=== PATIENT | male | born 1945 | race Caucasian/White ===

== ENCOUNTER 2017-06-10 06:20 | Emergency (ER) | payer MEDICARE, OTHER ==
[~2017-06-10] VITALS: Ht 170.2 cm; Wt 102.1 kg
[~2017-06-10 06:20] MED LIST: ACYCLOVIR800 MG PO; ALL DAY ALLERGY10 MG PO; ALLOPURINOL300 MG PO; AMLODIPINE BESYL5 MG PO; ASPIRIN EC81 MG PO; CENTRAVITES TA1 EACH PO; CHLORTHALIDONE25 MG PO; CLOBETASOL EMOL15 GM TOP; DAPSONE25 MG PO; DEXAMETHASONE4 MG PO; DULERA 200 MCG/13 GM INH; DULOXETINE HCL30 MG PO; ELIQUIS5 MG PO; FLOVENT DISKUS50 MCG INH; GAZYVA1000 MG/40 IV; GLUCOSAMINE-CH1 EA16 PO; HALOBETASOL PRO15 G2; KEFLEX500 MG PO; LEVALBUTEROL TA15 GM; LEVAQUIN500 MG PO; LEVAQUIN750 MG PO; LORATADINE10 MG PO; LOSARTAN POTASS50 MG PO; OMEPRAZOLE20 MG PO; ONDANSETRON ODT8 MG PO; PERCOCET 7.5-31 EACH PO; PROCHLORPERAZIN10 MG; RITUXAN100 MG/10 IV; ROZEREM8 MG PO; SYMBICORT 16010.2 GM INH; [UNRECOGNIZED DRUG - OTHER] PO; [UNRECOGNIZED DRUG - OTHER] PO
[2017-06-10] MEDS ORDERED: AUGMENTIN 875-1 EACH PO (08:31)
[2017-06-12] MEDS ORDERED: K-TAB ER20 MEQ PO (14:03)
== END 2017-06-10 08:45 | disposition home or self-care (01) ==
LOC: ED 06:20
PROC: 0W3Q7ZZ Control Bleeding in Respiratory Tract, Via Natural or Artificial Opening (ICD-10-PCS; principal; 2017-06-10)
DX: R04.0 Epistaxis (principal); D69.6 Thrombocytopenia, unspecified; Z85.72 Personal history of non-Hodgkin lymphomas; G62.9 Polyneuropathy, unspecified; Z87.891 Personal history of nicotine dependence; Z98.890 Other specified postprocedural states; Z79.899 Other long term (current) drug therapy; I10 Essential (primary) hypertension; Z79.52 Long term (current) use of systemic steroids
CPT/HCPCS: 30901; 71010; 80048; 80053; 82784; 83615; 85025; 86644; 86850; 86900; 86901; 86945; 99284; P9035

== ENCOUNTER 2017-07-29 11:41 | Emergency (ER) | payer MEDICARE, OTHER ==
[~2017-07-29] VITALS: Ht 170.2 cm; Wt 105.2 kg
--- OUTSIDE RECORDS SUMMARY | ~2017-07-29 | XMS | Encounter Summary ---
Demographics + + + | Address | [address] | | | [place] [address] | + + + | Home Phone | | + + + | Preferred Language | Unknown | + + + | Marital Status | | + + + | Roman Catholic Affiliation | LUT | + + + | Race | White | + + + | Ethnic Group | Not or | + + + Author + + + | Author | [facility] | + + + | Organization | [facility] | + + + | Address | Unknown | + + + | Phone | Unavailable | + + + Support +------+ + + + +-------+ | Name | Relationship | Address | Phone | +------+ + + + +-------+ ECON | [address] | | [place] | [address] | +------+ + + + +-------+ Care Team Providers + +------+-------+ | Care Director Business Development Name | Role | Phone | + +------+-------+ | Jamaal Rivera MD | PCP | tel | + +------+-------+ Reason for Visit +--------+ + | Reason | Comments | +--------+ + | Other | U/S guided biopsy of inguinal node | +--------+ + Encounter Details +--------+ + + + + | Date | Type | Department | Care Team | Description | +--------+ + + + + | 05/17/ | Telephone | Center for | Juana Morgan, | Other (U/S guided | | 2017 | | Hematologic | RN [address] | biopsy of inguinal | | | | Malignancies at | [address] | node) | | | | [facility] | [place], [place] | | | | | [address] | [address] | | | | | [facility] | [phone] | | | | | Mailcode: [id number] | | | | | | [facility] | | | | | | [place], [place] | | | | | | [address] | | | | | | [phone] | | | +--------+ + + + [...]
--- OUTSIDE RECORDS SUMMARY | ~2017-07-29 | XMS | Encounter Summary ---
Demographics + + + | Address | [address] | | | [place] [address] | + + + | Home Phone [...] Author + + + | Author | [facility] | + + + | Organization | [facility] | + + + | Address | Unknown | + + + | Phone | Unavailable | + + + Support +------+ + + + +-------+ | Name | Relationship | Address | Phone | +------+ + + + +-------+ ECON | [address] | | [place] | [address] | +------+ + + + +-------+ Care Team Providers + +------+-------+ | Care Hide Paster Name | Role | Phone | + +------+-------+ | Jamaal Rivera MD | PCP | tel | + +------+-------+ Encounter Details +--------+ + + + + | Date | Type | Department | Care Team | Description | +--------+ + + + + | 05/01/ | Mail Service Coordinator | Center for | Chad Lowe, | 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 | [address] | lymphoma, | | | | Malignancies at | [address] [place], [place] | unspecified body | | | | [place] | [address] | region ([facility]) | | | | [address] | [phone] | (Primary Dx) | | | | Amanda Bourgeois | | | | | | Mailcode: [id number] | | | | | | [address] | | | | | | [place], [place] | | | | | | [address] | | | | | | [phone] | | | +--------+ + + + [...] as of this encounter Plan of Treatment + +--------+ + + | Name | Priori | Associated Diagnoses | Order Schedule | | | ty | | | + +--------+ + + | 12 LEAD ECG | Routin | Diffuse large | Expected: 05/02/2017 | | | e | B-cell lymphoma, | (Approximate) | | | | unspecified body | | | | | region (HCC) | | + +--------+ + + as of this encounter Results JESSIKA RIVERA ONLY (05/02/2017 2:05 PM) + + + + | Component | Value | Ref Range | + + + + | COLOR(UR) | Yellow | | + + + + | APPEARANCE | Clear | | + + + + | GLUCOSE(UR) | Negative | Negative, 50.0 mg/dL | + + + + | PROTEIN(LAB) | Negative | Negative, 30.0 mg/dL | + + + + | BILIRUBIN | Negative | Negative | + + + + | UROBILINOGEN | <2.0 | <2.0 mg/dL | + + + + | PH(UR) | 5.0 | 5.0 - 8.0 | + + + + | BLOOD | Negative | Negative | + + + + | KETONES | Negative | Negative mg/dL | + + + + | NITRITES | Negative | Negative | + + + + | LEUKOCYTE ESTERASE | Trace (A) | Negative | + + + + | SPECIFIC GRAVITY | 1.010Comment: Specific Mercer performed by | 1.005 - 1.030 | | | refractometry | | + + + + + + + | Specimen | Performing Laboratory | + + + | Urine | [facility] [address] | | | [place] [address] | + + + FREE T4 (05/02/2017 8:10 AM) + +-------+ + | Component | Value | Ref Range | + +-------+ + | FREE T4 | 0.9 | 0.6 - 1.2 ng/dL | + +-------+ + + + + | Specimen | Performing Laboratory | + + + | Blood | [facility]ORE [address] [facility] [address] | | | [place] [address] | + + + T3 TOTAL, SERUM (05/02/2017 8:10 AM) + +-------+ + | Component | Value | Ref Range | + +-------+ + | T3, TOTAL | 114 | 87 - 196 ng/dL | + +-------+ + + + + | Specimen | Performing Laboratory | + + + | Blood | [facility] [address] [place], [place] | | | [address] | + + + IGA, SERUM (05/02/2017 8:10 AM) + +-------+ + | Component | Value | Ref Range | + +-------+ + | IGA SERUM | 264 | 70 - 400 mg/dL | + +-------+ + + + + | Specimen | Performing Laboratory | + + + | Blood | [facility] [address] [place], [place] | | | [address] | + + + IGG, SERUM (05/02/2017 8:10 AM) + +-------+ + | Component | Value | Ref Range | + +-------+ + | IGG SERUM | 928 | 700 - 1600 mg/dL | + +-------+ + + + + | Specimen | Performing Laboratory | + + + | Blood | [facility] [address] [place] [address] | | | [address] | + + + IGM, SERUM (05/02/2017 8:10 AM) + +--------+ + | Component | Value | Ref Range | + +--------+ + | IGM SERUM | 34 (L) | 40 - 230 mg/dL | + +--------+ + + + + | Specimen | Performing Laboratory | + + + | Blood | [facility] [place] [address] [place], [place] | | | [address] | + + + TSH (05/02/2017 8:10 AM) + +-------+ + | Component | Value | Ref Range | + +-------+ + | TSH | 1.87 | 0.47 - 7.11 mIU/L | + +-------+ + + + + | Specimen | Performing Laboratory | + + + | Blood | [facility] [address] [place] [address] | | | [place] [address] | + + + + + | Narrative | + + | TSH reference ranges are influenced by a variety of environmental influences, age, | | gender and ethnicity. The supplied reference limits are based on published values | | utilizing a similar TSH assay, and should be interpreted with caution. | + + C-REACTIVE PROTEIN (05/02/2017 8:10 AM) + +-------+ + | Component | Value | Ref Range | + +-------+ + | C-REACTIVE PROTEIN | 8.7 | <10.0 mg/L | + +-------+ + + + + | Specimen | Performing Laboratory | + + + | Blood | [facility] [address] [facility] [address] | | | [place] [address] | + + + + + | Narrative | + + | New method, new reference range and new reporting units as of 12/16/2013. | + + AMYLASE, PLASMA (05/02/2017 8:10 AM) + +-------+ + | Component | Value | Ref Range | + +-------+ + | AMYLASE,PLASMA | 25 | 25 - 115 U/L | + +-------+ + + + + | Specimen | Performing Laboratory | + + + | Blood | [facility], CORE [address] [facility] | | | [place] [address] | + + + LIPASE, PLASMA (05/02/2017 8:10 AM) + +---------+ + | Component | Value | Ref Range | + +---------+ + | LIPASE (LAB) | 108 (L) | 152 - 353 U/L | + +---------+ + + + + | Specimen | Performing Laboratory | + + + | Blood | [facility] [address] | | | [place] [address] | + + + in this encounter Visit Diagnoses + + | Diagnosis | + + | Diffuse large B-cell lymphoma, unspecified body region (HCC) - Primary | + +"
--- OUTSIDE RECORDS SUMMARY | ~2017-07-29 | XMS | Encounter Summary ---
Demographics + + + | Address | [address] | | | [place] [address] | + + + | Home Phone | | + + + | Preferred Language | Unknown | + + + | Marital Status | | + + + | Mormon Affiliation | LUT | + + + | Race | White | + + + | Ethnic Group | Not or | + + + Author + + + | Author | [facility] | + + + | Organization | [facility] | + + + | Address | Unknown | + + + | Phone | Unavailable | + + + Support +------+ + + + +-------+ | Name | Relationship | Address | Phone | +------+ + + + +-------+ ECON | [address] | | [place] | [address] | +------+ + + + +-------+ Care Team Providers + +------+-------+ | Care Javascript Application Developer Name | Role | Phone | + +------+-------+ | Jamaal Rivera MD | PCP | tel | + +------+-------+ Reason for Visit + + + | Reason | Comments | + + + | Research | | | Documentation | | + + + Encounter Details +--------+ + + + + | Date | Type | Department | Care Team | Description | +--------+ + + + + | 10/31/ | Documentati | Center for | Merry, Valeria, RN | Research | | 2017 | on | Hematologic | [address] | Documentation | | | | Malignancies at | [facility], | | | | | [facility] | [place] [address] | | | | | [address] | | | | | | [facility] | | | | | | Mailcode: [id number] | | | | | | [facility] | | | | | | [place], [place] | | | | | | [address] | | | | | | [phone] | | | +--------+ + + + [...]
--- OUTSIDE RECORDS SUMMARY | ~2017-07-29 | XMS | Encounter Summary ---
Demographics + + + | Address | [address] | | | [place] [address] | + + + | Home Phone | | + + + | Preferred Language | Unknown | + + + | Marital Status | | + + + | Confucianist Affiliation | LUT | + + + | Race | White | + + + | Ethnic Group | Not or | + + + Author + + + | Author | [facility] | + + + | Organization | [facility] | + + + | Address | Unknown | + + + | Phone | Unavailable | + + + Support +------+ + + + +-------+ | Name | Relationship | Address | Phone | +------+ + + + +-------+ ECON | [address] | | [place] | [address] | +------+ + + + +-------+ Care Team Providers + +------+-------+ | Care Chief Of Vital Statistics Name | Role | Phone | + +------+-------+ | Jamaal Rivera MD | PCP | tel | + +------+-------+ Reason for Visit + + + | Reason | Comments | + + + | Social Work Notes | | + + + Encounter Details +--------+ + + + + | Date | Type | Department | Care Team | Description | +--------+ + + + + | 05/29/ | Documentati | [facility] | Work, Social | Social Work Notes | | 2017 | on | Hematologic | | | | | | Malignancies at | | | | | | [place] | | | | | | [address] | | | | | | [facility] | | | | | | Mailcode: [id number] | | | | | | [address] | | | | | | [place], [place] | | | | | | [address] | | | | | | [phone] | | | +--------+ + + + [...]
--- OUTSIDE RECORDS SUMMARY | ~2017-07-29 | XMS | Encounter Summary ---
Demographics + + + | Address | [address] | | | [place] [address] | + + + | Home Phone | | + + + | Preferred Language | Unknown | + + + | Marital Status | | + + + | Amish Affiliation | LUT | + + + | Race | White | + + + | Ethnic Group | Not or | + + + Author + + + | Author | [facility] | + + + | Organization | [facility] | + + + | Address | Unknown | + + + | Phone | Unavailable | + + + Support +------+ + + + +-------+ | Name | Relationship | Address | Phone | +------+ + + + +-------+ ECON | [address] | | [place] | [address] | +------+ + + + +-------+ Care Team Providers + +------+-------+ | Care Communication Specialist Name | Role | Phone | + +------+-------+ | Jamaal Rivera MD | PCP | tel | + +------+-------+ Reason for Visit + + + | Reason | Comments | + + + | Research data | | | collection | | + + + Encounter Details +--------+ + + + + | Date | Type | Department | Care Team | Description | +--------+ + + + + | 05/15/ | Acupressurist | Center for | Chad Lowe, | 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 | MD [address] | lymphoma, | | | | Malignancies at | [address] [place], [place] | unspecified body | | | | [facility] | [address] | region (HCC) | | | | [address] | [phone] | (Primary Dx) | | | | [employer] [facility] | | | | | | Mailcode: [id number] | | | | | | [facility] | | | | | | [place], [place] | | | | | | [address] | | | | | | [phone] | | | +--------+ + + + [...] Treatment Not on fileas of this encounter Results RESEARCH TUMOR READING (05/14/2017) + + | Narrative | + + | Research Tumor Measurement Results 05/20/2017 Measurement Criteria: Cheson Baseline | | or Follow up: Follow Up Date: 05/14/2017 TARGET LESIONS # | | Target Lesions (Bi-dimensional): 5 LESION 1 NAME: Prevascular adenopathy | | Lesion 1 Size (mm) LD: 17 Lesion 1 Size (mm) SD: 16 Lesion 1 Series #: | | 1 Lesion 1 Image #: 43 Lesion 1 size product (SD x LD): 272 LESION 2 | | NAME: Inferior left paraesophageal adenopathy Lesion 2 Size (mm) LD: 16 | | Lesion 2 Size (mm) SD: 14 Lesion 2 Series #: 1 Lesion 2 Image #: 59 | | Lesion 2 size product (SD x LD): 224 LESION 3 NAME: Confluent mesenteric | | adenopathy Lesion 3 Size (mm) LD: 53 Lesion 3 Size (mm) SD: 32 | | Lesion 3 Series #: 1 Lesion 3 Image #: 140 Lesion 3 size product (SD x | | LD): 1696 LESION 4 NAME: Right inguinal adenopathy Lesion 4 Size (mm) | | LD: 46 Lesion 4 Size (mm) SD: 44 Lesion 4 Series #: 1 Lesion 4 | | Image #: 245 Lesion 4 size product (SD x LD): 2023 LESION 5 NAME: | | Superior left paraesophageal adenopathy Lesion 5 Size (mm) LD: 49 Lesion 5 | | Size (mm) SD: 44 Lesion 5 Series #: 1 Lesion 5 Image #: 42 Lesion 5 | | size product (SD x LD): 2156 NON-TARGET LESIONS # Non-Target | | Lesions: 0 NEW LESIONS New lesions? No | | SUMMARY Progression of Non-Target Lesions?: No Sum of Target Lesions | | bi-dimensional (mm): 6372 | + + in this encounter Visit Diagnoses + + | Diagnosis | + + | Diffuse large B-cell lymphoma, unspecified body region (HCC) - Primary | + +"
--- OUTSIDE RECORDS SUMMARY | ~2017-07-29 | XMS | Encounter Summary ---
Demographics + + + | Address | [address] | | | [place] [address] | + + + | Home Phone | | + + + | Preferred Language | Unknown | + + + | Marital Status | | + + + | Synagogue Affiliation | LUT | + + + [...] + + + +-------+ ECON | [address] | | [place] | [address] | +------+ + + + +-------+ Care Team Providers + +------+-------+ | Care Reject Opener And Filler Name | Role | Phone | + +------+-------+ | Jamaal Rivera MD | PCP | tel | + +------+-------+ Reason for Visit + + + | Reason | Comments | + + + | Research Study | | + + + Encounter Details +--------+ + + + + | Date | Type | Department | Care Team | Description | +--------+ + + + + | 05/29/ | Air Filler | Center for | Chad Lowe, | 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 | MD [address] | lymphoma of | | | | Malignancies at | [address] [place], [place] | intra-abdominal | | | | [facility] | [address] | lymph nodes (HCC) | | | | [address] | [phone] | (Primary Dx) | | | | [facility] | | | | | | Mailcode: [id number] | | | | | | [facility] | | | | | | [place], [place] | | | | | | [address] | | | | | | [phone] | | | +--------+ + + + [...] Not on fileas of this encounter Results 12 LEAD ECG (05/30/2017 11:24 AM) + + + + | Component | Value | Ref Range | + + + + | VENTRICULAR RATE | 82 | bpm | + + + + | ATRIAL RATE | 81 | ms | + + + + | P-R INTERVAL | 149 | ms | + + + + | P AXIS | 27 | deg | + + + + | QRS DURATION | 92 | ms | + + + + | QT | 389 | ms | + + + + | QTCB | 455 | ms | + + + + | R AXIS | -41 | deg | + + + + | T AXIS | 6 | deg | + + + + | ECG IMPRESSION | Sinus rhythm | | + + + + | ECG IMPRESSION | Atrial premature complex- OTHERWISE NORMAL | | | | ECG - | | + + + + | ECG IMPRESSION | Electronically signed by: JARROD RENE | | | | 05-31-2017 10:31:57 | | + + + + + + + | Specimen | Performing Laboratory | + + + | | [facility] [address] | | | [place] [address] | + + + JESSIKA RIVERA (05/30/2017 11:00 AM) + + + + | Component | Value | Ref Range | + + + + | COLOR(UR) | Straw | | + + + + | [...] + + + | SPECIFIC GRAVITY | 1.004 (L)Comment: Specific [place] | 1.005 - 1.030 | | | performed by refractometry | | + + + + + + + | Specimen | Performing Laboratory | + + + | Urine | [facility], CORE [address] [facility] | | | [place] [address] | + + + FREE T4 (05/30/2017 10:59 AM) + +-------+ + | Component | Value | Ref Range | + +-------+ + | FREE T4 | 1.0 | 0.6 - 1.2 ng/dL | + +-------+ + + + + | Specimen | Performing Laboratory | + + + | Blood | [facility], CORE [address] [place] [address] | | | [place] [address] | + + + T3 TOTAL, SERUM (05/30/2017 10:59 AM) + +-------+ + | Component | Value | Ref Range | + +-------+ + | T3, TOTAL | 114 | 87 - 196 ng/dL | + +-------+ + + + + | Specimen | Performing Laboratory | + + + | Blood | [facility] [address] [place], [place] | | | [address] | + + + PROTEIN C ACTIVITY REFLEX INR, PLASMA (05/30/2017 10:59 AM) + + + + | Component | Value | Ref Range | + + + + | PROTEIN C ACTIVITY | 0.69 (L) | 0.82 - 1.54 U/mL | + + + + + + + | Specimen | Performing Laboratory | + + + | Blood | [facility] + COAG [address] | | | [place] [address] | + + + + + | Narrative | + + | Non-coumarin anticoagulants may falsely elevate Protein C values, even when | | the concurrent PTT is normal. | + + LIPASE, PLASMA (05/30/2017 10:59 AM) + +--------+ + | Component | Value | Ref Range | + +--------+ + | LIPASE (LAB) | 97 (L) | 152 - 353 U/L | + +--------+ + + + + | Specimen | Performing Laboratory | + + + | Blood | [facility], CORE [address] [place] [address] | | | [place] [address] | + + + AMYLASE, PLASMA (05/30/2017 10:59 AM) + +--------+ + | Component | Value | Ref Range | + +--------+ + | AMYLASE,PLASMA | 23 (L) | 25 - 115 U/L | + +--------+ + + + + | Specimen | Performing Laboratory | + + + | Blood | [facility], [facility] [address] [facility] | | | [place] [address] | + + + TSH (05/30/2017 10:59 AM) + +-------+ + | Component | Value | Ref Range | + +-------+ + | TSH | 1.29 | 0.47 - 7.11 mIU/L | + +-------+ + + + + | Specimen | Performing Laboratory | + + + | Blood | [facility], [facility]ORE [address] [place] [address] | | | [place] [address] | + + + + + | Narrative | + + | TSH reference ranges are influenced by a variety of environmental influences, age, | | gender and ethnicity. The supplied reference limits are based on published values | | utilizing a similar TSH assay, and should be interpreted with caution. 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
--- OUTSIDE RECORDS SUMMARY | ~2017-07-29 | XMS | Encounter Summary ---
Demographics + + + | Address | [address] | | | [place] [address] | + + + | Home Phone | | + + + | Preferred Language | Unknown | + + + | Marital Status | | + + + | Druze Affiliation | LUT | + + + | Race | White | + + + | Ethnic Group | Not or | + + + Author + + + | Author | [facility] | + + + | Organization | [facility] | + + + | Address | Unknown | + + + | Phone | Unavailable | + + + Support +------+ + + + +-------+ | Name | Relationship | Address | Phone | +------+ + + + +-------+ ECON | [address] | | [place] | [address] | +------+ + + + +-------+ Care Team Providers + +------+-------+ | Care Gluer Machine Setup Operator Name | Role | Phone | [...] | | | | | [id number] | [facility] | | | | | | [facility] | | | | | | Pavilion | [place], [place] | | | | | | [place], [place] | [address] | | | | | | [address] | Phone: | | | | | | Phone: | [phone] | | | | | | [phone] | Fax: | | | | | | Fax: | [phone] | | | | | | [phone] | | +--------+--------+ + + + + Encounter Details +--------+---------+ + + + | Date | Type | Department | Care Team | Description | +--------+---------+ + + + | 05/30/ | Office | Center for | Dunia Joseph MD | Diffuse large B-cell | | 2017 | Visit | Hematologic | [address] [facility] | lymphoma of | | | | Malignancies at | [facility] | intra-abdominal | | | | [facility] | [place], [place] | lymph nodes (HCC) | | | | [address] [facility] | [address] | (Primary Dx) | | | | [address] | [phone] | | | | | Mailcode: [id number] | | | | | | [facility] | | | | | | [place], [place] | | | | | | [address] | | | | | | [phone] | | | +--------+---------+ + + + [...] urmila original. [facility] 05/30/17 Reason for visit: Consultation is requested by Dr. Chad Lowe, with whom recommendati ons will be [...] (discussed below). Patients must stay in the [place] area f or 30 days after the [...] and running. We are wo rking with [place] and are in the final stages of [...] a num emily of clinical trials in [place] that he can consider. 2. Infectious Prophylaxis: [...] discussion of treatment options. 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
--- OUTSIDE RECORDS SUMMARY | ~2017-07-29 | XMS | Encounter Summary ---
Demographics + + + | Address | [address] | | | [place] [address] | + + + | Home Phone | | + + + | Preferred Language | Unknown | + + + | Marital Status | | + + + | Mandaen Affiliation | LUT | + + + | Race | White | + + + | Ethnic Group | Not or | + + + Author + + + | Author | [facility] | + + + | Organization | [facility] | + + + | Address | Unknown | + + + | Phone | Unavailable | + + + Support +------+ + + + +-------+ | Name | Relationship | Address | Phone | +------+ + + + +-------+ ECON | [address] | | [place] | [address] | +------+ + + + +-------+ Care Team Providers + +------+-------+ | Care Tile Burner Name | Role | Phone | + +------+-------+ | Jamaal Rivera MD | PCP | tel | + +------+-------+ Encounter Details +--------+ + + + + | Date | Type | Department | Care Team | Description | +--------+ + + + + | 05/23/ | Postal Supervisor | Center for | Chad Lowe, | Dermatitis | | 2017 | | Hematologic | [address] | | | | | Malignancies at | [address] [place], [place] | | | | | [facility] | [address] | | | | | [address] | [phone] | | | | | [facility] | | | | | | Mailcode: [id number] | | | | | | [address] | | | | | | [place], [place] | | | | | | [address] | | | | | | [phone] | | | +--------+ + + + [...]
--- OUTSIDE RECORDS SUMMARY | ~2017-07-29 | XMS | Encounter Summary ---
Demographics + + + | Address | [address] | | | [place] [address] | + + + | Home Phone | | + + + | Preferred Language | Unknown | + + + | Marital Status | | + + + | Confucianist Affiliation | LUT | + + + | Race | White | + + + | Ethnic Group | Not or | + + + Author + + + | Author | [facility] | + + + | Organization | [facility] | + + + | Address | Unknown | + + + | Phone | Unavailable | + + + Support +------+ + + + +-------+ | Name | Relationship | Address | Phone | +------+ + + + +-------+ ECON | [address] | | [place] | [address] | +------+ + + + +-------+ Care Team Providers + +------+-------+ | Care Assisted Living Administrator Name | Role | Phone | + +------+-------+ | Jamaal Rivera MD | PCP | tel | + +------+-------+ Reason for Visit + + + | Reason | Comments | + + + | Lab Draw | Port, study labs and SOC and beacon | + + + | Chemotherapy | R-gdp | + + + | Follow-up visit | | + + + Chemotherapy (Routine) + +--------+ + + + + | Status | Reason | Specialty | Diagnoses / | Referred By | Referred To | | | | | Procedures | Contact | Contact | + +--------+ + + + + | Authorized | | Hematology | Diagnoses | Chm | Chrissy, | | | | Malignancy | Diffuse | [facility] | MD Chad | | | | | large B-cell | [address] | [address] | | | | | lymphoma, | [address] | [address] | | | | | unspecified | [address] | [place], [place] | | | | | site | Mailcode: | [id number] | | | | | Procedures | [id number] | Phone: | | | | | [place] RITUXIMAB | [facility] | [phone] | | | | | INJ, 100 MG | Pavilion | Fax: | | | | | SD | [place], [place] | [phone] | | | | | GEMCITABINE | [address] | | | | | | HCL, 200 MG | Phone: | | | | | | SD | [phone] | | | | | | DEXAMETHASON | Fax: | | | | | | E SODIUM | [phone] | | | | | | PHOSPHATE, | | | | | | | 1MG SD | | | | | | | CISPLATIN 10 | | | | | | | MG | | | | | | | INJECTION | | | | | | | SD CHM,IV | | | | | | | INFSN,1 HR | | | | | | | SD CHM,IV | | | | | | | INFSN,ADDL | | | | | | | HR SD CHM | | | | | | | IV INFS EA | | | | | | | ADDL SQ | | | | | | | (R-GDP) | | | | | | | RITUXimab + | | | | | | | Gemcitabine | | | | | | | + | | | | | | | Dexamethason | | | | | | | e + | | | | | | | CISplatin | | | + +--------+ + + + + Encounter Details +--------+ + + + + | Date | Type | Department | Care Team | Description | +--------+ + + + + | 05/30/ | Hospital | [facility] | | | | 2016 | Encounter | Hematologic | | | | | | Malign[facility] at [facility] | | | | | | [address] | | | | | | [facility] | | | | | | Mailcode: [id number] | | | | | | [address] | | | | | | [place], [place] | | | | | | [address] | | | | | | [phone] | | | +--------+ + + + [...] + + + | Blood Pressure | 136/88 | 05/30/2017 5:05 PM PST | + + + + | Pulse | 75 | 05/30/2017 5:05 PM PST | + + + + | Temperature | 36.4 C (97.5 F) | 05/30/2017 5:05 PM PST | + + + + | Respiratory Rate | 18 | 05/30/2017 5:05 PM PST | + + + + | [...] + + + + in this encounter Medications at Time of Discharge + + + +---------+ + + | Medication | Sig. | Disp. | Refills | Start | End Date | | | | | | Date | | + + + +---------+ + + | acyclovir 800 mg | Take 1 tablet by | 90 | 3 | 12/20/19 | | | oral | mouth once daily. | tablet | | 17 | | | tabletIndications: | | | | | | | DLBCL (diffuse large | | | | | | | B cell lymphoma) | | | | | | | (HCC) | | | | | | + + + +---------+ + + | allopurinol 300 mg | Take 1 tablet by | 30 | 0 | 05/24/20 | | | oral | mouth once daily. | tablet | | 17 | | | tabletIndications: | | | | | | | Diffuse large B-cell | | | | | | | lymphoma of | | | | | | | intra-abdominal | | | | | | | lymph nodes (HCC) | | | | | | + + + +---------+ + + | apixaban 5 mg oral | Take 2 tablets (10 | 120 | 3 | 05/15/20 | | | tabletIndications: | mg) by mouth twice a | tablet | | 17 | | | pulmonary | day for 7 days, | | | | | | thromboembolism | then take 1 tablet | | | | | | | (5 mg) twice a day. | | | | | | | Indications: | | | | | | | pulmonary | | | | | | | thromboembolism | | | | | + + + +---------+ + + | | Inhale 2 puffs by | 1 | 0 | 04/26/20 | | | budesonide-formotero | mouth two times | Inhaler | | 17 | | | l 160-4.5 | daily. Indications: | | | | | | mcg/actuation | Prevention of | | | | | | inhalation HFA | Bronchospasm with | | | | | | aerosol | Chronic Bronchitis | | | | | | inhalerIndications: | | | | | | | Prevention of | | | | | | | Bronchospasm with | | | | | | | Chronic Bronchitis | | | | | | + + + +---------+ + + | cetirizine 10 mg | Take 1 tablet by | 30 | 0 | 03/20/20 | | | oral tablet | mouth once daily. | tablet | | 17 | | + + + +---------+ + + | clobetasol 0.05 % | Apply to scalp twice | 50 mL | 2 | 01/18/20 | | | scalp solution | daily | | | 17 | | + + + +---------+ + + | clobetasol 0.05 % | Apply to affected | 15 g | 5 | 05/23/20 | | | topical ointment | area two times | | | 17 | | | | daily. | | | | | + + + +---------+ + + | dapsone 25 mg oral | Take 25 mg by mouth | | | 04/25/20 | | | tabletIndications: | two times daily. | | | 17 | | | dermatologic | Indications: skin | | | | | | | infection | | | | | + + + +---------+ + + | dexamethasone 4 mg | Take 10 tablets by | 30 | 0 | 05/30/20 | | | oral | mouth once daily On | tablet | | 17 | | | tabletIndications: | days 2-4 of the | | | | | | Diffuse Large B-Cell | cycle (05/31, 06/01, | | | | | | Lymphoma | 06/02) only. | | | | | + + + +---------+ + + | DULoxetine 30 mg | Take 1 capsule by | 30 | 3 | 03/25/20 | | | oral capsule,delayed | mouth once daily. 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 | | | | | | cations: Allergic | Indications: | | | | | | Rhinitis | Allergic Rhinitis | | | | | + + + +---------+ + + | halobetasol 0.05 % | Large pt with full | 250 g | 2 | 01/18/20 | | | topical ointment | body severe rash. | | | 17 | | | | 250 g for 30 day | | | | | | | supply. | | | | | + + + +---------+ + + | levalbuterol 45 | 1-2 puffs every 4-6 | 1 | 3 | 03/20/20 | | | mcg/actuation | hours as needed. | Inhaler | | 17 | | | inhalation HFA | Indications: | | | | | | aerosol | Bronchospasm | | | | | | inhalerIndications: | Prevention | | | | | | Bronchospasm | | | | | | | Prevention | | | | | | + + + +---------+ + + | omeprazole 40 mg | Take 20 mg by mouth | | | 03/20/20 | | | oral capsule,delayed | once daily. | | | 17 | | | | Indications: | | | | | | release(DR/EC)Indica | gastroesophageal | | | | | | tions: | reflux disease | | | | | | gastroesophageal | | | | | | | reflux disease | | | | | | + + + +---------+ + + | ondansetron 8 mg | as needed. | | | 03/19/20 | | | oral tablet | | | | 17 | | + + + +---------+ + + | predniSONE 20 mg | Take 1 tablet by | 10 | 2 | 03/21/20 | | | oral | mouth once daily. X | tablet | | 17 | | | tabletIndications: | 5 days Indications: | | | | | | hypersensitivity | hypersensitivity | | | | | | drug reaction | drug reaction | | | | | + + + +---------+ + + | prochlorperazine | Take 0.5 tablets by | 60 | 5 | 05/30/20 | | | 10 mg oral | mouth every six | tablet | | 17 | | | tabletIndications: | hours as needed for | | | | | | Nausea and Vomiting, | nausea/vomiting Take | | | | | | Prevention of | 5mg-10mg as needed. | | | | | | Chemotherapy-Induced | Max dose: 40 mg/day | | | | | | Nausea and Vomiting | | | | | | + + + +---------+ + + | ramelteon | Take 1 tablet by | 30 | 1 | 10/24/19 | | | (ROZEREM) 8 mg oral | mouth once daily at | tablet | | 17 | | | tabletIndications: | bedtime as needed | | | | | | Restless leg | for sleep. Take 30 | | | | | | | minutes before | | | | | | | bedtime. | | | | | | | Indications: | | | | | | | Restless leg | | | | | + + + +---------+ + + | triamcinolone | Apply to affected | 453.6 g | 11 | 05/23/20 | | | acetonide 0.1 % | area two times | | | 17 | | | topical | daily. Apply thin | | | | | | creamIndications: | film to affected | | | | | | Dermatitis | areas. | | | | | + + + +---------+ + + as of this encounter Progress Notes Deisy Azar RN - 05/30/2017 9:57 AM PSTPatient tolerated remaining infusion without incid ent. Port was flushed with 20 mL NS and 5 mL of 100 units/mL heparin. Needle was removed intact and site free of redness, pain or swelling. Site covered with a band-aid. Patient and r eport that they do have the after hours numbers. They were encouraged to call with uncontrol led N/V/D/C, SOB, shaking chills or temp > 100.4. Patient was d/c'd ambulatory with his . SIN Iglesias Jeannie, RN - 05/30/2017 9:57 AM PSTFormatting of this note may be different fro m the original. Chemotherapy Nurse Note Name: Hunter Alas Date: 05/30/2017 Physician: Chrissy Allergies: Hunter has No Known Allergies. Pre-Chemotherapy Pain Score: Patient reports a pain level of 0 today. Nursing Assessment: Fever: no; Diarrhea: no; SOB / Cough: no; Nausea / Vomiting: no; Anemia / Fatigue: yes - al ways; Constipation: no; Edema: yes - hands swollen, red, peeling; S/S Bleeding: no; Mucositi s: no; Urinary: no; Neuropathy: no; Rash: yes - undersides of arms, top of head, peeling abigail ls. Single lumen PAC intact to right anterior chest wall. No surrounding erythema or induratio n. Using sterile technique, site cleansed with Chloraprep. Port was accessed with a 20 gau ge 3/4 inch Power Loc batista needle without difficulty. Good blood return noted and 5 mL was discarded. Study labs, SOC and [place] labs drawn and sent. PAC flushed with 20 mL NS. Dwaine kolb tolerated procedure well. Labs: Lab Results Component Value Date WBC 6.4 05/30/2017 HB 14.0 05/30/2017 HCT 41.7 05/30/2017 PLT 185 05/30/2017 BUN 11 05/30/2017 CR 1.0 05/30/2017 OK to give For Treatment Done in Clinic Today: see MAR Narrative: Patient arrives with For INV Day 1 Cycle 1 R-GDP and study labs. He has an appointment with Dr. Richard concerning T-cells. Labs resulted and patient meets parameters for chemo. VO per Dr. Lowe/Ok to give. One liter NS given over one hour as pr-hydration. Tylenol 650 mg PO, 50 mg IV Benadryl, 8 m g IV Zofran, 40 mg IV Decadron and 150 mg IV Emend given Chemotherapy was checked by 2 RNs. Rituxan was infused per chemotherapy protocol and compl eted without adverse event. Positive blood return noted pre and post infusion. For infusio n details, see MAR. Chemotherapy was checked by 2 RNs. Gemcitibine was infused per chemotherapy protocol and c ompleted without adverse event. Positive blood return noted pre and post infusion. For inf usion details, see MAR. Chemotherapy was checked by 2 RNs. Cisplat was infused per chemotherapy protocol and compl eted without adverse event. Positive blood return noted pre and post infusion. For infusio n details, see MAR. Post-hydration One liter NS given at 500 mls/hour during the Cisplat (with OK of Rosalba, Ph arm-d) and then rate increased to 999ml/hour for the final 500 mls by Velvet VOGT who took over care at 1800. Assessment: Tolerated procedure IGG dated 05-16 on hold. Patient instructed to increase fluid intake and to void often in e next 24-48 hours. PAC flushed with 20 mL NS and 5 mL of 100 unit/mL heparin per protocol then deaccessed by Kameron Hansen RN in this encounter Plan of Treatment Not on fileas of this encounter Results CMP, POC (BMP+LFT) (05/30/2017 11:26 AM) + +-------+ + | Component | Value | Ref Range | + +-------+ + | SODIUM, POC | 137 | 134 - 143 mmol/L | + +-------+ + | POTASSIUM, POC | 4.0 | 3.4 - 5.0 mmol/L | + +-------+ + | TOTAL CO2, POC | 27 | 22 - 29 mmol/L | + +-------+ + | CHLORIDE, POC | 99 | 97 - 108 mmol/L | + +-------+ + | GLUCOSE, POC | 99 | 70 - 99 mg/dL | + +-------+ + | CALCIUM TOTAL, POC | 9.3 | 8.6 - 10.2 mg/dL | + +-------+ + | BUN, POC | 11 | 6 - 20 mg/dL | + +-------+ + | CREATININE, POC | 1.0 | 0.7 - 1.3 mg/dL | + +-------+ + | ALK PHOS, CMP POC | 50 | 43 - 92 U/L | + +-------+ + | ALT, CMP POC | 32 | 0 - 60 U/L | + +-------+ + | AST, CMP POC | 38 | 0 - 41 U/L | + +-------+ + | BILIRUBIN TOTAL, CMP | 0.9 | 0.3 - 1.2 mg/dL | | POC | | | + +-------+ + | ALBUMIN, CMP POC | 3.9 | 3.5 - 4.7 g/dL | + +-------+ + | PROTEIN TOTAL, CMP | 6.6 | 6.1 - 7.9 g/dL | | POC | | | + +-------+ + + + + | Specimen | Performing Laboratory | + + + | Blood | [facility], POINT OF CARE TESTS [address] | | | [place] [address] | + + + CBC+DIFF,POC (05/30/2017 11:25 AM) + + + + | Component | Value | Ref Range | + + + + | WBC POC | 6.4 | 3.5 - 10.8 10*3/uL | + + + + | RBC POC | 4.12 (L) | 4.50 - 6.00 10*6/uL | + + + + | HGB POC | 14.0 | 13.5 - 17.5 g/dL | + + + + | HCT POC | 41.7 | 41.0 - 53.0 % | + + + + | MCV POC | 101.2 (H) | 80.0 - 96.0 fL | + + + + | MCH POC | 34.0 (H) | 28.5 - 32.3 pg | + + + + | MCHC POC | 33.6 | 33.0 - 35.5 g/dL | + + + + | RDW SD, POC | 49.8 (H) | 35.1 - 46.3 fL | + + + + | PLT POC | 185 | 150 - 400 10*3/uL | + + + + | MPV POC | 9.9 | 9.7 - 12.3 fL | + + + + | NEUTROPHIL% POC | 65.0 | 50.0 - 70.0 % | + + + + | LYMPH% POC | 16.1 (L) | 18 - 42 % | + + + + | MONO %, POC | 14.3 (H) | 3.5 - 9.0 % | + + + + | EOS %, POC | 3.3 (H) | 1.0 - 3.0 % | + + + + | BASO %, POC | 1.3 | 0.0 - 2.0 % | + + + + | NEUTROPHIL# POC | 4.1 | 1.8 - 7.7 10*3/uL | + + + + | LYMPH# POC | 1.0 | 1.0 - 4.8 10*3/uL | + + + + | MONO #, POC | 0.9 (H) | 0.1 - 0.9 10*3/uL | + + + + | EOS #, POC | 0.2 | 0.0 - 0.5 10*3/uL | + + + + | BASO #, POC | 0.1 | 0.0 - 0.1 10*3/uL | + + + + + + + | Specimen | Performing Laboratory | + + + | Blood | [facility], POINT OF CARE TESTS [address] | | | [place] [address] | + + + 12 LEAD ECG (05/30/2017 11:24 AM) + [...] Laboratory | + + + | | [facility] [address] [place] [address] | | | [place] [address] | + + + LDH TOTAL (05/30/2017 11:00 AM) + + + | Specimen | Performing Laboratory | + + + | Blood | | + + + + + | Narrative | + + | The following orders were created for panel order LDH TOTAL. | | Procedure | | Abnormality Status | | --------- | | ------ LDH TOTAL, | | PLASMA[[id number]] Abnormal Final | | result Please view results for these tests on the | | individual orders. | + + MAGNESIUM, PLASMA (05/30/2017 11:00 AM) + + + | Specimen | Performing Laboratory | + + + | Blood | | + + + + + | Narrative | + + | The following orders were created for panel order MAGNESIUM, PLASMA. | | Procedure | | Abnormality Status | | --------- | | ------ MAGNESIUM, | | PLASMA[[id number]] Normal Final | | result Please view results for these tests on the | | individual orders. | + + LDH TOTAL, PLASMA (05/30/2017 11:00 AM) + +---------+ + | Component | Value | Ref Range | + +---------+ + | LD TOTAL, PLASMA | 254 (H) | <=250 U/L | + +---------+ + | LD CMNT | No Hemo | | + +---------+ + + + + | Specimen | Performing Laboratory | + + + | Blood | [facility], CORE [address] | | | [place], [place] [address] | + + + MAGNESIUM, PLASMA (05/30/2017 11:00 AM) + +-------+ + | Component | Value | Ref Range | + +-------+ + | MAGNESIUM,PLASMA | 2.2 | 1.6 - 2.6 mg/dL | + +-------+ + + + + | Specimen | Performing Laboratory | + + + | Blood | [facility], CORE [address] [place] [address] | | | [place] [address] | + + + + + | Narrative | + + | Reference range change effective 02/26/17. | + + UA, DIPSTICK ONLY (05/30/2017 11:00 AM) + + + + [...] | SPECIFIC GRAVITY | 1.004 (L)Comment: Specific [place] | 1.005 - 1.030 | | | performed by refractometry | | + + + + + + + | Specimen | Performing Laboratory | + + + | Urine | [facility], CORE [address] | | | [place] [address] | + + + INR (05/30/2017 10:59 AM) + + + + | Component | Value | Ref Range | + + + + | INR | 1.38 (H) | 0.90 - 1.20 INR | + + + + + + + | Specimen | Performing Laboratory | + + + | Blood | [facility], CORE [address] | | | [place] [address] | + + + + + | Narrative | + + | INR Therapeutic ranges for full anticoagulation: INR for Venous | | Thromboembolism (2.0 - 3.0) INR INR for most patients with | | mech. valves (2.5 - 3.5) INR | + + FREE T4 (05/30/2017 10:59 AM) + +-------+ + | Component | Value | Ref Range | + +-------+ + | FREE T4 | 1.0 | 0.6 - 1.2 ng/dL | + +-------+ + + + + | Specimen | Performing Laboratory | + + + | Blood | [facility], CORE [address] | | | [place], [place] [address] | + + + T3 TOTAL, SERUM (05/30/2017 10:59 AM) + +-------+ + | Component | Value | Ref Range | + +-------+ + | T3, TOTAL | 114 | 87 - 196 ng/dL | + +-------+ + + + + | Specimen | Performing Laboratory | + + + | Blood | [facility] [address] [place], [place] | | | [address] | + + + PROTEIN C ACTIVITY REFLEX INR, PLASMA (05/30/2017 10:59 AM) + + + + | Component | Value | Ref Range | + + + + | PROTEIN C ACTIVITY | 0.69 (L) | 0.82 - 1.54 U/mL | + + + + + + + | Specimen | Performing Laboratory | + + + | Blood | [facility], SPECIAL IMM + COAG [address] | | | [place] [address] | + + + + + | [...] | + + + | Blood | [facility], CORE [address] | | | [facility] [place] [place] [address] | + + + AMYLASE, PLASMA (05/30/2017 10:59 AM) + +--------+ + | Component | Value | Ref Range | + +--------+ + | AMYLASE,PLASMA | 23 (L) | 25 - 115 U/L | + +--------+ + + + + | Specimen | Performing Laboratory | + + + | Blood | [facility], CORE [address] [place] [address] | | | [place] [address] | + + + TSH (05/30/2017 10:59 AM) + +-------+ + | Component | Value | Ref Range | + +-------+ + | TSH | 1.29 | 0.47 - 7.11 mIU/L | + +-------+ + + + + | Specimen | Performing Laboratory | + + + | Blood | [facility], CORE [address] [place] [address] | | | [place] [address] | + + + + + | [...] 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) | + + | Other malignant lymphomas of intra-abdominal lymph nodes | + + | Diffuse large B-cell lymphoma, unspecified body region (HCC) | + + Administered Medications + +--------+ +--------+------+------+ | Medication Order | MAR | Action | Dose | Rate | Site | | | Action | Date | | | | + +--------+ +--------+------+------+ | acetaminophen (TYLENOL) tablet | Given | 05/30/20 | 650 mg | | | | 650 mg 650 mg, oral, ONCE, 1 | | 17 12:07 | | | | | dose, [facility] 05/30/17 at 1200 | | PST | | | | + +--------+ +--------+------+------+ +---+---+ | | | +---+---+ + +---------+ +--------+-------+---+ | CISplatin (PLATINOL) 75 mg/m2 = | New Bag | 05/30/20 | 170 mg | 500 | | | 170 mg in NaCl 0.9 % IV 170 mg | | 17 17:48 | | mL/hr | | | (rounded from 170.25 mg = 75 | | PST | | | | | mg/m2 | | | | | | | 2.27 m2 Treatment plan recorded | | | | | | | BSA), intravenous, Administer | | | | | | | over 1 Hours, ONCE, 1 dose, [facility] | | | | | | | 05/30/17 at 1230, HIGH RISK | | | | | | | MEDICATION-CHEMOTHERAPY | | | | | | | Warning: Vascular irritant, large | | | | | | | extravasation volumes or more | | | | | | | concentrated solutions (4 mg/mL) | | | | | | | may have vesicant activity. | | | | | | + +---------+ +--------+-------+---+ +---+---+ | | | +---+---+ + +---------+ +-------+---+---+ | dexamethasone (DECADRON) 40 mg | New Bag | 05/30/20 | 40 mg | | | | in NaCl 0.9 % IV 40 mg, | | 17 12:44 | | | | | intravenous, ONCE, 1 dose, [facility] | | PST | | | | | 05/30/17 at 1200 | | | | | | + +---------+ +-------+---+---+ +---+---+ | | | +---+---+ + +-------+ +-------+---+---+ | diphenhydrAMINE (BENADRYL) | Given | 05/30/20 | 50 mg | | | | injection 50 mg 50 mg, | | 17 12:07 | | | | | intravenous, ONCE, 1 dose, [facility] | | PST | | | | | 05/30/17 at 1200 | | | | | | + +-------+ +-------+---+---+ +---+---+ | | | +---+---+ + +---------+ +--------+-------+---+ | fosaprepitant (EMEND) 150 mg in | New Bag | 05/30/20 | 150 mg | 500 | | | NaCl 0.9 % IV 150 mg, | | 17 13:05 | | mL/hr | | | intravenous, Administer over 30 | | PST | | | | | Minutes, ONCE, 1 dose, [facility] | | | | | | | 05/30/17 at 1200, Administer 30 | | | | | | | minutes pre-chemo. | | | | | | + +---------+ +--------+-------+---+ +---+---+ | | | +---+---+ + +---------+ + +---------+---+ | gemcitabine 2,200 mg in NaCl | New Bag | 05/30/20 | 2,200 mg | 615.79 | | | 0.9 % IV 2,200 mg (rounded from | | 17 17:10 | | mL/hr | | | 2,270 mg = 1,000 mg/m2 | | PST | | | | | 2.27 m2 Treatment plan recorded | | | | | | | BSA), intravenous, Administer | | | | | | | over 30 Minutes, ONCE, 1 dose, | | | | | | | [facility] 05/30/17 at 1200, HIGH | | | | | | | ALERT MEDICATION-CHEMOTHERAPY | | | | | | | Irritant. May run 500 mL NS to | | | | | | | decrease vein discomfort. | | | | | | + +---------+ + +---------+---+ +---+---+ | | | +---+---+ + +-------+ +-------+---+---+ | heparin 100 unit/mL IV flush | Given | 05/30/20 | 500 | | | | 500 Units 500 Units, | | 17 17:49 | Units | | | | Intracatheter, NEEDED, | | PST | | | | | Starting [facility] 05/30/17 at 1728, | | | | | | | Until 05/31/17 at 0132, | | | | | | | deaccessing line/port | | | | | | + +-------+ +-------+---+---+ +-------+ +-------+---+---+ | Given | 05/30/20 | 500 | | | | | 17 19:20 | Units | | | | | PST | | | | +-------+ +-------+---+---+ +---+---+ | | | +---+---+ + +-------+ +------+---+---+ | ondansetron (ZOFRAN) injection | Given | 05/30/20 | 8 mg | | | | 8 mg 8 mg, intravenous, ONCE, 1 | | 17 12:12 | | | | | dose, [facility] 05/30/17 at 1200 | | PST | | | | + +-------+ +------+---+---+ +---+---+ | | | +---+---+ + +---------+ +--------+---+---+ | riTUXimab (RITUXAN) 900 mg in | New Bag | 05/30/20 | 900 mg | | | | NaCl 0.9 % IV (STANDARD) 900 mg, | | 17 13:40 | | | | | intravenous, ONCE, 1 dose, [facility] | | PST | | | | | 05/30/17 at 1200 | | | | | | + +---------+ +--------+---+---+ +---+---+ | | | +---+---+ + +---------+ + +---+---+ | sodium chloride 0.9% IV | New Bag | 05/30/20 | 1,000 mL | | | | infusion 1,000 mL, intravenous, | | 17 12:05 | | | | | ONCE, 1 dose, [facility] 05/30/17 at | | PST | | | | | 1200 | | | | | | + +---------+ + +---+---+ +---+---+ | | | +---+---+ + +---------+ + +-------+---+ | sodium chloride 0.9% IV | New Bag | 05/30/20 | 1,000 mL | 500 | | | infusion 1,000 mL, intravenous, | | 17 17:49 | | mL/hr | | | ONCE, 1 dose, [facility] 05/30/17 at | | PST | | | | | 1200 | | | | | | + +---------+ + +-------+---+ +---+---+ | | | +---+---+ in this encounter"
--- OUTSIDE RECORDS SUMMARY | ~2017-07-29 | XMS | Encounter Summary ---
Demographics + + + | Address | [address] | | | [place] [address] | + + + | Home Phone | | + + + | Preferred Language | Unknown | + + + | Marital Status | | + + + | Sikh Affiliation | LUT | + + + | Race | White | + + + | Ethnic Group | Not or | + + + Author + + + | Author | [facility] | + + + | Organization | [facility] | + + + | Address | Unknown | + + + | Phone | Unavailable | + + + Support +------+ + + + +-------+ | Name | Relationship | Address | Phone | +------+ + + + +-------+ ECON | [address] | | [place] | [address] | +------+ + + + +-------+ Care Team Providers + +------+-------+ | Care Financial Officer Name | Role | Phone | + +------+-------+ | Jamaal Rivera MD | PCP | tel | + +------+-------+ Reason for Referral Diagnostic Testing (Routine) +--------+--------+ + + + + | Status | Reason | Specialty | Diagnoses / | Referred By | Referred To | | | | | Procedures | Contact | Contact | +--------+--------+ + + + + | Closed | | Radiology | Diagnoses | Chrissy | [address] Scan | | | | | Diffuse | MD Chad | [facility] [address] | | | | | large B-cell | [address] | [address] | | | | | lymphoma, | [address] | Mailcode: | | | | | unspecified | [place], [place] | [address] | | | | | body region | [address] | for Health | | | | | (HCC) | Phone: | and Healing, | | | | | Procedures | [phone] | 3rd Floor | | | | | CT CHEST, | Fax: | [place], [place] | | | | | ABDOMEN AND | [phone] | [address] | | | | | PELVIS W IV | | Phone: | | | | | CONTRAST GA | | [phone] | | | | | CAT SCAN OF | | Fax: | | | | | CHEST | | [phone] | | | | | CONTRAST GA | | | | | | | CT | | | | | | | ABDOMEN&PELV | | | | | | | IS | | | | | | | W/CONTRAST | | | +--------+--------+ + + + + Diagnostic Testing (Routine) +--------+--------+ + + + + | Status | Reason | Specialty | Diagnoses / | Referred By | Referred To | | | | | Procedures | Contact | Contact | +--------+--------+ + + + + | Closed | | Radiology | Diagnoses | [place], | Rad Ct Scan | | | | | Diffuse | MD Chad | [address] | | | | | large B-cell | [address] | | | | | lymphoma, | [address] | Mailcode: | | | | | unspecified | [place], [place] | [facility] | | | | | body region | [address] | for Health | | | | | (HCC) | Phone: | and Healing, | | | | | Procedures | [phone] | 3rd Floor | | | | | CT CHEST, | Fax: | [place], [place] | | | | | ABDOMEN AND | [phone] | [address] | | | | | PELVIS W IV | | Phone: | | | | | CONTRAST GA | | [phone] | | | | | CAT SCAN OF | | Fax: | | | | | CHEST | | [phone] | | | | | CONTRAST GA | | | | | | | CT | | | | | | | ABDOMEN&PELV | | | | | | | IS | | | | | | | W/CONTRAST | | | +--------+--------+ + + + + Reason for Visit Diagnostic Testing (Routine) +--------+--------+ + + + + | Status | Reason | Specialty | Diagnoses / | Referred By | Referred To | | | | | Procedures | Contact | Contact | +--------+--------+ + + + + | Closed | | Radiology | Diagnoses | Chrissy, | Rad Ct Scan | | | | | Diffuse | MD Chad | [facility] [address] | | | | | large B-cell | [address] | | | | | lymphoma, | [address] | Mailcode: | | | | | unspecified | [place], [place] | [address] | | | | | body region | [address] | for Health | | | | | (HCC) | Phone: | and Healing, | | | | | Procedures | [phone] | 3rd Floor | | | | | CT CHEST, | Fax: | [place], [place] | | | | | ABDOMEN AND | [phone] | [address] | | | | | PELVIS W IV | | Phone: | | | | | CONTRAST GA | | [phone] | | | | | CAT SCAN OF | | Fax: | | | | | CHEST | | [phone] | | | | | CONTRAST GA | | | | | | | CT | | | | | | | ABDOMEN&PELV | | | | | | | IS | | | | | | | W/CONTRAST | | | +--------+--------+ + + + + Encounter Details +--------+ + + + + | Date | Type | Department | Care Team | Description | +--------+ + + + + | 05/14/ | Hospital | Diagnostic Imaging | Chad Lowe, | | | 2017 | Encounter | Services at [facility] | [address] | | | | | [address] | [place], [place] | | | | | [facility] | [address] | | | | | Mailcode: [id number] [facility] | [phone] | | | | | [facility], | | | | | | [place] [address] | | | | | | [phone] | | | +--------+ + + + [...] + + + as of this encounter Medications at Time of Discharge + + +---------+---------+ + + | Medication | Sig. | Disp. | Refills | Start | End Date | | | | | | Date | | + + +---------+---------+ + + | acyclovir 800 mg | [...] | | | | | + + +---------+---------+ + + | | Inhale 2 puffs [...] | | | | | + + +---------+---------+ + + | cetirizine 10 mg | Take 1 tablet by | 30 | 0 | 03/20/20 | | | oral tablet | mouth once daily. | tablet | | 17 | | + + +---------+---------+ + + | clobetasol 0.05 % | Apply to scalp twice | 50 mL | 2 | 01/18/20 | | | scalp solution | daily | | | 17 | | + + +---------+---------+ + + | dapsone 25 mg oral | Take 25 mg by mouth | | | 04/25/20 | | | tabletIndications: | two times daily. | | | 17 | | | dermatologic | Indications: skin | | | | | | | infection | | | | | + + +---------+---------+ + + | DULoxetine 30 mg | [...] | | | | | + + +---------+---------+ + + | fluticasone 50 | Instill 2 sprays | | | | | | mcg/actuation nasal | into each nostril | | | | | | spray,suspensionIndi | two times daily. | | | | | | cations: Allergic | Indications: | | | | | | Rhinitis | Allergic Rhinitis | | | | | + + +---------+---------+ + + | halobetasol 0.05 % | Large pt with full | 250 g | 2 | 01/18/20 | | | topical ointment | body severe rash. | | | 17 | | | | 250 g for 30 day | | | | | | | supply. | | | | | + + +---------+---------+ + + | levalbuterol 45 | 1-2 [...] | | | | | + + +---------+---------+ + + | omeprazole 40 mg | [...] | | | | | + + +---------+---------+ + + | ondansetron 8 mg | as needed. | | | 03/19/20 | | | oral tablet | | | | 17 | | + + +---------+---------+ + + | predniSONE 20 mg | [...] | | | | | + + +---------+---------+ + + | ramelteon | Take 1 [...] | | | | | + + +---------+---------+ + + as of this encounter Plan of Treatment Not on fileas of this encounter Results CT CHEST, ABDOMEN AND PELVIS W IV CONTRAST (05/14/2017 3:50 PM) + + + | Specimen | Performing Laboratory | + + + | | [facility] RADIOLOGY VOICE RECOGNITION | + + + + + | Narrative | + + | EXAM: CT of the chest, abdomen and pelvis with intravenous contrast. HISTORY: | | Lymphoma COMPARISON: None/07/31 TECHNIQUE: CT of the chest, abdomen and pelvis | | with 150 mL of Omnipaque 300 non-ionic intravenous contrast. Coronal and sagittal | | reformats were reviewed. FINDINGS: MEDIASTINUM: Posterior mediastinal mass | | identified measuring 5 0.5 x 4.9 cm, previously 3.9 x 3.5 cm (40/1); left hilar | | adenopathy measures 2.1 cm short axis, previously 2 cm (44/1). No new adenopathy | | identified. LUNGS: Interval development of new right pulmonary embolism (61/1) | | affecting the right main pulmonary artery and extending into the posterior, medial, and | | lateral basal segmental arteries. Lung parenchyma demonstrates mild tree in bud | | opacities, which are grossly stable at the lung bases and lingula. LIVER: Diffuse | | low-attenuation of the liver present, compatible with fatty infiltration. No focal mass | | lesion BILIARY: Unremarkable. SPLEEN: Unremarkable. PANCREAS: Unremarkable. | | ADRENALS: Unremarkable. KIDNEYS/URETERS: Unremarkable. PELVIC ORGANS/BLADDER: | | Unremarkable. GI TRACT: No evidence of small bowel obstruction. No focal mass | | lesion. Diverticulosis coli. Normal appendix. PERITONEUM: No free air or fluid. LYMPH | | NODES: Again identified is mesenteric adenopathy, with index lymph node measuring 5.2 x | | 3.5 cm, grossly stable from the previous examination (141/1); right inguinal adenopathy | | has increased in size, today measuring 4.6 x 4.4 cm, previously 3.2 x 2.8 cm; VESSELS: | | Unremarkable. BONES AND SOFT TISSUES: Degenerative changes noted throughout. No | | suspicious lytic or blastic lesion. IMPRESSION: Since 03/15/17, interval | | progression in mediastinal, mesenteric and inguinal adenopathy. New right lower lobe | | pulmonary embolism, acute. Stable tree in bud opacities, bilaterally. These results | | were discussed with Dr. Lowe at the time of dictation by Dr. Kimbrough. I | | have personally reviewed the images and, if necessary, edited the report. I agree | | with the report as now presented. | + + + + | Procedure Note | + + | Service Account, Radiant Res In Interface - 05/14/2017 4:51 PM PDT EXAM: CT of the | | chest, abdomen and pelvis with intravenous contrast.HISTORY: LymphomaCOMPARISON: | | None/07/31TECHNIQUE: CT of the chest, abdomen and pelvis with 150 mL of Omnipaque 300 | | non-ionic intravenous contrast. Coronal and sagittal reformats were | | reviewed.FINDINGS:MEDIASTINUM: Posterior mediastinal mass identified measuring 5 0.5 x | | 4.9 cm, previously 3.9 x 3.5 cm (40/1); left hilar adenopathy measures 2.1 cm short | | axis, previously 2 cm (44/1). No new adenopathy identified.LUNGS: Interval development | | of new right pulmonary embolism (61/1) affecting the right main pulmonary artery and | | extending into the posterior, medial, and lateral basal segmental arteries. Lung | | parenchyma demonstrates mild tree in bud opacities, which are grossly stable at the lung | | bases and lingula.LIVER: Diffuse low-attenuation of the liver present, compatible with | | fatty infiltration. No focal mass lesionBILIARY: Unremarkable.SPLEEN: | | Unremarkable.PANCREAS: Unremarkable.ADRENALS: Unremarkable.KIDNEYS/URETERS: | | Unremarkable.PELVIC ORGANS/BLADDER: Unremarkable.GI TRACT: No evidence of small bowel | | obstruction. No focal mass lesion. Diverticulosis coli. Normal appendix.PERITONEUM: No | | free air or fluid.LYMPH NODES: Again identified is mesenteric adenopathy, with index | | lymph node measuring 5.2 x 3.5 cm, grossly stable from the previous examination (141/1); | | right inguinal adenopathy has increased in size, today measuring 4.6 x 4.4 cm, | | previously 3.2 x 2.8 cm;VESSELS: Unremarkable.BONES AND SOFT TISSUES: Degenerative | | changes noted throughout. No suspicious lytic or blastic lesion.IMPRESSION: Since | | 03/15/17, interval progression in mediastinal, mesenteric and inguinal adenopathy.New | | right lower lobe pulmonary embolism, acute.Stable tree in bud opacities, | | bilaterally.These results were discussed with Dr. Lowe at the time of dictation by | | Dr. Kimbrough.I have personally reviewed the images and, if necessary, edited the | | report. I agree with the report as now presented. | |VESSELS: Unremarkable. | | | |BONES AND SOFT TISSUES: Degenerative changes noted throughout. No suspicious lytic or blast ic lesion. | | | | | |IMPRESSION: | | | |Since 03/15/17, interval progression in mediastinal, mesenteric and inguinal adenopathy. | |New right lower lobe pulmonary embolism, acute. | |Stable tree in bud opacities, bilaterally. | |These results were discussed with Dr. Lowe at the time of dictation by Dr. Kimbrough. | | | | | |I have personally reviewed the images and, if necessary, edited the report. I agree with t he report as now presented. | + + in this encounter Visit Diagnoses + + | Diagnosis | + + | Diffuse large B-cell lymphoma, unspecified body region (HCC) | + + Administered Medications + +--------+ +--------+------+------+ | Medication Order | MAR | Action | Dose | Rate | Site | | | Action | Date | | | | + +--------+ +--------+------+------+ | iohexol (OMNIPAQUE) 350 mg | Given | 05/14/20 | 125 mL | | | | iodine/mL injection 125 mL 125 | | 17 16:30 | | | | | mL, intravenous, ONCE, 1 dose, | | PDT | | | | | 05/14/17 at 1630 | | | | | | + +--------+ +--------+------+------+ +---+---+ | | | +---+---+ in this encounter"
--- OUTSIDE RECORDS SUMMARY | ~2017-07-29 | XMS | Encounter Summary ---
Demographics + + + | Address | [address] | | | [place] [address] | + + + | Home Phone | | + + + | Preferred Language | Unknown | + + + | Marital Status | | + + + | Religion Affiliation | LUT | + + + [...] + + + +-------+ ECON | [address] | | [place] | [address] | +------+ + + + +-------+ Care Team Providers + +------+-------+ | Care Hvac Engineer Name | Role | Phone | + +------+-------+ | Jamaal Rivera MD | PCP | tel | + +------+-------+ Encounter Details +--------+ + + + + | Date | Type | Department | Care Team | Description | +--------+ + + + + | 04/16/ | Procedure | Diagnostic Imaging | | | | 2017 | Pass | Services at [facility] | | | | | | [address] | | | | | | [facility] | | | | | | Mailcode: [id number] [facility] | | | | | | [facility], | | | | | | [place] [address] | | | | | | [phone] | | | +--------+ + + + [...]
--- OUTSIDE RECORDS SUMMARY | ~2017-07-29 | XMS | Encounter Summary ---
Demographics + + + | Address | [address] | | | [place] [address] | + + + | Home Phone | | + + + | Preferred Language | Unknown | + + + | Marital Status | | + + + | Alevism Affiliation | LUT | + + + | Race | White | + + + | Ethnic Group | Not or | + + + Author + + + | Author | [facility] | + + + | Organization | [facility] | + + + | Address | Unknown | + + + | Phone | Unavailable | + + + Support +------+ + + + +-------+ | Name | Relationship | Address | Phone | +------+ + + + +-------+ ECON | [address] | | [place] | [address] | +------+ + + + +-------+ Care Team Providers + +------+-------+ | Care Us Administrative Law Judge Name | Role | Phone | + +------+-------+ | Jamaal Rivera MD | PCP | tel | + +------+-------+ Encounter Details +--------+ + + + + | Date | Type | Department | Care Team | Description | +--------+ + + + + | 04/29/ | Curtain Stretcher Assembler | Center for | Simone Hernandez V, | | | 2017 | | Hematologic | MD [address] | | | | | Malignancies at | [address] | | | | | [place] | [place], [place] | | | | | [address] | [address] | | | | | [address] | [phone] | | | | | Mailcode: [id number] | | | | | | [address] | | | | | | [place], [place] | | | | | | [address] | | | | | | [phone] | | | +--------+ + + + [...]
--- OUTSIDE RECORDS SUMMARY | ~2017-07-29 | XMS | Encounter Summary ---
Demographics + + + | Address | [address] | | | [place] [address] | + + + | Home Phone | | + + + | Preferred Language | Unknown | + + + | Marital Status | | + + + | Islam Affiliation | LUT | + + + | Race | White | + + + | Ethnic Group | Not or | + + + Author + + + | Author | [facility] | + + + | Organization | [facility] | + + + | Address | Unknown | + + + | Phone | Unavailable | + + + Support +------+ + + + +-------+ | Name | Relationship | Address | Phone | +------+ + + + +-------+ ECON | [address] | | [place] | [address] | +------+ + + + +-------+ Care Team Providers + +------+-------+ | Care News Director Name | Role | Phone | + +------+-------+ | Jamaal Rivera MD | PCP | tel | + +------+-------+ Encounter Details +--------+ + + + + | Date | Type | Department | Care Team | Description | +--------+ + + + + | 06/21/ | MyChart | Cardiology General | | A message from your | | 2016 | Encounter | at [facility] [address] | | [employer]umb[employer] Instructor | | | | Cornel [place]oley Mailcode: | | | | | | CH[facility] | | | | | | Health and Healing, | | | | | | [address] [facility], | | | | | | [place] [address] | | | | | | [phone] | | | +--------+ + + + [...]
--- OUTSIDE RECORDS SUMMARY | ~2017-07-29 | XMS | Encounter Summary ---
Demographics + + + | Address | [address] | | | [place] [address] | + + + | Home Phone | | + + + | Preferred Language | Unknown | + + + | Marital Status | | + + + | Amish Affiliation | LUT | + + + | Race | White | + + + | Ethnic Group | Not or | + + + Author + + + | Author | [facility] | + + + | Organization | [facility] | + + + | Address | Unknown | + + + | Phone | Unavailable | + + + Support +------+ + + + +-------+ | Name | Relationship | Address | Phone | +------+ + + + +-------+ ECON | [address] | | [place] | [address] | +------+ + + + +-------+ Care Team Providers + +------+-------+ | Care Logistics Operations Manager Name | Role | Phone | + +------+-------+ | Jamaal Rivera MD | PCP | tel | + +------+-------+ Encounter Details +--------+ + + + + | Date | Type | Department | Care Team | Description | +--------+ + + + + | 05/30/ | Cane Cutter | Center for | Chad Lowe, | 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 | [address] | lymphoma of | | | | Malignancies at | [address] [place], [place] | intra-abdominal | | | | [facility] | [address] | lymph nodes (HCC) | | | | [address] | [phone] | (Primary Dx) | | | | [address] | | | | | | Mailcode: [id number] | | | | | | [facility] | | | | | | [place], [place] | | | | | | [address] | | | | | | [phone] | | | +--------+ + + + [...]
--- OUTSIDE RECORDS SUMMARY | ~2017-07-29 | XMS | Encounter Summary ---
Demographics + + + | Address | [address] | | | [place] [address] | + + + | Home Phone | | + + + | Preferred Language | Unknown | + + + | Marital Status | | + + + | Moravian Affiliation | LUT | + + + | Race | White | + + + | Ethnic Group | Not or | + + + Author + + + | Author | [facility] | + + + | Organization | [facility] | + + + | Address | Unknown | + + + | Phone | Unavailable | + + + Support +------+ + + + +-------+ | Name | Relationship | Address | Phone | +------+ + + + +-------+ ECON | [address] | | [place] | [address] | +------+ + + + +-------+ Care Team Providers + +------+-------+ | Care Matrix Inspector Name | Role | Phone | + [...] | +--------+ + + + + | 05/31/ | Documentati | [facility] | Work, Social | Social Work Notes | | 2017 | on | Hematologic | | | | | | Malignancies at | | | | | | [place] | | | | | | [address] | | | | | | [facility] | | | | | | Mailcode: [id number] | | | | | | [address] | | | | | | [place], [place] | | | | | | [address] | | | | | | [phone] | | | +--------+ + + + [...]
--- OUTSIDE RECORDS SUMMARY | ~2017-07-29 | XMS | Encounter Summary ---
Demographics + + + | Address | [address] | | | [place] [address] | + + + | Home Phone | | + + + | Preferred Language | Unknown | + + + | Marital Status | | + + + | Yarsanism Affiliation | LUT | + + + | Race | White | + + + | Ethnic Group | Not or | + + + Author + + + | Author | [facility] | + + + | Organization | [facility] | + + + | Address | Unknown | + + + | Phone | Unavailable | + + + Support +------+ + + + +-------+ | Name | Relationship | Address | Phone | +------+ + + + +-------+ ECON | [address] | | [place] | [address] | +------+ + + + +-------+ Care Team Providers + +------+-------+ | Care Marker Machine Name | Role | Phone | + +------+-------+ | Jamaal Rivera MD | PCP | tel | + +------+-------+ Reason for Referral Diagnostic Testing (Routine) + +--------+ + + + + | Status | Reason | Specialty | Diagnoses / | Referred By | Referred To | | | | | Procedures | Contact | Contact | + +--------+ + + + + | New Request | | Radiology | Diagnoses | Chrissy | | | | | | Diffuse | MD Chad | | | | | | large B-cell | [address] | | | | | | lymphoma, | [address] | | | | | | unspecified | [place], [place] | | | | | | body region | [address] | | | | | | (HCC) | Phone: | | | | | | Procedures | [phone] | | | | | | CT CHEST, | Fax: | | | | | | ABDOMEN AND | [phone] | | | | | | PELVIS W IV | | | | | | | CONTRAST | | | + +--------+ + + + + Reason for Visit + + + | Reason | Comments | + + + | Research data | | | collection | | + + + Encounter Details +--------+ + + + + | Date | Type | Department | Care Team | Description | +--------+ + + + + | 05/14/ | Legislative Aide | Center for | Chad Lowe, | 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 | MD [address] | lymphoma, | | | | Malignancies at | [address] [place], [place] | unspecified body | | | | [facility] | [address] | region (HCC) | | | | [address] | [phone] | (Primary Dx) | | | | 1[address] | | | | | | Mailcode: [id number] | | | | | | [address] | | | | | | [place], [place] | | | | | | [address] | | | | | | [phone] | | | +--------+ + + + [...] | | + +--------+ + + | CT CHEST, ABDOMEN AND PELVIS W IV | Routin | Diffuse large | Expected: | | CONTRAST | e | B-cell lymphoma, | 05/14/2017, Expires: | | | | unspecified body | 06/13/2018 | | | | region (HCC) | | + +--------+ + + as of this encounter Visit Diagnoses + + | Diagnosis | + + | Diffuse large B-cell lymphoma, unspecified body region (HCC) - Primary | + +"
--- OUTSIDE RECORDS SUMMARY | ~2017-07-29 | XMS | Encounter Summary ---
Demographics + + + | Address | [address] | | | [place] [address] | + + + | Home Phone | | + + + | Preferred Language | Unknown | + + + | Marital Status | | + + + | Buddhism Affiliation | LUT | + + + | Race | White | + + + | Ethnic Group | Not or | + + + Author + + + | Author | [facility] | + + + | Organization | [facility] | + + + | Address | Unknown | + + + | Phone | Unavailable | + + + Support +------+ + + + +-------+ | Name | Relationship | Address | Phone | +------+ + + + +-------+ ECON | [address] | | [place] | [address] | +------+ + + + +-------+ Care Team Providers + +------+-------+ | Care Customs Inspector Name | Role | Phone | + +------+-------+ | Jamaal Rivera MD | PCP | tel | + +------+-------+ Encounter Details +--------+ + + + + | Date | Type | Department | Care Team | Description | +--------+ + + + + | 04/16/ | Procedure | Diagnostic Imaging | | | | 2017 | Pass | Services at [facility] | | | | | | [address] | | | | | | [facility] | | | | | | Mailcode: [id number] [facility] | | | | | | [facility], | | | | | | [place] [address] | | | | | | [phone] | | | +--------+ + + + [...]
--- OUTSIDE RECORDS SUMMARY | ~2017-07-29 | XMS | Encounter Summary ---
Demographics + + + | Address | [address] | | | [place] [address] | + + + | Home Phone | | + + + | Preferred Language | Unknown | + + + | Marital Status | | + + + | Scientology Affiliation | LUT | + + + [...] + + +-------+ ECON | [address] | | [place] | [address] | +------+ + + + +-------+ Care Team Providers + +------+-------+ | Care Hvac Instructor Name | Role | Phone | + +------+-------+ | Jamaal Rivera MD | PCP | tel | + +------+-------+ Encounter Details +--------+ + + + + | Date | Type | Department | Care Team | Description | +--------+ + + + + | 04/28/ | Leather Crafter | Center for | Chda Lowe, | | | 2017 | | Hematologic | [address] | | | | | Malignancies at | [address] [place], [place] | | | | | [place] | [address] | | | | | [address] | [phone] | | | | | [place] | | | | | | Mailcode: [id number] | | | | | | [address] | | | | | | [place], [place] | | | | | | [address] | | | | | | [phone] | | | +--------+ + + + [...]
--- OUTSIDE RECORDS SUMMARY | ~2017-07-29 | XMS | Encounter Summary ---
Demographics + + + | Address | [address] | | | [place] [address] | + + + | Home Phone | | + + + | Preferred Language | Unknown | + + + | Marital Status | | + + + | Yazidi Affiliation | LUT | + + + [...] + + + +-------+ ECON | [address] | | [place] | [address] | +------+ + + + +-------+ Care Team Providers + +------+-------+ | Care Director Of Premium Seat Sales Name | Role | Phone | + +------+-------+ | Jamaal Rivera MD | PCP | tel | + +------+-------+ Encounter Details +--------+ + + + + | Date | Type | Department | Care Team | Description | +--------+ + + + + | 04/28/ | [facility] | [facility] | [facility], | | | 2017 | | Hematologic | [address] | | | | | Malignancies at | [address] [place], [place] | | | | | [place] | [address] | | | | | [address] | [phone] | | | | | [employer] | | | | | | Mailcode: [id number] | | | | | | [address] | | | | | | [place], [place] | | | | | | [address] | | | | | | [phone] | | | +--------+ + + + [...]
--- OUTSIDE RECORDS SUMMARY | ~2017-07-29 | XMS | Encounter Summary ---
Demographics + + + | Address | [address] | | | [place] [address] | + + + | Home Phone | | + + + | Preferred Language | Unknown | + + + | Marital Status | | + + + | Mandaen Affiliation | LUT | + + + | Race | White | + + + | Ethnic Group | Not or | + + + Author + + + | Author | [facility] | + + + | Organization | [facility] | + + + | Address | Unknown | + + + | Phone | Unavailable | + + + Support +------+ + + + +-------+ | Name | Relationship | Address | Phone | +------+ + + + +-------+ ECON | [address] | | [place] | [address] | +------+ + + + +-------+ Care Team Providers + +------+-------+ | Care Supervisor Dumping Name | Role | Phone | + [...] | +--------+ + + + + | 05/09/ | Software Intern | [facility] for | Chad Lowe, | 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 | MD [address] | lymphoma, | | | | Malignancies at | Ave [place], [place] | unspecified body | | | | [facility] | [address] | region (HCC) | | | | [address] | [phone] | (Primary Dx) | | | | [employer] | | | | | | Mailcode: [id number] | | | | | | [facility] | | | | | | [place], [place] | | | | | | [address] | | | | | | [phone] | | | +--------+ + + + [...] | Routin | Diffuse large | Expected: 05/14/2017 | | | e | B-cell lymphoma, | (Approximate) | | | | unspecified body | | | | | region (HCC) | | + +--------+ + + | UA, DIPSTICK ONLY | Routin | Diffuse large | Expected: 05/14/2017 | | | e | B-cell lymphoma, | (Approximate) | | | | unspecified body | | | | | region (HCC) | | + +--------+ + + as of this encounter Results COMPLEMENT ACTIVITY ENZYME IMMUNOASSAY, TOTAL (05/14/2017 7:45 AM) + + + + | Component | Value | Ref Range | + + + + | COMPLEMENT CH50, | 106Comment: INTERPRETIVE INFORMATION: | 60 - 144 Units | | TOTAL | Complement Activity, Total EIA 59 | | | | Units or less .......... | | | | Low 60-144 Units .............. | | | | Normal 145 Units or greater ....... | | | | HighPerformed by [place],[address] | | | | [address], [facility] [address] | | | | [phone].[employer], Graham Meza, | | | | , Lab. Director | | | |www[facility], Graham Meza MD, Lab. Director | | + + + + + + + | Specimen | Performing Laboratory | + + + | Blood | [facility] [address] [facility] | | | [place] [address] | + + + C'4 COMPLEMENT, SERUM (05/14/2017 7:45 AM) + +-------+ + | Component | Value | Ref Range | + +-------+ + | C'4 COMPLEMENT SERUM | 40 | 16 - 47 mg/dL | + +-------+ + + + + | Specimen | Performing Laboratory | + + + | Blood | [facility] [address] [place], [place] | | | [address] | + + + C'3 COMPLEMENT, SERUM (05/14/2017 7:45 AM) + +-------+ + | Component | Value | Ref Range | + +-------+ + | C'3 COMPLEMENT SERUM | 121 | 88 - 201 mg/dL | + +-------+ + + + + | Specimen | Performing Laboratory | + + + | Blood | [facility] [address] [place], [place] | | | [address] | + + + TROPONIN I, PLASMA (05/14/2017 7:45 AM) + +-------+ + | Component | Value | Ref Range | + +-------+ + | TROPONIN I | 0.02 | <0.80 ng/mL | + +-------+ + + + + | Specimen | Performing Laboratory | + + + | Blood | [facility] [address] | | | [place] [address] | + + + FREE T4 (05/14/2017 7:45 AM) + +-------+ + | Component | Value | Ref Range | + +-------+ + | FREE T4 | 1.0 | 0.6 - 1.2 ng/dL | + +-------+ + + + + | Specimen | Performing Laboratory | + + + | Blood | [facility] [address] | | | [place] [address] | + + + T3 TOTAL, SERUM (05/14/2017 7:45 AM) + +-------+ + | Component | Value | Ref Range | + +-------+ + | T3, TOTAL | 113 | 87 - 196 ng/dL | + +-------+ + + + + | Specimen | Performing Laboratory | + + + | Blood | [facility] [address] [place], [place] | | | [address] | + + + TSH (05/14/2017 7:45 AM) + +-------+ + | Component | Value | Ref Range | + +-------+ + | TSH | 2.22 | 0.47 - 7.11 mIU/L | + +-------+ + + + + | Specimen | Performing Laboratory | + + + | Blood | [facility] [address] | | | [place] [address] | + + + + + | Narrative | + + | TSH reference ranges are influenced by a variety of environmental influences, age, | | gender and ethnicity. The supplied reference limits are based on published values | | utilizing a similar TSH assay, and should be interpreted with caution. | + + PROTEIN C ACTIVITY REFLEX INR, PLASMA (05/14/2017 7:45 AM) + + + + | Component | Value | Ref Range | + + + + | PROTEIN C ACTIVITY | 0.76 (L) | 0.82 - 1.54 U/mL | + + + + + + + | Specimen | Performing Laboratory | + + + | Blood | [facility] SPECIAL IMM + COAG [address] [facility] | | | [place] [address] | + + + + + | Narrative | + + | Non-coumarin anticoagulants may falsely elevate Protein C values, even when | | the concurrent PTT is normal. | + + LIPASE, PLASMA (05/14/2017 7:45 AM) + +---------+ + | Component | Value | Ref Range | + +---------+ + | LIPASE (LAB) | 118 (L) | 152 - 353 U/L | + +---------+ + + + + | Specimen | Performing Laboratory | + + + | Blood | [facility] [address] [facility] | | | [place] [address] | + + + AMYLASE, PLASMA (05/14/2017 7:45 AM) + +--------+ + | Component | Value | Ref Range | + +--------+ + | AMYLASE,PLASMA | 23 (L) | 25 - 115 U/L | + +--------+ + + + + | Specimen | Performing Laboratory | + + + | Blood | [facility] [address] | | | [place] [address] | + + + in this encounter Visit Diagnoses + + | Diagnosis | + + | Diffuse large B-cell lymphoma, unspecified body region (HCC) - Primary | + +"
--- OUTSIDE RECORDS SUMMARY | ~2017-07-29 | XMS | Clinical Summary ---
Demographics + + + | Address | [address] | | | [place] [address] | + + + | Home Phone | | + + + | Preferred Language | Unknown | + + + | Marital Status | | + + + | Jainism Affiliation | LUT | + + + | Race | White | + + + | Ethnic Group | Not or | + + + Author + + + | Author | [facility] | + + + | Organization | [facility] | + + + | Address | Unknown | + + + | Phone | Unavailable | + + + Support +------+ + + + +-------+ | Name | Relationship | Address | Phone | +------+ + + + +-------+ ECON | [id number] | | [place] | [id number] | +------+ + + + +-------+ Care Team Providers + +------+-------+ | Care Content Development Manager Name | Role | Phone | + +------+-------+ | Jamaal Rivera MD | PP | tel | + +------+-------+ Source Comments RUFUS is fully live on both [facility] Ambulatory and [facility] InPatient.[facility] Allergies No Known Allergies Current Medications + + + +---------+------+------+-------+ | Prescription | Sig. | Disp. | Refills | Star | End | Statu | | | | | | t | Date | s | | | | | | Date | | | + + + +---------+------+------+-------+ | fluticasone 50 | Instill 2 sprays | | | | | Activ | | mcg/actuation nasal | into each nostril | | | | | e | | spray,suspensionIndi | two times daily. | | | | | | | cations: Allergic | Indications: | | | | | | | Rhinitis | Allergic Rhinitis | | | | | | + + + +---------+------+------+-------+ | ramelteon | Take 1 tablet by | 30 | 1 | 04/ | | Activ | | (ROZEREM) 8 mg oral | mouth once daily at | tablet | | 08/03 | | e | | tabletIndications: | bedtime as needed | | | 17 | | | | Restless leg | for sleep. Take 30 | | | | | | | | minutes before | | | | | | | | bedtime. | | | | | | | | Indications: | | | | | | | | Restless leg | | | | | | + + + +---------+------+------+-------+ | acyclovir 800 mg | Take 1 tablet by | 90 | 3 | 06/0 | | Activ | | oral | mouth once daily. | tablet | | 01/31 | | e | | tabletIndications: | | | | 17 | | | | DLBCL (diffuse large | | | | | | | | B cell lymphoma) | | | | | | | | ([facility]) | | | | | | | + + + +---------+------+------+-------+ | halobetasol 0.05 % | Large pt with full | 250 g | 2 | 07/0 | | Activ | | topical ointment | body severe rash. | | | 6/20 | | e | | | 250 g for 30 day | | | 17 | | | | | supply. | | | | | | + + + +---------+------+------+-------+ | clobetasol 0.05 % | Apply to scalp twice | 50 mL | 2 | 07/0 | | Activ | | scalp solution | daily | | | 6/20 | | e | | | | | | 17 | | | + + + +---------+------+------+-------+ | cetirizine 10 mg | Take 1 tablet by | 30 | 0 | 09/0 | | Activ | | oral tablet | mouth once daily. | tablet | | 6/20 | | e | | | | | | 17 | | | + + + +---------+------+------+-------+ | omeprazole 40 mg | Take 20 mg by mouth | | | 09/0 | | Activ | | oral capsule,delayed | once daily. | | | 6/20 | | e | | | Indications: | | | 17 | | | | release(DR/EC)Indica | gastroesophageal | | | | | | | tions: | reflux disease | | | | | | | gastroesophageal | | | | | | | | reflux disease | | | | | | | + + + +---------+------+------+-------+ | levalbuterol 45 | 1-2 puffs every 4-6 | 1 | 3 | 09/0 | | Activ | | mcg/actuation | hours as needed. | Inhaler | | 01/01 | | e | | inhalation HFA | Indications: | | | 17 | | | | aerosol | Bronchospasm | | | | | | | inhalerIndications: | Prevention | | | | | | | Bronchospasm | | | | | | | | Prevention | | | | | | | + + + +---------+------+------+-------+ | predniSONE 20 mg | Take 1 tablet by | 10 | 2 | 09/0 | | Activ | | oral | mouth once daily. X | tablet | | 01/31 | | e | | tabletIndications: | 5 days Indications: | | | 17 | | | | hypersensitivity | hypersensitivity | | | | | | | drug reaction | drug reaction | | | | | | + + + +---------+------+------+-------+ | DULoxetine 30 mg | Take 1 capsule by | 30 | 3 | 03/15 | | Activ | | oral capsule,delayed | mouth once daily. | capsule | | 08/03 | | e | | | | | | 17 | | | | release(DR/EC)Indica | | | | | | | | tions: Neuropathy | | | | | | | | due to | | | | | | | | chemotherapeutic | | | | | | | | drug (HCC) | | | | | | | + + + +---------+------+------+-------+ | ondansetron 8 mg | as needed. | | | 09/0 | | Activ | | oral tablet | | | | 12/01 | | e | | | | | | 17 | | | + + + +---------+------+------+-------+ | | Inhale 2 puffs by | 1 | 0 | 04/14 | | Activ | | budesonide-formotero | mouth two times | Inhaler | | 10/01 | | e | | l 160-4.5 | daily. Indications: | | | 17 | | | | mcg/actuation | Prevention of | | | | | | | inhalation HFA | Bronchospasm with | | | | | | | aerosol | Chronic Bronchitis | | | | | | | inhalerIndications: | | | | | | | | Prevention of | | | | | | | | Bronchospasm with | | | | | | | | Chronic Bronchitis | | | | | | | + + + +---------+------+------+-------+ | dapsone 25 mg oral | Take 25 mg by mouth | | | 10/1 | | Activ | | tabletIndications: | two times daily. | | | 2/20 | | e | | dermatologic | Indications: skin | | | 17 | | | | | infection | | | | | | + + + +---------+------+------+-------+ | apixaban 5 mg oral | Take 2 tablets (10 | 120 | 3 | 11/0 | | Activ | | tabletIndications: | mg) by mouth twice a | tablet | | 1/20 | | e | | pulmonary | day for 7 days, | | | 17 | | | | thromboembolism | then take 1 tablet | | | | | | | | (5 mg) twice a day. | | | | | | | | Indications: | | | | | | | | pulmonary | | | | | | | | thromboembolism | | | | | | + + + +---------+------+------+-------+ | clobetasol 0.05 % | Apply to affected | 15 g | 5 | 11/0 | | Activ | | topical ointment | area two times | | | 9/20 | | e | | | daily. | | | 17 | | | + + + +---------+------+------+-------+ | triamcinolone | Apply to affected | 453.6 g | 11 | 11/0 | | Activ | | acetonide 0.1 % | area two times | | | 9/20 | | e | | topical | daily. Apply thin | | | 17 | | | | creamIndications: | film to affected | | | | | | | Dermatitis | areas. | | | | | | + + + +---------+------+------+-------+ | allopurinol 300 mg | Take 1 tablet by | 30 | 0 | 11/1 | | Activ | | oral | mouth once daily. | tablet | | 0/20 | | e | | tabletIndications: | | | | 17 | | | | Diffuse large B-cell | | | | | | | | lymphoma of | | | | | | | | intra-abdominal | | | | | | | | lymph nodes (HCC) | | | | | | | + + + +---------+------+------+-------+ | prochlorperazine | Take 0.5 tablets by | 60 | 5 | 05/15 | | Activ | | 10 mg oral | mouth every six | tablet | | 01/01 | | e | | tabletIndications: | hours as needed for | | | 17 | | | | Nausea and Vomiting, | nausea/vomiting Take | | | | | | | Prevention of | 5mg-10mg as needed. | | | | | | | Chemotherapy-Induced | Max dose: 40 mg/day | | | | | | | Nausea and Vomiting | | | | | | | + + + +---------+------+------+-------+ | dexamethasone 4 mg | Take 10 tablets by | 30 | 0 | 05/15 | | Activ | | oral | mouth once daily On | tablet | | 01/01 | | e | | tabletIndications: | days 2-4 of the | | | 17 | | | | Diffuse Large B-Cell | cycle (05/31, 06/01, | | | | | | | Lymphoma | 06/02) only. | | | | | | + + + +---------+------+------+-------+ Active Problems + + + | Problem | Noted Date | + + + | KEYONNA RESEARCH PROTOCOL PATIENT (RESPRO) | 05/30/2017 | + + + + + | 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 | + + + | Obesity, Class II, BMI 35-39.9, with comorbidity | 06/24/2015 | + + + | DLBCL (diffuse large B cell lymphoma) (HCC) | 06/25/2014 | + + + | RYANNE on CPAP | | + + + | Hypertension | | + + + | Fatty infiltration of liver | | + + + Resolved Problems + + + + | Problem | Noted | Resolved | | | Date | Date | + + + + | Pneumonia of left lower lobe due to infectious organism (HCC) | 05/07/20 | | | | 16 | 7 | + + + + | Chewing tobacco use | 06/25/20 | | | | 15 | 6 | + + + + | Admission for antineoplastic chemotherapy | 06/24/20 | | | | 15 | 6 | + + + + | Cellulitis of right groin | 06/24/20 | | | | 15 | 6 | + + + + | Pneumonia of right lower lobe due to infectious organism (HCC) | | | | | | 6 | + + + + | Rhinovirus infection | | | | | | 7 | + + + + Encounters +--------+ + + + + | Date | Type | Specialty | Care Team | Description | +--------+ + + + + | 07/11/ | Office | | Chad Lowe, | Diffuse large B-cell | | 2016 | Visit | | MD | lymphoma of | | | | | | intra-abdominal | | | | | | lymph nodes (HCC) | | | | | | (Primary Dx) | +--------+ + + + + | 07/11/ | Hospital | | Chad Lowe, | | | 2016 | Encounter | | MD | | +--------+ + + + + | 07/11/ | Hospital | | Chad Lowe, | | | 2016 | Encounter | | MD | | +--------+ + + + + | 06/25/ | Culinary Manager | | Chad Lowe, | 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 lymph | | | | | | nodes of multiple | | | | | | regions (HCC) | | | | | | (Primary Dx) | +--------+ + + + + | 06/21/ | MyChart | | | A message from your | | 2017 | Encounter | | | Right Of Way Man | +--------+ + + + + | 06/20/ | Procedure | | | | | 2016 | Pass | | | | +--------+ + + + + | 06/20/ | Procedure | | | | | 2016 | Pass | | | | +--------+ + + + + | 06/20/ | Culinary Manager | | Chad Lowe, | 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 lymph | | | | | | nodes of multiple | | | | | | regions (HCC) | | | | | | (Primary Dx) | +--------+ + + + + | 06/13/ | Pharmacy | | | | | 2016 | Visit | | | | +--------+ + + + + | 06/13/ | Pharmacy | | | | | 2016 | Visit | | | | +--------+ + + + + | 05/31/ | Documentati | | Work, Social | Social Work Notes | | 2016 | on | | | | +--------+ + + + + | 05/30/ | Office | | Dunia Joseph MD | Diffuse large B-cell | | 2016 | Visit | | | lymphoma of | | | | | | intra-abdominal | | | | | | lymph nodes (HCC) | | | | | | (Primary Dx) | +--------+ + + + + | 05/30/ | Hospital | | | | | 2017 | Encounter | | | | +--------+ + + + + | 05/30/ | Culinary Manager | | Chad Lowe, | 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) | | | | | | (Primary Dx) | +--------+ + + + + | 05/29/ | Documentati | | Work, Social | Social Work Notes | | 2016 | on | | | | +--------+ + + + + | 05/29/ | Culinary Manager | | Chad Lowe, | 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) | | | | | | (Primary Dx) | +--------+ + + + + | 05/24/ | Telephone | | Juana Morgan, | Other (change in tx | | 2016 | | | RN | plan) | +--------+ + + + + | 05/24/ | Culinary Manager | | Chad Lowe, | 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) | | | | | | (Primary Dx) | +--------+ + + + + | 05/24/ | Culinary Manager | | Chad Lowe, | 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) | | | | | | (Primary Dx) | +--------+ + + + + | 05/24/ | Culinary Manager | | Chad Lowe, | | | 2016 | | | MD | | +--------+ + + + + | 05/23/ | Hospital | | Chad Lowe, | | | 2016 | Encounter | | MD | | +--------+ + + + + | 05/23/ | Culinary Manager | | Chad Lowe, | Dermatitis | | 2016 | | | MD | | +--------+ + + + + | 05/20/ | Research | | Milton Georges V, | | | 2017 | Tumor | | MD | | | | Measurement | | | | +--------+ + + + + | 05/17/ | Telephone | | Juana Morgan, | Other ([place] guided | | 2016 | | | RN | biopsy of inguinal | | | | | | node) | +--------+ + + + + | 05/17/ | Culinary Manager | | Chad Lowe, | Diffuse large B-cell | | 2016 | | | MD | lymphoma, | | | | | | unspecified body | | | | | | region (HCC) | | | | | | (Primary Dx) | +--------+ + + + + | 05/15/ | Pharmacy | | | | | 2016 | Visit | | | | +--------+ + + + + | 05/15/ | Culinary Manager | | Chad Lowe, | Other acute | | 2016 | | | MD | pulmonary embolism | | | | | | without acute cor | | | | | | pulmonale (HCC) | | | | | | (Primary Dx) | +--------+ + + + + | 05/15/ | Culinary Manager | | Chad Lowe, | Diffuse large B-cell | | 2016 | | | MD | lymphoma, | | | | | | unspecified body | | | | | | region (HCC) | | | | | | (Primary Dx) | +--------+ + + + + | 05/14/ | Hospital | | Chad Lowe, | | | 2016 | Encounter | | MD | | +--------+ + + + + | 05/14/ | Hospital | | Chad Lowe, | | | 2016 | Encounter | | MD | | +--------+ + + + + | 05/14/ | Office | | Chad Lowe, | Diffuse large B-cell | | 2016 | Visit | | MD | lymphoma, | | | | | | unspecified body | | | | | | region (HCC) | +--------+ + + + + | 05/14/ | Hospital | | | | | 2016 | Encounter | | | | +--------+ + + + + | 05/14/ | Hospital | | Chad Lowe, | | | 2017 | Encounter | | MD | | +--------+ + + + + | 05/14/ | Culinary Manager | | Chad Lowe, | Diffuse large B-cell | | 2016 | | | MD | lymphoma, | | | | | | unspecified body | | | | | | region (HCC) | | | | | | (Primary Dx) | +--------+ + + + + | 05/14/ | Procedure | | | | | 2016 | Pass | | | | +--------+ + + + + | 05/14/ | Documentati | | Valeria Sousa RN | Research | | 2017 | on | | | Documentation | +--------+ + + + + | 05/13/ | Culinary Manager | | Chad Lowe, | Diffuse large B-cell | | 2016 | | | MD | lymphoma, | | | | | | unspecified body | | | | | | region (HCC) | | | | | | (Primary Dx) | +--------+ + + + + | 05/09/ | Culinary Manager | | Chad Lowe, | Diffuse large B-cell | | 2016 | | | MD | lymphoma, | | | | | | unspecified body | | | | | | region (HCC) | | | | | | (Primary Dx) | +--------+ + + + + | 05/02/ | Office | | Chad Lowe, | Diffuse large B-cell | | 2016 | Visit | | MD | lymphoma of | | | | | | intra-abdominal | | | | | | lymph nodes (HCC) | | | | | | (Primary Dx) | +--------+ + + + + | 05/02/ | Hospital | | | | | 2016 | Encounter | | | | +--------+ + + + + | 05/01/ | Culinary Manager | | Chad Lowe, | Diffuse large B-cell | | 2016 | | | MD | lymphoma, | | | | | | unspecified body | | | | | | region (HCC) | | | | | | (Primary Dx) | +--------+ + + + + | 04/29/ | Culinary Manager | | Simone Hernandze V, | | | 2016 | | | MD | | +--------+ + + + + | 04/28/ | Culinary Manager | | Chad Lowe, | | | 2016 | | | MD | | +--------+ + + + + | 04/16/ | Procedure | | | | | 2017 | Pass | | | | +--------+ + + + + from Last 3 Months Immunizations + + + + | Name | Dates Previously Given | Next Due | + + + + | Influenza, split | 03/24/2009, 04/17/2007, 05/13/2006, | | | | 05/29/2005 | | + + + + | Pneumococcal 23 | 06/25/2005 | | + + + + Family History + +------+--------+ + | Relation | Name | Status | Comments | + +------+--------+ + Social History + + + +--------+ [...] on file | | + + + Last Filed Vital Signs + + + + | Vital Sign | Reading | Time Taken | + + + + | Blood Pressure | 133/85 | 07/11/2017 12:27 PM PST | + + + + | Pulse | 68 | 07/11/2017 12:27 PM PST | + + + + | Temperature | 36.4 C (97.6 F) | 07/11/2017 12:27 PM PST | + + + + | Respiratory Rate | 14 | 07/11/2017 12:27 PM PST | + + + + | Oxygen Saturation | 98% | 07/11/2017 12:27 PM PST | + + + + | Inhaled Oxygen | - | - | | Concentration | | | + + + + | Weight | 104.6 kg (230 lb 9.6 | 07/11/2017 12:27 PM PST | | | oz) | | + + + + | Height | 170.6 cm (5' 7.16") | 07/11/2017 12:27 PM PST | + + + + | Body Mass Index | 35.94 | 07/11/2017 12:27 PM PST | + + + + Plan of Treatment + + + + + | Health Maintenance | Due Date | Last Done | Comments | + + + + + | PPSV PNEUMOCOCCAL | | 06/25/2005 | | | VACCINE | 0 | | | + + + + + | INFLUENZA VACCINE | | 03/24/2009, 04/17/2007, | | | (FLU SHOT) | 7 | 05/13/2006, Additional history | | | | | exists | | + + + + + Implants + +------+------+ +--------+--------+--------+ | Implanted | Type | Area | Manufacture | Device | Expira | Model | | | | | r | | tion | / | | | | | | Identi | Date | Serial | | | | | | fier | | / Lot | + +------+------+ +--------+--------+--------+ | [employer] | | | | | | | | Catheter Chest | | | | | | | | Port-06/29/2014Implanted: | | | | | | | | 06/29/2014 (Quantity not on | | | | | | | | file) | | | | | | | + +------+------+ +--------+--------+--------+ Results CT NECK SOFT TISSUE W CONTRAST (07/11/2017 11:07 AM)Only the most recent of 2 results withi n the time period is included. + + + | Specimen | Performing Laboratory | + + + | | [facility] | + + + + + | Narrative | + + | EXAM: CT NECK WITH CONTRAST HISTORY: Diffuse large B-cell lymphoma restaging. | | Lymphadenopathy. COMPARISON: 05/14/17 TECHNIQUE: CT of the neck using iodine | | based intravenous contrast, with sagittal and coronal reformations. FINDINGS: | | Neck soft tissues: No mass or lymphadenopathy. Skull/Skull base: No fractures or | | destructive lesions. Visualized mastoids and middle ears are unremarkable. | | Paranasal sinuses: Stable changes related to previous endoscopic sinus surgery. Fluid | | and mucosal thickening of the right maxillary sinus. Stable ethmoid and left maxillary | | mucosal thickening. Posterior fossa: Visualized portions are unremarkable. | | Spine: Unremarkable. Soft tissues of the chest: No lymphadenopathy. Please see | | dedicated CT chest, abdomen and pelvis report for details. Partially visualized left | | chest wall port catheter. Lung apices: Unremarkable. IMPRESSION: 1. No new | | masses within the neck or cervical lymphadenopathy. 2. Please see dedicated CT | | chest, abdomen and pelvis report for details on the posterior mediastinal | | lymphadenopathy. I have personally reviewed the images and, if necessary, edited | | the report. I agree with the report as now presented. | + + + + | Procedure Note | + + | Service Account, Radiant Res In Interface - 07/11/2017 4:32 PM PST EXAM: CT NECK | | WITH CONTRASTHISTORY: Diffuse large B-cell lymphoma restaging. Lymphadenopathy. | | COMPARISON: 05/14/17TECHNIQUE: CT of the neck using iodine based intravenous contrast, | | with sagittal and coronal reformations.FINDINGS:Neck soft tissues: No mass or | | lymphadenopathy. Skull/Skull base: No fractures or destructive lesions. Visualized | | mastoids and middle ears are unremarkable. Paranasal sinuses: Stable changes related to | | previous endoscopic sinus surgery. Fluid and mucosal thickening of the right maxillary | | sinus. Stable ethmoid and left maxillary mucosal thickening.Posterior fossa: Visualized | | portions are unremarkable.Spine: Unremarkable. Soft tissues of the chest: No | | lymphadenopathy. Please see dedicated CT chest, abdomen and pelvis report for details. | | Partially visualized left chest wall port catheter.Lung apices: | | Unremarkable.IMPRESSION:1. No new masses within the neck or cervical lymphadenopathy.2. | | Please see dedicated CT chest, abdomen and pelvis report for details on the posterior | | mediastinal lymphadenopathy.I have personally reviewed the images and, if necessary, | | edited the report. I agree with the report as now presented. | | | |Posterior fossa: Visualized portions are unremarkable. | | | |Spine: Unremarkable. | | | |Soft tissues of the chest: No lymphadenopathy. Please see dedicated CT chest, abdomen and p truong report for details. Partially visualized left chest wall port catheter. | | | |Lung apices: Unremarkable. | | | |IMPRESSION: | | | |1. No new masses within the neck or cervical lymphadenopathy. | | | |2. Please see dedicated CT chest, abdomen and pelvis report for details on the posterior me diastinal lymphadenopathy. | | | | | |I have personally reviewed the images and, if necessary, edited the report. I agree with t he report as now presented. | + + CT CHEST, ABDOMEN AND PELVIS W IV CONTRAST (07/11/2017 11:00 AM)Only the most recent of 2 r esults within the time period is included. + + + | Specimen | Performing Laboratory | + + + | | [facility]OGNITION | + + + + + | Narrative | + + | EXAM: CT of the chest, abdomen and pelvis with intravenous contrast. HISTORY: | | Lymphoma COMPARISON: 05/14/17 TECHNIQUE: CT of the chest, abdomen and pelvis | | with 150 mL of Omnipaque 300 non-ionic intravenous contrast. Coronal and sagittal | | reformats were reviewed. FINDINGS: MEDIASTINUM: Left chest wall Port-A-Cath is | | noted with tip terminating in the SVC. Thyroid gland unremarkable. No axillary | | adenopathy identified. Prevascular 2.1 x 1.7 cm lymph node, previously measured 1.7 x | | 1.7 cm. Posterior mediastinal lymph node, however, today measures 2.2 x 1.4 cm, | | previously 4 cm in short axis (48/1). Normal heart size. No pericardial effusion. | | LUNGS: Small right-sided pleural fluid collection, minimally increased from the previous | | examination, however trace in size. Bibasilar atelectatic changes identified. 9 mm left | | lower lobe nodule (75/4). Groundglass changes noted in the right lower lobe. Interval | | resolution of previously identified acute pulmonary embolism. LIVER: Fatty liver. No | | focal mass lesions. BILIARY: Unremarkable. SPLEEN: Unremarkable. PANCREAS: | | Unremarkable. ADRENALS: Unremarkable. KIDNEYS/URETERS: Unremarkable. PELVIC | | ORGANS/BLADDER: Unremarkable. GI TRACT: Diverticulosis colon. No inflammatory change | | to suggest diverticulitis. No focal mass lesion. PERITONEUM: No free air or fluid. | | LYMPH NODES: Mesenteric lymphadenopathy measuring 3.6 x 2.1 cm, previously 5.3 x 3.2 cm | | (151/1); right inguinal lymph node measuring 2.5 x 2.2 cm, previously 4.5 x 4.4 cm | | (256/1). . VESSELS: Moderate atherosclerotic burden. No aneurysm. Contrast noted within | | the mesenteric vasculature BONES AND SOFT TISSUES: Unremarkable. IMPRESSION: | | Since 05/14, interval resolution of acute pulmonary embolism, with interval | | development of nodules at the bases, bilaterally that may represent aspiration or | | sequela of previous embolism. Close attention on followup examination recommended. | | Interval reduction in burden of adenopathy within the mediastinum and mesentery and | | inguinal areas I have personally reviewed the images and, if necessary, edited | | the report. I agree with the report as now presented. | + + + + | Procedure Note | + + | Service Account, Radiant Res In Interface - 07/11/2017 11:39 AM PST EXAM: CT of the | | chest, abdomen and pelvis with intravenous contrast.HISTORY: LymphomaCOMPARISON: | | 05/14/17TECHNIQUE: CT of the chest, abdomen and pelvis with 150 mL of Omnipaque 300 | | non-ionic intravenous contrast. Coronal and sagittal reformats were | | reviewed.FINDINGS:MEDIASTINUM: Left chest wall Port-A-Cath is noted with tip terminating | | in the SVC. Thyroid gland unremarkable. No axillary adenopathy identified. Prevascular | | 2.1 x 1.7 cm lymph node, previously measured 1.7 x 1.7 cm. Posterior mediastinal lymph | | node, however, today measures 2.2 x 1.4 cm, previously 4 cm in short axis (48/1). Normal | | heart size. No pericardial effusion.LUNGS: Small right-sided pleural fluid collection, | | minimally increased from the previous examination, however trace in size. Bibasilar | | atelectatic changes identified. 9 mm left lower lobe nodule (75/4). Groundglass changes | | noted in the right lower lobe. Interval resolution of previously identified acute | | pulmonary embolism.LIVER: Fatty liver. No focal mass lesions.BILIARY: | | Unremarkable.SPLEEN: Unremarkable.PANCREAS: Unremarkable.ADRENALS: | | Unremarkable.KIDNEYS/URETERS: Unremarkable.PELVIC ORGANS/BLADDER: Unremarkable.GI TRACT: | | Diverticulosis colon. No inflammatory change to suggest diverticulitis. No focal mass | | lesion.PERITONEUM: No free air or fluid.LYMPH NODES: Mesenteric lymphadenopathy | | measuring 3.6 x 2.1 cm, previously 5.3 x 3.2 cm (151/1); right inguinal lymph node | | measuring 2.5 x 2.2 cm, previously 4.5 x 4.4 cm (256/1). .VESSELS: Moderate | | atherosclerotic burden. No aneurysm. Contrast noted within the mesenteric | | vasculatureBONES AND SOFT TISSUES: Unremarkable.IMPRESSION: Since 05/14, interval | | resolution of acute pulmonary embolism, with interval development of nodules at the | | bases, bilaterally that may represent aspiration or sequela of previous embolism. Close | | attention on followup examination recommended.Interval reduction in burden of adenopathy | | within the mediastinum and mesentery and inguinal areasI have personally reviewed the | | images and, if necessary, edited the report. I agree with the report as now presented. | |VESSELS: Moderate atherosclerotic burden. No aneurysm. Contrast noted within the mesenteric vasculature | | | |BONES AND SOFT TISSUES: Unremarkable. | | | | | |IMPRESSION: | | | |Since 05/14, interval resolution of acute pulmonary embolism, with interval development of nodules at the bases, bilaterally that may represent aspiration or sequela of previous embol ism. Close attention on followup examination recommended. | |Interval reduction in burden of adenopathy within the mediastinum and mesentery and inguina l areas | | | | | |I have personally reviewed the images and, if necessary, edited the report. I agree with t he report as now presented. | + + CREATININE, POC (07/11/2017 10:37 AM) + +-------+ + | Component | Value | Ref Range | + +-------+ + | CREATININE, POC | 1.1 | 0.7 - 1.3 mg/dL | + +-------+ + + + + | Specimen | Performing Laboratory | + + + | Blood | [facility], POINT OF CARE TESTS [address] | | | [place] [address] | + + + COMPLETE METABOLIC PANEL (05/30/2017 11:26 AM)Only the most recent of 3 results within the time period is included. + + + | Specimen | Performing Laboratory | + + + | Blood | | + + + CMP, POC (BMP+LFT) (05/30/2017 11:26 AM)Only the most recent of 3 results within the time p taryniod is included. + +-------+ + | Component | Value [...] | + + + | Blood | [facility], POINT OF CARE TESTS [address] | | | [place] [address] | + + + CBC WITH AUTO DIFF (05/30/2017 11:25 AM)Only the most recent of 3 results within the time p eriod is included. + + + | Specimen | Performing Laboratory | + + + | Blood | | + + + CBC+DIFF,POC (05/30/2017 11:25 AM)Only the most recent of 3 results within the time period is included. + + + + | Component | [...] | + + + | Blood | [facility], POINT OF CARE TESTS [address] | | | [place] [address] | + + + 12 LEAD ECG (05/30/2017 11:24 AM)Only the most recent of 3 results within the time period i s included. + + + + | Component | [...] Laboratory | + + + | | [facility] [address] [place] [address] | | | [facility] [place] [address] | + + + MAGNESIUM, PLASMA (05/30/2017 11:00 AM) + + + | Specimen | Performing Laboratory | + + + | Blood | | + + + + + | Narrative | + + | The following orders were created for panel order MAGNESIUM, PLASMA. | | Procedure | | Abnormality Status | | --------- | | ------ MAGNESIUM, | | PLASMA[[id number]] Normal Final | | result Please view results for these tests on the | | individual orders. | + + LDH TOTAL (05/30/2017 11:00 AM) + + + | Specimen | Performing Laboratory | + + + | Blood | | + + + + + | Narrative | + + | The following orders were created for panel order LDH TOTAL. | | Procedure | | Abnormality Status | | --------- | | ------ LDH TOTAL, | | PLASMA[[id number]] Abnormal Final | | result Please view results for these tests on the | | individual orders. | + + JESSIKA RIVERA ONLY (05/30/2017 11:00 AM)Only the most recent of 2 results within the time lolis bobmatilde is included. + + + + | Component | [...] | SPECIFIC GRAVITY | 1.004 (L)Comment: Specific [place] | 1.005 - 1.030 | | | performed by refractometry | | + + + + + + + | Specimen | Performing Laboratory | + + + | Urine | [facility], CORE [address] [place] [address] | | | [place] [address] | + + + MAGNESIUM, PLASMA (05/30/2017 11:00 AM)Only the most recent of 3 results within the time lolis tripp is included. + +-------+ + | Component | Value | Ref Range | + +-------+ + | MAGNESIUM,PLASMA | 2.2 | 1.6 - 2.6 mg/dL | + +-------+ + + + + | Specimen | Performing Laboratory | + + + | Blood | [facility], CORE [address] | | | [place] [id number] | + + + + + | Narrative | + + | Reference range change effective 02/26/17. | + + LDH TOTAL, PLASMA (05/30/2017 11:00 AM)Only the most recent of 3 results within the time lolis tripp is included. + +---------+ + | Component | Value | Ref Range | + +---------+ + | LD TOTAL, PLASMA | 254 (H) | <=250 U/L | + +---------+ + | LD CMNT | No Hemo | | + +---------+ + + + + | Specimen | Performing Laboratory | + + + | Blood | [facility], CORE [address] [place] [address] | | | [place] [id number] | + + + PROTEIN C ACTIVITY REFLEX INR, PLASMA (05/30/2017 10:59 AM)Only the most recent of 2 result s within the time period is included. + + + + | Component | Value | Ref Range | + + + + | PROTEIN C ACTIVITY | 0.69 (L) | 0.82 - 1.54 U/mL | + + + + + + + | Specimen | Performing Laboratory | + + + | Blood | [facility], SPECIAL IMM + COA [address] [facility] | | | [place] [address] | + + + + + | Narrative | + + | Non-coumarin anticoagulants may falsely elevate Protein C values, even when | | the concurrent PTT is normal. | + + INR (05/30/2017 10:59 AM)Only the most recent of 2 results within the time period is includ ed. + + + + | Component | Value | Ref Range | + + + + | INR | 1.38 (H) | 0.90 - 1.20 INR | + + + + + + + | Specimen | Performing Laboratory | + + + | Blood | [facility], CORE [address] [facility] | | | [place] [id number] | + + + + + | Narrative | + + | INR Therapeutic ranges for full anticoagulation: INR for Venous | | Thromboembolism (2.0 - 3.0) INR INR for most patients with | | mech. valves (2.5 - 3.5) INR | + + FREE T4 (05/30/2017 10:59 AM)Only the most recent of 3 results within the time period is in cluded. + +-------+ + | Component | Value | Ref Range | + +-------+ + | FREE T4 | 1.0 | 0.6 - 1.2 ng/dL | + +-------+ + + + + | Specimen | Performing Laboratory | + + + | Blood | [facility], CORE [address] [place] [address] | | | [place] [address] | + + + T3 TOTAL, SERUM (05/30/2017 10:59 AM)Only the most recent of 3 results within the time ray od is included. + +-------+ + | Component | Value | Ref Range | + +-------+ + | T3, TOTAL | 114 | 87 - 196 ng/dL | + +-------+ + + + + | Specimen | Performing Laboratory | + + + | Blood | [facility] [address] [place], [place] | | | [address] | + + + TSH (05/30/2017 10:59 AM)Only the most recent of 3 results within the time period is includ ed. + +-------+ + | Component | Value | Ref Range | + +-------+ + | TSH | 1.29 | 0.47 - 7.11 mIU/L | + +-------+ + + + + | Specimen | Performing Laboratory | + + + | Blood | [facility], CORE [address] [place] [address] | | | [place] [id number] | + + + + + | Narrative | + + | TSH reference ranges are influenced by a variety of environmental influences, age, | | gender and ethnicity. The supplied reference limits are based on published values | | utilizing a similar TSH assay, and should be interpreted with caution. | + + LIPASE, PLASMA (05/30/2017 10:59 AM)Only the most recent of 3 results within the time perio d is included. + +--------+ + | Component | Value | Ref Range | + +--------+ + | LIPASE (LAB) | 97 (L) | 152 - 353 U/L | + +--------+ + + + + | Specimen | Performing Laboratory | + + + | Blood | [facility], CORE [address] [facility] | | | [place] [address] | + + + AMYLASE, PLASMA (05/30/2017 10:59 AM)Only the most recent of 3 results within the time ray od is included. + +--------+ + | Component | Value | Ref Range | + +--------+ + | AMYLASE,PLASMA | 23 (L) | 25 - 115 U/L | + +--------+ + + + + | Specimen | Performing Laboratory | + + + | Blood | [facility], CORE [address] [facility] | | | [facility] [place] [address] | + + + US NEEDLE BIOPSY LYMPH NODE (05/23/2017 2:57 PM) + + + | Specimen | Performing Laboratory | + + + | | [facility] VOICE RECOGNITION | + + + + + | Narrative | + + | PROCEDURE: US-GUIDED RIGHT INGUINAL LYMPH NODE BIOPSY. HISTORY: History of | | lymphoma with enlarging right inguinal lymph node. Request for ultrasound guided core | | needle biopsy of right inguinal lymph node for diagnosis and research. | | COMPARISON: CT chest/abdomen/pelvis 05/14/2017 TECHNIQUE: After a procedures, | | alternatives, risks, and questions (PARQ) conference, written and oral consent was | | obtained from the patient. A Team Pause was performed. The right groin was | | scanned, and a point was marked on the skin, overlying the enlarged right inguinal lymph | | node. The area was prepped and draped in sterile fashion. Several ml of 1% | | buffered lidocaine was used for local anesthesia. Under ultrasound guidance, a 17-gauge | | coaxial needle was advanced to the lesion and subsequently 6 core biopsies of the | | enlarged right inguinal lymph node were obtained. One specimen was submitted in formalin | | to pathology. One specimen was submitted in saline for flow cytometry. 4 specimens | | were submitted in saline for research, which was handed in person to Dr. Simone Hernandez | | at end of the procedure. FINDINGS: Enlarged right inguinal lymph node | | measures 3.8 x 4 x 4.6 cm. Post procedure imaging shows no hematoma. IMPRESSION: | | 1. Ultrasound-guided core needle biopsy of enlarged right inguinal lymph node. | | Attestation statement: By my electronic signature below, I, the attending radiologist, | | was present for the entire procedure as described in this note. I have personally | | reviewed the images and, if necessary, edited the report. I agree with the report as | | now presented. | + + + + | Procedure Note | + + | Service Account, Radiant Res In Interface - 05/23/2017 5:23 PM PST PROCEDURE: | | US-GUIDED RIGHT INGUINAL LYMPH NODE BIOPSY.HISTORY: History of lymphoma with enlarging | | right inguinal lymph node. Request for ultrasound guided core needle biopsy of right | | inguinal lymph node for diagnosis and research. COMPARISON: CT chest/abdomen/pelvis | | 05/14/2017 TECHNIQUE: After a procedures, alternatives, risks, and questions (PARQ) | | conference, written and oral consent was obtained from the patient. A Team Pause was | | performed. The right groin was scanned, and a point was marked on the skin, overlying | | the enlarged right inguinal lymph node. The area was prepped and draped in sterile | | fashion. Several ml of 1% buffered lidocaine was used for local anesthesia. Under | | ultrasound guidance, a 17-gauge coaxial needle was advanced to the lesion and | | subsequently 6 core biopsies of the enlarged right inguinal lymph node were obtained. | | One specimen was submitted in formalin to pathology. One specimen was submitted in | | saline for flow cytometry. 4 specimens were submitted in saline for research, which was | | handed in person to Dr. Simone Hernandez at end of the procedure. FINDINGS:Enlarged | | right inguinal lymph node measures 3.8 x 4 x 4.6 cm. Post procedure imaging shows no | | hematoma.IMPRESSION:1. Ultrasound-guided core needle biopsy of enlarged right inguinal | | lymph node.Attestation statement: By my electronic signature below, I, the attending | | radiologist, was present for the entire procedure as described in this note.I have | | personally reviewed the images and, if necessary, edited the report. I agree with the | | report as now presented. | | | |Attestation statement: By my electronic signature below, I, the attending radiologist, was present for the entire procedure as described in this note. | | | | | |I have personally reviewed the images and, if necessary, edited the report. I agree with t he report as now presented. | + + SURGICAL PATHOLOGY (05/23/2017) + + + + | Component | Value | Ref Range | + + + + | SURGICAL PATHOLOGY | SOURCE OF SPECIMEN:A Right inguinal lymph | | | | node Final Pathologic Diagnosis:A. | | | | Right inguinal lymph node, biopsy: | | | | - Monoclonal B cell population (94% of | | | | CD45+ events), see comment - | | | | Immunophenotype: CD10, CD19, CD20, CD22, | | | | dim CD23 and kappa positive | | | | Comment: The combined immunophenotypic and | | | | limited morphologic findings aremost | | | | compatible with involvement by diffuse | | | | large B cell lymphoma in lightof the | | | | clinical history. Flow cytometric analysis | | | | identifies 6% oflymphocytes as T cells with | | | | unremarkable antigen expression and a | | | | CD4:YA6sllxm of 5.3:1. Preliminary findings | | | | discussed with Chad Lowe MD,on | | | | 05/24/2017. Case Reviewed by:Brittany | | | | Camden Myers/Hematopathology FellowPhilipp | | | | Patricia Carvajal., | | | | Ph.D./Hematopathologist Clinical | | | | History:71-year-old male with history of | | | | diffuse large B cell lymphoma with | | | | thefollowing immunophenotype: CD10, CD19, | | | | CD20, PAX5, Bcl-2, Bcl-6, CD38,CD45, HLA-DR | | | | and [place]-positive ([id number]; | | | | 06/30/2014). Gross | | | | Description:Received is one specimen | | | | labeled with the patient's name (initials | | | | DF) andmedical record #[id number]. A: | | | | Right inguinal lymph node: Received in 2 | | | | parts, one in saline and one informalin. | | | | The specimen received in saline contains | | | | one white cylindricaltissue core measuring | | | | 1.2 cm in length and 0.1 cm in diameter. | | | | The freshtissue is submitted entirely for | | | | flow cytometric studies. The | | | | specimenreceived in formalin contains | | | | minute red tissue fragments that measure | | | | lessthan 0.1 x 0.1 x 0.1 cm in aggregate. | | | | The formalin fixed tissue is wrappedand | | | | submitted entirely in cassette A1 (the | | | | tissue may not | | | | surviveprocessing).NL A Lovell | | | | stained cytospin was prepared for | | | | correlation with the flowcytometry | | | | results. Microscopic | | | | Description:Histologic sections show scant | | | | material with atypical mononuclear cells | | | | andbenign appearing glandular tissue; this | | | | may not be corporate sales representative of thesubmitted | | | | specimen. The cytospin preparation is | | | | composed predominantly oflarge atypical | | | | lymphocytes with moderate blue cytoplasm, | | | | irregular nuclearcontours, variably | | | | condensed chromatin and prominent nucleoli. | | | | Raremorphologically unremarkable small | | | | lymphocytes are present. Flow | | | | Cytometric | | | | Analysis:Blasts: | | | | <0.5% of total CD45+ | | | | cellsLymphocytes: 96.0% of | | | | total CD45+ | | | | cellsB-cells: 94% of | | | | lymphocytesT-cells: 6.0% of | | | | lymphocytes, no antigen aberrancy (CD4:CD8 | | | | ratio of5.3:1)NK-cells: | | | | <0.5% of | | | | lymphocytesSummary: | | | | Monoclonal B cell population detected (94% | | | | oflymphocytes; 90% of total white blood | | | | cells) with the followingimmunophenotype: | | | | CD10, CD19, CD20, CD22, dim CD23 and kappa | | | | positive. Noincrease in blasts. | | | | Antibodies Tested: | | | | CD2 CD3 CD4 CD5 CD7 CD8 C | | | | D10 [id number] CD22 CD23 CD25 CD34 CD38 | | | | CD45 [id number] | | | | sKappa sLambda (Analyte | | | | specific reagents are used in many | | | | laboratory tests necessary forstandard | | | | medical care. This test was developed | | | | and its performancecharacteristics | | | | determined by [facility] [employer]. It has | | | | not been clearedor approved by the [place] Food | | | | and Drug Administration (FDA). FDA does | | | | notrequire this test to go through | | | | premarket FDA review. This test is | | | | usedfor clinical purposes. It should not | | | | be regarded as investigational or | | | | forresearch. The laboratory is certified | | | | under the Clinical LaboratoryImprovement | | | | Amendments (CLIA) as qualified to perform | | | | high complexityclinical laboratory | | | | testing.) My electronic signature | | | | indicates that I have personally reviewed | | | | alldiagnostic slides, the gross and/or | | | | microscopic portion of thisreport and | | | | formulated the final diagnosis. | | | | Electronically signed by: Jorge Amezquita | | | | Alena Hannah, Ph.D.PathologistDate Completed: | | | | 05/24/2017 11:47AM | | + + + + + + + | Specimen | Performing Laboratory | + + + | Tissue - Lymph node | [facility] DEPARTMENT OF PATHOLOGY [address] [facility] | | | [place] [address] | + + + TROPONIN I, PLASMA (05/14/2017 7:45 AM) + +-------+ + | Component | Value | Ref Range | + +-------+ + | TROPONIN I | 0.02 | <0.80 ng/mL | + +-------+ + + + + | Specimen | Performing Laboratory | + + + | Blood | [facility], CORE [address] [place] [address] | | | [place] [address] | + + + COMPLEMENT ACTIVITY ENZYME IMMUNOASSAY, TOTAL (05/14/2017 7:45 [...] ....... | | | | HighPerformed by [address] | | | | [place] [address] | | | | [phone].[employer], Graham Meza, | | | | Raisa INGRAM. Director | | | |www.[employer], Graham Meza MD, Lab. Director | | + + + + + + + | Specimen | Performing Laboratory | + + + | Blood | [facility] - [facility] [address] [facility] | | | [place] [address] | + + + C'4 COMPLEMENT, SERUM (05/14/2017 7:45 AM) + +-------+ + | Component | Value | Ref Range | + +-------+ + | C'4 COMPLEMENT SERUM | 40 | 16 - 47 mg/dL | + +-------+ + + + + | Specimen | Performing Laboratory | + + + | Blood | [facility] [place] [address] [place], [place] | | | [address] | + + + IGM, SERUM (05/14/2017 7:45 AM)Only the most recent of 2 results within the time period is included. + +--------+ + | Component | Value | Ref Range | + +--------+ + | IGM SERUM | 37 (L) | 40 - 230 mg/dL | + +--------+ + + + + | Specimen | Performing Laboratory | + + + | Blood | [facility] [address] [place], [place] | | | [address] | + + + IGG, SERUM (05/14/2017 7:45 AM)Only the most recent of 2 results within the time period is included. + +-------+ + | Component | Value | Ref Range | + +-------+ + | IGG SERUM | 859 | 700 - 1600 mg/dL | + +-------+ + + + + | Specimen | Performing Laboratory | + + + | Blood | [facility] [address] [place], [place] | | | [address] | + + + IGA, SERUM (05/14/2017 7:45 AM)Only the most recent of 2 results within the time period is included. + +-------+ + | Component | Value | Ref Range | + +-------+ + | IGA SERUM | 248 | 70 - 400 mg/dL | + +-------+ + + + + | Specimen | Performing Laboratory | + + + | Blood | [facility] [address] [place], [place] | | | [address] | + + + C'3 COMPLEMENT, SERUM (05/14/2017 7:45 AM) + +-------+ + | Component | Value | Ref Range | + +-------+ + | C'3 COMPLEMENT SERUM | 121 | 88 - 201 mg/dL | + +-------+ + + + + | Specimen | Performing Laboratory | + + + | Blood | [facility] [address] [place] [address] | | | [address] | + + + PHOSPHORUS, PLASMA (05/14/2017 7:45 AM)Only the most recent of 2 results within the time lucretia hernandez is included. + +-------+ + | Component | Value | Ref Range | + +-------+ + | PHOSPHORUS, PLASMA | 3.1 | 2.4 - 4.7 mg/dL | | (LAB) | | | + +-------+ + + + + | Specimen | Performing Laboratory | + + + | Blood | [facility], CORE [address] [place] [address] | | | [place] [address] | + + + URIC ACID, PLASMA (05/14/2017 7:45 AM)Only the most recent of 2 results within the time lolis tripp is included. + +-------+ + | Component | Value | Ref Range | + +-------+ + | URIC ACID, PLASMA | 6.6 | 3.7 - 8.0 mg/dL | | (LAB) | | | + +-------+ + + + + | Specimen | Performing Laboratory | + + + | Blood | [facility], CORE [address] [facility] | | | [place] [address] | + + + RESEARCH TUMOR READING (05/14/2017) + + | Narrative | + + | Research Tumor Measurement Results 05/20/2017 Measurement Criteria: Dat Baseline | | or Follow up: Follow [...] | bi-dimensional (mm): 6372 | + + C-REACTIVE PROTEIN (05/02/2017 8:10 AM) + +-------+ + | Component | Value | Ref Range | + +-------+ + | C-REACTIVE PROTEIN | 8.7 | <10.0 mg/L | + +-------+ + + + + | Specimen | Performing Laboratory | + + + | Blood | [facility], CORE [address] [facility] [address] | | | [place] [address] | + + + + + | Narrative | + + | New method, new reference range and new reporting units as of 12/16/2013. | + + from Last 3 Months
--- OUTSIDE RECORDS SUMMARY | ~2017-07-29 | XMS | Encounter Summary ---
Demographics + + + | Address | [address] | | | [place] [address] | + + + | Home Phone | | + + + | Preferred Language | Unknown | + + + | Marital Status | | + + + | Rastafari Affiliation | LUT | + + + [...] + + + +-------+ ECON | [address] | | [place] | [address] | +------+ + + + +-------+ Care Team Providers + +------+-------+ | Care Surgical Endoscopist Name | Role | Phone | + +------+-------+ | Jamaal Rivera MD | PCP | tel | + +------+-------+ Encounter Details +--------+ + + + + | Date | Type | Department | Care Team | Description | +--------+ + + + + | 05/14/ | Procedure | Diagnostic Imaging | | | | 2017 | Pass | Services at [facility] | | | | | | [address] | | | | | | [facility] | | | | | | Mailcode: [id number] [facility] | | | | | | [facility], | | | | | | [place] [address] | | | | | | [phone] | | | +--------+ + + + [...]
--- OUTSIDE RECORDS SUMMARY | ~2017-07-29 | XMS | Encounter Summary ---
Demographics + + + | Address | [address] | | | [place] [address] | + + + | Home Phone | | + + + | Preferred Language | Unknown | + + + | Marital Status | | + + + | Adventist Affiliation | LUT | + + + | Race | White | + + + | Ethnic Group | Not or | + + + Author + + + | Author | [facility] | + + + | Organization | [facility] | + + + | Address | Unknown | + + + | Phone | Unavailable | + + + Support +------+ + + + +-------+ | Name | Relationship | Address | Phone | +------+ + + + +-------+ ECON | [address] | | [place] | [address] | +------+ + + + +-------+ Care Team Providers + +------+-------+ | Care Oil Laboratory Analyst Name | Role | Phone | + +------+-------+ | Jamaal Rivera MD | PCP | tel | + +------+-------+ Encounter Details +--------+ + + + + | Date | Type | Department | Care Team | Description | +--------+ + + + + | 06/13/ | Pharmacy | Specialty Pharmacy | | | | 2016 | Visit | Services [address] | | | | [address] | | | | | | [place], [place] | | | | | | [address] | | | | | | [phone] | | | +--------+ + + + [...]
--- OUTSIDE RECORDS SUMMARY | ~2017-07-29 | XMS | Encounter Summary ---
Demographics + + + | Address | [address] | | | [place] [address] | + + + | Home Phone | | + + + | Preferred Language | Unknown | + + + | Marital Status | | + + + | Baptist Affiliation | LUT | + + + [...] + + +-------+ ECON | [address] | | [place] | [address] | +------+ + + + +-------+ Care Team Providers + +------+-------+ | Care Drip Pumper Name | Role | Phone | + [...] HOSPITAL | | | | | | [address] | | | | | | [facility] | | | | | | Mailcode: [id number] [facility] | | | | | | [facility], | | | | | | [place] [address] | | | | | | [phone] | | | +--------+ + + + [...]
--- OUTSIDE RECORDS SUMMARY | ~2017-07-29 | XMS | Encounter Summary ---
Demographics + + + | Address | [address] | | | [place] [address] | + + + | Home Phone | | + + + | Preferred Language | Unknown | + + + | Marital Status | | + + + | Restorationist Affiliation | LUT | + + + [...] + + +-------+ ECON | [address] | | [place] | [address] | +------+ + + + +-------+ Care Team Providers + +------+-------+ | Care Data Processing Consultant Name | Role | Phone | + [...] | | | | | [id number] | | | [facility] | | | | | | [facility] | [place], [place] | | | | | | [place], [place] | [address] | | | | | | [address] | Phone: | | | | | | Phone: | [phone] | | | | | | [phone] | Fax: | | | | | | Fax: | [phone] | | | | | | [phone] | | +--------+--------+ + + + + Encounter Details +--------+---------+ + + + | Date | Type | Department | Care Team | Description | +--------+---------+ + + + | 05/30/ | Office | Center for | Dunia Joseph MD | Diffuse large B-cell | | 2017 | Visit | Hematologic | [address] [facility] | lymphoma of | | | | Malignancies at | [facility] [address] | intra-abdominal | | | | [facility] | [place], [place] | lymph nodes (HCC) | | | | [address] [facility] | [address] | (Primary Dx) | | | | [address] | [phone] | | | | | Mailcode: [id number] | | | | | | [facility] | | | | | | [place], [place] | | | | | | [address] | | | | | | [phone] | | | +--------+---------+ + + + [...] urmila original. [facility], [facility] 05/30/17 Reason for visit: Consultation is [...] (discussed below). Patients must stay in the [place] area f or 30 days after the [...] and running. We are wo rking with [employer] ([employer]) and are in the final stages of [...] a num emily of clinical trials in [place] that he can consider. 2. Infectious Prophylaxis: [...] discussion of treatment options. 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
--- OUTSIDE RECORDS SUMMARY | ~2017-07-29 | XMS | Encounter Summary ---
Demographics + + + | Address | [address] | | | [place] [address] | + + + | Home Phone | | + + + | Preferred Language | Unknown | + + + | Marital Status | | + + + | Zoroastrianism Affiliation | LUT | + + + | Race | White | + + + | Ethnic Group | Not or | + + + Author + + + | Author | [facility] | + + + | Organization | [facility] | + + + | Address | Unknown | + + + | Phone | Unavailable | + + + Support +------+ + + + +-------+ | Name | Relationship | Address | Phone | +------+ + + + +-------+ ECON | [address] | | [place] | [address] | +------+ + + + +-------+ Care Team Providers + +------+-------+ | Care Soil Conservation Technician Name | Role | Phone | + +------+-------+ | Jamaal Rivera MD | PCP | tel | + +------+-------+ Reason for Visit + + + | Reason | Comments | + + + | Follow-up visit | | + + + Consultation (Routine) [...] | | | | | [id number] | [facility] | | | | | [facility] | | | | | | Pavilion | [place], [place] | | | | | | [place], [place] | [address] | | | | | | [address] | Phone: | | | | | | Phone: | [phone] | | | | | | [phone] | Fax: | | | | | | Fax: | [phone] | | | | | | [phone] | | +--------+--------+ + + + + Encounter Details +--------+---------+ + + + | Date | Type | Department | Care Team | Description | +--------+---------+ + + + | 07/11/ | Office | Center for | Chad Lowe, | Diffuse large B-cell | | 2017 | Visit | Hematologic | MD [address] | lymphoma of | | | | Malignancies at | [address] [place], [place] | intra-abdominal | | | | [facility] | [address] | lymph nodes (HCC) | | | | [address] | [phone] | (Primary Dx) | | | | [place] | | | | | | Mailcode: [id number] | | | | | | [facility] | | | | | | [place], [place] | | | | | | [address] | | | | | | [phone] | | | +--------+---------+ + + + [...] PM PST | + + + + in this encounter Progress Notes Chad Lowe MD - 07/11/2017 12:15 PM PSTFormatting of this note may be different fro m the original. [facility] Follow Up 07-11-17 [facility] Physician: Chad Lowe MD Reason for Visit: Follow Up to discuss restaging studies Current Treatment: R-GDP, started 05-30-17 S/Interval events: Doing well. Had staging studies today showing overall response to treat ment. He had significant fatigue and diarhea with his first cycle. Accordingly, his second c ycle was dose reduced by 20% and he tolerated this without difficulty. He does note mild PARKER but has not had any significant cough, fever, or recurrent PNA. He did also have epistaxis which required cauterization when he was thrombocytopenic. He continues on apixiban. Overall he feels well. 10 point ROs is otherwise negative Dx History: Referring oncologist: Arnold Sotelo) [facility] onc[facility]: Kenny PCP: Jamaal Rivera MD Noticed R neck node which subsequently resolved, followed by R axillary mass 05/2014 CT: R axillary mass 7.5cm. Also L hilar 5.4cm node, multiple smaller mediastinal & R hilar nodes, mesenteric 2-3 cm nodes, R inguinal 2 cm - surgical bx R axillary node: DLBCL, +BCL2, BCL6, Ki67 80-90%. NEG Myc - PET: +cervical, thoracic, abdominal, R inguinal nodes. Post-Bx change R axilla. L parotid nodule. Necrotic mediastinal node. 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 ingunail bx confirm ing DLBCL on 05/23/17 05/30/17 starts R-GDP Central Access: [place] Allergies No Known Allergies Current Outpatient Prescriptions Medication Sig acyclovir 800 mg oral tablet Take 1 tablet by mouth once daily. allopurinol 300 mg oral tablet Take 1 tablet by mouth once daily. apixaban 5 mg oral tablet Take 2 tablets (10 mg) by mouth twice a day for 7 days, then take 1 tablet (5 mg) twice a day. Indications: pulmonary thromboembolism budesonide-formoterol 160-4.5 mcg/actuation inhalation HFA aerosol inhaler Inhale 2 puf fs by mouth two times daily. Indications: Prevention of Bronchospasm with Chronic Bronchitis cetirizine 10 mg oral tablet Take 1 tablet by mouth once daily. clobetasol 0.05 % scalp solution Apply to scalp twice daily (Patient not taking: Report ed on 07/11/2017) clobetasol 0.05 % topical ointment Apply to affected area two times daily. (Patient no t taking: Reported on 07/11/2017) dapsone 25 mg oral tablet Take 25 mg by mouth two times daily. Indications: skin infect ion dexamethasone 4 mg oral tablet Take 10 tablets by mouth once daily On days 2-4 of the c ycle (05/31, 06/01, 06/02) only. DULoxetine 30 mg oral capsule,delayed release(DR/EC) Take 1 capsule by mouth once daily . fluticasone 50 mcg/actuation nasal spray,suspension Instill 2 sprays into each nostril two times daily. Indications: Allergic Rhinitis halobetasol 0.05 % topical ointment Large pt with full body severe rash. 250 g for 30 d ay supply. (Patient not taking: Reported on 07/11/2017) levalbuterol 45 mcg/actuation inhalation HFA aerosol inhaler 1-2 puffs every 4-6 hours as needed. Indications: Bronchospasm Prevention omeprazole 40 mg oral capsule,delayed release(DR/EC) Take 20 mg by mouth once daily. In dications: gastroesophageal reflux disease ondansetron 8 mg oral tablet as needed. predniSONE 20 mg oral tablet Take 1 tablet by mouth once daily. X 5 days Indications: hypersensitivity drug reaction (Patient not taking: Reported on 07/11/2017) prochlorperazine 10 mg oral tablet Take 0.5 tablets by mouth every six hours as needed for nausea/vomiting Take 5mg-10mg as needed. Max dose: 40 mg/day ramelteon (ROZEREM) 8 mg oral tablet Take 1 tablet by mouth once daily at bedtime as ne eded for sleep. Take 30 minutes before bedtime. Indications: Restless leg triamcinolone acetonide 0.1 % topical cream Apply to affected area two times daily. Ap ply thin film to affected areas. (Patient not taking: Reported on 07/11/2017) Past Medical History: Diagnosis Date Acosta's cyst of knee Diverticulosis DJD (degenerative joint disease) Fatty infiltration of liver Hypertension NHL (non-Hodgkin's lymphoma) (HCC) RYANNE on CPAP Pneumonia S/P nasal surgery Physical Examination: Performance Status: ECOG 1, KPS 80% BP 133/85 | Pulse 68 | Temp (Src) 36.4 C (97.6 F) (Oral) | RR 14 | Ht 1.706 m (5' 7.17" ) | Wt 104.6 kg (230 lb 9.6 oz) | SpO2 98% | BMI 35.94 kg/(m^2) Pleasant, looks well OP is clear supple w/o adenopathy RR 2/6 holosytolic murmer, unchanged CTA b/l no wheezes or rhonchi +BSNTND no hsm No edema Rash has resolved Imaging: CT neck-negative CT C/A/P MEDIASTINUM: Left chest wall Port-A-Cath is noted with tip terminating in the SVC. Thyroid gland unremarkable. No axillary adenopathy identified. Prevascular 2.1 x 1.7 cm lymph node, previously measured 1.7 x 1.7 cm. Posterior mediastinal lymph node, however, today measures 2.2 x 1.4 cm, previously 4 cm in short axis (48/1). Normal heart size. No pericardial effusi on. LUNGS: Small right-sided pleural fluid collection, minimally increased from the previous ex amination, however trace in size. Bibasilar atelectatic changes identified. 9 mm left lower lobe nodule (75/4). Groundglass changes noted in the right lower lobe. Interval resolution o f previously identified acute pulmonary embolism. LIVER: Fatty liver. No focal mass lesions. BILIARY: Unremarkable. SPLEEN: Unremarkable. PANCREAS: Unremarkable. ADRENALS: Unremarkable. KIDNEYS/URETERS: Unremarkable. PELVIC ORGANS/BLADDER: Unremarkable. GI TRACT: Diverticulosis colon. No inflammatory change to suggest diverticulitis. No focal mass lesion. PERITONEUM: No free air or fluid. LYMPH NODES: Mesenteric lymphadenopathy measuring 3.6 x 2.1 cm, previously 5.3 x 3.2 cm (15 1/1); right inguinal lymph node measuring 2.5 x 2.2 cm, previously 4.5 x 4.4 cm (256/1). . VESSELS: Moderate atherosclerotic burden. No aneurysm. Contrast noted within the mesenteric vasculature BONES AND SOFT TISSUES: Unremarkable. IMPRESSION: Since 05/14, interval resolution of acute pulmonary embolism, with interval development of nodules at the bases, bilaterally that may represent aspiration or sequela of previous embol ism. Close attention on followup examination recommended. Interval reduction in burden of adenopathy within the mediastinum and mesentery and inguina l areas Assessment & Plan: 72 y.o. M, DLBCL, relapsed/refractory, recently progressed on Acerta combo (BTKi, PI3k) inh ibitor study followed by progression on the anti-LAG-3/nivo study. Now receiving R-GDP kemi ge. Rafractory DLBCL: GCB type -reviewed CT in detail, overall a good response noting one pre-vascular node in the chest t hat is stable (slightly larger) -discussed plans for consolidation including A) CART- should be available here in July and he is on the initial list of potential pa tients- still trying to determine insurance coverage (has [facility] and medicare)- we are proceedin g as though this will be the plan B) autologous transplant: is continues to show chemosensitive disease and/or CART not an o ption, this could be a consideration noting the prevascular node would need closer evaluatio n- could consider XRT. -based on goals for consolidative therapy, overall excellent tolerance and initial response I have recommended ongoing R-GDP (at 75% of the original dose) for 2 additional cycles. -PET/CT after his next two cycles -also discussed lenalidomide based therapy-would not pursue at this time (and likely only i f no other options) given his disease is GCB ID: - acyclovir prophylaxis Pulmonary: -bronchitis, resolved continue MDI -PNA (persistent tree and bud in lower lobes) but no recurrence -PE (incidental finding)-remains on apixiban, continue. Keep plt > 50 while on apixiban. Th is will need CVS: -mitral regurg, worse on echo but compensated -follow BNP periodically. -no intervention warranted, appreciate cardiology F/U: here after PET/CT has been completed. 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
--- OUTSIDE RECORDS SUMMARY | ~2017-07-29 | XMS | Encounter Summary ---
Demographics + + + | Address | [address] | | | [place] [address] | + + + | Home Phone | | + + + | Preferred Language | Unknown | + + + | Marital Status | | + + + | Confucianist Affiliation | LUT | + + + | Race | White | + + + | Ethnic Group | Not or | + + + Author + + + | Author | [facility] | + + + | Organization | [facility] | + + + | Address | Unknown | + + + | Phone | Unavailable | + + + Support +------+ + + + +-------+ | Name | Relationship | Address | Phone | +------+ + + + +-------+ ECON | [address] | | [place] | [address] | +------+ + + + +-------+ Care Team Providers + +------+-------+ | Care Civil Engineering Technician Name | Role | Phone | + +------+-------+ | Jamaal Rivera MD | PCP | tel | + +------+-------+ Encounter Details +--------+ + + + + | Date | Type | Department | Care Team | Description | +--------+ + + + + | 06/20/ | Procedure | Diagnostic Imaging | | | | 2017 | Pass | Services at [facility] | | | | | | [address] | | | | | | [facility] | | | | | | Mailcode: [id number] | | | | | | [facility], | | | | | | [place] [address] | | | | | | [phone] | | | +--------+ + + + [...]
--- OUTSIDE RECORDS SUMMARY | ~2017-07-29 | XMS | Encounter Summary ---
Demographics + + + | Address | [address] | | | [place] [address] | + + + | Home Phone | | + + + | Preferred Language | Unknown | + + + | Marital Status | | + + + | Taoism Affiliation | LUT | + + + [...] + + + +-------+ ECON | [address] | | [place] | [address] | +------+ + + + +-------+ Care Team Providers + +------+-------+ | [facility] Coordinator Name | Role | Phone | + +------+-------+ | Jamaal Rivera MD | PCP | tel | + +------+-------+ Reason for Visit + + + | Reason | Comments | + + + | Lab Draw | PAC | + + + | Follow-up visit | Dr. 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 | | | | | | [address] | | | | | [address]amm[address] | [address] | [address] | | | | | bulinemia | [place], [place] | [facility] | | | | | Procedures | [address] | Road | | | | | [place] INJ IG | Phone: | Mailcode: | | | | | [place] | [phone] | [id number] | | | | | IV, 500 MG | Fax: | [place] | | | | | [place] | [phone] | Pavilion | | | | | THR/PRPH/DX | | [place], [place] | | | | | IV INF,IN | | [address] | | | | | [place] | | Phone: | | | | | THER/PROPH/D | | [phone] | | | | | IAG IV IVIG | | Fax: | | | | | | | [phone] | +--------+--------+ + + + + Encounter Details +--------+ + + + + | Date | Type | Department | Care Team | Description | +--------+ + + + + | 05/14/ | Hospital | [facility] | | | | 2017 | Encounter | Hematologic | | | | | | Malignancies at [facility] | | | | | | [address] | | | | | | [facility] | | | | | | Mailcode: [id number] | | | | | | [address] | | | | | | [place], [place] | | | | | | [address] | | | | | | [phone] | | | +--------+ + + + [...] + + + | Blood Pressure | 153/87 | 05/14/2017 6:10 PM PDT | + + + + | Pulse | 72 | 05/14/2017 6:10 PM PDT | + + + + | Temperature | 36.5 C (97.7 F) | 05/14/2017 6:10 PM PDT | + + + + | Respiratory Rate | 18 | 05/14/2017 6:10 PM PDT | + + + + | Oxygen Saturation | 96% | 05/14/2017 6:10 PM PDT | + + + + | Inhaled Oxygen | - | - | | Concentration | | | + + + + | Weight | - | - | + + + + | Height | - | - | + + + + | Body Mass Index | - | - | + + + + in this [...] +---------+---------+ + + as of this encounter Progress Notes Deisy Azar RN - 05/14/2017 7:41 AM PDTPatient here tonight for Lovenox injection. He rec eived a phone call from Dr. Lowe advising him to return to clinic. Patient denies any ne w symptoms of SOB, chest pain, dizziness or HAs. Patient and his were given step by step instructions on how to self inject. Lovenox 100 mg from pharmacy injected subcutaneously to left abdomen per orders. No reactio n noted. See MAR for details. Patient and report that they do have the on-call/after hours numbers and they were adv ised to go to the ED with chest pain, SOB or syncope. They stated understanding. They are ex pecting a phone call from Dr. Lowe tomorrow with further discussion and plan. SIN Iglesias Christy, RN - 05/14/2017 7:41 AM PDTReceived call from Dr. Lowe. Patient had CT today, + for PE. Orders for Lovenox injection tonight- ordered on SEP. Dr. Lowe state s that he will contact patient to return to clinic tonight and will follow up with patient t omorrow regarding plan. Report given to Deisy Azar RN (Kate) regarding plan for tonight. Autumn Fitzgerald RN - 05/14/2017 7:41 AM PDTFormatting of this note may be different fro m the original. Chemotherapy Nurse Note Name: Hunter Alas Date: 05/14/2017 Physician: Chad Lowe MD Allergies: Hunter has no active allergies. 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 Labs: Lab Results Component Value Date BICARB 30 (H) 05/14/2017 TBILI 0.9 05/14/2017 CA 9.3 05/14/2017 CL 101 05/14/2017 CR 1.2 05/14/2017 GLU 85 05/14/2017 AP 51 05/14/2017 TP 6.9 05/14/2017 BUN 15 05/14/2017 ALB 4.0 05/14/2017 AST 34 05/14/2017 NA 138 05/14/2017 K 3.9 05/14/2017 ALT 35 05/14/2017 Lab Results Component Value Date WBC 6.3 05/14/2017 HB 14.2 05/14/2017 HCT 42.2 05/14/2017 PLT 175 05/14/2017 MCV 101.4 05/14/2017 RDW 58.8 03/12/2017 Narrative: Single lumen PAC intact to left anterior chest wall. No surrounding erythema or induration . Using sterile technique, site cleansed with Chloraprep. Port was accessed with a 20 gau ge 3/4 inch Power Loc batista needle without difficulty. Good blood return noted and 5 mL was discarded. Labs drawn and sent. PAC flushed with 20 mL NS and 5 mL of 100 unit/mL heparin per protocol then deaccessed. Patient tolerated procedure well. Chemotherapy: Patient meets parameters for chemotherapy today. Administer chemotherapy order received carolyn Lowe MD. Patient does not require premedication for chemotherapy due to no reactions. Chemotherapy was checked by 2 RNs. INV Nivolumab 240 mg IV over 30 minutes was infused per chemotherapy protocol and completed without adverse event. Positive blood return noted pre and post infusion. For infusion details, see MAR. Chemotherapy was checked by 2 RNs. INV Anti-LAG3 was infused per chemotherapy protocol an d completed without adverse event. Positive blood return noted pre and post infusion. For infusion details, see MAR. Patient was observed for 60 minutes post infusion with vitals obtained q.30 minutes. Infusion: Per Chad Lowe MD, patient does not require IVIG today due to IGG level of 928 on . Plan to do IVIG infusion every other month. Discharge: Tolerated procedure. PAC flushed with heparin and deaccessed per protocol. Revie wed next appt time with patient. Educated pt to contact clinic if experiencing fever, chills , symptoms of infection, bleeding, unable to drink 2 liters of fluid daily, or uncontrolled N/V/D/C. Pt verbalized understanding and discharged ambulatory without further questions or concerns. Autumn Fitzgerald RN in this encounter Plan of Treatment Not on fileas of this encounter Results CBC+DIFF,POC (05/14/2017 8:53 AM) + + + + | Component | Value | Ref Range | + + + + | WBC POC | 6.3 | 3.5 - 10.8 10*3/uL | + + + + | RBC POC | 4.16 (L) | 4.50 - 6.00 10*6/uL | + + + + | HGB POC | 14.2 | 13.5 - 17.5 g/dL | + + + + | HCT POC | 42.2 | 41.0 - 53.0 % | + + + + | MCV POC | 101.4 (H) | 80.0 - 96.0 fL | + + + + | MCH POC | 34.1 (H) | 28.5 - 32.3 pg | + + + + | MCHC POC | 33.6 | 33.0 - 35.5 g/dL | + + + + | RDW SD, POC | 50.2 (H) | 35.1 - 46.3 fL | + + + + | PLT POC | 175 | 150 - 400 10*3/uL | + + + + | MPV POC | 10.0 | 9.7 - 12.3 fL | + + + + | NEUTROPHIL% POC | 65.5 | 50.0 - 70.0 % | + + + + | LYMPH% POC | 17.3 (L) | 18 - 42 % | + + + + | MONO %, POC | 13.4 (H) | 3.5 - 9.0 % | + + + + | EOS %, POC | 2.5 | 1.0 - 3.0 % | + + + + | BASO %, POC | 1.3 | 0.0 - 2.0 % | + + + + | NEUTROPHIL# POC | 4.1 | 1.8 - 7.7 10*3/uL | + + + + | LYMPH# POC | 1.1 | 1.0 - 4.8 10*3/uL | + + + + | MONO #, POC | 0.8 | 0.1 - 0.9 10*3/uL | + + + + | EOS #, POC | 0.2 | 0.0 - 0.5 10*3/uL | + + + + | BASO #, POC | 0.1 | 0.0 - 0.1 10*3/uL | + + + + + + + | Specimen | Performing Laboratory | + + + | Blood | [facility], POINT OF CARE TESTS [address] | | | [place] [address] | + + + CMP, POC (BMP+LFT) (05/14/2017 8:26 AM) + +--------+ + | Component | Value | Ref Range | + +--------+ + | SODIUM, POC | 138 | 134 - 143 mmol/L | + +--------+ + | POTASSIUM, POC | 3.9 | 3.4 - 5.0 mmol/L | + +--------+ + | TOTAL CO2, POC | 30 (H) | 22 - 29 mmol/L | + +--------+ + | CHLORIDE, POC | 101 | 97 - 108 mmol/L | + +--------+ + | GLUCOSE, POC | 85 | 70 - 99 mg/dL | + +--------+ + | CALCIUM TOTAL, POC | 9.3 | 8.6 - 10.2 mg/dL | + +--------+ + | BUN, POC | 15 | 6 - 20 mg/dL | + +--------+ + | CREATININE, POC | 1.2 | 0.7 - 1.3 mg/dL | + +--------+ + | ALK PHOS, CMP POC | 51 | 43 - 92 U/L | + +--------+ + | ALT, CMP POC | 35 | 0 - 60 U/L | + +--------+ + | AST, CMP POC | 34 | 0 - 41 U/L | + +--------+ + | BILIRUBIN TOTAL, CMP | 0.9 | 0.3 - 1.2 mg/dL | | POC | | | + +--------+ + | ALBUMIN, CMP POC | 4.0 | 3.5 - 4.7 g/dL | + +--------+ + | PROTEIN TOTAL, CMP | 6.9 | 6.1 - 7.9 g/dL | | POC | | | + +--------+ + + + + | Specimen | Performing Laboratory | + + + | Blood | [facility], POINT OF CARE TESTS [address] | | | [place] [address] | + + + INR (05/14/2017 7:45 AM) + +-------+ + | Component | Value | Ref Range | + +-------+ + | INR | 1.02 | 0.90 - 1.20 INR | + +-------+ + + + + | Specimen | Performing Laboratory | + + + | Blood | [facility], CORE [address] | | | [place] [address] | + + + + + | Narrative | + + | INR Therapeutic ranges for full anticoagulation: INR for Venous | | Thromboembolism (2.0 - 3.0) INR INR for most patients with | | mech. valves (2.5 - 3.5) INR | + + COMPLEMENT ACTIVITY ENZYME IMMUNOASSAY, TOTAL [...] ....... | | | | HighPerformed by [facility],[address] | | | | [facility] [place] [address] | | | | [phone].[email or web address], Graham Meza, | | | | , Lab. Director | | | |[email or web address].[employer], Graham Meza MD, Lab. Director | | + + + + + + + | Specimen | Performing Laboratory | + + + | Blood | [facility] [address] [facility] [address] | | | [place] [address] | + + + C'4 COMPLEMENT, SERUM (05/14/2017 7:45 AM) + +-------+ + | Component | Value | Ref Range | + +-------+ + | C'4 COMPLEMENT SERUM | 40 | 16 - 47 mg/dL | + +-------+ + + + + | Specimen | Performing Laboratory | + + + | Blood | [facility] [address] [place], [place] | | | [address] | + + + C'3 COMPLEMENT, SERUM (05/14/2017 7:45 AM) + +-------+ + | Component | Value | Ref Range | + +-------+ + | C'3 COMPLEMENT SERUM | 121 | 88 - 201 mg/dL | + +-------+ + + + + | Specimen | Performing Laboratory | + + + | Blood | [facility] [address] [place], [place] | | | [address] | + + + TROPONIN I, PLASMA (05/14/2017 7:45 AM) + +-------+ + | Component | Value | Ref Range | + +-------+ + | TROPONIN I | 0.02 | <0.80 ng/mL | + +-------+ + + + + | Specimen | Performing Laboratory | + + + | Blood | [facility], CORE [address] | | | [place] [address] | + + + FREE T4 (05/14/2017 7:45 AM) + +-------+ + | Component | Value | Ref Range | + +-------+ + | FREE T4 | 1.0 | 0.6 - 1.2 ng/dL | + +-------+ + + + + | Specimen | Performing Laboratory | + + + | Blood | [facility], CORE [address] | | | [place] [address] | + + + T3 TOTAL, SERUM (05/14/2017 7:45 AM) + +-------+ + | Component | Value | Ref Range | + +-------+ + | T3, TOTAL | 113 | 87 - 196 ng/dL | + +-------+ + + + + | Specimen | Performing Laboratory | + + + | Blood | [facility] [place] [address] [facility], [place] | | | [address] | + + + TSH (05/14/2017 7:45 AM) + +-------+ + | Component | Value | Ref Range | + +-------+ + | TSH | 2.22 | 0.47 - 7.11 mIU/L | + +-------+ + + + + | Specimen | Performing Laboratory | + + + | Blood | [facility], CORE [address] | | | [place] [address] | + + + + + | [...] | + + + | Blood | [facility], SPECIAL IMM + COAG [address] [facility] [address] | | | [place] [address] | + + + + + | [...] | + + + | Blood | [facility], CORE [address] | | | [place] [address] | + + + AMYLASE, PLASMA (05/14/2017 7:45 AM) + +--------+ + | Component | Value | Ref Range | + +--------+ + | AMYLASE,PLASMA | 23 (L) | 25 - 115 U/L | + +--------+ + + + + | Specimen | Performing Laboratory | + + + | Blood | [facility], CORE [address] [place] [address] | | | [place] [address] | + + + IGM, SERUM (05/14/2017 7:45 AM) + +--------+ + | Component | Value | Ref Range | + +--------+ + | IGM SERUM | 37 (L) | 40 - 230 mg/dL | + +--------+ + + + + | Specimen | Performing Laboratory | + + + | Blood | [facility] [address] [place], [place] | | | [address] | + + + IGA, SERUM (05/14/2017 7:45 AM) + +-------+ + | Component | Value | Ref Range | + +-------+ + | IGA SERUM | 248 | 70 - 400 mg/dL | + +-------+ + + + + | Specimen | Performing Laboratory | + + + | Blood | [facility] [address] [place], [place] | | | [address] | + + + IGG, SERUM (05/14/2017 7:45 AM) + +-------+ + | Component | Value | Ref Range | + +-------+ + | IGG SERUM | 859 | 700 - 1600 mg/dL | + +-------+ + + + + | Specimen | Performing Laboratory | + + + | Blood | [facility] [address] [place], [place] | | | [address] | + + + URIC ACID, PLASMA (05/14/2017 7:45 AM) + +-------+ + | Component | Value | Ref Range | + +-------+ + | URIC ACID, PLASMA | 6.6 | 3.7 - 8.0 mg/dL | | (LAB) | | | + +-------+ + + + + | Specimen | Performing Laboratory | + + + | Blood | [facility], CORE [address] | | | [place] [address] | + + + PHOSPHORUS, PLASMA (05/14/2017 7:45 AM) + +-------+ + | Component | Value | Ref Range | + +-------+ + | PHOSPHORUS, PLASMA | 3.1 | 2.4 - 4.7 mg/dL | | (LAB) | | | + +-------+ + + + + | Specimen | Performing Laboratory | + + + | Blood | [facility], CORE [address] | | | [place] [address] | + + + MAGNESIUM, PLASMA (05/14/2017 7:45 AM) + +-------+ + | Component | Value | Ref Range | + +-------+ + | MAGNESIUM,PLASMA | 2.2 | 1.6 - 2.6 mg/dL | + +-------+ + + + + | Specimen | Performing Laboratory | + + + | Blood | [facility], CORE [address] | | | [place] [address] | + + + + + | Narrative | + + | Reference range change effective 02/26/17. | + + LDH TOTAL, PLASMA (05/14/2017 7:45 AM) + +---------+ + | Component | Value | Ref Range | + +---------+ + | LD TOTAL, PLASMA | 291 (H) | <=250 U/L | + +---------+ + | LD CMNT | No Hemo | | + +---------+ + + + + | Specimen | Performing Laboratory | + + + | Blood | [facility], CORE [address] | | | [place] [address] | + + + in this encounter Visit Diagnoses + + | Diagnosis | + + | Diffuse large B-cell lymphoma, unspecified body region (HCC) | + + Administered Medications + +--------+ +--------+------+---------+ | Medication Order | MAR | Action | Dose | Rate | Site | | | Action | Date | | | | + +--------+ +--------+------+---------+ | enoxaparin (LOVENOX) injection | Given | 05/14/20 | 100 mg | | Abdomen | | 100 mg 100 mg, subcutaneous, | | 17 18:20 | | | | | ONCE, 1 dose, 05/14/17 at | | PDT | | | | | 1800 | | | | | | + +--------+ +--------+------+---------+ +---+---+ | | | +---+---+ + +-------+ +-------+---+---+ | heparin 100 unit/mL IV flush | Given | 05/14/20 | 500 | | | | 500 Units 500 Units, | | 17 14:20 | Units | | | | Intracatheter, NEEDED, | | PDT | | | | | Starting e 05/14/17 at 1254, | | | | | | | Until Sat05/14/17 at 1441, | | | | | | | deaccessing line/port | | | | | | + +-------+ +-------+---+---+ +---+---+ | | | +---+---+ + +---------+ +--------+ +---+ | INV [id number] (ANTI-[id number]) 160 | New Bag | 05/14/20 | 160 mg | 60 mL/hr | | | mg in INV NaCl 0.9% IV 160 mg, | | 17 12:18 | | | | | intravenous, Administer over 60 | | PDT | | | | | Minutes, ONCE, 1 dose, Tue | | | | | | | 05/14/17 at 0945, Pt ID:[id number] | | | | | | | Infuse over 60 minutes +/- 6 | | | | | | | minutes. Infuse through 0.2 | | | | | | | micron in-line filter. Flush | | | | | | | line with NS after | | | | | | | administration, and should be | | | | | | | inclusive of the time needed to | | | | | | | administer drug. For | | | | | | | investigational use only, HIGH | | | | | | | ALERT MEDICATION IRB:[id number], | | | | | | | Protocol:[id number] | | | | | | + +---------+ +--------+ +---+ +---+---+ | | | +---+---+ + +-------+ +--------+-------+---+ | INV nivolumab 240 mg in INV | Given | 05/14/20 | 240 mg | 120 | | | NaCl 0.9% IV 240 mg, | | 17 11:19 | | mL/hr | | | intravenous, Administer over 30 | | PDT | | | | | Minutes, ONCE, 1 dose, Tue | | | | | | | 05/14/17 at 0945, Pt ID:[id number], | | | | | | | Infuse with 0.2 micron filter. | | | | | | | Flush line at the end of the | | | | | | | infusion. For investigational | | | | | | | use only, HIGH ALERT MEDICATION | | | | | | | IRB:[id number], Protocol: [id number] | | | | | | + +-------+ +--------+-------+---+ +---+---+ | | | +---+---+ in this encounter"
--- OUTSIDE RECORDS SUMMARY | ~2017-07-29 | XMS | Encounter Summary ---
Demographics + + + | Address | [address] | | | [place] [address] | + + + | Home Phone | | + + + | Preferred Language | Unknown | + + + | Marital Status | | + + + | Orthodox Affiliation | LUT | + + + | Race | White | + + + | Ethnic Group | Not or | + + + Author + + + | Author | [facility] | + + + | Organization | [facility] | + + + | Address | Unknown | + + + | Phone | Unavailable | + + + Support +------+ + + + +-------+ | Name | Relationship | Address | Phone | +------+ + + + +-------+ ECON | [address] | | [place] | [address] | +------+ + + + +-------+ Care Team Providers + +------+-------+ | Care President [employer] Name | Role | Phone | + +------+-------+ | Jamaal Rivera MD | PCP | tel | + +------+-------+ Encounter Details +--------+ + + + + | Date | Type | Department | Care Team | Description | +--------+ + + + + | 05/14/ | Hospital | Diagnostic Imaging | Chad Lowe, | | | 2016 | Encounter | Services at [facility] | MD Andrew Unger | | | | | [address] | [place], [place] | | | | | [facility] | [address] | | | | | Mailcode: [id number] [facility] | [phone] | | | | | [facility], | | | | | | [place] [address] | | | | | | [phone] | | | +--------+ + + + [...] lymphoma, unspecified body region (HCC) | + +"
--- OUTSIDE RECORDS SUMMARY | ~2017-07-29 | XMS | Encounter Summary ---
Demographics + + + | Address | [address] | | | [place] [address] | + + + | Home Phone | | + + + | Preferred Language | Unknown | + + + | Marital Status | | + + + | Oriental Orthodox Affiliation | LUT | + + + | Race | White | + + + | Ethnic Group | Not or | + + + Author + + + | Author | [facility] | + + + | Organization | [facility] | + + + | Address | Unknown | + + + | Phone | Unavailable | + + + Support +------+ + + + +-------+ | Name | Relationship | Address | Phone | +------+ + + + +-------+ ECON | [address] | | [place] | [address] | +------+ + + + +-------+ Care Team Providers + +------+-------+ | Care Machine Zipper Trimmer Name | Role | Phone | + [...] | | unspecified | [address] | [place], [place] | | | | | site | Mailcode: | [id number] | | | | | Procedures | [id number] | Phone: | | | | | [place] RITUXIMAB | [place] | [phone] | | | | | INJ, 100 MG | Pavilion | Fax: | | | | | HI | [place], [place] | [phone] | | | | | GEMCITABINE | [address] | | | | | | HCL, 200 MG | Phone: | | | | | | [place] | [phone] | | | | | | DEXAMETHASON | Fax: | | | | | | E SODIUM | [phone] | | | | | | PHOSPHATE, | | | | | | | 1MG [place] | | | | | | | CISPLATIN 10 | | | | | | | MG | | | | | | | INJECTION | | | | | | | HI CHM,IV | | | | | | | INFSN,1 HR | | | | | | | HI CHM,IV | | | | | | | INFSN,ADDL | | | | | | | HR HI CHM | | | | | | [...] + + | 05/30/ | Hospital | [facility] | | | | 2016 | Encounter | Hematologic | | | | | | Malignancies at [facility] | | | | | | [address] | | | | | | [facility] | | | | | | Mailcode: [id number] | | | | | | [address] | | | | | | [place], [place] | | | | | | [address] | | | | | | [phone] | | | +--------+ + + + [...] mL was discarded. Study labs, SOC and [place] labs drawn and sent. PAC flushed with [...] | + + + | Blood | [facility], POINT OF CARE TESTS [address] | | | [place] [address] | + + + CBC+DIFF,POC (05/30/2017 11:25 [...] | + + + | Blood | [facility], POINT OF CARE TESTS [address] | | | [place] [address] | + + + 12 LEAD ECG [...] Laboratory | + + + | | [facility] [address] [place] [address] | | | [place] [address] | + + + LDH TOTAL (05/30/2017 11:00 AM) + + + | Specimen | Performing Laboratory | + + + | Blood | | + + + + + | Narrative | + + | The following orders were created for panel order LDH TOTAL. | | Procedure | | Abnormality Status | | --------- | | ------ LDH TOTAL, | | PLASMA[[id number]] Abnormal Final | | result Please view [...] --------- | | ------ MAGNESIUM, | | PLASMA[[id number]] Normal Final | | result Please view [...] + + + | Blood | [facility], CORE [address] [facility] | | | [place], [place] [address] | + + + MAGNESIUM, PLASMA (05/30/2017 11:00 AM) + +-------+ + | Component | Value | Ref Range | + +-------+ + | MAGNESIUM,PLASMA | 2.2 | 1.6 - 2.6 mg/dL | + +-------+ + + + + | Specimen | Performing Laboratory | + + + | Blood | [facility], CORE [address] [place] [address] | | | [place] [address] | + + + + + | [...] | SPECIFIC GRAVITY | 1.004 (L)Comment: Specific Hazel | 1.005 - 1.030 | | | performed by refractometry | | + + + + + + + | Specimen | Performing Laboratory | + + + | Urine | [facility], CORE [address] | | | [place] [address] | + + + INR (05/30/2017 10:59 AM) + + + + | Component | Value | Ref Range | + + + + | INR | 1.38 (H) | 0.90 - 1.20 INR | + + + + + + + | Specimen | Performing Laboratory | + + + | Blood | [facility], CORE [address] | | | [place] [address] | + + + + + | [...] + + + | Blood | [facility], CORE [address] [facility] | | | [place], [place] [address] | + + + T3 TOTAL, SERUM (05/30/2017 10:59 AM) + +-------+ + | Component | Value | Ref Range | + +-------+ + | T3, TOTAL | 114 | 87 - 196 ng/dL | + +-------+ + + + + | Specimen | Performing Laboratory | + + + | Blood | [facility] [address] [place], [place] | | | [address] | + + + PROTEIN C ACTIVITY REFLEX INR, PLASMA (05/30/2017 10:59 AM) + + + + | Component | Value | Ref Range | + + + + | PROTEIN C ACTIVITY | 0.69 (L) | 0.82 - 1.54 U/mL | + + + + + + + | Specimen | Performing Laboratory | + + + | Blood | [facility] SPECIAL IMM + COAG [address] [facility] | | | [place] [address] | + + + + + | [...] + + + | Blood | [facility], CORE [address] [facility] | | | [facility] [place] [address] | + + + AMYLASE, PLASMA (05/30/2017 10:59 AM) + +--------+ + | Component | Value | Ref Range | + +--------+ + | AMYLASE,PLASMA | 23 (L) | 25 - 115 U/L | + +--------+ + + + + | Specimen | Performing Laboratory | + + + | Blood | [facility], CORE [address] [place] [address] | | | [place] [address] | + + + TSH (05/30/2017 10:59 AM) + +-------+ + | Component | Value | Ref Range | + +-------+ + | TSH | 1.29 | 0.47 - 7.11 mIU/L | + +-------+ + + + + | Specimen | Performing Laboratory | + + + | Blood | [facility], CORE [address] [place] [address] | | | [place] [address] | + + + + + | [...] 12:07 | | | | | dose, [facility] 05/30/17 at 1200 | | PST | [...] | | | | | | | [facility] 05/30/17 at 1200, HIGH | | | [...] PST | | | | | Starting [facility] 05/30/17 at 1728, | | | | [...] 12:12 | | | | | dose, [facility] 05/30/17 at 1200 | | PST | [...] mL/hr | | | ONCE, 1 dose, [facility] 05/30/17 at | | PST | | | | | 1200 | | | | | | + +---------+ + +-------+---+ +---+---+ | | | +---+---+ in this encounter"
--- OUTSIDE RECORDS SUMMARY | ~2017-07-29 | XMS | Encounter Summary ---
Demographics + + + | Address | [address] | | | [place] [address] | + + + | Home Phone [...] + + + +-------+ ECON | [address] | | [place] | [address] | +------+ + + + +-------+ Care Team Providers + +------+-------+ | Care Cooker Operator Name | Role | Phone | [...] + + + + | 05/09/ | Air Conditioner Installer Helper | Center for | Chad Lowe, | 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 | MD [address] | lymphoma, | | | | Malignancies at | Ave [place], [place] | unspecified body | | | | [facility] | [address] | region (HCC) | | | | [address] | [phone] | (Primary Dx) | | | | Arch[facility] | | | | | | Mailcode: [id number] | | | | | | [facility] | | | | | | [place], [place] | | | | | | [address] | | | | | | [phone] | | | +--------+ + + + [...] ....... | | | | HighPerformed by [employer],[address] | | | | [address], [facility] [address] | | | | [phone].[email or web address], Graham Meza, | | | | , Lab. Director | | | |[email or web address].[email or web address], Graham Meza MD, Lab. Director | | + + + + + + + | Specimen | Performing Laboratory | + + + | Blood | [facility] [address] [facility] | | | [place] [address] | + + + C'4 COMPLEMENT, SERUM (05/14/2017 7:45 AM) + +-------+ + | Component | Value | Ref Range | + +-------+ + | C'4 COMPLEMENT SERUM | 40 | 16 - 47 mg/dL | + +-------+ + + + + | Specimen | Performing Laboratory | + + + | Blood | [facility] [address] [place], [place] | | | [address] | + + + C'3 COMPLEMENT, SERUM (05/14/2017 7:45 AM) + +-------+ + | Component | Value | Ref Range | + +-------+ + | C'3 COMPLEMENT SERUM | 121 | 88 - 201 mg/dL | + +-------+ + + + + | Specimen | Performing Laboratory | + + + | Blood | [facility] [address] [place], [place] | | | [address] | + + + TROPONIN I, PLASMA (05/14/2017 7:45 AM) + +-------+ + | Component | Value | Ref Range | + +-------+ + | TROPONIN I | 0.02 | <0.80 ng/mL | + +-------+ + + + + | Specimen | Performing Laboratory | + + + | Blood | [facility], CORE [address] [facility] [address] | | | [place] [address] | + + + FREE T4 (05/14/2017 7:45 AM) + +-------+ + | Component | Value | Ref Range | + +-------+ + | FREE T4 | 1.0 | 0.6 - 1.2 ng/dL | + +-------+ + + + + | Specimen | Performing Laboratory | + + + | Blood | [facility], CORE [address] | | | [place] [address] | + + + T3 TOTAL, SERUM (05/14/2017 7:45 AM) + +-------+ + | Component | Value | Ref Range | + +-------+ + | T3, TOTAL | 113 | 87 - 196 ng/dL | + +-------+ + + + + | Specimen | Performing Laboratory | + + + | Blood | [facility] [address] [place], [place] | | | [address] | + + + TSH (05/14/2017 7:45 AM) + +-------+ + | Component | Value | Ref Range | + +-------+ + | TSH | 2.22 | 0.47 - 7.11 mIU/L | + +-------+ + + + + | Specimen | Performing Laboratory | + + + | Blood | [facility] [address] [facility] [address] | | | [place] [address] | + + + + + | [...] + + + | Blood | [facility], SPECIAL IMM + COAG [address] [facility] | | | [place] [address] | + + + + + | [...] + + + | Blood | [facility], CORE [address] [facility] | | | [place] [address] | + + + AMYLASE, PLASMA (05/14/2017 7:45 AM) + +--------+ + | Component | Value | Ref Range | + +--------+ + | AMYLASE,PLASMA | 23 (L) | 25 - 115 U/L | + +--------+ + + + + | Specimen | Performing Laboratory | + + + | Blood | [facility], CORE [address] | | | [place] [address] | + + + in this encounter Visit Diagnoses + + | Diagnosis | + + | Diffuse large B-cell lymphoma, unspecified body region (HCC) - Primary | + +"
--- OUTSIDE RECORDS SUMMARY | ~2017-07-29 | XMS | Encounter Summary ---
Demographics + + + | Address | [address] | | | [place] [address] | + + + | Home Phone [...] + + + +-------+ ECON | [address] | | [place] | [address] | +------+ + + + +-------+ Care Team Providers + +------+-------+ | Care Band Tumbler Name | Role | Phone | + [...] | Diffuse | MD Chad | [address] | | | | | large B-cell | [address] | | | | | lymphoma of | [address] | [place] | | | | | lymph nodes | [place], [place] | Road | | | | | of multiple | [address] | Mailcode: | | | | | regions | Phone: | [address] [facility] | | | | | (HCC) | [phone] | Hospital | | | | | Procedures | Fax: | [place], [place] | | | | | CT NECK SOFT | [phone] | [address] | | | | | TISSUE W | | Phone: | | | | | CONTRAST MO | | [phone] | | | | | CT NECK | | Fax: | | | | | TISSUE | | [phone] | | | | | CONTRAST | [...] Radiology | Diagnoses | Chrissy, | Rad General | | | | | Diffuse | MD Chad | [facility] [address] | | | | | large B-cell | [address] | [address] | | | | | lymphoma of | [address] | [place] | | | | | lymph nodes | [place], [place] | Road | | | | | of multiple | [address] | Mailcode: | | | | | regions | Phone: | [address] [facility] | | | | | (HCC) | [phone] | Hospital | | | | | Procedures | Fax: | [place], [place] | | | | | CT NECK SOFT | [phone] | [address] | | | | | TISSUE W | | Phone: | | | | | CONTRAST MO | | [phone] | | | | | CT NECK | | Fax: | | | | | TISSUE | | [phone] | | | | | CONTRAST | [...] Closed | | Radiology | Diagnoses | [place], | Rad General | | | | | Diffuse | MD Chad | [facility] [address] | | | | | large B-cell | [address] | [address] | | | | | lymphoma of | [address] | [place] | | | | | lymph nodes | [place], [place] | Road | | | | | of multiple | [address] | Mailcode: | | | | | regions | Phone: | [address] [facility] | | | | | ([facility]) | [phone] | Hospital | | | | | Procedures | Fax: | [place], [place] | | | | | CT NECK SOFT | [phone] | [address] | | | | | TISSUE W | | Phone: | | | | | CONTRAST MO | | [phone] | | | | | CT NECK | | Fax: | | | | | TISSUE | | [phone] | | | | | CONTRAST | | | +--------+--------+ + + + + Encounter Details +--------+ + + + + | Date | Type | Department | Care Team | Description | +--------+ + + + + | 07/11/ | Hospital | Diagnostic Imaging | Chad Lowe, | | | 2017 | Encounter | Services at [facility] | MD [address] | | | | | [address] | [place], [place] | | | | | [facility] | [address] | | | | | Mailcode: [id number] [facility] | [phone] | | | | | Hospital [place], | | | | | | [place] [address] | | | | | | [phone] | | | +--------+ + + + [...] Laboratory | + + + | | [facility] RADIOLOGY VOICE RECOGNITION | + + + [...] | + + + | Blood | [facility], POINT OF CARE TESTS [address] | | | [place] [address] | + + + in this encounter Visit Diagnoses + + | Diagnosis | + + | Diffuse large B-cell lymphoma of lymph nodes of multiple regions (HCC) | + +"
--- OUTSIDE RECORDS SUMMARY | ~2017-07-29 | XMS | Encounter Summary ---
Demographics + + + | Address | [address] | | | [place] [address] | + + + | Home Phone [...] + + +-------+ ECON | [address] | | [place] | [address] | +------+ + + + +-------+ Care Team Providers + +------+-------+ | Care Heel Caser Name | Role | Phone | + [...] large B-cell | [address] | [address] [facility] | | | | | lymphoma of | [address] | [address] | | | | | | [place], [place] | [place], | | | | | intra-abdomi | [address] | [place] | | | | | nal lymph | Phone: | [address] | | | | | nodes (HCC) | [phone] | Phone: | | | | | Procedures | Fax: | [phone] | | | | | CONSULT TO | [phone] | Fax: | | | | | HEMATOLOGIC | | [phone] | | | | | MALIGNANCIES | | | +--------+--------+ + + + + Encounter Details +--------+ + + + + | Date | Type | Department | Care Team | Description | +--------+ + + + + | 05/24/ | Career Resource Technician | Center for | Chad Lowe, | 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 | MD [address] | lymphoma of | | | | Malignancies at | Ave [place], [place] | intra-abdominal | | | | [place] | [address] | lymph nodes (HCC) | | | | [address] | [phone] | (Primary Dx) | | | | [address] | | | | | | Mailcode: [id number] | | | | | | [address] | | | | | | [place], [place] | | | | | | [address] | | | | | | [phone] | | | +--------+ + + + [...]
--- OUTSIDE RECORDS SUMMARY | ~2017-07-29 | XMS | Encounter Summary ---
Demographics + + + | Address | [address] | | | [place] [address] | + + + | Home Phone | | + + + | Preferred Language | Unknown | + + + | Marital Status | | + + + | Zoroastrian Affiliation | LUT | + + + | Race | White | + + + | Ethnic Group | Not or | + + + Author + + + | Author | [facility] | + + + | Organization | [facility] | + + + | Address | Unknown | + + + | Phone | Unavailable | + + + Support +------+ + + + +-------+ | Name | Relationship | Address | Phone | +------+ + + + +-------+ ECON | [address] | | [place] | [address] | +------+ + + + +-------+ Care Team Providers + +------+-------+ | Care Chart Picker Name | Role | Phone | + [...] | | | | large B-cell | [address] | | | | | | lymphoma, | [address] | | | | | | unspecified | [place], [place] | | | | | | body region | [address] | | | | | | (HCC) | Phone: | | | | | | Procedures | [phone] | | | | | | CT CHEST, | Fax: | | | | | | ABDOMEN AND | [phone] | | | | | | PELVIS [...] + + + + | 05/14/ | Catshovel Driver | Center for | Chad Lowe, | 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 | MD [address] | lymphoma, | | | | Malignancies at | Ave [place], [place] | unspecified body | | | | [facility] | [address] | region (HCC) | | | | [address] | [phone] | (Primary Dx) | | | | [facility] | | | | | | Mailcode: [id number] | | | | | | [address] | | | | | | [place], [place] | | | | | | [address] | | | | | | [phone] | | | +--------+ + + + [...]
--- OUTSIDE RECORDS SUMMARY | ~2017-07-29 | XMS | Encounter Summary ---
Demographics + + + | Address | [address] | | | [place] [address] | + + + | Home Phone [...] + + + +-------+ ECON | [address] | | [place] | [address] | +------+ + + + +-------+ Care Team Providers + +------+-------+ | Care Shed Hand Name | Role | Phone | + [...] | | | | | [id number] | [facility] | | | | | | [facility] | Pavilion | | | | | | Pavilion | [place], [place] | | | | | | [place] | [address] | | | | | | [address] | Phone: | | | | | | Phone: | [phone] | | | | | | [phone] | Fax: | | | | | | Fax: | [phone] | | | | | | [phone] | | +--------+--------+ + + + + [...] | | | Malignancies at | Ave [place], [place] | intra-abdominal | | | | [facility] | [address] | lymph nodes (HCC) | | | | [address] | [phone] | (Primary Dx) | | | | [facility] | | | | | | Mailcode: [id number] | | | | | | [facility] | | | | | | [place], [place] | | | | | | [address] | | | | | | [phone] | | | +--------+---------+ + + + [...] may be different fro m the original. [facility]ign[facility] Follow Up 05-02-17 [facility] Physician: Chad Lowe MD Reason for [...] negative Dx History: Referring oncologist: Arnold Sotelo) [place] oncologist: Kenny PCP: Jamaal Rivera MD Noticed [...] F/U: per study protocol CHAD LOWE MD flare stitcher [facility]ign[facility] [email or web address] [phone] in this encounter Plan of Treatment Not on fileas of this encounter Visit Diagnoses + + | Diagnosis | + + | 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
--- OUTSIDE RECORDS SUMMARY | ~2017-07-29 | XMS | Encounter Summary ---
Demographics + + + | Address | [address] | | | [place] [address] | + + + | Home Phone | | + + + | Preferred Language | Unknown | + + + | Marital Status | | + + + | Gnosticist Affiliation | LUT | + + + [...] + + +-------+ ECON | [address] | | [place] | [address] | +------+ + + + +-------+ Care Team Providers + +------+-------+ | Care Wrecking Car Driver Name | Role | Phone | + [...] | | | | Malignancies at | [address] | node) | | | | [facility] | [place], [place] | | | | | [address] [facility] | [address] | | | | | [facility] | [phone] | | | | | Mailcode: [id number] | | | | | | [facility] | | | | | | [place], [place] | | | | | | [address] | | | | | | [phone] | | | +--------+ + + + [...]
--- OUTSIDE RECORDS SUMMARY | ~2017-07-29 | XMS | Encounter Summary ---
Demographics + + + | Address | [address] | | | [place] [address] | + + + | Home Phone | | + + + | Preferred Language | Unknown | + + + | Marital Status | | + + + | Bahai Affiliation | LUT | + + + | Race | White | + + + | Ethnic Group | Not or | + + + Author + + + | Author | [facility] | + + + | Organization | [facility] | + + + | Address | Unknown | + + + | Phone | Unavailable | + + + Support +------+ + + + +-------+ | Name | Relationship | Address | Phone | +------+ + + + +-------+ ECON | [address] | | [place] | [address] | +------+ + + + +-------+ Care Team Providers + +------+-------+ | Care Senior Data Scientist Name | Role | Phone | + +------+-------+ | Jamaal Rivera MD | PCP | tel | + +------+-------+ Encounter Details +--------+ + + + + | Date | Type | Department | Care Team | Description | +--------+ + + + + | 05/23/ | Order Worker | Center for | Chad Lowe, | Dermatitis | | 2017 | | Hematologic | [address] | | | | | Malignancies at | Ave [place], [place] | | | | | [facility] | [address] | | | | | [address] | [phone] | | | | | [employer] [facility] | | | | | | Mailcode: [id number] | | | | | | [address] | | | | | | [place], [place] | | | | | | [address] | | | | | | [phone] | | | +--------+ + + + [...]
--- OUTSIDE RECORDS SUMMARY | ~2017-07-29 | XMS | Encounter Summary ---
Demographics + + + | Address | [address] | | | [place] [address] | + + + | Home Phone [...] + + + +-------+ ECON | [address] | | [place] | [address] | +------+ + + + +-------+ Care Team Providers + +------+-------+ | Care Field Interviewer Name | Role | Phone | + [...] | Diffuse | MD Chad | [address] | | | | | large B-cell | [address] | | | | | lymphoma, | [address] | [place] | | | | | unspecified | [place], [place] | Road | | | | | body region | [address] | Mailcode: | | | | | (HCC) | Phone: | [address] [facility] | | | | | Procedures | [phone] | Hospital | | | | | CT NECK SOFT | Fax: | [place], [place] | | | | | TISSUE W | [phone] | [address] | | | | | CONTRAST IN | | Phone: | | | | | CT NECK | | [phone] | | | | | TISSUE | | Fax: | | | | | CONTRAST | | [phone] | +--------+--------+ + + + + Reason for Visit + + + | Reason | Comments | + + + | Research data | | | collection | | + + + Encounter Details +--------+ + + + + | Date | Type | Department | Care Team | Description | +--------+ + + + + | 10/30/ | Basketball Scout | Center for | [place], Chad, | 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 | MD [address] | lymphoma, | | | | Malignancies at | [address] [place], [place] | unspecified body | | | | [facility] | [address] | region (HCC) | | | | [address] | [phone] | (Primary Dx) | | | | [employer] | | | | | | Mailcode: [id number] | | | | | | [facility] | | | | | | [place], [place] | | | | | | [address] | | | | | | [phone] | | | +--------+ + + + [...]
--- OUTSIDE RECORDS SUMMARY | ~2017-07-29 | XMS | Encounter Summary ---
Demographics + + + | Address | [address] | | | [place] [address] | + + + | Home Phone [...] + + + | Author | [facility] | + + + | Organization | [facility] | + + + | Address | Unknown | + + + | Phone | Unavailable | + + + Support +------+ + + + +-------+ | Name | Relationship | Address | Phone | +------+ + + + +-------+ ECON | [address] | | [place] | [address] | +------+ + + + +-------+ Care Team Providers + +------+-------+ | Care Swage Tender Name | Role | Phone | + +------+-------+ | Jamaal Rivera MD | PCP | tel | + +------+-------+ Encounter Details +--------+ + + + + | Date | Type | Department | Care Team | Description | +--------+ + + + + | 05/01/ | Ncr Operator | Center for | Chad Lowe, | 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 | [address] | lymphoma, | | | | Malignancies at | [address] [place], [place] | unspecified body | | | | Bryan[place]lie Sales | [address] | region ([facility]) | | | | [address] | [phone] | (Primary Dx) | | | | Amanda Bourgeois | | | | | | Mailcode: [id number] | | | | | | [place] | | | | | | [place], [place] | | | | | | [address] | | | | | | [phone] | | | +--------+ + + + [...] + | SPECIFIC GRAVITY | 1.010Comment: Specific [place] performed by | 1.005 - 1.030 | | | refractometry | | + + + + + + + | Specimen | Performing Laboratory | + + + | Urine | [facility] [address] [facility] | | | [place] [address] | + + + FREE T4 (05/02/2017 8:10 AM) + +-------+ + | Component | Value | Ref Range | + +-------+ + | FREE T4 | 0.9 | 0.6 - 1.2 ng/dL | + +-------+ + + + + | Specimen | Performing Laboratory | + + + | Blood | [facility], CORE [address] [facility] [address] | | | [place] [address] | + + + T3 TOTAL, SERUM (05/02/2017 8:10 AM) + +-------+ + | Component | Value | Ref Range | + +-------+ + | T3, TOTAL | 114 | 87 - 196 ng/dL | + +-------+ + + + + | Specimen | Performing Laboratory | + + + | Blood | [facility] [address] [place], [place] | | | [address] | + + + IGA, SERUM (05/02/2017 8:10 AM) + +-------+ + | Component | Value | Ref Range | + +-------+ + | IGA SERUM | 264 | 70 - 400 mg/dL | + +-------+ + + + + | Specimen | Performing Laboratory | + + + | Blood | [facility] [address] [place], [place] | | | [address] | + + + IGG, SERUM (05/02/2017 8:10 AM) + +-------+ + | Component | Value | Ref Range | + +-------+ + | IGG SERUM | 928 | 700 - 1600 mg/dL | + +-------+ + + + + | Specimen | Performing Laboratory | + + + | Blood | [facility] [id number] [place] [address] | | | [address] | + + + IGM, SERUM (05/02/2017 8:10 AM) + +--------+ + | Component | Value | Ref Range | + +--------+ + | IGM SERUM | 34 (L) | 40 - 230 mg/dL | + +--------+ + + + + | Specimen | Performing Laboratory | + + + | Blood | [facility] [place] [address] [place], [place] | | | [address] | + + + TSH (05/02/2017 8:10 AM) + +-------+ + | Component | Value | Ref Range | + +-------+ + | TSH | 1.87 | 0.47 - 7.11 mIU/L | + +-------+ + + + + | Specimen | Performing Laboratory | + + + | Blood | [facility], CORE [address] [place] [address] | | | [place] [address] | + + + + + | [...] | Blood | [facility], [facility] [address] [facility] [address] | | | [place] [address] | + + + + + | [...] | Blood | [facility], CORE [address] [facility] | | | [place] [address] | + + + LIPASE, PLASMA (05/02/2017 8:10 AM) + +---------+ + | Component | Value | Ref Range | + +---------+ + | LIPASE (LAB) | 108 (L) | 152 - 353 U/L | + +---------+ + + + + | Specimen | Performing Laboratory | + + + | Blood | [facility], CORE [address] | | | [place] [address] | + + + in this encounter Visit Diagnoses + + | Diagnosis | + + | Diffuse large B-cell lymphoma, unspecified body region (HCC) - Primary | + +"
--- OUTSIDE RECORDS SUMMARY | ~2017-07-29 | XMS | Encounter Summary ---
Demographics + + + | Address | [address] | | | [place] [address] | + + + | Home Phone [...] + + +-------+ ECON | [address] | | [place] | [address] | +------+ + + + +-------+ Care Team Providers + +------+-------+ | Care Manager Health Name | Role | Phone | + +------+-------+ | Jamaal Rivera MD | PCP | tel | + +------+-------+ Reason for Visit + + + | Reason | Comments | + + + | Lab Draw | PAC | + + + | Follow-up visit | Dr. 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 | | | | | | [address] | Center [address] | | | | | [address]ammag[address] | [address] | [address] | | | | | bulinemia | [place], [place] | [facility] | | | | | Procedures | [address] | Road | | | | | [place] INJ IG | Phone: | Mailcode: | | | | | [place] | [phone] | [id number] | | | | | IV, 500 MG | Fax: | [place] | | | | | [place] | [phone] | Pavilion | | | | | THR/PRPH/DX | | [place], [place] | | | | | IV INF,IN | | [address] | | | | | [place] | | Phone: | | | | | THER/PROPH/D | | [phone] | | | | | IAG IV IVIG | | Fax: | | | | | | | [phone] | +--------+--------+ + + + + Encounter Details +--------+ + + + + | Date | Type | Department | Care Team | Description | +--------+ + + + + | 05/14/ | Hospital | [place] [facility] | | | | 2017 | Encounter | Hematologic | | | | | | Malignancies at [facility] | | | | | | [address] | | | | | | [facility] | | | | | | Mailcode: [id number] | | | | | | [address] | | | | | | [place], [place] | | | | | | [address] | | | | | | [phone] | | | +--------+ + + + [...] | + + + | Blood | [facility], POINT OF CARE TESTS [address] | | | [place] [address] | + + + CMP, POC (BMP+LFT) [...] TESTS [address] | | | [place] [address] | + + + INR (05/14/2017 7:45 AM) + +-------+ + | Component | Value | Ref Range | + +-------+ + | INR | 1.02 | 0.90 - 1.20 INR | + +-------+ + + + + | Specimen | Performing Laboratory | + + + | Blood | [facility], CORE [address] [facility] | | | [place] [address] | + + + + + | [...] ....... | | | | HighPerformed by [facility],[address] | | | | [facility] [address] | | | | [phone], Graham Meza, | | | | , Lab. Director | | | |[email or web address], Graham Meza MD, Lab. Director | | + + + + + + + | Specimen | Performing Laboratory | + + + | Blood | [facility] [address] [facility] | | | [place] [address] | + + + C'4 COMPLEMENT, SERUM (05/14/2017 7:45 AM) + +-------+ + | Component | Value | Ref Range | + +-------+ + | C'4 COMPLEMENT SERUM | 40 | 16 - 47 mg/dL | + +-------+ + + + + | Specimen | Performing Laboratory | + + + | Blood | [facility] [address] [place], [place] | | | [address] | + + + C'3 COMPLEMENT, SERUM (05/14/2017 7:45 AM) + +-------+ + | Component | Value | Ref Range | + +-------+ + | C'3 COMPLEMENT SERUM | 121 | 88 - 201 mg/dL | + +-------+ + + + + | Specimen | Performing Laboratory | + + + | Blood | [facility] [address] [place], [place] | | | [address] | + + + TROPONIN I, PLASMA (05/14/2017 7:45 AM) + +-------+ + | Component | Value | Ref Range | + +-------+ + | TROPONIN I | 0.02 | <0.80 ng/mL | + +-------+ + + + + | Specimen | Performing Laboratory | + + + | Blood | [facility], CORE [address] | | | [place] [address] | + + + FREE T4 (05/14/2017 7:45 AM) + +-------+ + | Component | Value | Ref Range | + +-------+ + | FREE T4 | 1.0 | 0.6 - 1.2 ng/dL | + +-------+ + + + + | Specimen | Performing Laboratory | + + + | Blood | [facility], CORE [address] | | | [place] [address] | + + + T3 TOTAL, SERUM (05/14/2017 7:45 AM) + +-------+ + | Component | Value | Ref Range | + +-------+ + | T3, TOTAL | 113 | 87 - 196 ng/dL | + +-------+ + + + + | Specimen | Performing Laboratory | + + + | Blood | [facility] [place] [address] [facility], [place] | | | [address] | + + + TSH (05/14/2017 7:45 AM) + +-------+ + | Component | Value | Ref Range | + +-------+ + | TSH | 2.22 | 0.47 - 7.11 mIU/L | + +-------+ + + + + | Specimen | Performing Laboratory | + + + | Blood | [facility], CORE [address] | | | [place] [address] | + + + + + | [...] | + + + | Blood | [facility], SPECIAL IMM + COAG [address] [facility] | | | [address] [place] [address] | + + + + + | [...] | + + + | Blood | [facility], CORE [address] [facility] | | | [place] [address] | + + + AMYLASE, PLASMA (05/14/2017 7:45 AM) + +--------+ + | Component | Value | Ref Range | + +--------+ + | AMYLASE,PLASMA | 23 (L) | 25 - 115 U/L | + +--------+ + + + + | Specimen | Performing Laboratory | + + + | Blood | [facility], CORE [address] [place] [address] | | | [place] [address] | + + + IGM, SERUM (05/14/2017 7:45 AM) + +--------+ + | Component | Value | Ref Range | + +--------+ + | IGM SERUM | 37 (L) | 40 - 230 mg/dL | + +--------+ + + + + | Specimen | Performing Laboratory | + + + | Blood | [facility] [address] [place], [place] | | | [address] | + + + IGA, SERUM (05/14/2017 7:45 AM) + +-------+ + | Component | Value | Ref Range | + +-------+ + | IGA SERUM | 248 | 70 - 400 mg/dL | + +-------+ + + + + | Specimen | Performing Laboratory | + + + | Blood | [facility] [address] [place], [place] | | | [address] | + + + IGG, SERUM (05/14/2017 7:45 AM) + +-------+ + | Component | Value | Ref Range | + +-------+ + | IGG SERUM | 859 | 700 - 1600 mg/dL | + +-------+ + + + + | Specimen | Performing Laboratory | + + + | Blood | [facility] [address] [place], [place] | | | [address] | + + + URIC ACID, PLASMA (05/14/2017 7:45 AM) + +-------+ + | Component | Value | Ref Range | + +-------+ + | URIC ACID, PLASMA | 6.6 | 3.7 - 8.0 mg/dL | | (LAB) | | | + +-------+ + + + + | Specimen | Performing Laboratory | + + + | Blood | [facility], CORE [address] | | | [place] [address] | + + + PHOSPHORUS, PLASMA (05/14/2017 7:45 AM) + +-------+ + | Component | Value | Ref Range | + +-------+ + | PHOSPHORUS, PLASMA | 3.1 | 2.4 - 4.7 mg/dL | | (LAB) | | | + +-------+ + + + + | Specimen | Performing Laboratory | + + + | Blood | [facility], CORE [address] [facility] | | | [place] [address] | + + + MAGNESIUM, PLASMA (05/14/2017 7:45 AM) + +-------+ + | Component | Value | Ref Range | + +-------+ + | MAGNESIUM,PLASMA | 2.2 | 1.6 - 2.6 mg/dL | + +-------+ + + + + | Specimen | Performing Laboratory | + + + | Blood | [facility], CORE [address] [facility] | | | [place] [address] | + + + + + | [...] | + + + | Blood | [facility], CORE [address] | | | [place] [address] | + + + in this encounter [...] +---+---+ + +---------+ +--------+ +---+ | INV [id number] (ANTI-LAG-3) 160 | New Bag | 05/14/20 | 160 mg | 60 mL/hr | | | mg in INV NaCl 0.9% IV 160 mg, | | 17 12:18 | | | | | intravenous, Administer over 60 | | PDT | | | | | Minutes, ONCE, 1 dose, Tue | | | | | | | 05/14/17 at 0945, Pt ID:[id number] | | | | | | | [...] | | | | | ALERT MEDICATION IRB:[id number], | | | | | | | Protocol:[id number] | | | | | | + [...] | | | 05/14/17 at 0945, Pt ID:[id number], | | | | | | | Infuse with 0.2 micron filter. | | | | | | | Flush line at the end of the | | | | | | | infusion. For investigational | | | | | | | use only, HIGH ALERT MEDICATION | | | | | | | IRB:[id number], Protocol: [id number] | | | | | | + +-------+ +--------+-------+---+ +---+---+ | | | +---+---+ in this encounter"
--- OUTSIDE RECORDS SUMMARY | ~2017-07-29 | XMS | Encounter Summary ---
Demographics + + + | Address | [address] | | | [place] [address] | + + + | Home Phone [...] + + + +-------+ ECON | [address] | | [place] | [address] | +------+ + + + +-------+ Care Team Providers + +------+-------+ | Care Pure Culture Operator Name | Role | Phone | [...] | | | | | bulinemia | [place], [place] | [facility] | | | | | Procedures | [address] | Road | | | | | [place] INJ IG | Phone: | Mailcode: | | | | | [place] | [phone] | [id number] | | | | | IV, 500 MG | Fax: | [place] | | | | | [place] | [phone] | Pavilion | | | | | THR/PRPH/DX | | [place], [place] | | | | | IV INF,IN | | [address] | | | | | [place] | | Phone: | | | | | THER/PROPH/D | | [phone] | | | | | IAG IV IVIG | | Fax: | | | | | | | [phone] | +--------+--------+ + + + + Encounter Details +--------+ + + + + | Date | Type | Department | Care Team | Description | +--------+ + + + + | 05/02/ | [facility] | [facility] for | | | | 2017 | Encounter | Hematologic | | | | | | Malignancies at [facility] | | | | | | [address] | | | | | | [facility] | | | | | | Mailcode: [id number] | | | | | | [place] | | | | | | [place], [place] | | | | | | [address] | | | | | | [phone] | | | +--------+ + + + [...] 0.8 EOSPERC 1.5 Nursing Assessment: INV BMS [id number] (Anti LAG-3) + Nivolumab Part C & [...] was checked by 2 RNs. INV BMS [id number] (Anti- LAG 3) 160 mg IV was [...] lunch until 14:00. Patient instructed to call urology physician/coagulation operator provider for fevers 100.4 F or greater, uncont rolled nausea, vomiting, diarrhea, rash, SOB, chest pain and bleeding. 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 | | | [place] [address] | + + + CMP, POC (BMP+LFT) [...] + + + | Blood | [facility] [address] | | | [place] [address] | + + + URIC ACID, PLASMA (05/02/2017 8:10 AM) + +-------+ + | Component | Value | Ref Range | + +-------+ + | URIC ACID, PLASMA | 6.0 | 3.7 - 8.0 mg/dL | | (LAB) | | | + +-------+ + + + + | Specimen | Performing Laboratory | + + + | Blood | [facility], CORE [address] | | | [place] [address] | + + + PHOSPHORUS, PLASMA (05/02/2017 8:10 AM) + +-------+ + | Component | Value | Ref Range | + +-------+ + | PHOSPHORUS, PLASMA | 2.8 | 2.4 - 4.7 mg/dL | | (LAB) | | | + +-------+ + + + + | Specimen | Performing Laboratory | + + + | Blood | [facility], CORE [address] | | | [place] [address] | + + + MAGNESIUM, PLASMA (05/02/2017 8:10 AM) + +-------+ + | Component | Value | Ref Range | + +-------+ + | MAGNESIUM,PLASMA | 2.2 | 1.6 - 2.6 mg/dL | + +-------+ + + + + | Specimen | Performing Laboratory | + + + | Blood | [facility], CORE [address] [address] | | | [place] [address] | + + + + + | [...] | + + + | Blood | [facility], CORE [address] | | | [place] [address] | + + + FREE T4 (05/02/2017 8:10 AM) + +-------+ + | Component | Value | Ref Range | + +-------+ + | FREE T4 | 0.9 | 0.6 - 1.2 ng/dL | + +-------+ + + + + | Specimen | Performing Laboratory | + + + | Blood | [facility], CORE [address] | | | [place] [address] | + + + T3 TOTAL, SERUM (05/02/2017 8:10 AM) + +-------+ + | Component | Value | Ref Range | + +-------+ + | T3, TOTAL | 114 | 87 - 196 ng/dL | + +-------+ + + + + | Specimen | Performing Laboratory | + + + | Blood | [facility] [place] [address] [facility], [place] | | | [address] | + + + IGA, SERUM (05/02/2017 8:10 AM) + +-------+ + | Component | Value | Ref Range | + +-------+ + | IGA SERUM | 264 | 70 - 400 mg/dL | + +-------+ + + + + | Specimen | Performing Laboratory | + + + | Blood | [facility] [address] [place], [place] | | | [address] | + + + IGG, SERUM (05/02/2017 8:10 AM) + +-------+ + | Component | Value | Ref Range | + +-------+ + | IGG SERUM | 928 | 700 - 1600 mg/dL | + +-------+ + + + + | Specimen | Performing Laboratory | + + + | Blood | [facility] [address] [place], [place] | | | [address] | + + + IGM, SERUM (05/02/2017 8:10 AM) + +--------+ + | Component | Value | Ref Range | + +--------+ + | IGM SERUM | 34 (L) | 40 - 230 mg/dL | + +--------+ + + + + | Specimen | Performing Laboratory | + + + | Blood | [facility] [address] [place], [place] | | | [address] | + + + TSH (05/02/2017 8:10 AM) + +-------+ + | Component | Value | Ref Range | + +-------+ + | TSH | 1.87 | 0.47 - 7.11 mIU/L | + +-------+ + + + + | Specimen | Performing Laboratory | + + + | Blood | [facility], CORE [address] [place] [address] | | | [place] [address] | + + + + + | [...] | + + + | Blood | [facility], CORE [address] [facility] [address] | | | [place] [address] | + + + + + | [...] | + + + | Blood | [facility], CORE [address] [facility] | | | [place] [address] | + + + LIPASE, PLASMA (05/02/2017 8:10 AM) + +---------+ + | Component | Value | Ref Range | + +---------+ + | LIPASE (LAB) | 108 (L) | 152 - 353 U/L | + +---------+ + + + + | Specimen | Performing Laboratory | + + + | Blood | [facility], CORE [address] [facility] | | | [place] [address] | + + + in this encounter [...] +---+---+ + +---------+ +--------+ +---+ | INV [id number] (ANTI-LAG-3) 160 | New Bag | 05/02/20 [...] | | | | | ALERT MEDICATION IRB:[id number], | | | | | | | Protocol:[id number] | | | | | | + [...] | | | | | | | IRB:[id number], Protocol: [id number] | | | | | | + +-------+ +--------+-------+---+ +---+---+ | | | +---+---+ in this encounter"
--- OUTSIDE RECORDS SUMMARY | ~2017-07-29 | XMS | Encounter Summary ---
Demographics + + + | Address | [address] | | | [place] [address] | + + + | Home Phone | | + + + | Preferred Language | Unknown | + + + | Marital Status | | + + + | Advent Affiliation | LUT | + + + [...] + + + +-------+ ECON | [address] | | [place] | [address] | +------+ + + + +-------+ Care Team Providers + +------+-------+ | Care Intelligence Intern Name | Role | Phone | + +------+-------+ | Jamaal Rivera MD | PCP | tel | + +------+-------+ Encounter Details +--------+ + + + + | Date | Type | Department | Care Team | Description | +--------+ + + + + | 05/15/ | Fire Management Technician | Center for | Chad Lowe, | Other acute | | 2017 | | Hematologic | [address] | pulmonary embolism | | | | Malignancies at | [address] [place], [place] | without acute cor | | | | [facility] | [address] | pulmonale (HCC) | | | | [address] | [phone] | (Primary Dx) | | | | [address] | | | | | | Mailcode: [id number] | | | | | | [address] | | | | | | [place], [place] | | | | | | [address] | | | | | | [phone] | | | +--------+ + + + [...]
--- OUTSIDE RECORDS SUMMARY | ~2017-07-29 | XMS | Encounter Summary ---
Demographics + + + | Address | [address] | | | [place] [address] | + + + | Home Phone | | + + + | Preferred Language | Unknown | + + + | Marital Status | | + + + | Pentecostalism Affiliation | LUT | + + + [...] + + +-------+ ECON | [address] | | [place] | [address] | +------+ + + + +-------+ Care Team Providers + +------+-------+ | Care Legal Cashier Name | Role | Phone | + +------+-------+ | Jamaal Rivera MD | PCP | tel | + +------+-------+ Encounter Details +--------+ + + + + | Date | Type | Department | Care Team | Description | +--------+ + + + + | 06/25/ | Care Companion | Center for | Chad Lowe, | 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
--- OUTSIDE RECORDS SUMMARY | ~2017-07-29 | XMS | Encounter Summary ---
Demographics + + + | Address | [address] | | | [place] [address] | + + + | Home Phone | | + + + | Preferred Language | Unknown | + + + | Marital Status | | + + + | Gnosticism Affiliation | LUT | + + + | Race | White | + + + | Ethnic Group | Not or | + + + Author + + + | Author | [facility] | + + + | Organization | [facility] | + + + | Address | Unknown | + + + | Phone | Unavailable | + + + Support +------+ + + + +-------+ | Name | Relationship | Address | Phone | +------+ + + + +-------+ ECON | [address] | | [place] | [address] | +------+ + + + +-------+ Care Team Providers + +------+-------+ | Care Ornamenter Hand Name | Role | Phone | [...] | Diffuse | MD Chad | s [address] | | | | | large B-cell | [address] | | | | | lymphoma of | [address] | [place] | | | | | lymph nodes | [place], [place] | Road | | | | | of multiple | [address] | Mailcode: | | | | | regions | Phone: | [address] [facility] | | | | | (HCC) | [phone] | Hospital | | | | | Procedures | Fax: | [place], [place] | | | | | CT NECK SOFT | [phone] | [address] | | | | | TISSUE W | | Phone: | | | | | CONTRAST DE | | [phone] | | | | | CT NECK | | Fax: | | | | | TISSUE | | [phone] | | | | | CONTRAST | [...] | | | | lymph nodes | [place], [place] | [facility] | | | | | of multiple | [address] | for Health | | | | | regions | Phone: | and Healing, | | | | | (HCC) | [phone] | 3rd Floor | | | | | Procedures | Fax: | [place], [place] | | | | | CT CHEST, | [phone] | [address] | | | | | ABDOMEN AND | | Phone: | | | | | PELVIS W IV | | [phone] | | | | | CONTRAST DE | | Fax: | | | | | CAT SCAN OF | | [phone] | | | | | CHEST | | | | | | | CONTRAST DE | | | | | | | [...] + + + + | 06/20/ | Skills Instructor | Center for | Chad Lowe, | 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 | MD [address] | lymphoma of lymph | | | | Malignancies at | Ave [place], [place] | nodes of multiple | | | | [place] | [address] | regions (HCC) | | | | [address] | [phone] | (Primary Dx) | | | | [facility] | | | | | | Mailcode: [id number] | | | | | | Stacey [address] | | | | | | [place], [place] | | | | | | [address] | | | | | | [phone] | | | +--------+ + + + [...] Laboratory | + + + | | [facility] RADIOLOGY VOICE RECOGNITION | + + [...] Laboratory | + + + | | [facility] RADIOLOGY VOICE RECOGNITION | + + + [...] Note | + + | Service Account, Global Integrity Res In Interface - 07/11/2017 11:39 AM [...]
--- OUTSIDE RECORDS SUMMARY | ~2017-07-29 | XMS | Encounter Summary ---
Demographics + + + | Address | [address] | | | [place] [address] | + + + | Home Phone [...] + + + +-------+ ECON | [address] | | [place] | [address] | +------+ + + + +-------+ Care Team Providers + +------+-------+ | Care Deputy Sheriff Bailiff Name | Role | Phone | + [...] Rd | | | | | | [place], [place] | | | | | | [address] | | | | | | [phone] | | | +--------+ + + + [...]
--- OUTSIDE RECORDS SUMMARY | ~2017-07-29 | XMS | Encounter Summary ---
Demographics + + + | Address | [address] | | | [place] [address] | + + + | Home Phone | | + + + | Preferred Language | Unknown | + + + | Marital Status | | + + + | Christianity Affiliation | LUT | + + + | Race | White | + + + | Ethnic Group | Not or | + + + Author + + + | Author | [facility] | + + + | Organization | [facility] | + + + | Address | Unknown | + + + | Phone | Unavailable | + + + Support +------+ + + + +-------+ | Name | Relationship | Address | Phone | +------+ + + + +-------+ ECON | [address] | | [place] | [address] | +------+ + + + +-------+ Care Team Providers + +------+-------+ | Care Fiscal Manager Name | Role | Phone | + +------+-------+ | Jamaal Rivera MD | PCP | tel | + +------+-------+ Reason for Visit +--------+ + | Reason | Comments | +--------+ + | Other | change in tx plan | +--------+ + Encounter Details +--------+ + + + + | Date | Type | Department | Care Team | Description | +--------+ + + + + | 05/24/ | Telephone | Center for | Juana Morgan, | Other (change in tx | | 2017 | | Hematologic | RN [address] | plan) | | | | Malignancies at | [facility] | | | | | [facility] | [place], [place] | | | | | [address] [facility] | [address] | | | | | [facility] | [phone] | | | | | Mailcode: [id number] | | | | | | [facility] | | | | | | [place], [place] | | | | | | [address] | | | | | | [phone] | | | +--------+ + + + [...]
--- OUTSIDE RECORDS SUMMARY | ~2017-07-29 | XMS | Encounter Summary ---
Demographics + + + | Address | [address] | | | [place] [address] | + + + | Home Phone [...] + + | Author | [facility] | + + + | Organization | [facility] | + + + | Address | Unknown | + + + | Phone | Unavailable | + + + Support +------+ + + + +-------+ | Name | Relationship | Address | Phone | +------+ + + + +-------+ ECON | [address] | | [place] | [address] | +------+ + + + +-------+ Care Team Providers + +------+-------+ | Care Medical Donation Professional Name | Role | Phone | + [...] large B-cell | [address] | [address] [facility] | | | | | lymphoma of | [address] | [place] | | | | | | [place], [place] | [place], | | | | | intra-abdomi | [address] | [place] | | | | | nal lymph | Phone: | [address] | | | | | nodes (HCC) | [phone] | Phone: | | | | | Procedures | Fax: | [phone] | | | | | CONSULT TO | [phone] | Fax: | | | | | HEMATOLOGIC | | [phone] | | | | | MALIGNANCIES | | | +--------+--------+ + + + + Encounter Details +--------+ + + + + | Date | Type | Department | Care Team | Description | +--------+ + + + + | 05/24/ | Corporate Treasurer | Center for | Chad Lowe, | 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
--- OUTSIDE RECORDS SUMMARY | ~2017-07-29 | XMS | Encounter Summary ---
Demographics + + + | Address | [address] | | | [place] [address] | + + + | Home Phone | | + + + | Preferred Language | Unknown | + + + | Marital Status | | + + + | Congregation Affiliation | LUT | + + + [...] + + +-------+ ECON | [address] | | [place] | [address] | +------+ + + + +-------+ Care Team Providers + +------+-------+ | Care Sales Communications Manager Name | Role | Phone | [...] HOSPITAL | | | | | | [address] | | | | | | [facility] | | | | | | Mailcode: L340 [facility] | | | | | | [facility], | | | | | | [place] [address] | | | | | | [phone] | | | +--------+ + + + [...]
--- OUTSIDE RECORDS SUMMARY | ~2017-07-29 | XMS | Encounter Summary ---
Demographics + + + | Address | [address] | | | [place] [address] | + + + | Home Phone | | + + + | Preferred Language | Unknown | + + + | Marital Status | | + + + | Confucianism Affiliation | LUT | + + + [...] + + +-------+ ECON | [address] | | [place] | [address] | +------+ + + + +-------+ Care Team Providers + +------+-------+ | Care Peoplesoft Taleo Manager Name | Role | Phone | [...] [address] | | | | | | [facility] | | | | | | [place], [place] | | | | | | [address] | | | +--------+ + + + [...]
--- OUTSIDE RECORDS SUMMARY | ~2017-07-29 | XMS | Encounter Summary ---
Demographics + + + | Address | [address] | | | [place] [address] | + + + | Home Phone [...] + + +-------+ ECON | [address] | | [place] | [address] | +------+ + + + +-------+ Care Team Providers + +------+-------+ | Care Wood Floor Refinisher Name | Role | Phone | + [...] + + | 05/31/ | Documentati | [facility] | Work, Social | Social Work Notes | | 2017 | on | Hematologic | | | | | | Malignancies at | | | | | | [place] [facility] | | | | | | [address] | | | | | | [facility] | | | | | | Mailcode: [id number] | | | | | | [address] | | | | | | [place], [place] | | | | | | [address] | | | | | | [phone] | | | +--------+ + + + [...]
--- OUTSIDE RECORDS SUMMARY | ~2017-07-29 | XMS | Encounter Summary ---
Demographics + + + | Address | [address] | | | [place] [address] | + + + | Home Phone [...] + + + +-------+ ECON | [address] | | [place] | [address] | +------+ + + + +-------+ Care Team Providers + +------+-------+ | Care Food Service Employee Name | Role | Phone | + [...] | | Diffuse | MD Chad | [facility] [address] | | | | | large B-cell | [address] | | | | | lymphoma of | [address] | Mailcode: | | | | | lymph nodes | [place], [place] | [address] | | | | | of [facility] | [address] | for Health | | | | | regions | Phone: | and Healing, | | | | | (HCC) | [phone] | 3rd Floor | | | | | Procedures | Fax: | [place], [place] | | | | | CT CHEST, | [phone] | [address] | | | | | ABDOMEN AND | | Phone: | | | | | PELVIS W IV | | [phone] | | | | | CONTRAST [place] | | Fax: | | | | | CAT SCAN OF | | [phone] | | | | | CHEST | | | | | | | CONTRAST [place] | | | | | | | [...] | | | | lymph nodes | [place], [place] | [facility] | | | | | of multiple | [address] | for Health | | | | | regions | Phone: | and Healing, | | | | | (HCC) | [phone] | 3rd Floor | | | | | Procedures | Fax: | [place], [place] | | | | | CT CHEST, | [phone] | [address] | | | | | ABDOMEN AND | | Phone: | | | | | PELVIS W IV | | [phone] | | | | | CONTRAST [place] | | Fax: | | | | | CAT SCAN OF | | [phone] | | | | | CHEST | | | | | | | CONTRAST [place] | | | | | | | [...] | | | | lymph nodes | [place], [place] | [facility] | | | | | of multiple | [address] | for Health | | | | | regions | Phone: | and Healing, | | | | | (HCC) | [phone] | 3rd Floor | | | | | Procedures | Fax: | [place], [place] | | | | | CT CHEST, | [phone] | [address] | | | | | ABDOMEN AND | | Phone: | | | | | PELVIS W IV | | [phone] | | | | | CONTRAST [place] | | Fax: | | | | | CAT SCAN OF | | [phone] | | | | | CHEST | | | | | | | CONTRAST [place] | | | | | | | [...] | 2017 | Encounter | Services at [facility] | MD [address] | | | | | [address] | [place], [place] | | | | | [facility] | [address] | | | | | Mailcode: L340 [facility] | [phone] | | | | | [facility], | | | | | | [place] [address] | | | | | | [phone] | | | +--------+ + + + [...] | + + + | | [facility] RADIOLOGY VOICE RECOGNITION | + [...]
--- OUTSIDE RECORDS SUMMARY | ~2017-07-29 | XMS | Encounter Summary ---
Demographics + + + | Address | [address] | | | [place] [address] | + + + | Home Phone | | + + + | Preferred Language | Unknown | + + + | Marital Status | | + + + | Mandaeism Affiliation | LUT | + + + [...] + + +-------+ ECON | [address] | | [place] | [address] | +------+ + + + +-------+ Care Team Providers + +------+-------+ | Care Water Rights Specialist Name | Role | Phone | + +------+-------+ | Jamaal Rivera MD | PCP | tel | + +------+-------+ Encounter Details +--------+ + + + + | Date | Type | Department | Care Team | Description | +--------+ + + + + | 05/17/ | Ore Smelter | Center for | Chad Lowe, | 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 | [address] | lymphoma, | | | | Malignancies at | Ave [place], [place] | unspecified body | | | | [place] [address] | [address] | region ([facility]) | | | | [address] | [phone] | (Primary Dx) | | | | [address] | | | | | | Mailcode: [id number] | | | | | | Stacey Hen[address] | | | | | | [place], [place] | | | | | | [address] | | | | | | [phone] | | | +--------+ + + + [...] Laboratory | + + + | | [facility] RADIOLOGY VOICE RECOGNITION | + + + [...]
--- OUTSIDE RECORDS SUMMARY | ~2017-07-29 | XMS | Encounter Summary ---
Demographics + + + | Address | [address] | | | [place] [address] | + + + | Home Phone [...] + + +-------+ ECON | [address] | | [place] | [address] | +------+ + + + +-------+ Care Team Providers + +------+-------+ | Care Light Bulb Assembler Name | Role | Phone | + +------+-------+ | Jamaal Rivera MD | PCP | tel | + +------+-------+ Encounter Details +--------+ + + + + | Date | Type | Department | Care Team | Description | +--------+ + + + + | 05/15/ | Care Transition Mgr | Center for | Chad Lowe, | Other acute | | 2017 | | Hematologic | [address] | pulmonary embolism | | | | Malignancies at | Ave [place], [place] | without acute cor | | | | [facility] | [address] | pulmonale (HCC) | | | | [address] | [phone] | (Primary Dx) | | | | [address] | | | | | | Mailcode: [id number] | | | | | | [address] | | | | | | [place], [place] | | | | | | [address] | | | | | | [phone] | | | +--------+ + + + [...]
--- OUTSIDE RECORDS SUMMARY | ~2017-07-29 | XMS | Encounter Summary ---
Demographics + + + | Address | [address] | | | [place] [address] | + + + | Home Phone [...] + + + +-------+ ECON | [address] | | [place] | [address] | +------+ + + + +-------+ Care Team Providers + +------+-------+ | Care Safety Trainer Name | Role | Phone | + +------+-------+ | Jamaal Rivera MD | PCP | tel | + +------+-------+ Encounter Details +--------+ + + + + | Date | Type | Department | Care Team | Description | +--------+ + + + + | 06/20/ | Procedure | Diagnostic Imaging | | | | 2017 | Pass | Services at [facility] | | | | | | [address] | | | | | | [facility] | | | | | | Mailcode: [id number] [facility] | | | | | | [facility], | | | | | | [place] [address] | | | | | | [phone] | | | +--------+ + + + [...]
--- OUTSIDE RECORDS SUMMARY | ~2017-07-29 | XMS | Encounter Summary ---
Demographics + + + | Address | [address] | | | [place] [address] | + + + | Home Phone [...] + + +-------+ ECON | [address] | | [place] | [address] | +------+ + + + +-------+ Care Team Providers + +------+-------+ | Care Rotary Cutter Feeder Name | Role | Phone | [...] | Diffuse | MD Chad | [address] | | | | | large B-cell | [address] | | | | | lymphoma, | [address] | [place] | | | | | unspecified | [place], [place] | Road | | | | | body region | [address] | Mailcode: | | | | | (HCC) | Phone: | [address] [facility] | | | | | Procedures | [phone] | Hospital | | | | | CT NECK SOFT | Fax: | [place], [place] | | | | | TISSUE W | [phone] | [address] | | | | | CONTRAST [place] | | Phone: | | | | | CT NECK | | [phone] | | | | | TISSUE | | Fax: | | | | | CONTRAST | | [phone] | +--------+--------+ + + + + Reason for Visit + + + | Reason | Comments | + + + | Research data | | | collection | | + + + Encounter Details +--------+ + + + + | Date | Type | Department | Care Team | Description | +--------+ + + + + | 10/30/ | Manager Business Systems | Center for | [place], Chad, | 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 | MD [address] | lymphoma, | | | | Malignancies at | Ave [place], [place] | unspecified body | | | | [facility] | [address] | region (HCC) | | | | [address] | [phone] | (Primary Dx) | | | | [employer] | | | | | | Mailcode: [id number] | | | | | | [facility] | | | | | | [place], [place] | | | | | | [address] | | | | | | [phone] | | | +--------+ + + + [...]
--- OUTSIDE RECORDS SUMMARY | ~2017-07-29 | XMS | Encounter Summary ---
Demographics + + + | Address | [address] | | | [place] [address] | + + + | Home Phone | | + + + | Preferred Language | Unknown | + + + | Marital Status | | + + + | Church Affiliation | LUT | + + + [...] + + + +-------+ ECON | [address] | | [place] | [address] | +------+ + + + +-------+ Care Team Providers + +------+-------+ | Care Arc Cutter Name | Role | Phone | [...] | | Diffuse | MD Chad | [facility] [address] | | | | | large B-cell | [address] | [address] | | | | | lymphoma, | [address] | Mailcode: | | | | | unspecified | [place], [place] | [address] | | | | | body region | [address] | for Health | | | | | (HCC) | Phone: | and Healing, | | | | | Procedures | [phone] | 3rd Floor | | | | | CT CHEST, | Fax: | [place], [place] | | | | | ABDOMEN AND | [phone] | [address] | | | | | PELVIS W IV | | Phone: | | | | | CONTRAST ME | | [phone] | | | | | CAT SCAN OF | | Fax: | | | | | CHEST | | [phone] | | | | | CONTRAST [place] | | | | | | | [...] Closed | | Radiology | Diagnoses | [place], | Rad Ct Scan | | | | | Diffuse | MD Chad | [address] | | | | | large B-cell | [address] | [address] | | | | | lymphoma, | [address] | Mailcode: | | | | | unspecified | [place], [place] | [facility] | | | | | body region | [address] | for Health | | | | | (HCC) | Phone: | and Healing, | | | | | Procedures | [phone] | 3rd Floor | | | | | CT CHEST, | Fax: | [place], [place] | | | | | ABDOMEN AND | [phone] | [address] | | | | | PELVIS W IV | | Phone: | | | | | CONTRAST ME | | [phone] | | | | | CAT SCAN OF | | Fax: | | | | | CHEST | | [phone] | | | | | CONTRAST [place] | | | | | | | [...] | | Diffuse | MD Chad | [facility] [address] | | | | | large B-cell | [address] | [address] | | | | | lymphoma, | [address] | Mailcode: | | | | | unspecified | [place], [place] | [address] | | | | | body region | [address] | for Health | | | | | (HCC) | Phone: | and Healing, | | | | | Procedures | [phone] | 3rd Floor | | | | | CT CHEST, | Fax: | [place], [place] | | | | | ABDOMEN AND | [phone] | [address] | | | | | PELVIS W IV | | Phone: | | | | | CONTRAST ME | | [phone] | | | | | CAT SCAN OF | | Fax: | | | | | CHEST | | [phone] | | | | | CONTRAST [place] | | | | | | | [...] | Services at [facility] | [address] | | | | | [address] | [place], [place] | | | | | [facility] | [address] | | | | | Mailcode: L340 [facility] | [phone] | | | | | [facility] [place], | | | | | | [place] [address] | | | | | | [phone] | | | +--------+ + + + [...] | + + + | | [facility] RADIOLOGY VOICE RECOGNITION | + + [...]
--- OUTSIDE RECORDS SUMMARY | ~2017-07-29 | XMS | Encounter Summary ---
Demographics + + + | Address | [address] | | | [place] [address] | + + + | Home Phone [...] + + +-------+ ECON | [address] | | [place] | [address] | +------+ + + + +-------+ Care Team Providers + +------+-------+ | Care Diversional Therapist Name | Role | Phone | [...] Rd | | | | | | [place], [place] | | | | | | [address] | | | | | | [phone] | | | +--------+ + + + [...]
--- OUTSIDE RECORDS SUMMARY | ~2017-07-29 | XMS | Encounter Summary ---
Demographics + + + | Address | [address] | | | [place] [address] | + + + | Home Phone | | + + + | Preferred Language | Unknown | + + + | Marital Status | | + + + | Lutheran Affiliation | LUT | + + + | Race | White | + + + | Ethnic Group | Not or | + + + Author + + + | Author | [facility] | + + + | Organization | [facility] | + + + | Address | Unknown | + + + | Phone | Unavailable | + + + Support +------+ + + + +-------+ | Name | Relationship | Address | Phone | +------+ + + + +-------+ ECON | [address] | | [place] | [address] | +------+ + + + +-------+ Care Team Providers + +------+-------+ | Care Grommet Machine Operator Name | Role | Phone [...] | 2017 | Encounter | Services at [facility] | [address] | | | | | [address] | [place], [place] | | | | | [facility] | [address] | | | | | Mailcode: L340 [facility] | [phone] | | | | | [facility], | | | | | | [place] [address] | | | | | | [phone] | | | +--------+ + + + [...] Laboratory | + + + | | [facility] RADIOLOGY VOICE RECOGNITION | + [...] expression and a | | | | CD4:MA1vdwrr of 5.3:1. Preliminary findings | | | [...] CD38,CD45, HLA-DR | | | | and [place]-positive ([id number]; | | | | 06/30/2014). Gross | | | | Description:Received is one specimen | | | | labeled with the patient's name (initials | | | | DF) andmedical record #[id number]. A: | | | | Right inguinal [...] | | | | may not be contracts representative of thesubmitted | | | | [...] CD8 C | | | | D10 [id number] CD22 CD23 CD25 CD34 CD38 | | | | CD45 [id number] | | | | sKappa sLambda (Analyte | | | | specific reagents are used in many | | | | laboratory tests necessary forstandard | | | | medical care. This test was developed | | | | and its performancecharacteristics | | | | determined by [facility] [employer]. It has | | | | not [...] + | Tissue - Lymph node | [facility] DEPARTMENT OF PATHOLOGY [address] | | | [place] [address] | + + + in this encounter Visit Diagnoses + + | Diagnosis | + + | Diffuse large B-cell lymphoma, unspecified body region (HCC) | + +"
--- OUTSIDE RECORDS SUMMARY | ~2017-07-29 | XMS | Encounter Summary ---
Demographics + + + | Address | [address] | | | [place] [address] | + + + | Home Phone [...] + + +-------+ ECON | [address] | | [place] | [address] | +------+ + + + +-------+ Care Team Providers + +------+-------+ | Care Boat Puller Name | Role | Phone | + +------+-------+ | Jamaal Rivera MD | PCP | tel | + +------+-------+ Encounter Details +--------+ + + + + | Date | Type | Department | Care Team | Description | +--------+ + + + + | 05/24/ | Gold Cutter | Center for | Chad Lowe, | | | 2017 | | Hematologic | [address] | | | | | Malignancies at | [place], [place] | | | | | [address]acey [address] | [address] | | | | | [address] | [phone] | | | | | [employer] | | | | | | Mailcode: [id number] | | | | | | [address] | | | | | | [place], [place] | | | | | | [address] | | | | | | [phone] | | | +--------+ + + + [...]
--- OUTSIDE RECORDS SUMMARY | ~2017-07-29 | XMS | Clinical Summary ---
Demographics + + + | Address | [address] | | | [place] [address] | + + + | Home Phone | | + + + | Preferred Language | Unknown | + + + | Marital Status | | + + + | Druze Affiliation | LUT | + + + | Race | White | + + + | Ethnic Group | Not or | + + + Author + + + | Author | [facility] | + + + | Organization | [facility] | + + + | Address | Unknown | + + + | Phone | Unavailable | + + + Support +------+ + + + +-------+ | Name | Relationship | Address | Phone | +------+ + + + +-------+ ECON | [address] | | [place] | [address] | +------+ + + + +-------+ Care Team Providers + +------+-------+ | Care Craft Demonstrator Name | Role | Phone | + +------+-------+ | Jamaal Rivera MD | PP | tel | + +------+-------+ Source Comments RUFUS is fully live on both [facility] Ambulatory and [facility] InPatient.[facility] Allergies No Known Allergies Current Medications + [...] | | | | | | | ([facility]) | | | | | [...] | + + + + + | [facility]: 4422 | + + + + + [...] + + + + | 06/25/ | Director Of Early Childhood | | Chad Lowe, | Diffuse large [...] | 2017 | Encounter | | | Machinist Tool [employer] Die | +--------+ + + + + | 06/20/ | Procedure | | | | | 2016 | Pass | | | | +--------+ + + + + | 06/20/ | Procedure | | | | | 2016 | Pass | | | | +--------+ + + + + | 06/20/ | Director Of Early Childhood | | Chad Lowe, | Diffuse large [...] + + + + | 05/30/ | Director Of Early Childhood | | Chad Lowe, | Diffuse large [...] + + + + | 05/29/ | Director Of Early Childhood | | Chad Lowe, | Diffuse large [...] + + + | 05/24/ | Director Of Early Childhood | | Chad Lowe, | 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) | | | | | | (Primary Dx) | +--------+ + + + + | 05/24/ | Director Of Early Childhood | | Chad Lowe, | 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) | | | | | | (Primary Dx) | +--------+ + + + + | 05/24/ | Director Of Early Childhood | | Chad Lowe, | | | 2016 | | | MD | | +--------+ + + + + | 05/23/ | Hospital | | Chad Lowe, | | | 2016 | Encounter | | MD | | +--------+ + + + + | 05/23/ | Director Of Early Childhood | | Chad Lowe, | Dermatitis | [...] + + + + | 05/17/ | Director Of Early Childhood | | Chad Lowe, | Diffuse large [...] + + + + | 05/15/ | Director Of Early Childhood | | Chad Lowe, | Other acute | | 2016 | | | MD | pulmonary embolism | | | | | | without acute cor | | | | | | pulmonale (HCC) | | | | | | (Primary Dx) | +--------+ + + + + | 05/15/ | Director Of Early Childhood | | Chad Lowe, | Diffuse large [...] + + + + | 05/14/ | Director Of Early Childhood | | Chad Lowe, | Diffuse large [...] + + + + | 05/13/ | Director Of Early Childhood | | Chad Lowe, | Diffuse large B-cell | | 2016 | | | MD | lymphoma, | | | | | | unspecified body | | | | | | region (HCC) | | | | | | (Primary Dx) | +--------+ + + + + | 05/09/ | Director Of Early Childhood | | Chad Lowe, | Diffuse large [...] + + + + | 05/01/ | Director Of Early Childhood | | Chad Lowe, | Diffuse large B-cell | | 2016 | | | MD | lymphoma, | | | | | | unspecified body | | | | | | region (HCC) | | | | | | (Primary Dx) | +--------+ + + + + | 04/29/ | Director Of Early Childhood | | Simone Hernandez V, | | | 2016 | | | MD | | +--------+ + + + + | 04/28/ | Director Of Early Childhood | | Chad Lowe, | | | [...] Laboratory | + + + | | [facility] | + + + [...] Laboratory | + + + | | [facility] VOICE RECOGNITION | + + + [...] | + + + | Blood | [facility], POINT OF CARE TESTS [address] | | | [place] [address] | + + + COMPLETE METABOLIC PANEL [...] | + + + | Blood | [facility], POINT OF CARE TESTS [address] | | | [place] [address] | + + + CBC WITH AUTO [...] [address] | | | [place] [address] | + + + 12 LEAD ECG [...] Laboratory | + + + | | [facility] [address] [place] [address] | | | [facility] [address] | + + + MAGNESIUM, PLASMA (05/30/2017 11:00 AM) + + + | Specimen | Performing Laboratory | + + + | Blood | | + + + + + | Narrative | + + | The following orders were created for panel order MAGNESIUM, PLASMA. | | Procedure | | Abnormality Status | | --------- | | ------ MAGNESIUM, | | PLASMA[[id number]] Normal Final | | result Please view [...] | | ------ LDH TOTAL, | | PLASMA[[id number]] Abnormal Final | | result Please view [...] | SPECIFIC GRAVITY | 1.004 (L)Comment: Specific [place] | 1.005 - 1.030 | | | performed by refractometry | | + + + + + + + | Specimen | Performing Laboratory | + + + | Urine | [facility], CORE [address] [place] [address] | | | [place] [address] | + + + MAGNESIUM, PLASMA (05/30/2017 [...] | + + + | Blood | [facility], CORE [address] | | | [place] [address] | + + + + + | [...] | + + + | Blood | [facility], CORE [address] [place] [address] | | | [place] [address] | + + + PROTEIN C ACTIVITY [...] | + + + | Blood | [facility], SPECIAL IMM + COA [address] [facility] | | | [place] [address] | + + + + + | [...] | + + + | Blood | [facility], CORE [address] [facility] | | | [place] [address] | + + + + + | [...] | + + + | Blood | [facility], CORE [address] [place] [address] | | | [place] [address] | + + + T3 TOTAL, SERUM [...] | + + + | Blood | [facility] [address] [place], [place] | | | [address] | + + + TSH (05/30/2017 10:59 AM)Only the most recent of 3 results within the time period is includ ed. + +-------+ + | Component | Value | Ref Range | + +-------+ + | TSH | 1.29 | 0.47 - 7.11 mIU/L | + +-------+ + + + + | Specimen | Performing Laboratory | + + + | Blood | [facility], CORE [address] [place] [address] | | | [place] [address] | + + + + + | [...] | + + + | Blood | [facility], CORE [address] [facility] | | | [place] [address] | + + + AMYLASE, PLASMA (05/30/2017 [...] | + + + | Blood | [facility], CORE [address] [facility] | | | [facility] [address] | + + + US NEEDLE BIOPSY LYMPH NODE (05/23/2017 2:57 PM) + + + | Specimen | Performing Laboratory | + + + | | [facility] VOICE RECOGNITION | + + + [...] expression and a | | | | CD4:VJ9qqtfe of 5.3:1. Preliminary findings | | | [...] CD38,CD45, HLA-DR | | | | and [place]-positive ([id number]; | | | | 06/30/2014). Gross | | | | Description:Received is one specimen | | | | labeled with the patient's name (initials | | | | DF) andmedical record #[id number]. A: | | | | Right inguinal [...] | | | | may not be agency service representative of thesubmitted | | | [...] CD8 C | | | | D10 [id number] CD22 CD23 CD25 CD34 CD38 | | | | CD45 [id number] | | | | sKappa sLambda (Analyte | | | | specific reagents are used in many | | | | laboratory tests necessary forstandard | | | | medical care. This test was developed | | | | and its performancecharacteristics | | | | determined by [facility]. It has | | | | not [...] + | Tissue - Lymph node | [facility] [address] [facility] | | | [place] [address] | + + + TROPONIN I, PLASMA (05/14/2017 7:45 AM) + +-------+ + | Component | Value | Ref Range | + +-------+ + | TROPONIN I | 0.02 | <0.80 ng/mL | + +-------+ + + + + | Specimen | Performing Laboratory | + + + | Blood | [facility], CORE [address] [place] [address] | | | [place] [address] | + + + COMPLEMENT ACTIVITY ENZYME [...] ....... | | | | HighPerformed by [employer],[address] | | | | [place] [address] | | | | [phone].[facility], Graham Meza, | | | | Raisa INGRAM. Director | | | |www.[facility], Graham Meza MD, Lab. Director | | + + + + + + + | Specimen | Performing Laboratory | + + + | Blood | [facility] UNIV P[facility] - INTFC [address] [facility] | | | [place] [address] | + + + C'4 COMPLEMENT, SERUM (05/14/2017 7:45 AM) + +-------+ + | Component | Value | Ref Range | + +-------+ + | C'4 COMPLEMENT SERUM | 40 | 16 - 47 mg/dL | + +-------+ + + + + | Specimen | Performing Laboratory | + + + | Blood | [facility] [place] [address] [place], [place] | | | [address] | + + + IGM, SERUM (05/14/2017 [...] | + + + | Blood | [facility] [address] [place], [place] | | | [address] | + + + IGG, SERUM (05/14/2017 [...] + + + | Blood | [facility] [address] [place], [place] | | | [address] | + + + IGA, SERUM (05/14/2017 [...] | + + + | Blood | [facility] [address] [place], [place] | | | [address] | + + + C'3 COMPLEMENT, SERUM (05/14/2017 7:45 AM) + +-------+ + | Component | Value | Ref Range | + +-------+ + | C'3 COMPLEMENT SERUM | 121 | 88 - 201 mg/dL | + +-------+ + + + + | Specimen | Performing Laboratory | + + + | Blood | [facility] [address] [place] [address] | | | [address] | + + + PHOSPHORUS, PLASMA (05/14/2017 [...] | + + + | Blood | [facility], CORE [address] [place] [address] | | | [place] [address] | + + + URIC ACID, PLASMA [...] | + + + | Blood | [facility], CORE [address] [facility] | | | [place] [address] | + + + RESEARCH TUMOR READING [...] | + + + | Blood | [facility], CORE [address] [facility] [address] | | | [place] [address] | + + + + + | Narrative | + + | New method, new reference range and new reporting units as of 12/16/2013. | + + from Last 3 Months
--- OUTSIDE RECORDS SUMMARY | ~2017-07-29 | XMS | Encounter Summary ---
Demographics + + + | Address | [address] | | | [place] [address] | + + + | Home Phone [...] + + +-------+ ECON | [address] | | [place] | [address] | +------+ + + + +-------+ Care Team Providers + +------+-------+ | Care Industrial Locomotive Operator Name | Role | Phone | [...] + + + + | 05/15/ | Corrugated Box Machine Operator | Center for | Chad Lowe, | 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 | MD [address] | lymphoma, | | | | Malignancies at | [address] [place], [place] | unspecified body | | | | [facility] | [address] | region (HCC) | | | | [address] | [phone] | (Primary Dx) | | | | [employer] | | | | | | Mailcode: [id number] | | | | | | [facility] | | | | | | [place], [place] | | | | | | [address] | | | | | | [phone] | | | +--------+ + + + [...]
--- OUTSIDE RECORDS SUMMARY | ~2017-07-29 | XMS | Encounter Summary ---
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
--- OUTSIDE RECORDS SUMMARY | ~2017-07-29 | XMS | Encounter Summary ---
Demographics + + + | Address | [address] | | | [place] [address] | + + + | Home Phone [...] + + +-------+ ECON | [address] | | [place] | [address] | +------+ + + + +-------+ Care Team Providers + +------+-------+ | Care Butcher Scullion Name | Role | Phone | + [...] | Diffuse | MD Chad | [address] | | | | | large B-cell | [address] | | | | | lymphoma of | [address] | [place] | | | | | lymph nodes | [place], [place] | Road | | | | | of multiple | [address] | Mailcode: | | | | | regions | Phone: | [address] [facility] | | | | | (HCC) | [phone] | Hospital | | | | | Procedures | Fax: | [place], [place] | | | | | CT NECK SOFT | [phone] | [address] | | | | | TISSUE W | | Phone: | | | | | CONTRAST [place] | | [phone] | | | | | CT NECK | | Fax: | | | | | TISSUE | | [phone] | | | | | CONTRAST | [...] | | | | lymph nodes | [place], [place] | Road | | | | | of multiple | [address] | Mailcode: | | | | | regions | Phone: | [address] [facility] | | | | | (HCC) | [phone] | Hospital | | | | | Procedures | Fax: | [place], [place] | | | | | CT NECK SOFT | [phone] | [address] | | | | | TISSUE W | | Phone: | | | | | CONTRAST [place] | | [phone] | | | | | CT NECK | | Fax: | | | | | TISSUE | | [phone] | | | | | CONTRAST | [...] Closed | | Radiology | Diagnoses | [place], | Rad General | | | | | Diffuse | MD Chad | [facility] [address] | | | | | large B-cell | [address] | | | | | lymphoma of | [address] | [place] | | | | | lymph nodes | [place], [place] | Road | | | | | of multiple | [address] | Mailcode: | | | | | regions | Phone: | [address] [facility] | | | | | ([facility] | [phone] | Hospital | | | | | Procedures | Fax: | [place], [place] | | | | | CT NECK SOFT | [phone] | [address] | | | | | TISSUE W | | Phone: | | | | | CONTRAST [place] | | [phone] | | | | | CT NECK | | Fax: | | | | | TISSUE | | [phone] | | | | | CONTRAST | | | +--------+--------+ + + + + Encounter Details +--------+ + + + + | Date | Type | Department | Care Team | Description | +--------+ + + + + | 07/11/ | Hospital | Diagnostic Imaging | Chad Lowe, | | | 2017 | Encounter | Services at [facility] | MD [address] | | | | | [address] | [place], [place] | | | | | [facility] | [address] | | | | | Mailcode: [id number] [facility] | [phone] | | | | | Hospital [place], | | | | | | [place] [address] | | | | | | [phone] | | | +--------+ + + + [...] Laboratory | + + + | | [facility] RADIOLOGY VOICE RECOGNITION | + + + [...] | + + + | Blood | [facility]INT OF [facility]ARE TESTS [address] | | | [place] [address] | + + + in this encounter Visit Diagnoses + + | Diagnosis | + + | Diffuse large B-cell lymphoma of lymph nodes of multiple regions (HCC) | + +"
--- OUTSIDE RECORDS SUMMARY | ~2017-07-29 | XMS | Encounter Summary ---
Demographics + + + | Address | [address] | | | [place] [address] | + + + | Home Phone [...] + + +-------+ ECON | [address] | | [place] | [address] | +------+ + + + +-------+ Care Team Providers + +------+-------+ | Care Repossessor Name | Role | Phone | + [...] | | | | | [id number] | [facility] | | | | | | [facility] | [facility] | | | | | | Pavilion | [place], [place] | | | | | | [place], [place] | [address] | | | | | | [address] | Phone: | | | | | | Phone: | [phone] | | | | | | [phone] | Fax: | | | | | | Fax: | [phone] | | | | | | [phone] | | +--------+--------+ + + + + [...] | | | Malignancies at | Ave [place], [place] | intra-abdominal | | | | [facility] | [address] | lymph nodes (HCC) | | | | [address] | [phone] | (Primary Dx) | | | | [employer] | | | | | | Mailcode: [id number] | | | | | | [facility] | | | | | | [place], [place] | | | | | | [address] | | | | | | [phone] | | | +--------+---------+ + + + [...] may be different fro m the original. [facility] Malign[facility] Follow Up 07-11-17 [facility] Physician: Chad Lowe MD Reason [...] PET/CT has been completed. 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
--- OUTSIDE RECORDS SUMMARY | ~2017-07-29 | XMS | Encounter Summary ---
Demographics + + + | Address | [address] | | | [place] [address] | + + + | Home Phone | | + + + | Preferred Language | Unknown | + + + | Marital Status | | + + + | Latter Day Affiliation | LUT | + + + | Race | White | + + + | Ethnic Group | Not or | + + + Author + + + | Author | [facility] | + + + | Organization | [facility] | + + + | Address | Unknown | + + + | Phone | Unavailable | + + + Support +------+ + + + +-------+ | Name | Relationship | Address | Phone | +------+ + + + +-------+ ECON | [address] | | [place] | [address] | +------+ + + + +-------+ Care Team Providers + +------+-------+ | Care Purchasing/Receiving Name | Role | Phone | + [...] | Diffuse | MD Chad | [address] | | | | | large B-cell | [address] | | | | | lymphoma, | [address] | [place] | | | | | unspecified | [place], [place] | Road | | | | | body region | [address] | Mailcode: | | | | | (HCC) | Phone: | [address] [facility] | | | | | Procedures | [phone] | Hospital | | | | | CT NECK SOFT | Fax: | [place], [place] | | | | | TISSUE W | [phone] | [address] | | | | | CONTRAST LA | | Phone: | | | | | CT NECK | | [phone] | | | | | TISSUE | | Fax: | | | | | CONTRAST | | [phone] | +--------+--------+ + + + + Diagnostic [...] | | | | | unspecified | [place], [place] | Road | | | | | body region | [address] | Mailcode: | | | | | (HCC) | Phone: | [address] [facility] | | | | | Procedures | [phone] | Hospital | | | | | CT NECK SOFT | Fax: | [place], [place] | | | | | TISSUE W | [phone] | [address] | | | | | CONTRAST LA | | Phone: | | | | | CT NECK | | [phone] | | | | | TISSUE | | Fax: | | | | | CONTRAST | | [phone] | +--------+--------+ + + + + Reason [...] | lymphoma, | [address] | [place] | | | | | unspecified | [place], [place] | Road | | | | | body region | [address] | Mailcode: | | | | | (HCC) | Phone: | [address] [facility] | | | | | Procedures | [phone] | Hospital | | | | | CT NECK SOFT | Fax: | [place], [place] | | | | | TISSUE W | [phone] | [address] | | | | | CONTRAST LA | | Phone: | | | | | CT NECK | | [phone] | | | | | TISSUE | | Fax: | | | | | CONTRAST | | [phone] | +--------+--------+ + + + + Encounter Details +--------+ + + + + | Date | Type | Department | Care Team | Description | +--------+ + + + + | 05/14/ | Hospital | Diagnostic Imaging | Chad Lowe, | | | 2017 | Encounter | Services at [facility] | MD [address] | | | | | [address] | [place], [place] | | | | | [facility] | [address] | | | | | Mailcode: [address] [facility] | [phone] | | | | | [facility], | | | | | | [place] [address] | | | | | | [phone] | | | +--------+ + + + [...]
--- OUTSIDE RECORDS SUMMARY | ~2017-07-29 | XMS | Encounter Summary ---
Demographics + + + | Address | [address] | | | [place] [address] | + + + | Home Phone [...] + + +-------+ ECON | [address] | | [place] | [address] | +------+ + + + +-------+ Care Team Providers + +------+-------+ | Care Marketing Senior Recruiter Name | Role | Phone | + +------+-------+ | Jamaal Rivera MD | PCP | tel | + +------+-------+ Encounter Details +--------+ + + + + | Date | Type | Department | Care Team | Description | +--------+ + + + + | 05/20/ | Research | Diagnostic Imaging | Milton Georges V, | | | 2017 | Tumor | Services at [facility] | MD Miguel Ángel Diaz | | | | Measurement | [address] | [facility] | | | | | [facility] | [place], [place] | | | | | Mailcode: L[address] [facility] | [address] | | | | | [facility], | [phone] | | | | | [place] [address] | | | | | | [phone] | | | +--------+ + + + [...]
--- OUTSIDE RECORDS SUMMARY | ~2017-07-29 | XMS | Encounter Summary ---
Demographics + + + | Address | [address] | | | [place] [address] | + + + | Home Phone [...] + + +-------+ ECON | [address] | | [place] | [address] | +------+ + + + +-------+ Care Team Providers + +------+-------+ | Care Animal Caretaker Name | Role | Phone | + +------+-------+ | Jamaal Rivera MD | PCP | tel | + +------+-------+ Encounter Details +--------+ + + + + | Date | Type | Department | Care Team | Description | +--------+ + + + + | 04/29/ | Ferryboat Helper | Center for | Simone Hernandez V, | | | 2017 | | Hematologic | MD Miguel [address] Diaz | | | | | Malignancies at | [address] | | | | | [place] | [place], [place] | | | | | [address] | [address] | | | | | [address] | [phone] | | | | | Mailcode: [id number] | | | | | | [place] | | | | | | [place], [place] | | | | | | [address] | | | | | | [phone] | | | +--------+ + + + [...]
--- OUTSIDE RECORDS SUMMARY | ~2017-07-29 | XMS | Encounter Summary ---
Demographics + + + | Address | [address] | | | [place] [address] | + + + | Home Phone [...] + + +-------+ ECON | [address] | | [place] | [address] | +------+ + + + +-------+ Care Team Providers + +------+-------+ | Care Marketing Services Rep Name | Role | Phone | [...] [facility] | | | | | [facility] | [place], [place] | | | | | [address] [facility] | [address] | | | | | [facility] | [phone] | | | | | Mailcode: [id number] | | | | | | [facility] | | | | | | [place], [place] | | | | | | [address] | | | | | | [phone] | | | +--------+ + + + [...]
--- OUTSIDE RECORDS SUMMARY | ~2017-07-29 | XMS | Encounter Summary ---
Demographics + + + | Address | [address] | | | [place] [address] | + + + | Home Phone | | + + + | Preferred Language | Unknown | + + + | Marital Status | | + + + | Hoahaoism Affiliation | LUT | + + + [...] + + +-------+ ECON | [address] | | [place] | [address] | +------+ + + + +-------+ Care Team Providers + +------+-------+ | Care Senior Administrative Support Name | Role | Phone | + +------+-------+ | Jamaal Rivera MD | PCP | tel | + +------+-------+ Encounter Details +--------+ + + + + | Date | Type | Department | Care Team | Description | +--------+ + + + + | 05/17/ | [facility] | [facility], | 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 | [address] | lymphoma, | | | | Malignancies at | [address] [place], [place] | unspecified body | | | | [place] | [phone] | region ([facility]) | | | | [address] | [phone] | (Primary Dx) | | | | Concha Bourgeois | | | | | | Mailcode: [id number] | | | | | | [address] | | | | | | [place], [place] | | | | | | [address] | | | | | | [phone] | | | +--------+ + + + [...] Laboratory | + + + | | [facility] | + + + [...]
--- OUTSIDE RECORDS SUMMARY | ~2017-07-29 | XMS | Encounter Summary ---
Demographics + + + | Address | [address] | | | [place] [address] | + + + | Home Phone [...] + + +-------+ ECON | [address] | | [place] | [address] | +------+ + + + +-------+ Care Team Providers + +------+-------+ | Care Cotton Candy Maker Name | Role | Phone | + +------+-------+ | Jamaal Rivera MD | PCP | tel | + +------+-------+ Encounter Details +--------+ + + + + | Date | Type | Department | Care Team | Description | +--------+ + + + + | 05/24/ | Hand Developer | Center for | Chad Lowe, | | | 2017 | | Hematologic | [address] | | | | | Malignancies at | Ave [place], [place] | | | | | Stacey Arreguinon | [address] | | | | | [address] | [phone] | | | | | [employer] | | | | | | Mailcode: [id number] | | | | | | [address]acey [address] | | | | | | [place], [place] | | | | | | [address] | | | | | | [phone] | | | +--------+ + + + [...]
--- OUTSIDE RECORDS SUMMARY | ~2017-07-29 | XMS | Encounter Summary ---
Demographics + + + | Address | [address] | | | [place] [address] | + + + | Home Phone | | + + + | Preferred Language | Unknown | + + + | Marital Status | | + + + | Catholic Affiliation | LUT | + + [...] + + +-------+ ECON | [address] | | [place] | [address] | +------+ + + + +-------+ Care Team Providers + +------+-------+ | Care Linux System Administrator Name | Role | Phone | [...] | | | | Malignancies at | [facility], | | | | | [facility] | [place] [address] | | | | | [address] | | | | | | [facility] | | | | | | Mailcode: [id number] | | | | | | [facility] | | | | | | [place], [place] | | | | | | [address] | | | | | | [phone] | | | +--------+ + + + [...]
--- OUTSIDE RECORDS SUMMARY | ~2017-07-29 | XMS | Encounter Summary ---
Demographics + + + | Address | [address] | | | [place] [address] | + + + | Home Phone [...] + + +-------+ ECON | [address] | | [place] | [address] | +------+ + + + +-------+ Care Team Providers + +------+-------+ | Care Director Of Field Sales Name | Role | Phone | [...] | | | | | [id number] | [facility] | | | | | | [facility] | [facility] | | | | | | Pavilion | [place], [place] | | | | | | [place], [place] | [address] | | | | | | [address] | Phone: | | | | | | Phone: | [phone] | | | | | | [phone] | Fax: | | | | | | Fax: | [phone] | | | | | | [phone] | | +--------+--------+ + + + + [...] | | | Malignancies at | Ave [place], [place] | unspecified body | | | | [facility] | [address] | region (HCC) | | | | [address] | [phone] | | | | | [facility] | | | | | | Mailcode: [id number] | | | | | | [facility] | | | | | | [place], [place] | | | | | | [address] | | | | | | [phone] | | | +--------+---------+ + + + [...] may be different fro m the original. [facility] Center for Hematologic Malignancies Follow Up 05-14-17 [facility] Physician: Chad Lowe MD Reason [...] F/U: per study protocol CHAD LOWE MD group managing director [facility] Center for Hematologic Malignancies [facility] Cancer [place] [email or web address] [phone] in this encounter Plan of Treatment Not on fileas of this encounter Visit Diagnoses + + | Diagnosis | + + | Diffuse large B-cell lymphoma, unspecified body region (HCC) | + +"
--- OUTSIDE RECORDS SUMMARY | ~2017-07-29 | XMS | Encounter Summary ---
Demographics + + + | Address | [address] | | | [place] [address] | + + + | Home Phone [...] + + +-------+ ECON | [address] | | [place] | [address] | +------+ + + + +-------+ Care Team Providers + +------+-------+ | Care Family Sociologist Name | Role | Phone | + +------+-------+ | Jamaal Rivera MD | PCP | tel | + +------+-------+ Encounter Details +--------+ + + + + | Date | Type | Department | Care Team | Description | +--------+ + + + + | 05/24/ | Setter Off | Center for | Chad Lowe, | 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 | [address] | lymphoma of | | | | Malignancies at | Ave [place], [place] | intra-abdominal | | | | [place] | [address] | lymph nodes (HCC) | | | | [address] | [phone] | (Primary Dx) | | | | Concha Bourgeois | | | | | | Mailcode: [id number] | | | | | | [address] [address] | | | | | | [place], [place] | | | | | | [address] | | | | | | [phone] | | | +--------+ + + + [...]
--- OUTSIDE RECORDS SUMMARY | ~2017-07-29 | XMS | Encounter Summary ---
Demographics + + + | Address | [address] | | | [place] [address] | + + + | Home Phone [...] + + +-------+ ECON | [address] | | [place] | [address] | +------+ + + + +-------+ Care Team Providers + +------+-------+ | Care Community Health Nurse Staff Name | Role | Phone | + [...] | | | | | [id number] | [facility] | | | | | [facility] | Pavilion | | | | | | Pavilion | [place], [place] | | | | | | [place], [place] | [address] | | | | | | [address] | Phone: | | | | | | Phone: | [phone] | | | | | | [phone] | Fax: | | | | | | Fax: | [phone] | | | | | | [phone] | | +--------+--------+ + + + + Encounter Details +--------+---------+ + + + | Date | Type | Department | Care Team | Description | +--------+---------+ + + + | 05/02/ | Office | Center for | Chad Lowe, | Diffuse large B-cell | | 2017 | Visit | Hematologic | MD [address] | lymphoma of | | | | Malignancies at | Ave [place], [place] | intra-abdominal | | | | [facility] | [address] | lymph nodes (HCC) | | | | [address] | [phone] | (Primary Dx) | | | | [employer] | | | | | | Mailcode: [id number] | | | | | | [facility] | | | | | | [place], [place] | | | | | | [address] | | | | | | [phone] | | | +--------+---------+ + + + [...] be different fro m the original. 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
--- OUTSIDE RECORDS SUMMARY | ~2017-07-29 | XMS | Encounter Summary ---
Demographics + + + | Address | [address] | | | [place] [address] | + + + | Home Phone [...] + + + +-------+ ECON | [address] | | [place] | [address] | +------+ + + + +-------+ Care Team Providers + +------+-------+ | Care Gas Maker Name | Role | Phone | [...] | 2017 | Tumor | Services at [facility] | MD Miguel Ángel Diaz | | | | Measurement | [address] | [facility] | | | | | [facility] | [place], [place] | | | | | Mailcode: L340 [facility] | [address] | | | | | [facility], | [phone] | | | | | [place] [address] | | | | | | [phone] | | | +--------+ + + + [...]
--- OUTSIDE RECORDS SUMMARY | ~2017-07-29 | XMS | Encounter Summary ---
Demographics + + + | Address | [address] | | | [place] [address] | + + + | Home Phone [...] + + +-------+ ECON | [address] | | [place] | [address] | +------+ + + + +-------+ Care Team Providers + +------+-------+ | Care Advanced Practice Nurse Name | Role | Phone | [...] | | 2016 | Encounter | at [facility] [address] | | Associate Buyer | | | | Cornel Cooley Mailcode: | | | | | | [facility] | | | | | | Health and Healing, | | | | | | 9th [facility], | | | | | | [place] [address] | | | | | | [phone] | | | +--------+ + + + [...]
--- OUTSIDE RECORDS SUMMARY | ~2017-07-29 | XMS | Encounter Summary ---
Demographics + + + | Address | [address] | | | [place] [address] | + + + | Home Phone [...] Author + + + | Author | [facility] | + + + | Organization | [facility] | + + + | Address | Unknown | + + + | Phone | Unavailable | + + + Support +------+ + + + +-------+ | Name | Relationship | Address | Phone | +------+ + + + +-------+ ECON | [address] | | [place] | [address] | +------+ + + + +-------+ Care Team Providers + +------+-------+ | Care Africana Studies Professor Name | Role | Phone | [...] | | | | | [id number] | [place] | | | | | | [place] [facility] | | | | | | Pavilion | [place], [place] | | | | | | [place], [place] | [address] | | | | | | [address] | Phone: | | | | | | Phone: | [phone] | | | | | | [phone] | Fax: | | | | | | Fax: | [phone] | | | | | | [phone] | | +--------+--------+ + + + + [...] | | Malignancies at | Ave [place], [place] | unspecified body | | | | [facility] | [address] | region (HCC) | | | | [address] | [phone] | | | | | [employer] | | | | | | Mailcode: [id number] | | | | | | [facility] | | | | | | [place], [place] | | | | | | [address] | | | | | | [phone] | | | +--------+---------+ + + + [...] may be different fro m the original. [facility] Center for Hematologic Malignancies Follow Up 05-14-17 [facility] Physician: Chad Lowe MD Reason [...] F/U: per study protocol CHAD LOWE MD supervisor general [facility] Center for Hematologic Malignancies [facility] Cancer [place] Farhan@[email or web address] [phone] in this encounter Plan of Treatment Not on fileas of this encounter Visit Diagnoses + + | Diagnosis | + + | Diffuse large B-cell lymphoma, unspecified body region (HCC) | + +"
--- OUTSIDE RECORDS SUMMARY | ~2017-07-29 | XMS | Encounter Summary ---
Demographics + + + | Address | [address] | | | [place] [address] | + + + | Home Phone [...] + + +-------+ ECON | [address] | | [place] | [address] | +------+ + + + +-------+ Care Team Providers + +------+-------+ | Care Leveling Machine Operator Name | Role | Phone [...] [address] | | | | | | [facility] | | | | | | [place], [place] | | | | | | [address] | | | +--------+ + + + [...]
--- OUTSIDE RECORDS SUMMARY | ~2017-07-29 | XMS | Encounter Summary ---
Demographics + + + | Address | [address] | | | [place] [address] | + + + | Home Phone [...] + + +-------+ ECON | [address] | | [place] | [address] | +------+ + + + +-------+ Care Team Providers + +------+-------+ | Care Planning Consultant Name | Role | Phone | [...] | | | | | bulinemia | [place], [place] | [facility] | | | | | Procedures | [address] | Road | | | | | [place] INJ IG | Phone: | Mailcode: | | | | | [address] | [phone] | [facility] | | | | | IV, 500 MG | Fax: | [place] | | | | | [place] | [phone] | Pavilion | | | | | THR/PRPH/DX | | [place], [place] | | | | | IV INF,IN | | [address] | | | | | [place] | | Phone: | | | | | THER/PROPH/D | | [phone] | | | | | IAG IV IVIG | | Fax: | | | | | | | [phone] | +--------+--------+ + + + + Encounter Details +--------+ + + + + | Date | Type | Department | Care Team | Description | +--------+ + + + + | 05/02/ | [facility] | [place] for | | | | 2017 | Encounter | Hematologic | | | | | | Malignancies at [facility] | | | | | | [address] | | | | | | [facility] | | | | | | Mailcode: [id number] | | | | | | [place] [address] | | | | | | [place], [place] | | | | | | [address] | | | | | | [phone] | | | +--------+ + + + [...] 0.8 EOSPERC 1.5 Nursing Assessment: INV BMS 837850 (Anti LAG-3) + Nivolumab Part C & [...] was checked by 2 RNs. INV BMS 990998 (Anti- LAG 3) 160 mg IV was [...] lunch until 14:00. Patient instructed to call system planning engineer/telephone advice nurse provider for fevers 100.4 F or greater, uncont rolled nausea, vomiting, diarrhea, rash, SOB, chest pain and bleeding. 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 | | | [place] [address] | + + + CMP, POC (BMP+LFT) [...] + + | Blood | [facility] [address] | | | [place] [address] | + + + URIC ACID, PLASMA (05/02/2017 8:10 AM) + +-------+ + | Component | Value | Ref Range | + +-------+ + | URIC ACID, PLASMA | 6.0 | 3.7 - 8.0 mg/dL | | (LAB) | | | + +-------+ + + + + | Specimen | Performing Laboratory | + + + | Blood | [facility] CORE [address] | | | [place] [address] | + + + PHOSPHORUS, PLASMA (05/02/2017 8:10 AM) + +-------+ + | Component | Value | Ref Range | + +-------+ + | PHOSPHORUS, PLASMA | 2.8 | 2.4 - 4.7 mg/dL | | (LAB) | | | + +-------+ + + + + | Specimen | Performing Laboratory | + + + | Blood | [facility] CORE [address] | | | [place] [address] | + + + MAGNESIUM, PLASMA (05/02/2017 8:10 AM) + +-------+ + | Component | Value | Ref Range | + +-------+ + | MAGNESIUM,PLASMA | 2.2 | 1.6 - 2.6 mg/dL | + +-------+ + + + + | Specimen | Performing Laboratory | + + + | Blood | [facility], CORE [address] [address] | | | [place] [address] | + + + + + | [...] | + + + | Blood | [facility] CORE [address] | | | [place] [address] | + + + FREE T4 (05/02/2017 8:10 AM) + +-------+ + | Component | Value | Ref Range | + +-------+ + | FREE T4 | 0.9 | 0.6 - 1.2 ng/dL | + +-------+ + + + + | Specimen | Performing Laboratory | + + + | Blood | [facility] CORE [address] | | | [place] [address] | + + + T3 TOTAL, SERUM (05/02/2017 8:10 AM) + +-------+ + | Component | Value | Ref Range | + +-------+ + | T3, TOTAL | 114 | 87 - 196 ng/dL | + +-------+ + + + + | Specimen | Performing Laboratory | + + + | Blood | [facility] [place] [address] [facility], [place] | | | [address] | + + + IGA, SERUM (05/02/2017 8:10 AM) + +-------+ + | Component | Value | Ref Range | + +-------+ + | IGA SERUM | 264 | 70 - 400 mg/dL | + +-------+ + + + + | Specimen | Performing Laboratory | + + + | Blood | [facility] [address] [place], [place] | | | [address] | + + + IGG, SERUM (05/02/2017 8:10 AM) + +-------+ + | Component | Value | Ref Range | + +-------+ + | IGG SERUM | 928 | 700 - 1600 mg/dL | + +-------+ + + + + | Specimen | Performing Laboratory | + + + | Blood | [facility] [address] [place], [place] | | | [address] | + + + IGM, SERUM (05/02/2017 8:10 AM) + +--------+ + | Component | Value | Ref Range | + +--------+ + | IGM SERUM | 34 (L) | 40 - 230 mg/dL | + +--------+ + + + + | Specimen | Performing Laboratory | + + + | Blood | [facility] [address] [place], [place] | | | [address] | + + + TSH (05/02/2017 8:10 AM) + +-------+ + | Component | Value | Ref Range | + +-------+ + | TSH | 1.87 | 0.47 - 7.11 mIU/L | + +-------+ + + + + | Specimen | Performing Laboratory | + + + | Blood | [facility], CORE [address] [place] [address] | | | [place] [address] | + + + + + | [...] | + + + | Blood | [facility] CORE [address] [facility] [address] [address] | | | [place] [address] | + + + + + | [...] | + + + | Blood | [facility] CORE [address] [facility] | | | [place] [address] | + + + LIPASE, PLASMA (05/02/2017 8:10 AM) + +---------+ + | Component | Value | Ref Range | + +---------+ + | LIPASE (LAB) | 108 (L) | 152 - 353 U/L | + +---------+ + + + + | Specimen | Performing Laboratory | + + + | Blood | [facility]ORE [address] [facility] | | | [place] [address] | + + + in this encounter [...] +---+---+ + +---------+ +--------+ +---+ | INV BMS-[id number] (ANTI-LAG-3) 160 | New Bag | 05/02/20 [...] | | | | | ALERT MEDICATION IRB:[id number], | | | | | | | Protocol:[id number] | | | | | | + [...] | | | | | | | IRB:[id number], Protocol: [id number] | | | | | | + +-------+ +--------+-------+---+ +---+---+ | | | +---+---+ in this encounter"
--- OUTSIDE RECORDS SUMMARY | ~2017-07-29 | XMS | Encounter Summary ---
Demographics + + + | Address | [address] | | | [place] [address] | + + + | Home Phone [...] + + + +-------+ ECON | [address] | | [place] | [address] | +------+ + + + +-------+ Care Team Providers + +------+-------+ | Care Refinery Superintendent Name | Role | Phone | + [...] | Diffuse | MD Chad | [facility] [address] | | | | | large B-cell | [address] | | | | | lymphoma of | [address] | Mailcode: | | | | | lymph nodes | [place], [place] | [address] | | | | | of [facility] | [address] | for Health | | | | | regions | Phone: | and Healing, | | | | | (HCC) | [phone] | 3rd Floor | | | | | Procedures | Fax: | [place], [place] | | | | | CT CHEST, | [phone] | [address] | | | | | ABDOMEN AND | | Phone: | | | | | PELVIS W IV | | [phone] | | | | | [place] | | Fax: | | | | | CAT SCAN OF | | [phone] | | | | | CHEST | | | | | | | [place] | | | | | | | [...] | | | | lymph nodes | [place], [place] | [facility] | | | | | of multiple | [address] | for Health | | | | | regions | Phone: | and Healing, | | | | | (HCC) | [phone] | 3rd Floor | | | | | Procedures | Fax: | [place], [place] | | | | | CT CHEST, | [phone] | [address] | | | | | ABDOMEN AND | | Phone: | | | | | PELVIS W IV | | [phone] | | | | | [place] | | Fax: | | | | | CAT SCAN OF | | [phone] | | | | | CHEST | | | | | | | [place] | | | | | | | [...] | | | | lymph nodes | [place], [place] | [facility] | | | | | of multiple | [address] | for Health | | | | | regions | Phone: | and Healing, | | | | | (HCC) | [phone] | 3rd Floor | | | | | Procedures | Fax: | [place], [place] | | | | | CT CHEST, | [phone] | [address] | | | | | ABDOMEN AND | | Phone: | | | | | PELVIS W IV | | [phone] | | | | | [place] | | Fax: | | | | | CAT SCAN OF | | [phone] | | | | | CHEST | | | | | | | [place] | | | | | | | [...] | 2017 | Encounter | Services at [facility] | MD [address] | | | | | [address] | [place], [place] | | | | | [facility] | [address] | | | | | Mailcode: L340 [facility] | [phone] | | | | | [facility], | | | | | | [place] [address] | | | | | | [phone] | | | +--------+ + + + [...] Laboratory | + + + | | [facility] RADIOLOGY VOICE RECOGNITION | + + [...]
--- OUTSIDE RECORDS SUMMARY | ~2017-07-29 | XMS | Encounter Summary ---
Demographics + + + | Address | [address] | | | [place] [address] | + + + | Home Phone [...] + + +-------+ ECON | [address] | | [place] | [address] | +------+ + + + +-------+ Care Team Providers + +------+-------+ | Care Chain Tender Name | Role | Phone | [...] | Diffuse | MD Chad | s [address] | | | | | large B-cell | [address] | | | | | lymphoma of | [address] | K[place] | | | | | lymph nodes | [place], [place] | Road | | | | | of multiple | [address] | Mailcode: | | | | | regions | Phone: | [address] [facility] | | | | | (HCC) | [phone] | Hospital | | | | | Procedures | Fax: | [place], [place] | | | | | CT NECK SOFT | [phone] | [address] | | | | | TISSUE W | | Phone: | | | | | [place] | | [phone] | | | | | CT NECK | | Fax: | | | | | TISSUE | | [phone] | | | | | CONTRAST | [...] | | | | lymph nodes | [place], [place] | [facility] | | | | | of multiple | [address] | for Health | | | | | regions | Phone: | and Healing, | | | | | (HCC) | [phone] | 3rd Floor | | | | | Procedures | Fax: | [place], [place] | | | | | CT CHEST, | [phone] | [address] | | | | | ABDOMEN AND | | Phone: | | | | | PELVIS W IV | | [phone] | | | | | [place] | | Fax: | | | | | CAT SCAN OF | | [phone] | | | | | CHEST | | | | | | | [place] | | | | | | | [...] + + + | 06/20/ | Information Technology Intern | Center for | Chad Lowe, | 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 | MD [address] | lymphoma of lymph | | | | Malignancies at | Ave [place], [place] | nodes of multiple | | | | [place] Mir[place] | [address] | regions (HCC) | | | | [address] | [phone] | (Primary Dx) | | | | [facility] | | | | | | Mailcode: [id number] | | | | | | [place]acey [place] | | | | | | [place], [place] | | | | | | [address] | | | | | | [phone] | | | +--------+ + + + [...] Laboratory | + + + | | [facility] RADIOLOGY VOICE RECOGNITION | + + [...] Laboratory | + + + | | [facility] RADIOLOGY VOICE RECOGNITION | + + + [...] Note | + + | Service Account, Make Music TV Res In Interface - 07/11/2017 11:39 AM [...]
--- OUTSIDE RECORDS SUMMARY | ~2017-07-29 | XMS | Encounter Summary ---
Demographics + + + | Address | [address] | | | [place] [address] | + + + | Home Phone [...] + + + | Author | [facility] | + + + | Organization | [facility] | + + + | Address | Unknown | + + + | Phone | Unavailable | + + + Support +------+ + + + +-------+ | Name | Relationship | Address | Phone | +------+ + + + +-------+ ECON | [address] | | [place] | [address] | +------+ + + + +-------+ Care Team Providers + +------+-------+ | Care Technical Programs Manager Name | Role | Phone | [...] | | [address] | [place], [place] | | | | | [facility] | [address] | | | | | Mailcode: L[address] [facility] | [phone] | | | | | [facility], | | | | | | [place] [address] | | | | | | [phone] | | | +--------+ + + + [...]
--- OUTSIDE RECORDS SUMMARY | ~2017-07-29 | XMS | Encounter Summary ---
Demographics + + + | Address | [address] | | | [place] [address] | + + + | Home Phone [...] + + +-------+ ECON | [address] | | [place] | [address] | +------+ + + + +-------+ Care Team Providers + +------+-------+ | Care Joist Setter Name | Role | Phone | + [...] + + + + | 05/29/ | Barrel Rifler | Center for | Chad Lowe, | 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 | MD [address] | lymphoma of | | | | Malignancies at | [address] [place], [place] | intra-abdominal | | | | [facility] | [address] | lymph nodes (HCC) | | | | [address] | [phone] | (Primary Dx) | | | | [employer] | | | | | | Mailcode: [id number] | | | | | | [facility] | | | | | | [place], [place] | | | | | | [address] | | | | | | [phone] | | | +--------+ + + + [...] | | [facility] [address] | | | [place] [address] | + + + JESSIKA RIVERA (05/30/2017 [...] | SPECIFIC GRAVITY | 1.004 (L)Comment: Specific [place] | 1.005 - 1.030 | | | performed by refractometry | | + + + + + + + | Specimen | Performing Laboratory | + + + | Urine | [facility], CORE [address] [facility] | | | [place] [address] | + + + FREE T4 (05/30/2017 10:59 AM) + +-------+ + | Component | Value | Ref Range | + +-------+ + | FREE T4 | 1.0 | 0.6 - 1.2 ng/dL | + +-------+ + + + + | Specimen | Performing Laboratory | + + + | Blood | [facility], CORE [address] [place] [address] | | | [place] [address] | + + + T3 TOTAL, SERUM (05/30/2017 10:59 AM) + +-------+ + | Component | Value | Ref Range | + +-------+ + | T3, TOTAL | 114 | 87 - 196 ng/dL | + +-------+ + + + + | Specimen | Performing Laboratory | + + + | Blood | [facility] [address] [place], [place] | | | [address] | + + + PROTEIN C ACTIVITY REFLEX INR, PLASMA (05/30/2017 10:59 AM) + + + + | Component | Value | Ref Range | + + + + | PROTEIN C ACTIVITY | 0.69 (L) | 0.82 - 1.54 U/mL | + + + + + + + | Specimen | Performing Laboratory | + + + | Blood | [facility] SPECIAL [facility]MM + COAG [address] | | | [place] [address] | + + + + + | [...] + + + | Blood | [facility], CORE [address] [place] [address] | | | [place] [address] | + + + AMYLASE, PLASMA (05/30/2017 10:59 AM) + +--------+ + | Component | Value | Ref Range | + +--------+ + | AMYLASE,PLASMA | 23 (L) | 25 - 115 U/L | + +--------+ + + + + | Specimen | Performing Laboratory | + + + | Blood | [facility], CORE [address] [facility] | | | [place] [address] | + + + TSH (05/30/2017 10:59 AM) + +-------+ + | Component | Value | Ref Range | + +-------+ + | TSH | 1.29 | 0.47 - 7.11 mIU/L | + +-------+ + + + + | Specimen | Performing Laboratory | + + + | Blood | [facility], CORE [address] [place] [address] | | | [place] [address] | + + + + + | [...]
--- OUTSIDE RECORDS SUMMARY | ~2017-07-29 | XMS | Encounter Summary ---
Demographics + + + | Address | [address] | | | [place] [address] | + + + | Home Phone [...] + + + +-------+ ECON | [address] | | [place] | [address] | +------+ + + + +-------+ Care Team Providers + +------+-------+ | Care Electro Optics Engineer Name | Role | Phone | [...] | Diffuse | MD Chad | s [address] | | | | | large B-cell | [address] | | | | | lymphoma, | [address] | [place] | | | | | unspecified | [place], [place] | Road | | | | | body region | [address] | Mailcode: | | | | | (HCC) | Phone: | [address] [facility] | | | | | Procedures | [phone] | Hospital | | | | | CT NECK SOFT | Fax: | [place], [place] | | | | | TISSUE W | [phone] | [address] | | | | | CONTRAST MS | | Phone: | | | | | CT NECK | | [phone] | | | | | TISSUE | | Fax: | | | | | CONTRAST | | [phone] | +--------+--------+ + + + + Diagnostic [...] | | | | | unspecified | [place], [place] | Road | | | | | body region | [address] | Mailcode: | | | | | (HCC) | Phone: | [address] [facility] | | | | | Procedures | [phone] | Hospital | | | | | CT NECK SOFT | Fax: | [place], [place] | | | | | TISSUE W | [phone] | [address] | | | | | CONTRAST MS | | Phone: | | | | | CT NECK | | [phone] | | | | | TISSUE | | Fax: | | | | | CONTRAST | | [phone] | +--------+--------+ + + + + Reason [...] | lymphoma, | [address] | [place] | | | | | unspecified | [place], [place] | Road | | | | | body region | [address] | Mailcode: | | | | | (HCC) | Phone: | [address] [facility] | | | | | Procedures | [phone] | Hospital | | | | | CT NECK SOFT | Fax: | [place], [place] | | | | | TISSUE W | [phone] | [address] | | | | | CONTRAST MS | | Phone: | | | | | CT NECK | | [phone] | | | | | TISSUE | | Fax: | | | | | CONTRAST | | [phone] | +--------+--------+ + + + + Encounter Details +--------+ + + + + | Date | Type | Department | Care Team | Description | +--------+ + + + + | 05/14/ | Hospital | Diagnostic Imaging | Chad Lowe, | | | 2017 | Encounter | Services at [facility] | MD [address] | | | | | [address] | [place], [place] | | | | | [facility] | [address] | | | | | Mailcode: [address] [facility] | [phone] | | | | | [facility], | | | | | | [place] [address] | | | | | | [phone] | | | +--------+ + + + [...]
--- OUTSIDE RECORDS SUMMARY | ~2017-07-29 | XMS | Encounter Summary ---
Demographics + + + | Address | [address] | | | [place] [address] | + + + | Home Phone | | + + + | Preferred Language | Unknown | + + + | Marital Status | | + + + | Presybeterian Affiliation | LUT | + + + [...] + + +-------+ ECON | [address] | | [place] | [address] | +------+ + + + +-------+ Care Team Providers + +------+-------+ | Care Surgical Assist Name | Role | Phone | + +------+-------+ | Jamaal Rivera MD | PCP | tel | + +------+-------+ Encounter Details +--------+ + + + + | Date | Type | Department | Care Team | Description | +--------+ + + + + | 05/23/ | Hospital | Diagnostic Imaging | Chad Lowe, | | | 2017 | Encounter | Services at [facility] | MD [address] | | | | | [address] | [place], [place] | | | | | [facility] | [address] | | | | | Mailcode: [id number] [facility] | [phone] | | | | | [facility], | | | | | | [place] [address] | | | | | | [phone] | | | +--------+ + + + [...] Laboratory | + + + | | [facility] RADIOLOGY VOICE RECOGNITION | [...] expression and a | | | | CD4:HM4qoxqg of 5.3:1. Preliminary findings | | | [...] CD38,CD45, HLA-DR | | | | and [place]-positive ([id number]; | | | | 06/30/2014). Gross | | | | Description:Received is one specimen | | | | labeled with the patient's name (initials | | | | DF) andmedical record #[id number]. A: | | | | Right inguinal [...] | | | | may not be client account representative of thesubmitted | | | [...] CD8 C | | | | D10 [id number] CD22 CD23 CD25 CD34 CD38 | | | | CD45 [id number] | | | | sKappa sLambda (Analyte | | | | specific reagents are used in many | | | | laboratory tests necessary forstandard | | | | medical care. This test was developed | | | | and its performancecharacteristics | | | | determined by [facility] [facility]. It has | | | | not [...] + | Tissue - Lymph node | [facility] DEPARTMENT OF PATHOLOGY [address] | | | [place] [address] | + + + in this encounter Visit Diagnoses + + | Diagnosis | + + | Diffuse large B-cell lymphoma, unspecified body region (HCC) | + +"
--- OUTSIDE RECORDS SUMMARY | ~2017-07-29 | XMS | Encounter Summary ---
Demographics + + + | Address | [address] | | | [place] [address] | + + + | Home Phone [...] + + +-------+ ECON | [address] | | [place] | [address] | +------+ + + + +-------+ Care Team Providers + +------+-------+ | Care Offset Press Operator Helper Name | Role | Phone | + +------+-------+ | Jamaal Rivera MD | PCP | tel | + +------+-------+ Encounter Details +--------+ + + + + | Date | Type | Department | Care Team | Description | +--------+ + + + + | 05/14/ | Procedure | Diagnostic Imaging | | | | 2017 | Pass | Services at [facility] | | | | | | [address] | | | | | | [facility] | | | | | | Mailcode: [id number] [facility] | | | | | | [place], | | | | | | [place] [address] | | | | | | [phone] | | | +--------+ + + + [...]
--- OUTSIDE RECORDS SUMMARY | ~2017-07-29 | XMS | Encounter Summary ---
Demographics + + + | Address | [address] | | | [place] [address] | + + + | Home Phone [...] + + +-------+ ECON | [address] | | [place] | [address] | +------+ + + + +-------+ Care Team Providers + +------+-------+ | Care Quarry Plant Crusher Operator Name | Role | Phone | [...] Rd | | | | | | [place], [place] | | | | | | [address] | | | | | | [phone] | | | +--------+ + + + [...]
--- OUTSIDE RECORDS SUMMARY | ~2017-07-29 | XMS | Encounter Summary ---
Demographics + + + | Address | [address] | | | [place] [address] | + + + | Home Phone [...] + + + +-------+ ECON | [address] | | [place] | [address] | +------+ + + + +-------+ Care Team Providers + +------+-------+ | Care Electrical Accessories Assembler Name | Role | Phone | + +------+-------+ | Jamaal Rivera MD | PCP | tel | + +------+-------+ Encounter Details +--------+ + + + + | Date | Type | Department | Care Team | Description | +--------+ + + + + | 05/24/ | Carton Machine Operator | Center for | Chad Lowe, | 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 | [address] | lymphoma of | | | | Malignancies at | [address] [place], [place] | intra-abdominal | | | | [place] | [address] | lymph nodes (HCC) | | | | [address] | [phone] | (Primary Dx) | | | | [address] | | | | | | Mailcode: [id number] | | | | | | [place] | | | | | | [place], [place] | | | | | | [address] | | | | | | [phone] | | | +--------+ + + + [...]
--- OUTSIDE RECORDS SUMMARY | ~2017-07-29 | XMS | Encounter Summary ---
Demographics + + + | Address | [address] | | | [place] [address] | + + + | Home Phone [...] + + +-------+ ECON | [address] | | [place] | [address] | +------+ + + + +-------+ Care Team Providers + +------+-------+ | Care Filtration Operator Name | Role | Phone | [...] + + | 05/29/ | Documentati | [facility] | Work, Social | Social Work Notes | | 2017 | on | Hematologic | | | | | | Malignancies at | | | | | | [place] | | | | | | [address] | | | | | | [employer] [facility] | | | | | | Mailcode: [id number] | | | | | | [address] | | | | | | [place], [place] | | | | | | [address] | | | | | | [phone] | | | +--------+ + + + [...]
--- OUTSIDE RECORDS SUMMARY | ~2017-07-29 | XMS | Encounter Summary ---
Demographics + + + | Address | [address] | | | [place] [address] | + + + | Home Phone | | + + + | Preferred Language | Unknown | + + + | Marital Status | | + + + | Latter-Day Affiliation | LUT | + + + [...] + + + +-------+ ECON | [address] | | [place] | [address] | +------+ + + + +-------+ Care Team Providers + +------+-------+ | Care Is Project Manager Name | Role | Phone | + +------+-------+ | Jamaal Rivera MD | PCP | tel | + +------+-------+ Encounter Details +--------+ + + + + | Date | Type | Department | Care Team | Description | +--------+ + + + + | 05/30/ | Records And Information Manager | Center for | Chad Lowe, | 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 | [address] | lymphoma of | | | | Malignancies at | [address] [place], [place] | intra-abdominal | | | | [place] | [address] | lymph nodes (HCC) | | | | [address] | [phone] | (Primary Dx) | | | | [address] | | | | | | Mailcode: [id number] | | | | | | [place] | | | | | | [place], [place] | | | | | | [address] | | | | | | [phone] | | | +--------+ + + + [...]
[~2017-07-29 11:41] MED LIST changes: +AUGMENTIN 875-1 EACH PO; -HALOBETASOL PRO15 G2; +HALOBETASOL PRO15 G2 TOP; +K-TAB ER20 MEQ PO
[2017-09-04] MEDS ORDERED: MULTIVITAMINS1 EAC7 PO (08:52)
[2017-09-04] MEDS ORDERED: VENTOLIN HFA18 GM INH (08:54)
[2017-09-04] MEDS ORDERED: LORAZEPAM1 MG PO (08:56)
[2017-10-09] MEDS ORDERED: FUROSEMIDE20 MG PO (11:31)
[2017-10-09] MEDS ORDERED: LEVAQUIN750 MG PO (11:31)
[2017-10-09] MEDS ORDERED: BENZONATATE100 MG PO (11:32)
[2017-10-09] MEDS ORDERED: PROMETHAZINE-D118 ML PO (11:33)
== END 2017-07-29 17:43 | disposition home or self-care (01) ==
LOC: ED 11:41
DX: R10.9 Unspecified abdominal pain (principal); B00.9 Herpesviral infection, unspecified; J40 Bronchitis, not specified as acute or chronic; D61.818 Other pancytopenia; I10 Essential (primary) hypertension; Z87.891 Personal history of nicotine dependence; Z79.899 Other long term (current) drug therapy
CPT/HCPCS: 71046; 74177; 81001; 96361; 96374; 96375; 99284; J1170; J7030; Q9967

== ENCOUNTER 2017-08-01 22:26 | Inpatient (IN) | payer MEDICARE, OTHER ==
[~2017-08-01] VITALS: Ht 170.2 cm; Wt 101.8 kg
--- OUTSIDE RECORDS SUMMARY | ~2017-08-01 | XMS | Encounter Summary ---
Demographics + + + | Address | [address] | | | [place] [address] | + + + | Home Phone | | + + + | Preferred Language | Unknown | + + + | Marital Status | | + + + | Hinduism Affiliation | LUT | + + + | Race | White | + + + | Ethnic Group | Not or | + + + Author + + + | Author | [facility] | + + + | Organization | [facility] | + + + | Address | Unknown | + + + | Phone | Unavailable | + + + Support +------+ + + + +-------+ | Name | Relationship | Address | Phone | +------+ + + + +-------+ ECON | [address] | | [place] | [address] | +------+ + + + +-------+ Care Team Providers + +------+-------+ | Care High School Drafting Teacher Name | Role | Phone | + +------+-------+ | Jamaal Rivera MD | PCP | tel | + +------+-------+ Encounter Details +--------+ + + + + | Date | Type | Department | Care Team | Description | +--------+ + + + + | 04/16/ | Procedure | Diagnostic Imaging | | | | 2017 | Pass | Services at [facility] | | | | | | [address] | | | | | | [facility] | | | | | | Mailcode: [id number] [facility] | | | | | | [facility], | | | | | | [place] [address] | | | | | | [phone] | | | +--------+ + + + + Social History + + + +--------+ + | Tobacco Use | Types | Packs/Day | Years | Date | | | | | Used | | + + + +--------+ + | Former Smoker | Cigarettes | 2 | 3 | Quit: 07/15/1975 | + + + +--------+ + + + +---+ + | Smokeless Tobacco: | Snuff, Chew | | Quit: | | Former User | | | 07/15/19 | | | | | 14 | + + +---+ + + + | Comments: 1 can of snuff a week- quit x 2 years | + + + + +---------+ + | Alcohol Use | Drinks/We | oz/Week | Comments | | | ek | | | + + +---------+ + | No | 6 | 3.6 | no drinking recently | | | Standard | | | | | drinks or | | | | | | | | | | equivalen | | | | | t | | | + + +---------+ + + + + | Sex Assigned at | Date Recorded | | | | + + + | Not on file | | + + + as of this encounter Plan of Treatment Not on fileas of this encounter Visit Diagnoses Not on filein this encounter"
--- OUTSIDE RECORDS SUMMARY | ~2017-08-01 | XMS | Encounter Summary ---
Demographics + + + | Address | [address] | | | [place] [address] | + + + | Home Phone | | + + + | Preferred Language | Unknown | + + + | Marital Status | | + + + | Nondenominational Affiliation | LUT | + + + | Race | White | + + + | Ethnic Group | Not or | + + + Author + + + | Author | [facility] | + + + | Organization | [facility] | + + + | Address | Unknown | + + + | Phone | Unavailable | + + + Support +------+ + + + +-------+ | Name | Relationship | Address | Phone | +------+ + + + +-------+ ECON | [address] | | [place] | [address] | +------+ + + + +-------+ Care Team Providers + +------+-------+ | Care Paster Supervisor Name | Role | Phone | + +------+-------+ | Jamaal Rivera MD | PCP | tel | + +------+-------+ Reason for Visit + + + | Reason | Comments | + + + | New patient | | | consultation | | + + + Consultation (Routine) +--------+--------+ + + + + | Status | Reason | Specialty | Diagnoses / | Referred By | Referred To | | | | | Procedures | Contact | Contact | +--------+--------+ + + + + | Closed | | Hematology | | Chm | Chm Faculty | | | | Malignancy | | Faculty Mpv | Mpv [address] | | | | | | [address] | | | | | | [address] [place] | [address] | | | | | | [address] | Mailcode: | | | | | | Mailcode: | [id number] | | | | | | [facility] | [place] | | | | | | [place] [facility] | | | | | | Pav[facility] | [place], [place] | | | | | | [place], [place] | [address] | | | | | | [address] | Phone: | | | | | | Phone: | [phone] | | | | | | [phone] | Fax: | | | | | | Fax: | [phone] | | | | | | [phone] | | +--------+--------+ + + + + Encounter Details +--------+---------+ + + + | Date | Type | Department | Care Team | Description | +--------+---------+ + + + | 05/30/ | Office | Center for | Dunia Joseph MD | Diffuse large B-cell | | 2017 | Visit | Hematologic | [address] [facility] | lymphoma of | | | | Malignancies at | [address] | intra-abdominal | | | | [place] | [place], [place] | lymph nodes (HCC) | | | | [address] [facility] [facility] | [address] | (Primary Dx) | | | | [address] | [phone] | | | | | Mailcode: [facility] | | | | | | [facility] | | | | | | [place], [place] | | | | | | [address] | | | | | | [phone] | | | +--------+---------+ + + + Social History + + [...] + + + as of this encounter Last Filed Vital Signs + + + + | Vital Sign | Reading | Time Taken | + + + + | Blood Pressure | 131/66 | 05/30/2017 10:48 AM PST | + + + + | Pulse | 82 | 05/30/2017 10:48 AM PST | + + + + | Temperature | 36.4 C (97.6 F) | 05/30/2017 10:48 AM PST | + + + + | Respiratory Rate | 18 | 05/30/2017 10:48 AM PST | + + + + | Oxygen Saturation | 98% | 05/30/2017 10:48 AM PST | + + + + | Inhaled Oxygen | - | - | | Concentration | | | + + + + | Weight | 108 kg (238 lb 1.6 | 05/30/2017 10:48 AM PST | | | oz) | | + + + + | Height | - | - | + + + + | Body Mass Index | 36.2 | 05/30/2017 10:48 AM PST | + + + + in this encounter Progress Notes Dunia Joseph MD - 05/30/2017 12:15 PM PSTFormatting of this note may be different from t urmila original. [facility], [facility] 05/30/17 Reason for visit: Consultation is requested by Dr. Chda Lowe, with whom recommendati ons will be shared by phone and EPIC letter. Medical records, imaging and lab results reviewed from referring provider. History of Present Illness: Hunter Alas is a 72 year old man with DLBCL who presents t aniyah to discuss CAR T Cell therapy. The patient initially noticed a right neck mass in 2013 . This resolved, but he then developed a right axillary mass. In May 2014, he underwe nt imaging that revealed a 7.5 cm right axillary mass along with right and left hilar and me diastinal nodes and a right inguinal node. Surgical biopsy of the right axillary node revea led diffuse large B-cell lymphoma, (GCB type, Ki67 80-90%. Neg Myc). PET/CT revealed FDG-av id lymphadenopathy above and below the diaphragm. He initiated R-CHOP June 2014. He co mpleted 6 cycles in October 2014 and post-treatment PET/CT showed residual activity in small p araesophagealand mesenteric lymph nodes (SUV 3-4). This remained stable until April 2015 when he had disease progression in left hilar, right inguinal and mesenteric lymph nodes. B iopsy of the right inguinal lymph node in June was again positive for DLBCL. He was clair ated with R-ICE for three cycles, but repeat PET/CT showed a mixed response. In September 03 he was treated on a clinical trial with obinutuzumab + polatuzumab. He was treated with 8 cycles until he had disease progression in March 2016. He course was complicated by a RLL pneumonia and neuropathy requiring dose reduction. He was switched to Acerta acalabrut inib + ACP-319 study, but developed disease progression in February 2017. Most recently he wa s enrolled and treated on the anti-lag3/nivo study starting March 2017, but PET/CT 04/26 showed disease progression in mediastinal, mesenteric and inguinal adenopathy. He had a n ultrasound-guided biopsy of a right inguinal lymph node May 23, 2017 that was consiste nt with DLBCL. He initiated R-GDP May 30, 2017. Today he reports that he has generally tolerated therapy well. He remains active and up an d about most of the day. He has some minor fatigue. His appetite is good. No fever, chill s, sweats, weight loss. He has persistent mild numbness/tingling in his fingers and toes. No cough or shortness of breath. No nausea, vomiting, diarrhea. Has persistent rash which is an ongoing problem and is unchanged. Prior and Current Cancer Therapy 1. R-CHOP x 6 cycles from 10/2013-10/2014. Post-treatment PET/CT showed small residual parae sophageal and mesenteric lymph nodes (SUV 3-4). 2. R-ICE x 3 cycles from 06/2015-08/2015 with a mixed response. 3. Obinutuzumab + polatuzumab ADC ph2 study for 8 cycles from 08/2015-03/2016 4. Acerta acalabrutinib + ACP-319 study from 03/2016-02/2017 when he developed disease progr ession. 5. Anti-lag3/nivo study from 03/19/17-05/14/17 when he developed progressive disease. 6. R-GDP starting 05/30/17 Past Medical History: Diagnosis Date Acosta's cyst of knee Diverticulosis DJD (degenerative joint disease) Fatty infiltration of liver Hypertension NHL (non-Hodgkin's lymphoma) (HCC) RYANNE on CPAP Pneumonia S/P nasal surgery Social History He is a former smoker, quit in 1975. He does not drink alcohol. He is retired. Family History No know family history of malignancy. Medications acyclovir 800 mg oral tablet, Take 1 tablet by mouth once daily. allopurinol 300 mg oral tablet, Take 1 tablet by mouth once daily. apixaban 5 mg oral tablet, Take 2 tablets (10 mg) by mouth twice a day for 7 days, then edwin e 1 tablet (5 mg) twice a day. Indications: pulmonary thromboembolism budesonide-formoterol 160-4.5 mcg/actuation inhalation HFA aerosol inhaler, Inhale 2 puffs by mouth two times daily. Indications: Prevention of Bronchospasm with Chronic Bronchitis cetirizine 10 mg oral tablet, Take 1 tablet by mouth once daily. clobetasol 0.05 % scalp solution, Apply to scalp twice daily clobetasol 0.05 % topical ointment, Apply to affected area two times daily. dapsone 25 mg oral tablet, Take 25 mg by mouth two times daily. Indications: skin infection dexamethasone 4 mg oral tablet, Take 10 tablets by mouth once daily On days 2-4 of the cycl e (05/31, 06/01, 06/02) only. DULoxetine 30 mg oral capsule,delayed release(DR/EC), Take 1 capsule by mouth once daily. fluocinolone and shower cap 0.01 % scalp oil, fluticasone 50 mcg/actuation nasal spray,suspension, Instill 2 sprays into each nostril two times daily. Indications: Allergic Rhinitis halobetasol 0.05 % topical ointment, Large pt with full body severe rash. 250 g for 30 day supply. levalbuterol 45 mcg/actuation inhalation HFA aerosol inhaler, 1-2 puffs every 4-6 hours as needed. Indications: Bronchospasm Prevention losartan 50 mg oral tablet, Take 50 mg by mouth once daily. Indications: hypertension omeprazole 40 mg oral capsule,delayed release(DR/EC), Take 20 mg by mouth once daily. Indic ations: gastroesophageal reflux disease ondansetron 8 mg oral tablet, as needed. predniSONE 20 mg oral tablet, Take 1 tablet by mouth once daily. X 5 days Indications: hyp ersensitivity drug reaction (Patient not taking: Reported on 05/14/2017) prochlorperazine 10 mg oral tablet, Take 0.5 tablets by mouth every six hours as needed for nausea/vomiting Take 5mg-10mg as needed. Max dose: 40 mg/day ramelteon (ROZEREM) 8 mg oral tablet, Take 1 tablet by mouth once daily at bedtime as neede d for sleep. Take 30 minutes before bedtime. Indications: Restless leg terbinafine HCl (ATHLETE'S FOOT AF) 1 % topical cream, Apply to affected area two times da annabelle. Apply to affected area for at least 1 week, not to exceed 4 weeks. triamcinolone acetonide 0.1 % topical cream, Apply to affected area two times daily. Apply thin film to affected areas. No current facility-administered medications for this visit. acetaminophen (TYLENOL) tablet 650 mg, 650 mg, oral, Q4H PRN CISplatin (PLATINOL) 75 mg/m2 = 170 mg in NaCl 0.9 % IV, 75 mg/m2 (Treatment Plan Recorded) , intravenous, ONCE dexamethasone (DECADRON) 40 mg in NaCl 0.9 % IV, 40 mg, intravenous, ONCE diphenhydrAMINE (BENADRYL) injection 25-50 mg, 25-50 mg, intravenous, PRN EPINEPHrine (EPIPEN) injection 0.3 mg, 0.3 mg, intramuscular, PRN famotidine (PEPCID) injection 20 mg, 20 mg, intravenous, PRN fosaprepitant (EMEND) 150 mg in NaCl 0.9 % IV, 150 mg, intravenous, ONCE gemcitabine 2,200 mg in NaCl 0.9 % IV, 1,000 mg/m2 (Treatment Plan Recorded), intravenous, ONCE hydrocortisone sodium succinate (PF) (SOLU-CORTEF) injection 100 mg, 100 mg, intravenous, P RN loratadine (CLARITIN) tablet 10 mg, 10 mg, oral, PRN meperidine (DEMEROL) injection 25-50 mg, 25-50 mg, intravenous, Q2H PRN riTUXimab (RITUXAN) 900 mg in NaCl 0.9 % IV (STANDARD), 900 mg, intravenous, ONCE sodium chloride 0.9% IV infusion, 1,000 mL, intravenous, ONCE sodium chloride 0.9% IV infusion, 1,000 mL, intravenous, PRN Allergies Allergies No Known Allergies Review of Systems Review of Systems Constitutional: Positive for fatigue. Negative for appetite change, chills, fever and unexp ected weight change. HENT: Positive for sore throat. Negative for hearing loss, mouth sores and trouble swallo wing. Eyes: Negative for eye problems. Respiratory: Positive for cough. Negative for chest tightness, dizziness on exertion and sh ortness of breath. Cardiovascular: Negative for chest pain, leg swelling and palpitations. Gastrointestinal: Negative for abdominal distention, abdominal pain, constipation, diarrhea and nausea. Musculoskeletal: Negative for arthralgias, back pain and gait problem. Skin: Positive for rash. Negative for itching. Neurological: Positive for numbness. Negative for dizziness, gait problem, headaches and li ght-headedness. All other systems reviewed and are negative. Physical Exam: Blood pressure 131/66, pulse 82, temperature 36.4 C (97.6 F), temperature source Oral, resp. rate 18, weight 108 kg (238 lb 1.6 oz), SpO2 98 %. ECOG Status: 1 Constitutional Pleasant, well-nourished, alert and oriented x3. Affect is normal. In no ac derrick distress. Head Normocephalic, atraumatic. Eyes Conjunctivae and sclerae are clear and without icterus. Pupils are equal. ENMT Ears and nose not examined in detail. Mouth and oropharynx clear, no macroglossia.. Neck Supple without masses or thyromegaly. Hematologic/Lymphatic No palpable cervical, supraclavicular lymphadenopathy. Palpable righ t inguinal lymph node vs. Seroma. Respiratory Lungs are clear to auscultation and percussion. Cardiovascular Normal rate and rhythm. 2/6 holosystolic murmur. Chest wall No suspicious masses, or tenderness. Abdomen Soft and non tender, without distention, mass or hepatosplenomegaly. Back/Spine No spinal or costovertebral angle tenderness. Extremities No edema, cyanosis, clubbing or deformity. Integumentary Diffuse erythematous papules, most prominent on bilateral upper extremities. Neurologic Cranial nerves are grossly intact. There are no focal motor deficits. Cerebell ar function is grossly normal. Casual gait is normal. There is no tremor. Psychiatric Sleepy (due to recent administration of benadryl) but appropriate. Laboratory Data: Recent Labs 05/30/17 1125 WBC 6.4 HB 14.0 HCT 41.7 PLT 185 MONOPERC 14.3* BASOPERC 1.3 EOSPERC 3.3* Recent Labs 05/30/17 1100 05/30/17 1126 NA -- 137 K -- 4.0 CL -- 99 BICARB -- 27 BUN -- 11 CR -- 1.0 GLU -- 99 CA -- 9.3 MG 2.2 -- Recent Labs 05/30/17 1126 AST 38 ALT 32 TBILI 0.9 AP 50 ALB 3.9 TP 6.6 Pathology: 05/23/17 Right inguinal lymph node biopsy: - Monoclonal B cell population (94% of CD45+ events), see comment - Immunophenotype: CD10, CD19, CD20, CD22, dim CD23 and kappa positive The combined immunophenotypic and limited morphologic findings are most compatible with inv olvement by diffuse large B cell lymphoma in light of the clinical history. Flow cytometric analysis identifies 6% of lymphocytes as T cells with unremarkable antigen expression and a CD4:CD8 ratio of 5.3:1. Imagin05/14/17 CT C/A/P Since 03/15/17, interval progression in mediastinal, mesenteric and inguinal adenopathy. New right lower lobe pulmonary embolism, acute. Stable tree in bud opacities, bilaterally. Impression and Plan: Hunter Alas is a 72 year old man with relapsed/refractory DLBCL, GCB type who presents today for discussion of CAR T cell therapy. 1. DLBCL: Today I discussed with Mr. Alas and his the role of CAR T cell therapy in treating DLBCL, the process, and how it would pertain to him. We reviewed the rationale beh ind CAR T cell therapy and we reviewed the procedure in detail. CAR T cell therapy harnesse s the patient s own immune system to attack the malignant cells. I explained that WBCs are collected from the patient via a process called leukopheresis. The cells are then sent to a central manufacturing laboratory where they are re-engineered to express chimeric antigen receptors that recognize CD19 on B-cells and grown. This process takes approximate ly 2-3 weeks. The patient then received three days of lymphodepleting chemotherapy and the cells are reinfused. I explained that patients generally stay in the hospital for 7 days after the infusion to b e observed for adverse effects (discussed below). Patients must stay in the [place] area f or 30 days after the cell infusion. I explained that adverse effects include: (1) Cytokine release syndrome, which includes sym ptoms such as fever, chills, tachycardia, hypotension, and hypoxia. These can be treated wi th tocilizumab when appropriate. (2) Neurologic Toxicities including confusion, encephalopat hy, and seizures. (3) Serious Infections; and (4) Prolonged cytopenia. I also explained obdulio t in the clinical trials there was a 1% risk of manufacturing failure. Prior to treatment, he would have to have a full organ evaluation including echocardiogram, and labs to assess l iver and kidneys. He cannot have an active infection. I explained that we do not yet have our cellular therapy program up and running. We are wo rking with [employer] and are in the final stages of opening the program with their product here. He should continue his current therapy and when we are officially up and running, we will touch base with him to determine the state of his disease and if he qualifies at that time. I did review that if he is not eligible for our product when we open, there are a num emily of clinical trials in [place] that he can consider. 2. Infectious Prophylaxis: He will continue acyclovir prophylaxis. 3. Subcorneal Pustular Dermatitis: This is improving. He will continue Dapsone. 4. Pulmonary Embolism: This was found incidentally on re-staging evaluation. He will con tinue apixaban. No bleeding issues currently. 5. Disposition: He will continue R-GDP with his current Oncologist. We will contact him when we are up and running with our cellular therapy program. He will call with questions a nd issues in the interim. Hunter Alas and his asked many important and appropriate questions which I hope w ere answered satisfactorily. I appreciate the opportunity to be involved in this patient's care. I will be in touch with you by phone and/or email soon, but please feel free to contact me to discuss these recomme ndations. Total time of visit (face to face) was 60 minutes with over 50% spent in counseling, coordi nation of care, or discussion of treatment options. 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
--- OUTSIDE RECORDS SUMMARY | ~2017-08-01 | XMS | Encounter Summary ---
Demographics + + + | Address | [address] | | | [place] [address] | + + + | Home Phone | | + + + | Preferred Language | Unknown | + + + | Marital Status | | + + + | Sikh Affiliation | LUT | + + + | Race | White | + + + | Ethnic Group | Not or | + + + Author + + + | Author | [facility] | + + + | Organization | [facility] | + + + | Address | Unknown | + + + | Phone | Unavailable | + + + Support +------+ + + + +-------+ | Name | Relationship | Address | Phone | +------+ + + + +-------+ ECON | [address] | | [place] | [address] | +------+ + + + +-------+ Care Team Providers + +------+-------+ | Care Head Mechanic Name | Role | Phone | + +------+-------+ | Jamaal Rivera MD | PCP | tel | + +------+-------+ Encounter Details +--------+ + + + + | Date | Type | Department | Care Team | Description | +--------+ + + + + | 05/01/ | Cosmetics Presser | Center for | Chad Lowe, | 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 | [address] | lymphoma, | | | | Malignancies at | [address] [place], [place] | unspecified body | | | | [place] | [address] | region ([facility]) | | | | [address] | [phone] | (Primary Dx) | | | | Amanda [address] | | | | | | Mailcode: [facility] | | | | | | [address] | | | | | | [place], [place] | | | | | | [address] | | | | | | [phone] | | | +--------+ + + + [...] + | SPECIFIC GRAVITY | 1.010Comment: Specific Stark performed by | 1.005 - 1.030 | | | refractometry | | + + + + + + + | Specimen | Performing Laboratory | + + + | Urine | [facility] [address] | | | [place] [address] | + + + FREE T4 (05/02/2017 8:10 AM) + +-------+ + | Component | Value | Ref Range | + +-------+ + | FREE T4 | 0.9 | 0.6 - 1.2 ng/dL | + +-------+ + + + + | Specimen | Performing Laboratory | + + + | Blood | [facility] [place] [address] | | | [place] [address] | + + + T3 TOTAL, SERUM (05/02/2017 8:10 AM) + +-------+ + | Component | Value | Ref Range | + +-------+ + | T3, TOTAL | 114 | 87 - 196 ng/dL | + +-------+ + + + + | Specimen | Performing Laboratory | + + + | Blood | [facility] [address] [place], [place] | | | [address] | + + + IGA, SERUM (05/02/2017 8:10 AM) + +-------+ + | Component | Value | Ref Range | + +-------+ + | IGA SERUM | 264 | 70 - 400 mg/dL | + +-------+ + + + + | Specimen | Performing Laboratory | + + + | Blood | [facility] [address] [place], [place] | | | [address] | + + + IGG, SERUM (05/02/2017 8:10 AM) + +-------+ + | Component | Value | Ref Range | + +-------+ + | IGG SERUM | 928 | 700 - 1600 mg/dL | + +-------+ + + + + | Specimen | Performing Laboratory | + + + | Blood | [facility] [id number] [place] [address] | | | [address] | + + + IGM, SERUM (05/02/2017 8:10 AM) + +--------+ + | Component | Value | Ref Range | + +--------+ + | IGM SERUM | 34 (L) | 40 - 230 mg/dL | + +--------+ + + + + | Specimen | Performing Laboratory | + + + | Blood | [facility] [place] [address] [place], [place] | | | [address] | + + + TSH (05/02/2017 8:10 AM) + +-------+ + | Component | Value | Ref Range | + +-------+ + | TSH | 1.87 | 0.47 - 7.11 mIU/L | + +-------+ + + + + | Specimen | Performing Laboratory | + + + | Blood | [facility] [place] [address] [place] [address] | | | [place] [address] | + + + + + | [...] | + + + | Blood | [facility] [address] | | | [place] [address] | + + + + + | [...] | + + + | Blood | [facility] [place] [address] | | | [place] [address] | + + + LIPASE, PLASMA (05/02/2017 8:10 AM) + +---------+ + | Component | Value | Ref Range | + +---------+ + | LIPASE (LAB) | 108 (L) | 152 - 353 U/L | + +---------+ + + + + | Specimen | Performing Laboratory | + + + | Blood | [facility] [place] [address] | | | [place] [address] | + + + in this encounter Visit Diagnoses + + | Diagnosis | + + | Diffuse large B-cell lymphoma, unspecified body region (HCC) - Primary | + +"
--- OUTSIDE RECORDS SUMMARY | ~2017-08-01 | XMS | Encounter Summary ---
Demographics + + + | Address | [address] | | | [place] [address] | + + + | Home Phone | | + + + | Preferred Language | Unknown | + + + | Marital Status | | + + + | Quaker Affiliation | LUT | + + + | Race | White | + + + | Ethnic Group | Not or | + + + Author + + + | Author | [facility] | + + + | Organization | [facility] | + + + | Address | Unknown | + + + | Phone | Unavailable | + + + Support +------+ + + + +-------+ | Name | Relationship | Address | Phone | +------+ + + + +-------+ ECON | [address] | | [place] | [address] | +------+ + + + +-------+ Care Team Providers + +------+-------+ | Care Metal Sponge Making Machine Operator Name | Role | Phone | + +------+-------+ | Jamaal Rivera MD | PCP | tel | + +------+-------+ Encounter Details +--------+ + + + + | Date | Type | Department | Care Team | Description | +--------+ + + + + | 06/21/ | MyChart | Cardiology General | | A message from your | | 2016 | Encounter | at [facility] [address] | | Runner Worker | | | | Cornel [place]oley Mailcode: | | | | | | [facility] | | | | | | Health and Healing, | | | | | | [address] [facility], | | | | | | [place] [address] | | | | | | [phone] | | | +--------+ + + + [...]
--- OUTSIDE RECORDS SUMMARY | ~2017-08-01 | XMS | Encounter Summary ---
Demographics + + + | Address | [address] | | | [place] [address] | + + + | Home Phone | | + + + | Preferred Language | Unknown | + + + | Marital Status | | + + + | Episcopalian Affiliation | LUT | + + + | Race | White | + + + | Ethnic Group | Not or | + + + Author + + + | Author | [facility] | + + + | Organization | [facility] | + + + | Address | Unknown | + + + | Phone | Unavailable | + + + Support +------+ + + + +-------+ | Name | Relationship | Address | Phone | +------+ + + + +-------+ ECON | [address] | | [place] | [address] | +------+ + + + +-------+ Care Team Providers + +------+-------+ | Care Central Supply Tech Name | Role | Phone | + +------+-------+ | Jamaal Rivera MD | PCP | tel | + +------+-------+ Encounter Details +--------+ + + + + | Date | Type | Department | Care Team | Description | +--------+ + + + + | 05/15/ | Senior Sales Assistant | Center for | Chad Lowe, | Other acute | | 2017 | | Hematologic | [address] | pulmonary embolism | | | | Malignancies at | Ave [place], [place] | without acute cor | | | | [facility] | [address] | pulmonale (HCC) | | | | [address] | [phone] | (Primary Dx) | | | | [address] | | | | | | Mailcode: [id number] | | | | | | [address] | | | | | | [place], [place] | | | | | | [address] | | | | | | [phone] | | | +--------+ + + + [...] + | Diagnosis | + + | Other acute pulmonary embolism without acute cor pulmonale (HCC) - Primary | + +"
--- OUTSIDE RECORDS SUMMARY | ~2017-08-01 | XMS | Encounter Summary ---
Demographics + + + | Address | [address] | | | [place] [address] | + + + | Home Phone | | + + + | Preferred Language | Unknown | + + + | Marital Status | | + + + | Uatsdin Affiliation | LUT | + + + | Race | White | + + + | Ethnic Group | Not or | + + + Author + + + | Author | [facility] | + + + | Organization | [facility] | + + + | Address | Unknown | + + + | Phone | Unavailable | + + + Support +------+ + + + +-------+ | Name | Relationship | Address | Phone | +------+ + + + +-------+ ECON | [address] | | [place] | [address] | +------+ + + + +-------+ Care Team Providers + +------+-------+ | Care C Python Developer Name | Role | Phone | + +------+-------+ | Jamaal Rivera MD | PCP | tel | + +------+-------+ Encounter Details +--------+ + + + + | Date | Type | Department | Care Team | Description | +--------+ + + + + | 05/23/ | Payroll Lead | Center for | Chad Lowe, | Dermatitis | | 2017 | | Hematologic | [address] | | | | | Malignancies at | Ave [place], [place] | | | | | [facility] | [address] | | | | | [address] | [phone] | | | | | [facility] | | | | | | Mailcode: [id number] | | | | | | [address] | | | | | | [place], [place] | | | | | | [address] | | | | | | [phone] | | | +--------+ + + + [...] + | Diagnosis | + + | Dermatitis | + + | Contact dermatitis and other eczema, due to unspecified cause | + +"
--- OUTSIDE RECORDS SUMMARY | ~2017-08-01 | XMS | Encounter Summary ---
Demographics + + + | Address | [address] | | | [place] [address] | + + + | Home Phone | | + + + | Preferred Language | Unknown | + + + | Marital Status | | + + + | Mosque Affiliation | LUT | + + + | Race | White | + + + | Ethnic Group | Not or | + + + Author + + + | Author | [facility] | + + + | Organization | [facility] | + + + | Address | Unknown | + + + | Phone | Unavailable | + + + Support +------+ + + + +-------+ | Name | Relationship | Address | Phone | +------+ + + + +-------+ ECON | [address] | | [place] | [address] | +------+ + + + +-------+ Care Team Providers + +------+-------+ | Care Cloud Architect Name | Role | Phone | + +------+-------+ | Jamaal Rivera MD | PCP | tel | + +------+-------+ Encounter Details +--------+ + + + + | Date | Type | Department | Care Team | Description | +--------+ + + + + | 06/20/ | Procedure | Diagnostic Imaging | | | | 2017 | Pass | Services at [facility] | | | | | | [address] | | | | | | [facility] | | | | | | Mailcode: [id number] [facility] | | | | | | [facility], | | | | | | [place] [address] | | | | | | [phone] | | | +--------+ + + + [...]
--- OUTSIDE RECORDS SUMMARY | ~2017-08-01 | XMS | Encounter Summary ---
Demographics + + + | Address | [address] | | | [place] [address] | + + + | Home Phone | | + + + | Preferred Language | Unknown | + + + | Marital Status | | + + + | Muslim Affiliation | LUT | + + + | Race | White | + + + | Ethnic Group | Not or | + + + Author + + + | Author | [facility] | + + + | Organization | [facility] | + + + | Address | Unknown | + + + | Phone | Unavailable | + + + Support +------+ + + + +-------+ | Name | Relationship | Address | Phone | +------+ + + + +-------+ ECON | [address] | | [place] | [address] | +------+ + + + +-------+ Care Team Providers + +------+-------+ | Care Retail Loan Originator Name | Role | Phone | + +------+-------+ | Jamaal Rivera MD | PCP | tel | + +------+-------+ Encounter Details +--------+ + + + + | Date | Type | Department | Care Team | Description | +--------+ + + + + | 05/24/ | [facility] | Center for | Chad Lowe, | 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
--- OUTSIDE RECORDS SUMMARY | ~2017-08-01 | XMS | Encounter Summary ---
Demographics + + + | Address | [address] | | | [place] [address] | + + + | Home Phone [...] + + + | Author | [facility] | + + + | Organization | [facility] | + + + | Address | Unknown | + + + | Phone | Unavailable | + + + Support +------+ + + + +-------+ | Name | Relationship | Address | Phone | +------+ + + + +-------+ ECON | [address] | | [place] | [address] | +------+ + + + +-------+ Care Team Providers + +------+-------+ | Care Dupligraph Operator Name | Role | Phone | + +------+-------+ | Jamaal Rivera MD | PCP | tel | + +------+-------+ Encounter Details +--------+ + + + + | Date | Type | Department | Care Team | Description | +--------+ + + + + | 05/15/ | Pharmacy | Specialty Pharmacy | | | | 2016 | Visit | Services [address] | | | | | | [address] | | | | | | [place], [place] | | | | | | [address] | | | | | | [phone] | | | +--------+ + + + [...]
--- OUTSIDE RECORDS SUMMARY | ~2017-08-01 | XMS | Encounter Summary ---
Demographics + + + | Address | [address] | | | [place] [address] | + + + | Home Phone | | + + + | Preferred Language | Unknown | + + + | Marital Status | | + + + | Uatsdin Affiliation | LUT | + + + | Race | White | + + + | Ethnic Group | Not or | + + + Author + + + | Author | [facility] | + + + | Organization | [facility] | + + + | Address | Unknown | + + + | Phone | Unavailable | + + + Support +------+ + + + +-------+ | Name | Relationship | Address | Phone | +------+ + + + +-------+ ECON | [address] | | [place] | [address] | +------+ + + + +-------+ Care Team Providers + +------+-------+ | Care Dock Boss Name | Role | Phone | + [...] | | | | Malignancies at | [facility] [address] | node) | | | | [facility] | [place], [place] | | | | | [address] | [address] | | | | | [facility] | [phone] | | | | | Mailcode: [id number] | | | | | | [facility] | | | | | | [place], [place] | | | | | | [address] | | | | | | [phone] | | | +--------+ + + + [...]
--- OUTSIDE RECORDS SUMMARY | ~2017-08-01 | XMS | Encounter Summary ---
Demographics + + + | Address | [address] | | | [place] [address] | + + + | Home Phone | | + + + | Preferred Language | Unknown | + + + | Marital Status | | + + + | Pentecostal Affiliation | LUT | + + + | Race | White | + + + | Ethnic Group | Not or | + + + Author + + + | Author | [facility] | + + + | Organization | [facility] | + + + | Address | Unknown | + + + | Phone | Unavailable | + + + Support +------+ + + + +-------+ | Name | Relationship | Address | Phone | +------+ + + + +-------+ ECON | [address] | | [place] | [address] | +------+ + + + +-------+ Care Team Providers + +------+-------+ | Care Instructional Coordinator Name | Role | Phone | + +------+-------+ | Jamaal Rivera MD | PCP | tel | + +------+-------+ Encounter Details +--------+ + + + + | Date | Type | Department | Care Team | Description | +--------+ + + + + | 05/20/ | Research | Diagnostic Imaging | [place] V, | | | 2017 | Tumor | Services at [facility] | MD Miguel Ángel Diaz | | | | Measurement | [address] | [facility] | | | | | [facility] | [place], [place] | | | | | Mailcode: [id number] [facility] | [address] | | | | | [facility], | [phone] | | | | | [place] [address] | | | | | | [phone] | | | +--------+ + + + [...]
--- OUTSIDE RECORDS SUMMARY | ~2017-08-01 | XMS | Encounter Summary ---
Demographics + + + | Address | [address] | | | [place] [address] | + + + | Home Phone | | + + + | Preferred Language | Unknown | + + + | Marital Status | | + + + | Gnosticism Affiliation | LUT | + + + | Race | White | + + + | Ethnic Group | Not or | + + + Author + + + | Author | [facility] | + + + | Organization | [facility] | + + + | Address | Unknown | + + + | Phone | Unavailable | + + + Support +------+ + + + +-------+ | Name | Relationship | Address | Phone | +------+ + + + +-------+ ECON | [address] | | [place] | [address] | +------+ + + + +-------+ Care Team Providers + +------+-------+ | Care Teacher Learning Disabled Name | Role | Phone | + [...] + + | 05/29/ | Documentati | [facility] | Work, Social | Social Work Notes | | 2017 | on | Hematologic | | | | | | Malignancies at | | | | | | [place] | | | | | | [address] | | | | | | [facility] | | | | | | Mailcode: [id number] | | | | | | [address] | | | | | | [place], [place] | | | | | | [address] | | | | | | [phone] | | | +--------+ + + + [...]
--- OUTSIDE RECORDS SUMMARY | ~2017-08-01 | XMS | Encounter Summary ---
Demographics + + + | Address | [address] | | | [place] [address] | + + + | Home Phone | | + + + | Preferred Language | Unknown | + + + | Marital Status | | + + + | Spiritism Affiliation | LUT | + + + | Race | White | + + + | Ethnic Group | Not or | + + + Author + + + | Author | [facility] | + + + | Organization | [facility] | + + + | Address | Unknown | + + + | Phone | Unavailable | + + + Support +------+ + + + +-------+ | Name | Relationship | Address | Phone | +------+ + + + +-------+ ECON | [address] | | [place] | [address] | +------+ + + + +-------+ Care Team Providers + +------+-------+ | Care Pension Administrator Name | Role | Phone | [...] | | | | Malignancies at | [address] | node) | | | | [facility] | [place], [place] | | | | | [address] [facility] | [address] | | | | | [facility] | [phone] | | | | | Mailcode: [id number] | | | | | | [facility] | | | | | | [place], [place] | | | | | | [address] | | | | | | [phone] | | | +--------+ + + + [...]
--- OUTSIDE RECORDS SUMMARY | ~2017-08-01 | XMS | Encounter Summary ---
Demographics + + + | Address | [address] | | | [place] [address] | + + + | Home Phone | | + + + | Preferred Language | Unknown | + + + | Marital Status | | + + + | Anabaptism Affiliation | LUT | + + + [...] + + + +-------+ ECON | [address] | | [place] | [address] | +------+ + + + +-------+ Care Team Providers + +------+-------+ | Care Manufacturing Clerk Name | Role | Phone | + +------+-------+ | Jamaal Rivera MD | PCP | tel | + +------+-------+ Reason for Referral Consultation (Routine) +--------+--------+ + + + + | Status | Reason | Specialty | Diagnoses / | Referred By | Referred To | | | | | Procedures | Contact | Contact | +--------+--------+ + + + + | Closed | | Hematology | Diagnoses | Chrissy, | Jake, | | | | Malignancy | Diffuse | MD Chad | Dunia Ge MD | | | | | large B-cell | [address] | [address] | | | | | lymphoma of | [address] | [address] | | | | | | [place], [place] | [place], | | | | | intra-abdomi | [address] | [place] | | | | | nal lymph | Phone: | [address] | | | | | nodes (HCC) | [phone] | Phone: | | | | | Procedures | Fax: | [phone] | | | | | CONSULT TO | [phone] | Fax: | | | | | HEMATOLOGIC | | [phone] | | | | | MALIGNANCIES | | | +--------+--------+ + + + + Encounter Details +--------+ + + + + | Date | Type | Department | Care Team | Description | +--------+ + + + + | 05/24/ | Condenser Tube Tender | Center for | Chad Lowe, | 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 | MD [address] | lymphoma of | | | | Malignancies at | Ave [place], [place] | intra-abdominal | | | | [address] | [address] | lymph nodes (HCC) | | | | [address] | [phone] | (Primary Dx) | | | | [address] | | | | | | Mailcode: [id number] | | | | | | [address] | | | | | | [place], [place] | | | | | | [address] | | | | | | [phone] | | | +--------+ + + + [...]
--- OUTSIDE RECORDS SUMMARY | ~2017-08-01 | XMS | Encounter Summary ---
Demographics + + + | Address | [address] | | | [place] [address] | + + + | Home Phone | | + + + | Preferred Language | Unknown | + + + | Marital Status | | + + + | Yazidism Affiliation | LUT | + + + | Race | White | + + + | Ethnic Group | Not or | + + + Author + + + | Author | [facility] | + + + | Organization | [facility] | + + + | Address | Unknown | + + + | Phone | Unavailable | + + + Support +------+ + + + +-------+ | Name | Relationship | Address | Phone | +------+ + + + +-------+ ECON | [address] | | [place] | [address] | +------+ + + + +-------+ Care Team Providers + +------+-------+ | Care Manager Inventory Name | Role | Phone | + [...] | | Diffuse | MD Chad | [facility] [address] | | | | | large B-cell | [address] | [address] | | | | | lymphoma, | [address] | Mailcode: | | | | | unspecified | [place], [place] | [address] | | | | | body region | [address] | for Health | | | | | (HCC) | Phone: | and Healing, | | | | | Procedures | [phone] | 3rd Floor | | | | | CT CHEST, | Fax: | [place], [place] | | | | | ABDOMEN AND | [phone] | [address] | | | | | PELVIS W IV | | Phone: | | | | | CONTRAST FL | | [phone] | | | | | CAT SCAN OF | | Fax: | | | | | CHEST | | [phone] | | | | | CONTRAST FL | | | | | | | [...] Closed | | Radiology | Diagnoses | [place], | Rad Ct Scan | | | | | Diffuse | MD Chad | [address] | | | | | large B-cell | [address] | [address] | | | | | lymphoma, | [address] | Mailcode: | | | | | unspecified | [place], [place] | [facility] | | | | | body region | [address] | for Health | | | | | (HCC) | Phone: | and Healing, | | | | | Procedures | [phone] | 3rd Floor | | | | | CT CHEST, | Fax: | [place], [place] | | | | | ABDOMEN AND | [phone] | [address] | | | | | PELVIS W IV | | Phone: | | | | | CONTRAST [place] | | [phone] | | | | | CAT SCAN OF | | Fax: | | | | | CHEST | | [phone] | | | | | CONTRAST FL | | | | | | | [...] | | Diffuse | MD Chad | [facility] [address] | | | | | large B-cell | [address] | [address] | | | | | lymphoma, | [address] | Mailcode: | | | | | unspecified | [place], [place] | [address] | | | | | body region | [address] | for Health | | | | | (HCC) | Phone: | and Healing, | | | | | Procedures | [phone] | 3rd Floor | | | | | CT CHEST, | Fax: | [place], [place] | | | | | ABDOMEN AND | [phone] | [address] | | | | | PELVIS W IV | | Phone: | | | | | CONTRAST [place] | | [phone] | | | | | CAT SCAN OF | | Fax: | | | | | CHEST | | [phone] | | | | | CONTRAST [place] | | | | | | | [...] | 2017 | Encounter | Services at [facility] | [address] | | | | | [address] | [place], [place] | | | | | [facility] | [address] | | | | | Mailcode: [id number] [facility] | [phone] | | | | | [facility], | | | | | | [place] [address] | | | | | | [phone] | | | +--------+ + + + [...] Laboratory | + + + | | [facility] RADIOLOGY VOICE RECOGNITION | + + + [...]
--- OUTSIDE RECORDS SUMMARY | ~2017-08-01 | XMS | Encounter Summary ---
Demographics + + + | Address | [address] | | | [place] [address] | + + + | Home Phone [...] + + + +-------+ ECON | [address] | | [place] | [address] | +------+ + + + +-------+ Care Team Providers + +------+-------+ | Care Whey Department Operator Name | Role | Phone | [...] | | Diffuse | MD Chad | [address] | | | | | large B-cell | [address] | | | | | lymphoma, | [address] | [address] | | | | | unspecified | [place], [place] | Road | | | | | body region | [address] | Mailcode: | | | | | (HCC) | Phone: | [address] [facility] | | | | | Procedures | [phone] | Hospital | | | | | CT NECK SOFT | Fax: | [place], [place] | | | | | TISSUE W | [phone] | [address] | | | | | CONTRAST [place] | | Phone: | | | | | CT NECK | | [phone] | | | | | TISSUE | | Fax: | | | | | CONTRAST | | [phone] | +--------+--------+ + + + + Reason for Visit + + + | Reason | Comments | + + + | Research data | | | collection | | + + + Encounter Details +--------+ + + + + | Date | Type | Department | Care Team | Description | +--------+ + + + + | 10/30/ | Layout Designer | Center for | [place], Chad, | 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 | MD [address] | lymphoma, | | | | Malignancies at | Ave [place], [place] | unspecified body | | | | [facility] | [address] | region (HCC) | | | | [address] | [phone] | (Primary Dx) | | | | [facility] | | | | | | Mailcode: [id number] | | | | | | [facility] | | | | | | [place], [place] | | | | | | [address] | | | | | | [phone] | | | +--------+ + + + [...] on fileas of this encounter Results CT NECK SOFT TISSUE W CONTRAST (05/14/2017 3:51 PM) + + + | Specimen | Performing Laboratory | + + + | | [facility] RADIOLOGY VOICE RECOGNITION | + + + + + | Narrative | + + | EXAM: CT NECK WITH CONTRAST HISTORY: 71-year-old male with diffuse large B-cell | | lymphoma COMPARISON: Head CT 03/15/1710 CT neck 01/18/2017 TECHNIQUE: CT of the | | neck using iodine based intravenous contrast, with sagittal and coronal reformations. | | FINDINGS: Neck soft tissues: No mass or lymphadenopathy. Skull/Skull | | base: No fractures or destructive lesions. Visualized mastoids and middle ears are | | unremarkable. Paranasal sinuses: Prior changes related to previous endoscopic | | sinus surgery. Slight decrease in fluid and mucosal thickening within the maxillary | | sinuses bilaterally. Posterior fossa: Visualized portions are unremarkable. | | Spine: Unremarkable. Lung apices: Unremarkable. Soft tissues of the chest: | | Increased prominence of posterior mediastinal adriana mass. Please see dedicated CT chest, | | abdomen and pelvis report for details. Partially visualized left chest wall port | | catheter. IMPRESSION: No evidence of cervical lymphadenopathy. Increased | | prominence of posterior mediastinal adirana mass. Please see dedicated CT chest, abdomen | | and pelvis report for details. I have personally reviewed the images and, if | | necessary, edited the report. I agree with the report as now presented. | + + + + | Procedure Note | + + | Service Account, Radiant Res In Interface - 05/14/2017 8:45 PM PDT EXAM: CT NECK | | WITH CONTRASTHISTORY: 71-year-old male with diffuse large B-cell lymphoma COMPARISON: | | Head CT 03/15/1710 CT neck 01/18/2017TECHNIQUE: CT of the neck using iodine based | | intravenous contrast, with sagittal and coronal reformations.FINDINGS:Neck soft tissues: | | No mass or lymphadenopathy. Skull/Skull base: No fractures or destructive lesions. | | Visualized mastoids and middle ears are unremarkable. Paranasal sinuses: Prior changes | | related to previous endoscopic sinus surgery. Slight decrease in fluid and mucosal | | thickening within the maxillary sinuses bilaterally.Posterior fossa: Visualized portions | | are unremarkable.Spine: Unremarkable. Lung apices: Unremarkable.Soft tissues of the | | chest: Increased prominence of posterior mediastinal adriana mass. Please see dedicated CT | | chest, abdomen and pelvis report for details. Partially visualized left chest wall port | | catheter.IMPRESSION:No evidence of cervical lymphadenopathy.Increased prominence of | | posterior mediastinal adriana mass. Please see dedicated CT chest, abdomen and pelvis | | report for details. I have personally reviewed the images and, if necessary, edited the | | report. I agree with the report as now presented. | | | |Posterior fossa: Visualized portions are unremarkable. | | | |Spine: Unremarkable. | | | |Lung apices: Unremarkable. | | | |Soft tissues of the chest: Increased prominence of posterior mediastinal adriana mass. Please see dedicated CT chest, abdomen and pelvis report for details. Partially visualized left ch est wall port catheter. | | | |IMPRESSION: | | | |No evidence of cervical lymphadenopathy. | | | |Increased prominence of posterior mediastinal adriana mass. Please see dedicated CT chest, ab domen and pelvis report for details. | | | | | |I have personally reviewed the images and, if necessary, edited the report. I agree with t he report as now presented. | + + in this encounter Visit Diagnoses + + | Diagnosis | + + | Diffuse large B-cell lymphoma, unspecified body region (HCC) - Primary | + +"
--- OUTSIDE RECORDS SUMMARY | ~2017-08-01 | XMS | Encounter Summary ---
Demographics + + + | Address | [address] | | | [place] [address] | + + + | Home Phone | | + + + | Preferred Language | Unknown | + + + | Marital Status | | + + + | Shinto Affiliation | LUT | + + + [...] + + +-------+ ECON | [address] | | [place] | [address] | +------+ + + + +-------+ Care Team Providers + +------+-------+ | Care Reed Press Feeder Name | Role | Phone | + +------+-------+ | Jamaal Rivera MD | PCP | tel | + +------+-------+ Encounter Details +--------+ + + + + | Date | Type | Department | Care Team | Description | +--------+ + + + + | 05/23/ | Pmp Certified Project Manager | Center for | Chad Lowe, | Dermatitis | | 2017 | | Hematologic | [address] | | | | | Malignancies at | [address] [place], [place] | | | | | [facility] | [address] | | | | | [address] | [phone] | | | | | [facility] | | | | | | Mailcode: [id number] | | | | | | [address] | | | | | | [place], [place] | | | | | | [address] | | | | | | [phone] | | | +--------+ + + + [...]
--- OUTSIDE RECORDS SUMMARY | ~2017-08-01 | XMS | Encounter Summary ---
Demographics + + + | Address | [address] | | | [place] [address] | + + + | Home Phone | | + + + | Preferred Language | Unknown | + + + | Marital Status | | + + + | Episcopalian Affiliation | LUT | + + + | Race | White | + + + | Ethnic Group | Not or | + + + Author + + + | Author | [facility] | + + + | Organization | [facility] | + + + | Address | Unknown | + + + | Phone | Unavailable | + + + Support +------+ + + + +-------+ | Name | Relationship | Address | Phone | +------+ + + + +-------+ ECON | [address] | | [place] | [address] | +------+ + + + +-------+ Care Team Providers + +------+-------+ | Care Manager Bridge Name | Role | Phone | + +------+-------+ | Jamaal Rivera MD | PCP | tel | + +------+-------+ Encounter Details +--------+ + + + + | Date | Type | Department | Care Team | Description | +--------+ + + + + | 06/25/ | Mixer Pigment | Center for | Chad Lowe, | 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 | [address] | lymphoma of lymph | | | | Malignancies at | [address] [place], [place] | nodes of multiple | | | | [facility] | [address] | regions (HCC) | | | | [address] | [phone] | (Primary Dx) | | | | Concha Bourgeois | | | | | | Mailcode: [id number] | | | | | | [facility] | | | | | | [place], [place] | | | | | | [address] | | | | | | [phone] | | | +--------+ + + + [...] | | + +--------+ + + | CBC, WITH DIFFERENTIAL | Urgent | Diffuse large | Expected: 07/11/2017 | | | | B-cell lymphoma of | (Approximate) | | | | lymph nodes of | | | | | multiple regions | | | | | (HCC) | | + +--------+ + + | COMPLETE METABOLIC SET | Urgent | Diffuse large | Expected: 07/11/2017 | | (NA,K,CL,CO2,BUN,CREAT,GLUC,CA, | | B-cell lymphoma of | (Approximate) | | T,ALT,BILI TOTAL,ALK | | lymph nodes of | | | PHOS,ALB,PROT TOTAL) | | multiple regions | | | | | (HCC) | | + +--------+ + + | LDH TOTAL, PLASMA | Urgent | Diffuse large | Expected: 07/11/2017 | | | | B-cell lymphoma of | (Approximate) | | | | lymph nodes of | | | | | multiple regions | | | | | (HCC) | | + +--------+ + + as of this encounter Visit Diagnoses + + | Diagnosis | + + | 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
--- OUTSIDE RECORDS SUMMARY | ~2017-08-01 | XMS | Encounter Summary ---
Demographics + + + | Address | [address] | | | [place] [address] | + + + | Home Phone | | + + + | Preferred Language | Unknown | + + + | Marital Status | | + + + | Evangelical Affiliation | LUT | + + + [...] + + + +-------+ ECON | [address] | | [place] | [address] | +------+ + + + +-------+ Care Team Providers + +------+-------+ | Care Human Machine Interface Engineer Name | Role | Phone | + +------+-------+ | Jamaal Rivera MD | PCP | tel | + +------+-------+ Encounter Details +--------+ + + + + | Date | Type | Department | Care Team | Description | +--------+ + + + + | 05/17/ | Sales Route Driver Helper | Center for | Chad Lowe, | 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 | [address] | lymphoma, | | | | Malignancies at | [address] [place], [place] | unspecified body | | | | [place] | [address] | region ([facility]) | | | | [address] | [phone] | (Primary Dx) | | | | Concha Bourgeois | | | | | | Mailcode: [id number] | | | | | | [address] | | | | | | [place], [place] | | | | | | [address] | | | | | | [phone] | | | +--------+ + + + [...] Not on fileas of this encounter Results US NEEDLE BIOPSY LYMPH NODE (05/23/2017 2:57 PM) + + + | Specimen | Performing Laboratory | + + + | | [facility] VOICE RECOGNITION | + + + [...]
--- OUTSIDE RECORDS SUMMARY | ~2017-08-01 | XMS | Encounter Summary ---
Demographics + + + | Address | [address] | | | [place] [address] | + + + | Home Phone [...] + + +-------+ ECON | [address] | | [place] | [address] | +------+ + + + +-------+ Care Team Providers + +------+-------+ | Care Worm Farm Laborer Name | Role | Phone | + +------+-------+ | Jamaal Rivera MD | PCP | tel | + +------+-------+ Encounter Details +--------+ + + + + | Date | Type | Department | Care Team | Description | +--------+ + + + + | 04/16/ | Procedure | Diagnostic Imaging | | | | 2017 | Pass | Services at [facility] | | | | | | [address] | | | | | | [facility] | | | | | | Mailcode: [id number] [facility] | | | | | | [facility], | | | | | | [place] [address] | | | | | | [phone] | | | +--------+ + + + [...]
--- OUTSIDE RECORDS SUMMARY | ~2017-08-01 | XMS | Encounter Summary ---
Demographics + + + | Address | [address] | | | [place] [address] | + + + | Home Phone [...] + + + +-------+ ECON | [address] | | [place] | [address] | +------+ + + + +-------+ Care Team Providers + +------+-------+ | Care Lead Miner Blasting Name | Role | Phone | + [...] | | | | | [id number] | [facility] | | | | | | [facility] | Pavilion | | | | | | Pavilion | [place], [place] | | | | | | [place], [place] | [address] | | | | | | [address] | Phone: | | | | | | Phone: | [phone] | | | | | | [phone] | Fax: | | | | | | Fax: | [phone] | | | | | | [phone] | | +--------+--------+ + + + + Encounter Details +--------+---------+ + + + | Date | Type | Department | Care Team | Description | +--------+---------+ + + + | 05/30/ | Office | Center for | Dunia Joseph MD | Diffuse large B-cell | | 2017 | Visit | Hematologic | [address] | lymphoma of | | | | Malignancies at | [address] | intra-abdominal | | | | [facility] | [place], [place] | lymph nodes (HCC) | | | | [address] [facility] | [address] | (Primary Dx) | | | | [address] | [phone] | | | | | Mailcode: [id number] | | | | | | [facility] | | | | | | [place], [place] | | | | | | [address] | | | | | | [phone] | | | +--------+---------+ + + + [...] urmila original. [facility] 05/30/17 Reason for visit: Consultation is [...] (discussed below). Patients must stay in the [place] area f or 30 days after the [...] and running. We are wo rking with niiu and are in the final stages of [...] a num emily of clinical trials in [place] that he can consider. 2. Infectious Prophylaxis: [...] discussion of treatment options. 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
--- OUTSIDE RECORDS SUMMARY | ~2017-08-01 | XMS | Encounter Summary ---
Demographics + + + | Address | [address] | | | [place] [address] | + + + | Home Phone | | + + + | Preferred Language | Unknown | + + + | Marital Status | | + + + | Voodoo Affiliation | LUT | + + + [...] + + + +-------+ ECON | [address] | | [place] | [address] | +------+ + + + +-------+ Care Team Providers + +------+-------+ | Care Bilingual Office Assistant Name | Role | Phone | + [...] | | unspecified | [address] | [place], [place] | | | | | site | Mailcode: | [address] | | | | | Procedures | [id number] | Phone: | | | | | [place] RITUXIMAB | [place] | [phone] | | | | | INJ, 100 MG | Pavilion | Fax: | | | | | [place] | [place], [place] | [phone] | | | | | GEMCITABINE | [address] | | | | | | HCL, 200 MG | Phone: | | | | | | [place] | [phone] | | | | | | DEXAMETHASON | Fax: | | | | | | E SODIUM | [phone] | | | | | | PHOSPHATE, | | | | | | | 1MG [place] | | | | | | | CISPLATIN 10 | | | | | | | MG | | | | | | | INJECTION | | | | | | | [place] CHM,IV | | | | | | | INFSN,1 HR | | | | | | | WI CHM,IV | | | | | | | INFSN,ADDL | | | | | | | HR [place] CHM | | | | | | [...] + + | 05/30/ | Hospital | [facility] | | | | 2016 | Encounter | Hematologic | | | | | | Malignancies at [facility] | | | | | | [address] | | | | | | [facility] | | | | | | Mailcode: [id number] | | | | | | [address]acey Sales | | | | | | [place], [place] | | | | | | [address] | | | | | | [phone] | | | +--------+ + + + [...] mL was discarded. Study labs, SOC and [place] labs drawn and sent. PAC flushed with [...] | + + + | Blood | [facility], POINT OF CARE TESTS [address] | | | [place] [address] | + + + CBC+DIFF,POC (05/30/2017 11:25 [...] | + + + | Blood | [facility], POINT OF CARE TESTS [address] | | | [place] [address] | + + + 12 LEAD ECG [...] Laboratory | + + + | | [facility] [address] [place] [address] | | | [place] [address] | + + + LDH TOTAL (05/30/2017 11:00 AM) + + + | Specimen | Performing Laboratory | + + + | Blood | | + + + + + | Narrative | + + | The following orders were created for panel order LDH TOTAL. | | Procedure | | Abnormality Status | | --------- | | ------ LDH TOTAL, | | PLASMA[[id number]] Abnormal Final | | result Please view [...] --------- | | ------ MAGNESIUM, | | PLASMA[[id number]] Normal Final | | result Please view [...] | + + + | Blood | [facility], CORE [address] [facility] | | | [place], [place] [address] | + + + MAGNESIUM, PLASMA (05/30/2017 11:00 AM) + +-------+ + | Component | Value | Ref Range | + +-------+ + | MAGNESIUM,PLASMA | 2.2 | 1.6 - 2.6 mg/dL | + +-------+ + + + + | Specimen | Performing Laboratory | + + + | Blood | [facility], CORE [address] [place] [address] | | | [place] [address] | + + + + + | [...] | SPECIFIC GRAVITY | 1.004 (L)Comment: Specific [place] | 1.005 - 1.030 | | | performed by refractometry | | + + + + + + + | Specimen | Performing Laboratory | + + + | Urine | [facility], CORE [address] | | | [facility] [address] | + + + INR (05/30/2017 10:59 AM) + + + + | Component | Value | Ref Range | + + + + | INR | 1.38 (H) | 0.90 - 1.20 INR | + + + + + + + | Specimen | Performing Laboratory | + + + | Blood | [facility], CORE [address] | | | [place] [address] | + + + + + | [...] | + + + | Blood | [facility], CORE [address] [facility] | | | [place], [place] [address] | + + + T3 TOTAL, SERUM (05/30/2017 10:59 AM) + +-------+ + | Component | Value | Ref Range | + +-------+ + | T3, TOTAL | 114 | 87 - 196 ng/dL | + +-------+ + + + + | Specimen | Performing Laboratory | + + + | Blood | [facility] [address] [place], [place] | | | [address] | + + + PROTEIN C ACTIVITY REFLEX INR, PLASMA (05/30/2017 10:59 AM) + + + + | Component | Value | Ref Range | + + + + | PROTEIN C ACTIVITY | 0.69 (L) | 0.82 - 1.54 U/mL | + + + + + + + | Specimen | Performing Laboratory | + + + | Blood | [facility], SPECIAL IMM + COAG [address] [facility] | | | [place] [address] | + + + + + | [...] | + + + | Blood | [facility], CORE [address] [facility] | | | [facility] [place] [address] | + + + AMYLASE, PLASMA (05/30/2017 10:59 AM) + +--------+ + | Component | Value | Ref Range | + +--------+ + | AMYLASE,PLASMA | 23 (L) | 25 - 115 U/L | + +--------+ + + + + | Specimen | Performing Laboratory | + + + | Blood | [facility], CORE [address] [place] [address] | | | [place] [address] | + + + TSH (05/30/2017 10:59 AM) + +-------+ + | Component | Value | Ref Range | + +-------+ + | TSH | 1.29 | 0.47 - 7.11 mIU/L | + +-------+ + + + + | Specimen | Performing Laboratory | + + + | Blood | [facility], CORE [address] [place] [address] | | | [place] [address] | + + + + + | [...] 12:07 | | | | | dose, [facility] 05/30/17 at 1200 | | PST | [...] | | | Minutes, ONCE, 1 dose, Paytno | | | | | | | [...] | | | | | | | [facility] 05/30/17 at 1200, HIGH | | | [...] PST | | | | | Starting [facility] 05/30/17 at 1728, | | | | [...] 12:12 | | | | | dose, [facility] 05/30/17 at 1200 | | PST | [...] mL/hr | | | ONCE, 1 dose, [facility] 05/30/17 at | | PST | | | | | 1200 | | | | | | + +---------+ + +-------+---+ +---+---+ | | | +---+---+ in this encounter"
--- OUTSIDE RECORDS SUMMARY | ~2017-08-01 | XMS | Encounter Summary ---
Demographics + + + | Address | [address] | | | [place] [address] | + + + | Home Phone [...] + + + | Author | [facility] | + + + | Organization | [facility] | + + + | Address | Unknown | + + + | Phone | Unavailable | + + + Support +------+ + + + +-------+ | Name | Relationship | Address | Phone | +------+ + + + +-------+ ECON | [address] | | [place] | [address] | +------+ + + + +-------+ Care Team Providers + +------+-------+ | Care Structural Rigger Name | Role | Phone | + [...] | | Malignancies at | [facility] | node) | | | | [facility] | [place], [place] | | | | | [address] [facility] | [address] | | | | | [facility] | [phone] | | | | | Mailcode: [id number] | | | | | | [facility] | | | | | | [place], [place] | | | | | | [address] | | | | | | [phone] | | | +--------+ + + + [...]
--- OUTSIDE RECORDS SUMMARY | ~2017-08-01 | XMS | Encounter Summary ---
Demographics + + + | Address | [address] | | | [place] [address] | + + + | Home Phone | | + + + | Preferred Language | Unknown | + + + | Marital Status | | + + + | Taoist Affiliation | LUT | + + + | Race | White | + + + | Ethnic Group | Not or | + + + Author + + + | Author | [facility] | + + + | Organization | [facility] | + + + | Address | Unknown | + + + | Phone | Unavailable | + + + Support +------+ + + + +-------+ | Name | Relationship | Address | Phone | +------+ + + + +-------+ ECON | [address] | | [place] | [address] | +------+ + + + +-------+ Care Team Providers + +------+-------+ | Care Esthetician/Skin Therapist Name | Role | Phone | + +------+-------+ | Jamaal Rivera MD | PCP | tel | + +------+-------+ Encounter Details +--------+ + + + + | Date | Type | Department | Care Team | Description | +--------+ + + + + | 05/20/ | Research | Diagnostic Imaging | [place] [facility], | | | 2017 | Tumor | Services at [facility] | MD Miguel Ángel Diaz | | | | Measurement | [address] | [facility] | | | | | [facility] | [place], [place] | | | | | Mailcode: [id number] [facility] | [address] | | | | | [facility], | [phone] | | | | | [place] [address] | | | | | | [phone] | | | +--------+ + + + [...]
--- OUTSIDE RECORDS SUMMARY | ~2017-08-01 | XMS | Encounter Summary ---
Demographics + + + | Address | [address] | | | [place] [address] | + + + | Home Phone | | + + + | Preferred Language | Unknown | + + + | Marital Status | | + + + | Caodaism Affiliation | LUT | + + + | Race | White | + + + | Ethnic Group | Not or | + + + Author + + + | Author | [facility] | + + + | Organization | [facility] | + + + | Address | Unknown | + + + | Phone | Unavailable | + + + Support +------+ + + + +-------+ | Name | Relationship | Address | Phone | +------+ + + + +-------+ ECON | [address] | | [place] | [address] | +------+ + + + +-------+ Care Team Providers + +------+-------+ | Care Edge Cutting Machine Operator Name | Role | Phone [...] [place] | | | | | | [address] | | | | | | [phone] | | | +--------+ + + + [...]
--- OUTSIDE RECORDS SUMMARY | ~2017-08-01 | XMS | Encounter Summary ---
Demographics + + + | Address | [address] | | | [place] [address] | + + + | Home Phone [...] + + + +-------+ ECON | [address] | | [place] | [address] | +------+ + + + +-------+ Care Team Providers + +------+-------+ | Care Geological Technical Officer Name | Role | Phone | [...] Radiology | Diagnoses | Chrissy | [facility] | | | | | Diffuse | MD Chad | s [address]81 | | | | | large B-cell | [address] | | | | | lymphoma of | [address] | [place] | | | | | lymph nodes | [place], [place] | Road | | | | | of multiple | [address] | Mailcode: | | | | | regions | Phone: | L[address] [facility] | | | | | (HCC) | [phone] | Hospital | | | | | Procedures | Fax: | [place], [place] | | | | | CT NECK SOFT | [phone] | [address] | | | | | TISSUE W | | Phone: | | | | | CONTRAST [place] | | [phone] | | | | | CT NECK | | Fax: | | | | | TISSUE | | [phone] | | | | | CONTRAST | | | +--------+--------+ + + + [...] | | Diffuse | MD Chad | [address] | | | | | large B-cell | [address] | | | | | lymphoma of | [address] | Mailcode: | | | | | lymph nodes | [place], [place] | [facility] | | | | | of multiple | [address] | for Health | | | | | regions | Phone: | and Healing, | | | | | (HCC) | [phone] | 3rd Floor | | | | | Procedures | Fax: | [place], [place] | | | | | CT CHEST, | [phone] | [address] | | | | | ABDOMEN AND | | Phone: | | | | | PELVIS W IV | | [phone] | | | | | [place]AST [place] | | Fax: | | | | | CAT SCAN OF | | [phone] | | | | | CHEST | | | | | | | [place]AST [place] | | | | | | | [...] + + + + | 06/20/ | Lamp Stack Developer | Center for | Chad Lowe, | 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 | MD [address] | lymphoma of lymph | | | | Malignancies at | Ave [place], [place] | nodes of multiple | | | | [place] | [address] | regions (HCC) | | | | [address] | [phone] | (Primary Dx) | | | | [facility] | | | | | | Mailcode: [id number] | | | | | | [address]acey [address] | | | | | | [place], [place] | | | | | | [address] | | | | | | [phone] | | | +--------+ + + + [...] NECK SOFT TISSUE W CONTRAST (07/11/2017 11:07 AM) + + + | Specimen | Performing Laboratory | + + + | | [facility] RAD[facility] VOICE RECOGNITION | + + [...] AND PELVIS W IV CONTRAST (07/11/2017 11:00 AM) + + + | Specimen | Performing Laboratory | + + + | | [facility] RADI[facility]Y VOICE RECOGNITION | + + + [...] Note | + + | Service Account, [employer] Res In Interface - 07/11/2017 11:39 AM [...]
--- OUTSIDE RECORDS SUMMARY | ~2017-08-01 | XMS | Encounter Summary ---
Demographics + + + | Address | [address] | | | [place] [address] | + + + | Home Phone [...] + + + +-------+ ECON | [address] | | [place] | [address] | +------+ + + + +-------+ Care Team Providers + +------+-------+ | Care Gas Fitter Helper Name | Role | Phone | + [...] Rd | | | | | | [place], [place] | | | | | | [address] | | | | | | [phone] | | | +--------+ + + + [...]
--- OUTSIDE RECORDS SUMMARY | ~2017-08-01 | XMS | Encounter Summary ---
Demographics + + + | Address | [address] | | | [place] [address] | + + + | Home Phone | | + + + | Preferred Language | Unknown | + + + | Marital Status | | + + + | Mormonism Affiliation | LUT | + + + [...] + + + +-------+ ECON | [address] | | [place] | [address] | +------+ + + + +-------+ Care Team Providers + +------+-------+ | Care Surveying Crew Stake Runner Name | Role | Phone | + [...] at | | | | | | [facility] | | | | | | [address] | | | | | | [facility] | | | | | | Mailcode: [id number] | | | | | | [address] | | | | | | [place], [place] | | | | | | [address] | | | | | | [phone] | | | +--------+ + + + [...]
--- OUTSIDE RECORDS SUMMARY | ~2017-08-01 | XMS | Encounter Summary ---
Demographics + + + | Address | [address] | | | [place] [address] | + + + | Home Phone | | + + + | Preferred Language | Unknown | + + + | Marital Status | | + + + | Rastafarian Affiliation | LUT | + + + [...] + + + +-------+ ECON | [address] | | [place] | [address] | +------+ + + + +-------+ Care Team Providers + +------+-------+ | Care Wire Dropper Name | Role | Phone | + +------+-------+ | Jamaal Rivera MD | PCP | tel | + +------+-------+ Encounter Details +--------+ + + + + | Date | Type | Department | Care Team | Description | +--------+ + + + + | 05/24/ | Care Management Assistant | Center for | Chad Lowe, | | | 2017 | | Hematologic | [address] | | | | | Malignancies at | [address] [place], [place] | | | | | Stacey Arreguinon | [address] | | | | | [address] | [phone] | | | | | [employer] | | | | | | Mailcode: [id number] | | | | | | [address] | | | | | | [place], [place] | | | | | | [address] | | | | | | [phone] | | | +--------+ + + + [...]
--- OUTSIDE RECORDS SUMMARY | ~2017-08-01 | XMS | Encounter Summary ---
Demographics + + + | Address | [address] | | | [place] [address] | + + + | Home Phone | | + + + | Preferred Language | Unknown | + + + | Marital Status | | + + + | Mandaen Affiliation | LUT | + + + | Race | White | + + + | Ethnic Group | Not or | + + + Author + + + | Author | [facility] | + + + | Organization | [facility] | + + + | Address | Unknown | + + + | Phone | Unavailable | + + + Support +------+ + + + +-------+ | Name | Relationship | Address | Phone | +------+ + + + +-------+ ECON | [address] | | [place] | [address] | +------+ + + + +-------+ Care Team Providers + +------+-------+ | Care Clinical Research Physician Name | Role | Phone | + +------+-------+ | Jamaal Rivera MD | PCP | tel | + +------+-------+ Encounter Details +--------+ + + + + | Date | Type | Department | Care Team | Description | +--------+ + + + + | 06/21/ | MyChart | Cardiology General | | A message from your | | 2016 | Encounter | at [facility] [address] | | Environmental Advisor | | | | Cornel [place]oley Mailcode: | | | | | | CH9A [facility] | | | | | | Health and Healing, | | | | | | [address] [facility], | | | | | | [place] [address] | | | | | | [phone] | | | +--------+ + + + [...]
--- OUTSIDE RECORDS SUMMARY | ~2017-08-01 | XMS | Encounter Summary ---
Demographics + + + | Address | [address] | | | [place] [address] | + + + | Home Phone | | + + + | Preferred Language | Unknown | + + + | Marital Status | | + + + | Mormonism Affiliation | LUT | + + + | Race | White | + + + | Ethnic Group | Not or | + + + Author + + + | Author | [facility] | + + + | Organization | [facility] | + + + | Address | Unknown | + + + | Phone | Unavailable | + + + Support +------+ + + + +-------+ | Name | Relationship | Address | Phone | +------+ + + + +-------+ ECON | [address] | | [place] | [address] | +------+ + + + +-------+ Care Team Providers + +------+-------+ | Care Public Health Nurse Name | Role | Phone | + [...] | | Diffuse | MD Chad | [facility] [address] | | | | | large B-cell | [address] | | | | | lymphoma of | [address] | Mailcode: | | | | | lymph nodes | [place], [place] | [address] | | | | | of [facility] | [address] | for Health | | | | | regions | Phone: | and Healing, | | | | | (HCC) | [phone] | 3rd Floor | | | | | Procedures | Fax: | [place], [place] | | | | | CT CHEST, | [phone] | [address] | | | | | ABDOMEN AND | | Phone: | | | | | PELVIS W IV | | [phone] | | | | | CONTRAST [place] | | Fax: | | | | | CAT SCAN OF | | [phone] | | | | | CHEST | | | | | | | CONTRAST [place] | | | | | | | [...] large B-cell | [address] | | | | | lymphoma of | [address] | Mailcode: | | | | | lymph nodes | [place], [place] | [facility] | | | | | of multiple | [address] | for Health | | | | | regions | Phone: | and Healing, | | | | | (HCC) | [phone] | 3rd Floor | | | | | Procedures | Fax: | [place], [place] | | | | | CT CHEST, | [phone] | [address] | | | | | ABDOMEN AND | | Phone: | | | | | PELVIS W IV | | [phone] | | | | | CONTRAST [place] | | Fax: | | | | | CAT SCAN OF | | [phone] | | | | | CHEST | | | | | | | [place]AST [place] | | | | | | | [...] | | | | lymph nodes | [place], [place] | [facility] | | | | | of multiple | [address] | for Health | | | | | regions | Phone: | and Healing, | | | | | (HCC) | [phone] | 3rd Floor | | | | | Procedures | Fax: | [place], [place] | | | | | CT CHEST, | [phone] | [address] | | | | | ABDOMEN AND | | Phone: | | | | | PELVIS W IV | | [phone] | | | | | [place]AST [place] | | Fax: | | | | | CAT SCAN OF | | [phone] | | | | | CHEST | | | | | | | [place]AST [place] | | | | | | | [...] + + | 07/11/ | Hospital | Diagnostic Imaging | Chad Lowe, | | | 2017 | Encounter | Services at [facility] | MD [address] | | | | | [address] | [place], [place] | | | | | [facility] | [address] | | | | | Mailcode: L[address] [facility] | [phone] | | | | | [facility], | | | | | | [place] [address] | | | | | | [phone] | | | +--------+ + + + [...] +---------+ + + as of this encounter Plan of Treatment Not on fileas of this encounter Results CT CHEST, ABDOMEN AND PELVIS W IV CONTRAST (07/11/2017 11:00 AM) + + + | Specimen | Performing Laboratory | + + + | | [facility] RADIOLOGY VOICE RECOGNITION | + + [...] of lymph nodes of multiple regions (HCC) | + + Administered Medications + +---------+ +--------+------+------+ | Medication Order | MAR | Action | Dose | Rate | Site | | | Action | Date | | | | + +---------+ +--------+------+------+ | iohexol (OMNIPAQUE) 350 mg | IV Push | 07/11/20 | 125 mL | | | | iodine/mL injection 125 mL 125 | | 17 11:30 | | | | | mL, intravenous, ONCE, 1 dose, | | PST | | | | | [place] 07/11/17 at 1130 | | | | | | + +---------+ +--------+------+------+ +---+---+ | | | +---+---+ in this encounter"
--- OUTSIDE RECORDS SUMMARY | ~2017-08-01 | XMS | Encounter Summary ---
Demographics + + + | Address | [address] | | | [place] [address] | + + + | Home Phone | | + + + | Preferred Language | Unknown | + + + | Marital Status | | + + + | Restoration Affiliation | LUT | + + + | Race | White | + + + | Ethnic Group | Not or | + + + Author + + + | Author | [facility] | + + + | Organization | [facility] | + + + | Address | Unknown | + + + | Phone | Unavailable | + + + Support +------+ + + + +-------+ | Name | Relationship | Address | Phone | +------+ + + + +-------+ ECON | [address] | | [place] | [address] | +------+ + + + +-------+ Care Team Providers + +------+-------+ | Care Motion Designer Name | Role | Phone | + [...] | Diffuse | MD Chad | [facility] [address] | | | | | large B-cell | [address] | | | | | lymphoma, | [address] | Mailcode: | | | | | unspecified | [place], [place] | [address] | | | | | body region | [address] | for Health | | | | | (HCC) | Phone: | and Healing, | | | | | Procedures | [phone] | 3rd Floor | | | | | CT CHEST, | Fax: | [place], [place] | | | | | ABDOMEN AND | [phone] | [address] | | | | | PELVIS W IV | | Phone: | | | | | CONTRAST [place] | | [phone] | | | | | CAT SCAN OF | | Fax: | | | | | CHEST | | [phone] | | | | | CONTRAST [place] | | | | | | | [...] Closed | | Radiology | Diagnoses | [place], | Rad Ct Scan | | | | | Diffuse | MD Chad | h [address] | | | | | large B-cell | [address] | | | | | lymphoma, | [address] | Mailcode: | | | | | unspecified | [place], [place] | [facility] | | | | | body region | [address] | for Health | | | | | (HCC) | Phone: | and Healing, | | | | | Procedures | [phone] | 3rd Floor | | | | | CT CHEST, | Fax: | [place], [place] | | | | | ABDOMEN AND | [phone] | [address] | | | | | PELVIS W IV | | Phone: | | | | | CONTRAST [place] | | [phone] | | | | | CAT SCAN OF | | Fax: | | | | | CHEST | | [phone] | | | | | CONTRAST [place] | | | | | | | [...] | Diffuse | MD Chad | [facility] [address] | | | | | large B-cell | [address] | | | | | lymphoma, | [address] | Mailcode: | | | | | unspecified | [place], [place] | [address] | | | | | body region | [address] | for Health | | | | | (HCC) | Phone: | and Healing, | | | | | Procedures | [phone] | 3rd Floor | | | | | CT CHEST, | Fax: | [place], [place] | | | | | ABDOMEN AND | [phone] | [address] | | | | | PELVIS W IV | | Phone: | | | | | CONTRAST [place] | | [phone] | | | | | CAT SCAN OF | | Fax: | | | | | CHEST | | [phone] | | | | | CONTRAST [place] | | | | | | | [...] | 2017 | Encounter | Services at [facility] | [address] | | | | | [address] | [place], [place] | | | | | [facility] | [address] | | | | | Mailcode: [address] [facility] | [phone] | | | | | [facility], | | | | | | [place] [address] | | | | | | [phone] | | | +--------+ + + + [...] Laboratory | + + + | | [facility] RADIOLOGY VOICE RECOGNITION | + + [...]
--- OUTSIDE RECORDS SUMMARY | ~2017-08-01 | XMS | Encounter Summary ---
Demographics + + + | Address | [address] | | | [place] [address] | + + + | Home Phone [...] + + +-------+ ECON | [address] | | [place] | [address] | +------+ + + + +-------+ Care Team Providers + +------+-------+ | Care Neurology Physician Name | Role | Phone | [...] | | | | Malignancies at | [facility], | | | | | [facility] | [place] [address] | | | | | [address] | | | | | | [facility] | | | | | | Mailcode: [id number] | | | | | | [facility] | | | | | | [place], [place] | | | | | | [address] | | | | | | [phone] | | | +--------+ + + + [...]
--- OUTSIDE RECORDS SUMMARY | ~2017-08-01 | XMS | Encounter Summary ---
Demographics + + + | Address | [address] | | | [place] [address] | + + + | Home Phone | | + + + | Preferred Language | Unknown | + + + | Marital Status | | + + + | Hindu Affiliation | LUT | + + + [...] + + + +-------+ ECON | [address] | | [place] | [address] | +------+ + + + +-------+ Care Team Providers + +------+-------+ | Care Asbestos Siding Installer Name | Role | Phone | + [...] | | | | large B-cell | [address] | | | | | | lymphoma, | [address] | | | | | | unspecified | [place], [place] | | | | | | body region | [address] | | | | | | (HCC) | Phone: | | | | | | Procedures | [phone] | | | | | | CT CHEST, | Fax: | | | | | | ABDOMEN AND | [phone] | | | | | | PELVIS [...] + + + + | 05/14/ | [facility] | Center for | Chad Lowe, | 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 | MD [address] | lymphoma, | | | | Malignancies at | [address] [place], [place] | unspecified body | | | | [facility] | [address] | region (HCC) | | | | [address] | [phone] | (Primary Dx) | | | | [email or web address] | | | | | | Mailcode: [id number] | | | | | | [address] | | | | | | [place], [place] | | | | | | [address] | | | | | | [phone] | | | +--------+ + + + [...]
--- OUTSIDE RECORDS SUMMARY | ~2017-08-01 | XMS | Encounter Summary ---
Demographics + + + | Address | [address] | | | [place] [address] | + + + | Home Phone | | + + + | Preferred Language | Unknown | + + + | Marital Status | | + + + | Pentecostal Affiliation | LUT | + + + | Race | White | + + + | Ethnic Group | Not or | + + + Author + + + | Author | [facility] | + + + | Organization | [facility] | + + + | Address | Unknown | + + + | Phone | Unavailable | + + + Support +------+ + + + +-------+ | Name | Relationship | Address | Phone | +------+ + + + +-------+ ECON | [address] | | [place] | [address] | +------+ + + + +-------+ Care Team Providers + +------+-------+ | Care Cabin Worker Name | Role | Phone | + +------+-------+ | Jamaal Rivera MD | PCP | tel | + +------+-------+ Encounter Details +--------+ + + + + | Date | Type | Department | Care Team | Description | +--------+ + + + + | 05/23/ | Hospital | Diagnostic Imaging | Chad Lowe, | | | 2017 | Encounter | Services at [facility] | MD [address] | | | | | [address] | [place], [place] | | | | | [facility] | [address] | | | | | Mailcode: [address] [facility] | [phone] | | | | | [facility], | | | | | | [place] [address] | | | | | | [phone] | | | +--------+ + + + [...] Laboratory | + + + | | [facility] RADIOLOGY VOICE RECOGNITION | + + + [...] expression and a | | | | CD4:AQ6rlprh of 5.3:1. Preliminary findings | | | | discussed with Chad Lwoe MD,on | | | | 05/24/2017. Case Reviewed by:Brittany | | | | Camden Myers/Hematopathology FellowPhilipp | | | | Camden Carvajal, | | | | Ph.D./Hematopathologist Clinical | | | | History:71-year-old male with history of | | | | diffuse large B cell lymphoma with | | | | thefollowing immunophenotype: CD10, CD19, | | | | CD20, PAX5, Bcl-2, Bcl-6, CD38,CD45, HLA-DR | | | | and Lutz-positive ([id number]; | | | | 06/30/2014). Gross | | | | Description:Received is one specimen | | | | labeled with the patient's name (initials | | | | DF) andmedical record #[id number]. A: | | | | Right inguinal [...] | | | | may not be sales promotion representative of thesubmitted | | | | [...] CD8 C | | | | D10 [id number] CD22 CD23 CD25 CD34 CD38 | | | | CD45 [id number] | | | | sKappa sLambda (Analyte | | | | specific reagents are used in many | | | | laboratory tests necessary forstandard | | | | medical care. This test was developed | | | | and its performancecharacteristics | | | | determined by [facility] [employer]. It has | | | | not [...] + | Tissue - Lymph node | [facility] DEPARTMENT OF PATHOLOGY [address] | | | [place] [address] | + + + in this encounter Visit Diagnoses + + | Diagnosis | + + | Diffuse large B-cell lymphoma, unspecified body region (HCC) | + +"
--- OUTSIDE RECORDS SUMMARY | ~2017-08-01 | XMS | Encounter Summary ---
Demographics + + + | Address | [address] | | | [place] [address] | + + + | Home Phone [...] + + + | Author | [facility] | + + + | Organization | [facility] | + + + | Address | Unknown | + + + | Phone | Unavailable | + + + Support +------+ + + + +-------+ | Name | Relationship | Address | Phone | +------+ + + + +-------+ ECON | [address] | | [place] | [address] | +------+ + + + +-------+ Care Team Providers + +------+-------+ | Care Wind Turbine Machinist Name | Role | Phone | + +------+-------+ | Jamaal Rivera MD | PCP | tel | + +------+-------+ Encounter Details +--------+ + + + + | Date | Type | Department | Care Team | Description | +--------+ + + + + | 06/20/ | Procedure | Diagnostic Imaging | | | | 2017 | Pass | Services at [facility] | | | | | | [address] | | | | | | [facility] | | | | | | Mailcode: [address] [facility] | | | | | | [facility], | | | | | | [place] [address] | | | | | | [phone] | | | +--------+ + + + [...]
--- OUTSIDE RECORDS SUMMARY | ~2017-08-01 | XMS | Encounter Summary ---
Demographics + + + | Address | [address] | | | [place] [address] | + + + | Home Phone [...] + + +-------+ ECON | [address] | | [place] | [address] | +------+ + + + +-------+ Care Team Providers + +------+-------+ | Care Family Day Carer Name | Role | Phone | + +------+-------+ | Jamaal Rivera MD | PCP | tel | + +------+-------+ Reason for Visit + + + | Reason | Comments | + + + | Lab Draw | PAC | + + + | Chemotherapy | INV Anti- LAG 3 | + + + Other (Routine) +--------+--------+ + + + + | Status | Reason | Specialty | Diagnoses / | Referred By | Referred To | | | | | Procedures | Contact | Contact | +--------+--------+ + + + + | Closed | | Hematology | Diagnoses | Chrissy, | 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 | | | | | | [address] | [address] | | | | | [address] | [address] | [address] | | | | | bulinemia | [place], [place] | [facility] | | | | | Procedures | [address] | Road | | | | | [place] INJ IG | Phone: | Mailcode: | | | | | [place] | [phone] | [id number] | | | | | IV, 500 MG | Fax: | [place] | | | | | [place] | [phone] | Pavilion | | | | | THR/PRPH/DX | | [place], [place] | | | | | IV INF,IN | | [address] | | | | | [place] | | Phone: | | | | | THER/PROPH/D | | [phone] | | | | | IAG IV IVIG | | Fax: | | | | | | | [phone] | +--------+--------+ + + + + Encounter Details +--------+ + + + + | Date | Type | Department | Care Team | Description | +--------+ + + + + | 05/02/ | [facility] | [place] for | | | | 2017 | Encounter | Hematologic | | | | | | Malignancies at [facility] | | | | | | [address] | | | | | | [facility] | | | | | | Mailcode: [id number] | | | | | | [place] | | | | | | [place], [place] | | | | | | [address] | | | | | | [phone] | | | +--------+ + + + [...] + + + | Blood Pressure | 148/88 | 05/02/2017 2:13 PM PDT | + + + + | Pulse | 70 | 05/02/2017 2:13 PM PDT | + + + + | Temperature | 36.9 C (98.4 F) | 05/02/2017 2:13 PM PDT | + + + + | Respiratory Rate | 18 | 05/02/2017 2:13 PM PDT | + + + + | Oxygen Saturation | - | - | + + + + | Inhaled [...] + as of this encounter Progress Notes Beti Carroll RN - 05/02/2017 7:43 AM PDTFormatting of this note may be different from sudhakar gomez. Chemotherapy Nurse Note Name: Hunter Alas Date: 05/02/2017 Physician: Chad Lowe MD Allergies: Hunter has no active allergies. For Treatment Done in Clinic Today: see MAR/Flowsheet Labs: Chemistries: Last 72 Hours (or 3 results): Recent Labs 05/02/17 0829 NA 135 K 4.0 CL 102 BICARB 28 BUN 11 CR 1.0 GLU 91 CA 9.3 CBC with diff last 72 hours (or 3 results) Recent Labs 05/02/17 0830 WBC 6.2 HB 14.7 HCT 45.2 PLT 183 MONOPERC 12.3* BASOPERC 0.8 EOSPERC 1.5 Nursing Assessment: INV BMS [id number] (Anti LAG-3) + Nivolumab Part C & D, Cycle #1, Day #43 Pain: Reports that he continues to have intermittent pain to fingers due to rash Fever or chills: Denies Fatigue or sleep disturbance: Reports generalized fatigue Dizziness: Denies Neuropathy: Denies Mucositis: Denies Dyspnea, cough: SOB with exertion Signs of bleeding: Denies Nausea, vomiting or loss of appetite: Denies Fluid intake: 1 liter daily, states that he knows he should drink more Diarrhea or constipation: Denies Urinary: Denies Edema: Hands- bilateral with rash Rash: Rash to arms, hands, feet- reports that it has been doing on for four months- agueda bill with dermatology Narrative: Patient arrived to clinic ambulatory, accompanied by his . Pre-procedure pain level: 2 Single lumen PAC intact to left anterior chest wall. No surrounding erythema or induration . Using sterile technique, site cleansed with Chloraprep. Port was accessed with a 20 gaug e 3/4 inch Power Loc batista needle without difficulty. Good blood return noted and 5 mL was discarded. Labs drawn and sent. PAC flushed with 20 mL NS. Patient tolerated procedure we ll. Post-procedure pain level: 2 Lab parameters met. Orders to continue with therapy today per Chad Lowe MD. NO pr e-meds needed prior to infusions, no prior reactions. Chemotherapy was checked by 2 RNs. I NV Nivolumab 240 mg IV was infused per chemotherapy protocol with low-sorbing tubing and 0.2 micron filter intact and completed without adverse event. Positive blood return noted pre and post infusion. Chemotherapy was checked by 2 RNs. INV BMS [id number] (Anti- LAG 3) 160 mg IV was infused per chemotherapy protocol with low-sorbing tubing and 0.[address] and completed without adverse event. Positive blood return noted pre and post infusion. Vital signs stable. Patient monitored for 60 minutes post INV infusion- vital signs stable . PAC flushed with 20 mL NS and 5 mL of 100 unit/mL heparin per protocol then deaccessed. For infusion details, see MAR/Flowsheet. Report given to Andria Macdonald RN at 13:30 to care for patient while at lunch until 14:00. Patient instructed to call pharmacy associate/document controller provider for fevers 100.4 F or greater, uncont rolled nausea, vomiting, diarrhea, rash, SOB, chest pain and bleeding. Patient and vishal r report that they have the community health representative/brew house supervisor Provider emergency phone numbers and state und erstanding. Patient discharged from clinic, left ambulatory, accompanied by his . RTC on 05/14/17 for labs, Anti-LAG 3 study and follow up with Chad Lowe MD. Beti Carroll RN in this encounter Plan of Treatment Not on fileas of this encounter Results UA, DIPSTICK ONLY (05/02/2017 2:05 PM) + + + [...] + | SPECIFIC GRAVITY | 1.010Comment: Specific [place] performed by | 1.005 - 1.030 | | | refractometry | | + + + + + + + | Specimen | Performing Laboratory | + + + | Urine | [facility], CORE [address] [place] [address] AMANDA | | | [place] [address] | + + + CBC+DIFF,POC (05/02/2017 8:30 AM) + + + + | Component | Value | Ref Range | + + + + | WBC POC | 6.2 | 3.5 - 10.8 10*3/uL | + + + + | RBC POC | 4.37 (L) | 4.50 - 6.00 10*6/uL | + + + + | HGB POC | 14.7 | 13.5 - 17.5 g/dL | + + + + | HCT POC | 45.2 | 41.0 - 53.0 % | + + + + | MCV POC | 103.4 (H) | 80.0 - 96.0 fL | + + + + | MCH POC | 33.6 (H) | 28.5 - 32.3 pg | + + + + | MCHC POC | 32.5 | 33.0 - 35.5 g/dL | + + + + | RDW SD, POC | 55.0 (H) | 35.1 - 46.3 fL | + + + + | PLT POC | 183 | 150 - 400 10*3/uL | + + + + | MPV POC | 9.5 (L) | 9.7 - 12.3 fL | + + + + | NEUTROPHIL% POC | 70.2 (H) | 50.0 - 70.0 % | + + + + | LYMPH% POC | 15.2 (L) | 18 - 42 % | + + + + | MONO %, POC | 12.3 (H) | 3.5 - 9.0 % | + + + + | EOS %, POC | 1.5 | 1.0 - 3.0 % | + + + + | BASO %, POC | 0.8 | 0.0 - 2.0 % | + + + + | NEUTROPHIL# POC | 4.3 | 1.8 - 7.7 10*3/uL | + + + + | LYMPH# POC | 0.9 (L) | 1.0 - 4.8 10*3/uL | + + + + | MONO #, POC | 0.8 | 0.1 - 0.9 10*3/uL | + + + + | EOS #, POC | 0.1 | 0.0 - 0.5 10*3/uL | + + + + | BASO #, POC | 0.0 | 0.0 - 0.1 10*3/uL | + + + + + + + | Specimen | Performing Laboratory | + + + | Blood | [facility] POINT OF CARE TESTS [address] | | | [place] [address] | + + + CMP, POC (BMP+LFT) (05/02/2017 8:29 AM) + +-------+ + | Component | Value | Ref Range | + +-------+ + | SODIUM, POC | 135 | 134 - 143 mmol/L | + +-------+ + | POTASSIUM, POC | 4.0 | 3.4 - 5.0 mmol/L | + +-------+ + | TOTAL CO2, POC | 28 | 22 - 29 mmol/L | + +-------+ + | CHLORIDE, POC | 102 | 97 - 108 mmol/L | + +-------+ + | GLUCOSE, POC | 91 | 70 - 99 mg/dL | + +-------+ + | CALCIUM TOTAL, POC | 9.3 | 8.6 - 10.2 mg/dL | + +-------+ + | BUN, POC | 11 | 6 - 20 mg/dL | + +-------+ + | CREATININE, POC | 1.0 | 0.7 - 1.3 mg/dL | + +-------+ + | ALK PHOS, CMP POC | 47 | 43 - 92 U/L | + +-------+ + | ALT, CMP POC | 35 | 0 - 60 U/L | + +-------+ + | AST, CMP POC | 40 | 0 - 41 U/L | + +-------+ + | BILIRUBIN TOTAL, CMP | 0.8 | 0.3 - 1.2 mg/dL | | POC | | | + +-------+ + | ALBUMIN, CMP POC | 3.8 | 3.5 - 4.7 g/dL | + +-------+ + | PROTEIN TOTAL, CMP | 6.8 | 6.1 - 7.9 g/dL | | POC | | | + +-------+ + + + + | Specimen | Performing Laboratory | + + + | Blood | [facility] TESTS [address] | | | [place] [address] | + + + URIC ACID, PLASMA (05/02/2017 8:10 AM) + +-------+ + | Component | Value | Ref Range | + +-------+ + | URIC ACID, PLASMA | 6.0 | 3.7 - 8.0 mg/dL | | (LAB) | | | + +-------+ + + + + | Specimen | Performing Laboratory | + + + | Blood | [facility], CORE [address] | | | [place] [address] | + + + PHOSPHORUS, PLASMA (05/02/2017 8:10 AM) + +-------+ + | Component | Value | Ref Range | + +-------+ + | PHOSPHORUS, PLASMA | 2.8 | 2.4 - 4.7 mg/dL | | (LAB) | | | + +-------+ + + + + | Specimen | Performing Laboratory | + + + | Blood | [facility], CORE [address] | | | [place] [address] | + + + MAGNESIUM, PLASMA (05/02/2017 8:10 AM) + +-------+ + | Component | Value | Ref Range | + +-------+ + | MAGNESIUM,PLASMA | 2.2 | 1.6 - 2.6 mg/dL | + +-------+ + + + + | Specimen | Performing Laboratory | + + + | Blood | [facility], CORE [address] [address] | | | [place] [address] | + + + + + | Narrative | + + | Reference range change effective 02/26/17. | + + LDH TOTAL, PLASMA (05/02/2017 8:10 AM) + +---------+ + | Component | Value | Ref Range | + +---------+ + | LD TOTAL, PLASMA | 262 (H) | <=250 U/L | + +---------+ + | LD CMNT | No Hemo | | + +---------+ + + + + | Specimen | Performing Laboratory | + + + | Blood | [facility], CORE [address] | | | [place] [address] | + + + FREE T4 (05/02/2017 8:10 AM) + +-------+ + | Component | Value | Ref Range | + +-------+ + | FREE T4 | 0.9 | 0.6 - 1.2 ng/dL | + +-------+ + + + + | Specimen | Performing Laboratory | + + + | Blood | [facility], CORE [address] | | | [place] [address] | + + + T3 TOTAL, SERUM (05/02/2017 8:10 AM) + +-------+ + | Component | Value | Ref Range | + +-------+ + | T3, TOTAL | 114 | 87 - 196 ng/dL | + +-------+ + + + + | Specimen | Performing Laboratory | + + + | Blood | [facility] [place] [address] [facility], [place] | | | [address] | + + + IGA, SERUM (05/02/2017 8:10 AM) + +-------+ + | Component | Value | Ref Range | + +-------+ + | IGA SERUM | 264 | 70 - 400 mg/dL | + +-------+ + + + + | Specimen | Performing Laboratory | + + + | Blood | [facility] [address] [place], [place] | | | [address] | + + + IGG, SERUM (05/02/2017 8:10 AM) + +-------+ + | Component | Value | Ref Range | + +-------+ + | IGG SERUM | 928 | 700 - 1600 mg/dL | + +-------+ + + + + | Specimen | Performing Laboratory | + + + | Blood | [facility] [address] [place], [place] | | | [address] | + + + IGM, SERUM (05/02/2017 8:10 AM) + +--------+ + | Component | Value | Ref Range | + +--------+ + | IGM SERUM | 34 (L) | 40 - 230 mg/dL | + +--------+ + + + + | Specimen | Performing Laboratory | + + + | Blood | [facility] [address] [place], [place] | | | [address] | + + + TSH (05/02/2017 8:10 AM) + +-------+ + | Component | Value | Ref Range | + +-------+ + | TSH | 1.87 | 0.47 - 7.11 mIU/L | + +-------+ + + + + | Specimen | Performing Laboratory | + + + | Blood | [facility], CORE [address] [place] [address] | | | [place] [address] | + + + + + | [...] | + + + | Blood | [facility], CORE [address] [facility] [address] | | | [place] [address] | + + + + + | [...] | + + + | Blood | [facility], CORE [address] [facility] | | | [place] [address] | + + + LIPASE, PLASMA (05/02/2017 8:10 AM) + +---------+ + | Component | Value | Ref Range | + +---------+ + | LIPASE (LAB) | 108 (L) | 152 - 353 U/L | + +---------+ + + + + | Specimen | Performing Laboratory | + + + | Blood | [facility], CORE [address] [facility] | | | [place] [address] | + + + in this encounter Visit Diagnoses + + | Diagnosis | + + | Diffuse large B-cell lymphoma, unspecified body region (HCC) | + + Administered Medications + +--------+ +-------+------+------+ | Medication Order | MAR | Action | Dose | Rate | Site | | | Action | Date | | | | + +--------+ +-------+------+------+ | heparin 100 unit/mL IV flush | Given | 10/19/20 | 500 | | | | 500 Units 500 Units, | | 17 13:28 | Units | | | | Intracatheter, NEEDED, | | PDT | | | | | Starting Payton 05/02/17 at 0758, | | | | | | | Until Sat05/03/17 at 0024, | | | | | | | deaccessing line/port | | | | | | + +--------+ +-------+------+------+ +---+---+ | | | +---+---+ + +---------+ +--------+ +---+ | INV [id number] (ANTI-LAG-3) 160 | New Bag | 05/02/20 | 160 mg | 60 mL/hr | | | mg in INV NaCl 0.9% IV 160 mg, | | 17 12:06 | | | | | intravenous, Administer over 60 | | PDT | | | | | Minutes, ONCE, 1 dose, Payton | | | | | | | 05/02/17 at 1015, Pt ID: Infuse | | | | | | | over 60 minutes +/- 6 minutes. | | | | | | | Infuse through 0.2 micron in-line | | | | | | | filter. Flush line with NS | | | | | | | after administration, and should | | | | | | | be inclusive of the time needed | | | | | | | to administer drug. For | | | | | | | investigational use only, HIGH | | | | | | | ALERT MEDICATION IRB:[id number], | | | | | | | Protocol:[id number] | | | | | | + +---------+ +--------+ +---+ +---+---+ | | | +---+---+ + +-------+ +--------+-------+---+ | INV nivolumab 240 mg in INV | Given | 05/02/20 | 240 mg | 120 | | | NaCl 0.9% IV 240 mg, | | 17 11:26 | | mL/hr | | | intravenous, Administer over 30 | | PDT | | | | | Minutes, ONCE, 1 dose, Payton | | | | | | | 05/02/17 at 1015, Pt ID:, | | | | | | | Infuse with 0.2 micron filter. | | | | | | | Flush line at the end of the | | | | | | | infusion. For investigational | | | | | | | use only, HIGH ALERT MEDICATION | | | | | | | IRB:[id number], Protocol: [id number] | | | | | | + +-------+ +--------+-------+---+ +---+---+ | | | +---+---+ in this encounter"
--- OUTSIDE RECORDS SUMMARY | ~2017-08-01 | XMS | Encounter Summary ---
Demographics + + + | Address | [address] | | | [place] [address] | + + + | Home Phone | | + + + | Preferred Language | Unknown | + + + | Marital Status | | + + + | Islam Affiliation | LUT | + + + | Race | White | + + + | Ethnic Group | Not or | + + + Author + + + | Author | [facility] | + + + | Organization | [facility] | + + + | Address | Unknown | + + + | Phone | Unavailable | + + + Support +------+ + + + +-------+ | Name | Relationship | Address | Phone | +------+ + + + +-------+ ECON | [address] | | [place] | [address] | +------+ + + + +-------+ Care Team Providers + +------+-------+ | Care Contact Center Agent Name | Role | Phone | + +------+-------+ | Jamaal Rivera MD | PCP | tel | + +------+-------+ Encounter Details +--------+ + + + + | Date | Type | Department | Care Team | Description | +--------+ + + + + | 05/24/ | [facility] | Center for | Chad Lowe, | 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 | [address] | lymphoma of | | | | Malignancies at | [address] [place], [place] | intra-abdominal | | | | [place] | [address] | lymph nodes (HCC) | | | | [address] | [phone] | (Primary Dx) | | | | [address] | | | | | | Mailcode: [id number] | | | | | | [place] | | | | | | [place], [place] | | | | | | [address] | | | | | | [phone] | | | +--------+ + + + [...]
--- OUTSIDE RECORDS SUMMARY | ~2017-08-01 | XMS | Encounter Summary ---
Demographics + + + | Address | [address] | | | [place] [address] | + + + | Home Phone | | + + + | Preferred Language | Unknown | + + + | Marital Status | | + + + | Jehovah'S Witness Affiliation | LUT | + + + | Race | White | + + + | Ethnic Group | Not or | + + + Author + + + | Author | [facility] | + + + | Organization | [facility] | + + + | Address | Unknown | + + + | Phone | Unavailable | + + + Support +------+ + + + +-------+ | Name | Relationship | Address | Phone | +------+ + + + +-------+ ECON | [address] | | [place] | [address] | +------+ + + + +-------+ Care Team Providers + +------+-------+ | Care Animal Ride Manager Name | Role | Phone | [...] | | | | large B-cell | [address] | | | | | | lymphoma, | [address] | | | | | | unspecified | [place], [place] | | | | | | body region | [address] | | | | | | (HCC) | Phone: | | | | | | Procedures | [phone] | | | | | | CT CHEST, | Fax: | | | | | | ABDOMEN AND | [phone] | | | | | | PELVIS [...] + + + + | 05/14/ | Lock St[facility] Channeler | Center for | Chad Lowe, | 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 | MD [address] | lymphoma, | | | | Malignancies at | [address] [place], [place] | unspecified body | | | | [facility] | [address] | region (HCC) | | | | [address] | [phone] | (Primary Dx) | | | | [employer] | | | | | | Mailcode: [id number] | | | | | | [place] | | | | | | [place], [place] | | | | | | [address] | | | | | | [phone] | | | +--------+ + + + [...]
--- OUTSIDE RECORDS SUMMARY | ~2017-08-01 | XMS | Encounter Summary ---
Demographics + + + | Address | [address] | | | [place] [address] | + + + | Home Phone | | + + + | Preferred Language | Unknown | + + + | Marital Status | | + + + | Episcopal Affiliation | LUT | + + + [...] + + +-------+ ECON | [address] | | [place] | [address] | +------+ + + + +-------+ Care Team Providers + +------+-------+ | Care Banquet Lead Name | Role | Phone | + [...] + + + + | 05/09/ | Angular Developer | Center for | Chad Lowe, | 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 | MD [address] | lymphoma, | | | | Malignancies at | [address] [place], [place] | unspecified body | | | | [facility] | [address] | region (HCC) | | | | [address] | [phone] | (Primary Dx) | | | | [place] | | | | | | Mailcode: [id number] | | | | | | [facility] | | | | | | [place], [place] | | | | | | [address] | | | | | | [phone] | | | +--------+ + + + [...] ....... | | | | High[employer]formed by [employer],[address] | | | | [address], [facility] [place] [address] | | | | [phone].[email or web address], Graham Meza, | | | | , Lab. Director | | | |[email or web address], Graham Meza MD, Lab. Director | | + + + + + + + | Specimen | Performing Laboratory | + + + | Blood | [facility] [address] [facility] | | | [place] [address] | + + + C'4 COMPLEMENT, SERUM (05/14/2017 7:45 AM) + +-------+ + | Component | Value | Ref Range | + +-------+ + | C'4 COMPLEMENT SERUM | 40 | 16 - 47 mg/dL | + +-------+ + + + + | Specimen | Performing Laboratory | + + + | Blood | [facility] [address] [place], [place] | | | [address] | + + + C'3 COMPLEMENT, SERUM (05/14/2017 7:45 AM) + +-------+ + | Component | Value | Ref Range | + +-------+ + | C'3 COMPLEMENT SERUM | 121 | 88 - 201 mg/dL | + +-------+ + + + + | Specimen | Performing Laboratory | + + + | Blood | [facility] [address] [place], [place] | | | [address] | + + + TROPONIN I, PLASMA (05/14/2017 7:45 AM) + +-------+ + | Component | Value | Ref Range | + +-------+ + | TROPONIN I | 0.02 | <0.80 ng/mL | + +-------+ + + + + | Specimen | Performing Laboratory | + + + | Blood | [facility], CORE [address] [facility] [address] | | | [place] [address] | + + + FREE T4 (05/14/2017 7:45 AM) + +-------+ + | Component | Value | Ref Range | + +-------+ + | FREE T4 | 1.0 | 0.6 - 1.2 ng/dL | + +-------+ + + + + | Specimen | Performing Laboratory | + + + | Blood | [facility], CORE [address] | | | [place] [address] | + + + T3 TOTAL, SERUM (05/14/2017 7:45 AM) + +-------+ + | Component | Value | Ref Range | + +-------+ + | T3, TOTAL | 113 | 87 - 196 ng/dL | + +-------+ + + + + | Specimen | Performing Laboratory | + + + | Blood | [facility] [address] [place], [place] | | | [address] | + + + TSH (05/14/2017 7:45 AM) + +-------+ + | Component | Value | Ref Range | + +-------+ + | TSH | 2.22 | 0.47 - 7.11 mIU/L | + +-------+ + + + + | Specimen | Performing Laboratory | + + + | Blood | [facility] [address] [facility] [address] | | | [place] [address] | + + + + + | [...] | + + + | Blood | [facility] SERVICES, SPECIAL IMM + COAG [address] [facility] | | | [place] [address] | + + + + + | [...] | + + + | Blood | [facility], CORE [address] [facility] | | | [place] [address] | + + + AMYLASE, PLASMA (05/14/2017 7:45 AM) + +--------+ + | Component | Value | Ref Range | + +--------+ + | AMYLASE,PLASMA | 23 (L) | 25 - 115 U/L | + +--------+ + + + + | Specimen | Performing Laboratory | + + + | Blood | [facility], CORE [address] | | | [place] [address] | + + + in this encounter Visit Diagnoses + + | Diagnosis | + + | Diffuse large B-cell lymphoma, unspecified body region (HCC) - Primary | + +"
--- OUTSIDE RECORDS SUMMARY | ~2017-08-01 | XMS | Encounter Summary ---
Demographics + + + | Address | [address] | | | [place] [address] | + + + | Home Phone | | + + + | Preferred Language | Unknown | + + + | Marital Status | | + + + | Scientology Affiliation | LUT | + + + | Race | White | + + + | Ethnic Group | Not or | + + + Author + + + | Author | [facility] | + + + | Organization | [facility] | + + + | Address | Unknown | + + + | Phone | Unavailable | + + + Support +------+ + + + +-------+ | Name | Relationship | Address | Phone | +------+ + + + +-------+ ECON | [address] | | [place] | [address] | +------+ + + + +-------+ Care Team Providers + +------+-------+ | Care Application Helper Name | Role | Phone | [...] | | | | | [id number] | [place] [facility] | | | | | [facility] | | | | | | [facility] | [place], [place] | | | | | | [place], [place] | [address] | | | | | | [address] | Phone: | | | | | | Phone: | [phone] | | | | | | [phone] | Fax: | | | | | | Fax: | [phone] | | | | | | [phone] | | +--------+--------+ + + + + Encounter Details +--------+---------+ + + + | Date | Type | Department | Care Team | Description | +--------+---------+ + + + | 05/02/ | Office | Center for | Chad Lowe, | Diffuse large B-cell | | 2017 | Visit | Hematologic | MD [address] | lymphoma of | | | | Malignancies at | Ave [place], [place] | intra-abdominal | | | | [facility] | [address] | lymph nodes (HCC) | | | | [address] | [phone] | (Primary Dx) | | | | [employer] | | | | | | Mailcode: [id number] | | | | | | [facility] | | | | | | [place], [place] | | | | | | [address] | | | | | | [phone] | | | +--------+---------+ + + + [...] + + + | Blood Pressure | 152/76 | 05/02/2017 8:30 AM PDT | + + + + | Pulse | 75 | 05/02/2017 8:30 AM PDT | + + + + | Temperature | 36.7 C (98.1 F) | 05/02/2017 8:30 AM PDT | + + + + | Respiratory Rate | 18 | 05/02/2017 8:30 AM PDT | + + + + | Oxygen Saturation | 96% | 05/02/2017 8:30 AM PDT | + + + + | Inhaled Oxygen | - | - | | Concentration | | | + + + + | Weight | 106 kg (233 lb 11 | 05/02/2017 8:30 AM PDT | | | oz) | | + + + + | Height | - | - | + + + + | Body Mass Index | 35.53 | 05/02/2017 8:30 AM PDT | + + + + in this encounter Progress Notes Chad Lowe MD - 05/02/2017 8:45 AM PDTFormatting of this note may be different fro m the original. [facility] Center for Hematologic Malignancies Follow Up 05-02-17 [facility] Physician: Chad Lowe MD Reason for Visit: Cycle 2 Day 1 of anti-LAG-3/nivo study for DLBCL S/Interval events: Doing well. If not for ongoing rash -bx 04/15 showed subcorneal pustular dermatosis. He continues on topical steroids and po dapsone has been added to his treatment . No fevers or night sweats. Energy level is good. Less dyspnea. Has lost 10 lbs-planned, eat ing smaller portions. 10 point ROs is otherwise negative Dx History: Referring oncologist: Arnold Sotelo) [place] oncologist: Kenny PCP: Jamaal Rivera MD Noticed [...] 02-19-17 03/19/2017 starts on study with anti-lag3/nivo study. Central Access: [facility] Allergies No Known Allergies Current Outpatient Prescriptions Medication Sig acyclovir 800 mg oral tablet Take 1 tablet by mouth once daily. allopurinol 300 mg oral tablet budesonide-formoterol 160-4.5 mcg/actuation inhalation HFA aerosol inhaler Inhale 2 puf fs by mouth two times daily. Indications: Prevention of Bronchospasm with Chronic Bronchitis cetirizine 10 mg oral tablet Take 1 tablet by mouth once daily. clobetasol 0.05 % scalp solution Apply to scalp twice daily clobetasol 0.05 % topical ointment dapsone 25 mg oral tablet DULoxetine 30 mg oral capsule,delayed release(DR/EC) Take 1 capsule by mouth once daily . fluocinolone and shower cap 0.01 % scalp oil fluticasone 50 mcg/actuation nasal spray,suspension Instill 2 sprays into each nostril two times daily. Indications: Allergic Rhinitis halobetasol 0.05 % topical ointment Large pt with full body severe rash. 250 g for 30 d ay supply. levalbuterol 45 mcg/actuation inhalation HFA aerosol inhaler 1-2 puffs every 4-6 hours as needed. Indications: Bronchospasm Prevention losartan 50 mg oral tablet Take 50 mg by mouth once daily. Indications: hypertension omeprazole 40 mg oral capsule,delayed release(DR/EC) Take 20 mg by mouth once daily. ondansetron 8 mg oral tablet predniSONE 20 mg oral tablet Take 1 tablet by mouth once daily. X 5 days Indications: hypersensitivity drug reaction ramelteon (ROZEREM) 8 mg oral tablet Take 1 tablet by mouth once daily at bedtime as ne eded for sleep. Take 30 minutes before bedtime. Indications: Restless leg terbinafine HCl (ATHLETE'S FOOT AF) 1 % topical cream Apply to affected area two times daily. Apply to affected area for at least 1 week, not to exceed 4 weeks. triamcinolone acetonide 0.1 % topical cream Apply to affected area two times daily. Ap ply thin film to affected areas. ZINC OXIDE (DESITIN TOP) Apply to affected area. Past Medical History: Diagnosis Date Acosta's cyst of knee Diverticulosis DJD (degenerative joint disease) Fatty infiltration of liver Hypertension NHL (non-Hodgkin's lymphoma) (HCC) RYANNE on CPAP Pneumonia S/P nasal surgery Physical Examination: Performance Status: ECOG 1, KPS 70% BP 152/76 | Pulse 75 | Temp (Src) 36.7 C (98.1 F) (Oral) | RR 18 | Wt 106 kg (233 lb 11 oz) | SpO2 96% | BMI 35.53 kg/(m^2) NAD, looks well, interactive, pleasant Ncat, op clear Neck supple w/o adenopathy RR 2/6 holosytolic murmer, unchanged CTA b/l with rhonchi at right base +BSNTND no hsm No edema Skin with hyperpigmented scattered papular rash on arms. Trunk with some areas of erythema without discrete lesions. CRP 8.7 (down from 20s) Lab Results Component Value Date WBC 6.2 05/02/2017 RBC 4.37 (L) 05/02/2017 HCT 45.2 05/02/2017 HB 14.7 05/02/2017 MCV 103.4 (H) 05/02/2017 MCH 33.6 (H) 05/02/2017 MCHC 32.5 05/02/2017 PLT 183 05/02/2017 NEUTROPERC 77.9 (H) 03/12/2017 LYMPHPERC 7.7 (L) 03/12/2017 MONOPERC 12.3 (H) 05/02/2017 EOSPERC 1.5 05/02/2017 BASOPERC 0.8 05/02/2017 NEUTROPHILCO 4.3 05/02/2017 GLU 91 05/02/2017 BUN 11 05/02/2017 CR 1.0 05/02/2017 TP 6.8 05/02/2017 ALB 3.8 05/02/2017 CA 9.3 05/02/2017 TBILI 0.8 05/02/2017 AP 47 05/02/2017 AST 40 05/02/2017 NA 135 05/02/2017 K 4.0 05/02/2017 CL 102 05/02/2017 BICARB 28 05/02/2017 ALT 35 05/02/2017 Thyroid studies WNL Imaging: None new since last follow-up. Assessment & Plan: 71 y.o. M, DLBCL, relapsed/refractory, recently progressed on Acerta combo inhibitor study. He consented for anti-LAG-3/nivo study. 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 Plan for restaging later this month AEs none ID: - acyclovir prophylaxis Pulmonary: -bronchitis, continue MDI -PNA (persistent tree and bud in lower lobes on last CT 03/15/17) - likely some ongoing aspir ation- no AE and clinically improved. Symptoms continue to improve Rash: Saw dermatology 04/01/17 for skin rash, which they likely psoriasis. Recent bx showed subcorneal pustular derm. -waxes and wanes -continue current rx-dapsone added CVS: -mitral regurg, worse on echo but compensated -follow BNP monthly -no intervention warranted, appreciate cardiology F/U: per study protocol CHAD LOWE MD surface to air weapons officer [facility] Center for Hematologic Malignancies [facility] [email or web address] [phone] in this encounter Plan of Treatment Not on fileas of this encounter Visit Diagnoses + + | Diagnosis | + + | 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
--- OUTSIDE RECORDS SUMMARY | ~2017-08-01 | XMS | Encounter Summary ---
Demographics + + + | Address | [address] | | | [place] [address] | + + + | Home Phone | | + + + | Preferred Language | Unknown | + + + | Marital Status | | + + + | Faith Affiliation | LUT | + + + [...] + + + +-------+ ECON | [address] | | [place] | [address] | +------+ + + + +-------+ Care Team Providers + +------+-------+ | Care Coil Cutter Name | Role | Phone | + [...] [address] | | | | | | [place], [place] | | | | | | [address] | | | | | | [phone] | | | +--------+ + + + [...]
--- OUTSIDE RECORDS SUMMARY | ~2017-08-01 | XMS | Encounter Summary ---
Demographics + + + | Address | [address] | | | [place] [address] | + + + | Home Phone [...] + + + | Author | [facility] | + + + | Organization | [facility] | + + + | Address | Unknown | + + + | Phone | Unavailable | + + + Support +------+ + + + +-------+ | Name | Relationship | Address | Phone | +------+ + + + +-------+ ECON | [address] | | [place] | [address] | +------+ + + + +-------+ Care Team Providers + +------+-------+ | Care Ornamental Metalwork Designer Name | Role | Phone | + +------+-------+ | Jamaal Rviera MD | PCP | tel | + [...] [address] | | | | | | [place], [place] | | | | | | [address] | | | | | | [phone] | | | +--------+ + + + [...]
--- OUTSIDE RECORDS SUMMARY | ~2017-08-01 | XMS | Encounter Summary ---
Demographics + + + | Address | [address] | | | [place] [address] | + + + | Home Phone [...] + + +-------+ ECON | [address] | | [place] | [address] | +------+ + + + +-------+ Care Team Providers + +------+-------+ | Care Traffic Rate Computer Name | Role | Phone | + [...] | Diffuse | MD Chad | [address] | | | | | large B-cell | [address] | | | | | lymphoma, | [address] | [place] | | | | | unspecified | [place], [place] | Road | | | | | body region | [address] | Mailcode: | | | | | (HCC) | Phone: | [address] [facility] | | | | | Procedures | [phone] | Hospital | | | | | CT NECK SOFT | Fax: | [place], [place] | | | | | TISSUE W | [phone] | [address] | | | | | [place] | | Phone: | | | | | CT NECK | | [phone] | | | | | TISSUE | | Fax: | | | | | CONTRAST | | [phone] | +--------+--------+ + + + + Reason for Visit + + + | Reason | Comments | + + + | Research data | | | collection | | + + + Encounter Details +--------+ + + + + | Date | Type | Department | Care Team | Description | +--------+ + + + + | 10/30/ | Radar Tester | Center for | Diagonal, Chad, | 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 | MD [address] | lymphoma, | | | | Malignancies at | [address] [place], [place] | unspecified body | | | | [facility] | [address] | region (HCC) | | | | [address] | [phone] | (Primary Dx) | | | | [employer] | | | | | | Mailcode: [id number] | | | | | | [facility] | | | | | | [place], [place] | | | | | | [address] | | | | | | [phone] | | | +--------+ + + + [...] Increased | | prominence of posterior mediastinal adriana mass. Please [...]
--- OUTSIDE RECORDS SUMMARY | ~2017-08-01 | XMS | Encounter Summary ---
Demographics + + + | Address | [address] | | | [place] [address] | + + + | Home Phone [...] + + +-------+ ECON | [address] | | [place] | [address] | +------+ + + + +-------+ Care Team Providers + +------+-------+ | Care Arrt Technologist Name | Role | Phone | + +------+-------+ | Jamaal Rivera MD | PCP | tel | + +------+-------+ Encounter Details +--------+ + + + + | Date | Type | Department | Care Team | Description | +--------+ + + + + | 06/21/ | MyChart | Cardiology General | | A message from your | | 2016 | Encounter | at [facility] [address] | | Deputy Chief Magistrate | | | | Cornel Cooley Mailcode: | | | | | | [facility] | | | | | | Health and Healing, | | | | | | [address] [facility], | | | | | | [place] [address] | | | | | | [phone] | | | +--------+ + + + [...]
--- OUTSIDE RECORDS SUMMARY | ~2017-08-01 | XMS | Encounter Summary ---
Demographics + + + | Address | [address] | | | [place] [address] | + + + | Home Phone [...] + + + | Author | [facility] | + + + | Organization | [facility] | + + + | Address | Unknown | + + + | Phone | Unavailable | + + + Support +------+ + + + +-------+ | Name | Relationship | Address | Phone | +------+ + + + +-------+ ECON | [address] | | [place] | [address] | +------+ + + + +-------+ Care Team Providers + +------+-------+ | Care Business Integration Manager Name | Role | Phone | + +------+-------+ | Jamaal Rivera MD | PCP | tel | + +------+-------+ Encounter Details +--------+ + + + + | Date | Type | Department | Care Team | Description | +--------+ + + + + | 05/30/ | Washtub Worker Helper | Center for | Chad Lowe, | 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 | [address] | lymphoma of | | | | Malignancies at | [address] [place], [place] | intra-abdominal | | | | [place] | [address] | lymph nodes (HCC) | | | | [address] | [phone] | (Primary Dx) | | | | Concha Bourgeois | | | | | | Mailcode: [id number] | | | | | | [place] | | | | | | [place], [place] | | | | | | [address] | | | | | | [phone] | | | +--------+ + + + [...]
--- OUTSIDE RECORDS SUMMARY | ~2017-08-01 | XMS | Encounter Summary ---
Demographics + + + | Address | [address] | | | [place] [address] | + + + | Home Phone | | + + + | Preferred Language | Unknown | + + + | Marital Status | | + + + | Scientologist Affiliation | LUT | + + + | Race | White | + + + | Ethnic Group | Not or | + + + Author + + + | Author | [facility] | + + + | Organization | [facility] | + + + | Address | Unknown | + + + | Phone | Unavailable | + + + Support +------+ + + + +-------+ | Name | Relationship | Address | Phone | +------+ + + + +-------+ ECON | [address] | | [place] | [address] | +------+ + + + +-------+ Care Team Providers + +------+-------+ | Care Intellectual Property Lawyer Name | Role | Phone | + +------+-------+ | Jamaal Rivera MD | PCP | tel | + +------+-------+ Encounter Details +--------+ + + + + | Date | Type | Department | Care Team | Description | +--------+ + + + + | 05/23/ | Hospital | Diagnostic Imaging | Chad oLwe, | | | 2017 | Encounter | Services at [facility] | MD [address] | | | | | [address] | [place], [place] | | | | | [facility] | [address] | | | | | Mailcode: [id number] [facility] | [phone] | | | | | [facility], | | | | | | [place] [address] | | | | | | [phone] | | | +--------+ + + + [...] Laboratory | + + + | | [facility] RADIOLOGY VOICE RECOGNITION | + [...] expression and a | | | | CD4:SH6rfrnd of 5.3:1. Preliminary findings | | | [...] CD38,CD45, HLA-DR | | | | and [place]-positive ([id number]; | | | | 06/30/2014). Gross | | | | Description:Received is one specimen | | | | labeled with the patient's name (initials | | | | DF) andmedical record #[id number]. A: | | | | Right inguinal [...] | | | | may not be senior patient account representative of thesubmitted | | | | [...] CD8 C | | | | D10 [id number] CD22 CD23 CD25 CD34 CD38 | | | | CD45 [id number] | | | | sKappa sLambda (Analyte | | | | specific reagents are used in many | | | | laboratory tests necessary forstandard | | | | medical care. This test was developed | | | | and its performancecharacteristics | | | | determined by [facility]. It has | | | | not [...] + | Tissue - Lymph node | [facility] DEPARTMENT OF PATHOLOGY [address] | | | [place] [address] | + + + in this encounter Visit Diagnoses + + | Diagnosis | + + | Diffuse large B-cell lymphoma, unspecified body region (HCC) | + +"
--- OUTSIDE RECORDS SUMMARY | ~2017-08-01 | XMS | Encounter Summary ---
Demographics + + + | Address | [address] | | | [place] [address] | + + + | Home Phone [...] + + + +-------+ ECON | [address] | | [place] | [address] | +------+ + + + +-------+ Care Team Providers + +------+-------+ | Care Network Mgr Name | Role | Phone | + [...] | | Diffuse | MD Chad | [facility] [address] | | | | | large B-cell | [address] | | | | | lymphoma of | [address] | Mailcode: | | | | | lymph nodes | [place], [place] | [address] | | | | | of [facility] | [address] | for Health | | | | | regions | Phone: | and Healing, | | | | | (HCC) | [phone] | 3rd Floor | | | | | Procedures | Fax: | [place], [place] | | | | | CT CHEST, | [phone] | [address] | | | | | ABDOMEN AND | | Phone: | | | | | PELVIS W IV | | [phone] | | | | | [place] | | Fax: | | | | | CAT SCAN OF | | [phone] | | | | | CHEST | | | | | | | [place] | | | | | | | [...] | | | | lymph nodes | [place], [place] | [facility] | | | | | of multiple | [address] | for Health | | | | | regions | Phone: | and Healing, | | | | | (HCC) | [phone] | 3rd Floor | | | | | Procedures | Fax: | [place], [place] | | | | | CT CHEST, | [phone] | [address] | | | | | ABDOMEN AND | | Phone: | | | | | PELVIS W IV | | [phone] | | | | | [place] | | Fax: | | | | | CAT SCAN OF | | [phone] | | | | | CHEST | | | | | | | [place] | | | | | | | [...] | | | | lymph nodes | [place], [place] | [facility] | | | | | of multiple | [address] | for Health | | | | | regions | Phone: | and Healing, | | | | | (HCC) | [phone] | 3rd Floor | | | | | Procedures | Fax: | [place], [place] | | | | | CT CHEST, | [phone] | [address] | | | | | ABDOMEN AND | | Phone: | | | | | PELVIS W IV | | [phone] | | | | | [place] | | Fax: | | | | | CAT SCAN OF | | [phone] | | | | | CHEST | | | | | | | [place] | | | | | | | [...] | 2017 | Encounter | Services at [facility] | MD [address] | | | | | [address] | [place], [place] | | | | | [facility] | [address] | | | | | Mailcode: [address] [facility] | [phone] | | | | | [facility], | | | | | | [place] [address] | | | | | | [phone] | | | +--------+ + + + [...] Laboratory | + + + | | [facility] RADIOLOGY VOICE RECOGNITION | + + + [...]
--- OUTSIDE RECORDS SUMMARY | ~2017-08-01 | XMS | Encounter Summary ---
Demographics + + + | Address | [address] | | | [place] [address] | + + + | Home Phone | | + + + | Preferred Language | Unknown | + + + | Marital Status | | + + + | Jainism Affiliation | LUT | + + + | Race | White | + + + | Ethnic Group | Not or | + + + Author + + + | Author | [facility] | + + + | Organization | [facility] | + + + | Address | Unknown | + + + | Phone | Unavailable | + + + Support +------+ + + + +-------+ | Name | Relationship | Address | Phone | +------+ + + + +-------+ ECON | [address] | | [place] | [address] | +------+ + + + +-------+ Care Team Providers + +------+-------+ | Care Video Photographer Name | Role | Phone | + [...] | | unspecified | [address] | [place], [place] | | | | | site | Mailcode: | [id number] | | | | | Procedures | [id number] | Phone: | | | | | [place] RITUXIMAB | [place] | [phone] | | | | | INJ, 100 MG | Pavilion | Fax: | | | | | [place] | [place], [place] | [phone] | | | | | GEMCITABINE | [address] | | | | | | HCL, 200 MG | Phone: | | | | | | [place] | [phone] | | | | | | DEXAMETHASON | Fax: | | | | | | E SODIUM | [phone] | | | | | | PHOSPHATE, | | | | | | | 1MG [place] | | | | | | | CISPLATIN 10 | | | | | | | MG | | | | | | | INJECTION | | | | | | | [place] CHM,IV | | | | | | | INFSN,1 HR | | | | | | | [place] CHM,IV | | | | | | | INFSN,ADDL | | | | | | | HR [place] CHM | | | | | | [...] + + | 05/30/ | Hospital | [place] [facility] | | | | 2016 | Encounter | Hematologic | | | | | | Malignancies at [facility] | | | | | | [address] | | | | | | [facility] | | | | | | Mailcode: [id number] | | | | | | [address] | | | | | | [place], [place] | | | | | | [address] | | | | | | [phone] | | | +--------+ + + + [...] mL was discarded. Study labs, SOC and [place] labs drawn and sent. PAC flushed with [...] | + + + | Blood | [facility], POINT OF CARE TESTS [address] | | | [place] [address] | + + + CBC+DIFF,POC (05/30/2017 11:25 [...] | + + + | Blood | [facility], POINT OF CARE TESTS [address] | | | [place] [address] | + + + 12 LEAD ECG [...] Laboratory | + + + | | [facility] [address] [place] [address] | | | [place] [address] | + + + LDH TOTAL (05/30/2017 11:00 AM) + + + | Specimen | Performing Laboratory | + + + | Blood | | + + + + + | Narrative | + + | The following orders were created for panel order LDH TOTAL. | | Procedure | | Abnormality Status | | --------- | | ------ LDH TOTAL, | | PLASMA[[id number]] Abnormal Final | | result Please view [...] --------- | | ------ MAGNESIUM, | | PLASMA[[id number]] Normal Final | | result Please view [...] | + + + | Blood | [facility], CORE [address] | | | [place], [place] [address] | + + + MAGNESIUM, PLASMA (05/30/2017 11:00 AM) + +-------+ + | Component | Value | Ref Range | + +-------+ + | MAGNESIUM,PLASMA | 2.2 | 1.6 - 2.6 mg/dL | + +-------+ + + + + | Specimen | Performing Laboratory | + + + | Blood | [facility], CORE [address] [place] [address] | | | [place] [address] | + + + + + | [...] | SPECIFIC GRAVITY | 1.004 (L)Comment: Specific [place] | 1.005 - 1.030 | | | performed by refractometry | | + + + + + + + | Specimen | Performing Laboratory | + + + | Urine | [facility], CORE [address] | | | [place] [address] | + + + INR (05/30/2017 10:59 AM) + + + + | Component | Value | Ref Range | + + + + | INR | 1.38 (H) | 0.90 - 1.20 INR | + + + + + + + | Specimen | Performing Laboratory | + + + | Blood | [facility], CORE [address] | | | [place] [address] | + + + + + | [...] | + + + | Blood | [facility], CORE [address] | | | [place], [place] [address] | + + + T3 TOTAL, SERUM (05/30/2017 10:59 AM) + +-------+ + | Component | Value | Ref Range | + +-------+ + | T3, TOTAL | 114 | 87 - 196 ng/dL | + +-------+ + + + + | Specimen | Performing Laboratory | + + + | Blood | [facility] [address] [place], [place] | | | [address] | + + + PROTEIN C ACTIVITY REFLEX INR, PLASMA (05/30/2017 10:59 AM) + + + + | Component | Value | Ref Range | + + + + | PROTEIN C ACTIVITY | 0.69 (L) | 0.82 - 1.54 U/mL | + + + + + + + | Specimen | Performing Laboratory | + + + | Blood | [facility], SPECIAL IMM + COAG [address] [facility] | | | [place] [address] | + + + + + | [...] | + + + | Blood | [facility], CORE [address] | | | [facility] [place] [address] | + + + AMYLASE, PLASMA (05/30/2017 10:59 AM) + +--------+ + | Component | Value | Ref Range | + +--------+ + | AMYLASE,PLASMA | 23 (L) | 25 - 115 U/L | + +--------+ + + + + | Specimen | Performing Laboratory | + + + | Blood | [facility], CORE [address] [place] [address] | | | [place] [address] | + + + TSH (05/30/2017 10:59 AM) + +-------+ + | Component | Value | Ref Range | + +-------+ + | TSH | 1.29 | 0.47 - 7.11 mIU/L | + +-------+ + + + + | Specimen | Performing Laboratory | + + + | Blood | [facility], CORE [address] [place] [address] | | | [place] [address] | + + + + + | [...] 12:07 | | | | | dose, [facility] 05/30/17 at 1200 | | PST [...] | | | | | | | [facility] 05/30/17 at 1200, HIGH | | [...] PST | | | | | Starting [facility] 05/30/17 at 1728, | | | [...] 12:12 | | | | | dose, [facility] 05/30/17 at 1200 | | PST [...] mL/hr | | | ONCE, 1 dose, [facility] 05/30/17 at | | PST | | | | | 1200 | | | | | | + +---------+ + +-------+---+ +---+---+ | | | +---+---+ in this encounter"
--- OUTSIDE RECORDS SUMMARY | ~2017-08-01 | XMS | Clinical Summary ---
Demographics + + + | Address | [address] | | | [place] [address] | + + + | Home Phone | | + + + | Preferred Language | Unknown | + + + | Marital Status | | + + + | Congregational Affiliation | LUT | + + + | Race | White | + + + | Ethnic Group | Not or | + + + Author + + + | Author | [facility] | + + + | Organization | [facility] | + + + | Address | Unknown | + + + | Phone | Unavailable | + + + Support +------+ + + + +-------+ | Name | Relationship | Address | Phone | +------+ + + + +-------+ ECON | [address] | | [place] | [address] | +------+ + + + +-------+ Care Team Providers + +------+-------+ | Care Director Process Improvement Name | Role | Phone | + +------+-------+ | Jamaal Rivera MD | PP | tel | + +------+-------+ Source Comments RUFUS is fully live on both [facility] Ambulatory and [facility] InPatient.[facility] [employer] [facility] Allergies No Known Allergies Current Medications [...] | | | | | | | ([facility]) | | | | | | | [...] | + + + + + | [facility]: 4422 | + + + + + [...] + + + + | 06/25/ | Wellness Trainer | | Chad Lowe, | Diffuse large [...] | 2017 | Encounter | | | Pulp Bleacher | +--------+ + + + + | 06/20/ | Procedure | | | | | 2016 | Pass | | | | +--------+ + + + + | 06/20/ | Procedure | | | | | 2016 | Pass | | | | +--------+ + + + + | 06/20/ | Wellness Trainer | | Chad Lowe, | Diffuse large [...] + + + + | 05/30/ | Wellness Trainer | | Chad Lowe, | Diffuse large [...] + + + + | 05/29/ | Wellness Trainer | | Chad Lowe, | Diffuse large [...] + + + + | 05/24/ | Wellness Trainer | | Chad Lowe, | 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) | | | | | | (Primary Dx) | +--------+ + + + + | 05/24/ | Wellness Trainer | | Chad Lowe, | 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) | | | | | | (Primary Dx) | +--------+ + + + + | 05/24/ | Wellness Trainer | | Chad Lowe, | | | 2016 | | | MD | | +--------+ + + + + | 05/23/ | Hospital | | Chad Lowe, | | | 2016 | Encounter | | MD | | +--------+ + + + + | 05/23/ | Wellness Trainer | | Chad Lowe, | Dermatitis | [...] + + + + | 05/17/ | Wellness Trainer | | Chad Lowe, | Diffuse large [...] + + + + | 05/15/ | Wellness Trainer | | Chad Lowe, | Other acute | | 2016 | | | MD | pulmonary embolism | | | | | | without acute cor | | | | | | pulmonale (HCC) | | | | | | (Primary Dx) | +--------+ + + + + | 05/15/ | Wellness Trainer | | Chad Lowe, | Diffuse large [...] + + + + | 05/14/ | Wellness Trainer | | Chad Lowe, | Diffuse large [...] + + + + | 05/13/ | Wellness Trainer | | Chad Lowe, | Diffuse large B-cell | | 2016 | | | MD | lymphoma, | | | | | | unspecified body | | | | | | region (HCC) | | | | | | (Primary Dx) | +--------+ + + + + | 05/09/ | Wellness Trainer | | Chad Lowe, | Diffuse large [...] + + + + | 05/01/ | Wellness Trainer | | Chad Lowe, | Diffuse large [...] Lot | + +------+------+ +--------+--------+--------+ | [place] [facility] [place] | | | | | | | [...] | + + + | Blood | [facility] POINT OF CARE TESTS [address] | | | [place] [address] | + + + COMPLETE METABOLIC PANEL (05/30/2017 11:26 AM)Only the most recent of 3 results within the time period is included. + + + | Specimen | Performing Laboratory | + + + | Blood | | + + + CMP, POC (BMP+LFT) (05/30/2017 11:26 AM)Only the most recent of 3 results within the time p david is included. + +-------+ + | Component [...] | + + + | Blood | [facility] POINT OF CARE TESTS [address] | | | [place] [address] | + + + CBC WITH AUTO DIFF (05/30/2017 11:25 AM)Only the most recent of 3 results within the time lucretia hernandez is included. + + + | Specimen [...] | + + + | Blood | [facility], POINT OF CARE TESTS [address] | | | [place] [address] | + + + 12 LEAD ECG [...] Laboratory | + + + | | [facility] [address] [place] [address] | | | [place] [address] | + + + MAGNESIUM, PLASMA (05/30/2017 11:00 AM) + + + | Specimen | Performing Laboratory | + + + | Blood | | + + + + + | Narrative | + + | The following orders were created for panel order MAGNESIUM, PLASMA. | | Procedure | | Abnormality Status | | --------- | | ------ MAGNESIUM, | | PLASMA[[id number]] Normal Final | | result Please view [...] | | ------ LDH TOTAL, | | PLASMA[[id number]] Abnormal Final | | result Please view results for these tests on the | | individual orders. | + + BENEDICT RIVERASTNICKO ONLY (05/30/2017 11:00 AM)Only the most recent of 2 results within the time lolis tripp is included. + + + + | [...] | SPECIFIC GRAVITY | 1.004 (L)Comment: Specific [place] | 1.005 - 1.030 | | | performed by refractometry | | + + + + + + + | Specimen | Performing Laboratory | + + + | Urine | [facility], CORE [address] [facility] | | | [place] [address] | + + + MAGNESIUM, PLASMA (05/30/2017 [...] | + + + | Blood | [facility], CORE [address] [facility] | | | [place] [address] | + + + + + | [...] | + + + | Blood | [facility], CORE [address] | | | [place] [address] | + + + PROTEIN C ACTIVITY [...] | + + + | Blood | [facility], SPECIAL IMM + COAG [address] [facility] | | | [place] [address] | + + + + + | [...] | + + + | Blood | [facility], CORE [address] [facility] | | | [place] [address] | + + + + + | [...] | + + + | Blood | [facility], CORE [address] [facility] | | | [place] [address] | + + + T3 TOTAL, SERUM [...] + | Blood | [facility] [place] [address] [address] [place], [place] | | | [address] | + + + TSH (05/30/2017 10:59 AM)Only the most recent of 3 results within the time period is includ ed. + +-------+ + | Component | Value | Ref Range | + +-------+ + | TSH | 1.29 | 0.47 - 7.11 mIU/L | + +-------+ + + + + | Specimen | Performing Laboratory | + + + | Blood | [facility], CORE [address] [facility] | | | [place] [address] | + + + + + | [...] | + + + | Blood | [facility], CORE [address] [place] [address] | | | [place] [address] | + + + AMYLASE, PLASMA (05/30/2017 [...] | + + + | Blood | [facility], CORE [address] [facility] | | | [place] [address] | + + + US NEEDLE BIOPSY [...] expression and a | | | | CD4:FR8gbpxi of 5.3:1. Preliminary findings | | | [...] CD38,CD45, HLA-DR | | | | and [place]-positive ([id number]; | | | | 06/30/2014). Gross | | | | Description:Received is one specimen | | | | labeled with the patient's name (initials | | | | DF) andmedical record #[id number]. A: | | | | Right inguinal [...] | | | | may not be community service representative of thesubmitted | | | | [...] CD8 C | | | | D10 [id number] CD22 CD23 CD25 CD34 CD38 | | | | CD45 [id number] | | | | Charles Grimaldo (Analyte | | | | specific reagents are used in many | | | | laboratory tests necessary forstandard | | | | medical care. This test was developed | | | | and its performancecharacteristics | | | | determined by [employer]. It has | | | | not [...] + | Tissue - Lymph node | [facility] [address] [facility] | | | [place] [address] | + + + TROPONIN I, PLASMA (05/14/2017 7:45 AM) + +-------+ + | Component | Value | Ref Range | + +-------+ + | TROPONIN I | 0.02 | <0.80 ng/mL | + +-------+ + + + + | Specimen | Performing Laboratory | + + + | Blood | [facility], CORE [address] | | | [place] [address] | + + + COMPLEMENT ACTIVITY ENZYME [...] ....... | | | | HighPerformed by [employer],[address] | | | | [address], [facility] [address] | | | | [phone], Graham Meza, | | | | , Lab. Director | | | |[email or web address], Graham Meza MD, Lab. Director | | + + + + + + + | Specimen | Performing Laboratory | + + + | Blood | [facility] [address] [facility] | | | [place] [address] | + + + C'4 COMPLEMENT, SERUM (05/14/2017 7:45 AM) + +-------+ + | Component | Value | Ref Range | + +-------+ + | C'4 COMPLEMENT SERUM | 40 | 16 - 47 mg/dL | + +-------+ + + + + | Specimen | Performing Laboratory | + + + | Blood | [facility] [address] [place], [place] | | | [address] | + + + IGM, SERUM (05/14/2017 [...] | + + + | Blood | [facility] [id number] [place] [address] | | | [address] | + + + IGG, SERUM (05/14/2017 [...] | + + + | Blood | [facility] [address] [place], [place] | | | [address] | + + + IGA, SERUM (05/14/2017 [...] | + + + | Blood | [facility] [address] [place], [place] | | | [address] | + + + C'3 COMPLEMENT, SERUM (05/14/2017 7:45 AM) + +-------+ + | Component | Value | Ref Range | + +-------+ + | C'3 COMPLEMENT SERUM | 121 | 88 - 201 mg/dL | + +-------+ + + + + | Specimen | Performing Laboratory | + + + | Blood | [facility] [address] [place], [place] | | | [address] | + + + PHOSPHORUS, PLASMA (05/14/2017 [...] | + + + | Blood | [facility], CORE [address] [facility] | | | [place] [address] | + + + URIC ACID, PLASMA [...] | + + + | Blood | [facility], CORE [address] [facility] | | | [place] [address] | + + + RESEARCH TUMOR READING [...] | | size product (SD x LD): 215 NON-TARGET LESIONS # Non-Target | | Lesions: [...] | + + + | Blood | [facility], CORE [address] | | | [place] [address] | + + + + + | Narrative | + + | New method, new reference range and new reporting units as of 12/16/2013. | + + from Last 3 Months
--- OUTSIDE RECORDS SUMMARY | ~2017-08-01 | XMS | Encounter Summary ---
Demographics + + + | Address | [address] | | | [place] [address] | + + + | Home Phone [...] + + + +-------+ ECON | [address] | | [place] | [address] | +------+ + + + +-------+ Care Team Providers + +------+-------+ | Care Stator Plate Washer Name | Role | Phone | + +------+-------+ | Jamaal Rivera MD | PCP | tel | + +------+-------+ Encounter Details +--------+ + + + + | Date | Type | Department | Care Team | Description | +--------+ + + + + | 06/25/ | Diesel Fleet Mechanic | Center for | Chad Lowe, | 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 | [address] | lymphoma of lymph | | | | Malignancies at | [address] [place], [place] | nodes of multiple | | | | [facility] | [address] | regions (HCC) | | | | [address] | [phone] | (Primary Dx) | | | | Concha Bourgeois | | | | | | Mailcode: [id number] | | | | | | [facility] | | | | | | [place], [place] | | | | | | [address] | | | | | | [phone] | | | +--------+ + + + [...]
--- OUTSIDE RECORDS SUMMARY | ~2017-08-01 | XMS | Encounter Summary ---
Demographics + + + | Address | [address] | | | [place] [address] | + + + | Home Phone | | + + + | Preferred Language | Unknown | + + + | Marital Status | | + + + | Episcopalian Affiliation | LUT | + + + | Race | White | + + + | Ethnic Group | Not or | + + + Author + + + | Author | [facility] | + + + | Organization | [facility] | + + + | Address | Unknown | + + + | Phone | Unavailable | + + + Support +------+ + + + +-------+ | Name | Relationship | Address | Phone | +------+ + + + +-------+ ECON | [address] | | [place] | [address] | +------+ + + + +-------+ Care Team Providers + +------+-------+ | Care Hand Driller Name | Role | Phone | + +------+-------+ | Jamaal Rivera MD | PCP | tel | + +------+-------+ Encounter Details +--------+ + + + + | Date | Type | Department | Care Team | Description | +--------+ + + + + | 05/23/ | Hospital | Diagnostic Imaging | Chad Lowe, | | | 2017 | Encounter | Services at [facility] | MD Andrew Unger | | | | | [address] | [place], [place] | | | | | [facility] | [address] | | | | | Mailcode: [address] [facility] | [phone] | | | | | [facility], | | | | | | [place] [address] | | | | | | [phone] | | | +--------+ + + + [...] Laboratory | + + + | | [facility] RADIOLOGY VOICE RECOGNITION | [...] expression and a | | | | CD4:GV2kbarr of 5.3:1. Preliminary findings | | | [...] CD38,CD45, HLA-DR | | | | and [place]-positive ([id number]; | | | | 06/30/2014). Gross | | | | Description:Received is one specimen | | | | labeled with the patient's name (initials | | | | DF) andmedical record #[id number]. A: | | | | Right inguinal [...] | | | | may not be call center representative of thesubmitted | | | | [...] CD8 C | | | | D10 [id number] CD22 CD23 CD25 CD34 CD38 | | | | CD45 [id number] | | | | sKappa sLambda (Analyte | | | | specific reagents are used in many | | | | laboratory tests necessary forstandard | | | | medical care. This test was developed | | | | and its performancecharacteristics | | | | determined by [facility] Chloe + Isabel. It has | | | | not [...] + | Tissue - Lymph node | [facility] DEPARTMENT OF PATHOLOGY [address] | | | [place] [address] | + + + in this encounter Visit Diagnoses + + | Diagnosis | + + | Diffuse large B-cell lymphoma, unspecified body region (HCC) | + +"
--- OUTSIDE RECORDS SUMMARY | ~2017-08-01 | XMS | Encounter Summary ---
Demographics + + + | Address | [address] | | | [place] [address] | + + + | Home Phone | | + + + | Preferred Language | Unknown | + + + | Marital Status | | + + + | Restorationist Affiliation | LUT | + + + | Race | White | + + + | Ethnic Group | Not or | + + + Author + + + | Author | [facility] | + + + | Organization | [facility] | + + + | Address | Unknown | + + + | Phone | Unavailable | + + + Support +------+ + + + +-------+ | Name | Relationship | Address | Phone | +------+ + + + +-------+ ECON | [address] | | [place] | [address] | +------+ + + + +-------+ Care Team Providers + +------+-------+ | Care Candle Maker Name | Role | Phone | + +------+-------+ | Jamaal Rivera MD | PCP | tel | + +------+-------+ Encounter Details +--------+ + + + + | Date | Type | Department | Care Team | Description | +--------+ + + + + | 05/23/ | Routing Clerk | Center for | hCad Lowe, | Dermatitis | | 2017 | | Hematologic | [address] | | | | | Malignancies at | [address] [place], [place] | | | | | [facility] | [address] | | | | | [address] | [phone] | | | | | [facility] | | | | | | Mailcode: [facility] | | | | | | [address] | | | | | | [place], [place] | | | | | | [address] | | | | | | [phone] | | | +--------+ + + + [...]
--- OUTSIDE RECORDS SUMMARY | ~2017-08-01 | XMS | Encounter Summary ---
Demographics + + + | Address | [address] | | | [place] [address] | + + + | Home Phone | | + + + | Preferred Language | Unknown | + + + | Marital Status | | + + + | Worship Affiliation | LUT | + + + [...] + + +-------+ ECON | [address] | | [place] | [address] | +------+ + + + +-------+ Care Team Providers + +------+-------+ | Care Music Library Assistant Name | Role | Phone | + +------+-------+ | Jamaal Rivera MD | PCP | tel | + +------+-------+ Encounter Details +--------+ + + + + | Date | Type | Department | Care Team | Description | +--------+ + + + + | 05/14/ | Hospital | Diagnostic Imaging | Chad Lowe, | | | 2016 | Encounter | Services at [facility] | MD [place] | | | | | [address] | [place], [place] | | | | | [facility] | [address] | | | | | Mailcode: [address] [facility] | [phone] | | | | | [facility], | | | | | | [place] [address] | | | | | | [phone] | | | +--------+ + + + [...]
--- OUTSIDE RECORDS SUMMARY | ~2017-08-01 | XMS | Encounter Summary ---
Demographics + + + | Address | [address] | | | [place] [address] | + + + | Home Phone [...] + + +-------+ ECON | [address] | | [place] | [address] | +------+ + + + +-------+ Care Team Providers + +------+-------+ | Care Fire Investigator Name | Role | Phone | + [...] | | Diffuse | MD Chad | [facility] [address] | | | | | large B-cell | [address] | | | | | lymphoma of | [address] | Mailcode: | | | | | lymph nodes | [place], [place] | [address] | | | | | of [facility] | [address] | for Health | | | | | regions | Phone: | and Healing, | | | | | (HCC) | [phone] | 3rd Floor | | | | | Procedures | Fax: | [place], [place] | | | | | CT CHEST, | [phone] | [address] | | | | | ABDOMEN AND | | Phone: | | | | | PELVIS W IV | | [phone] | | | | | CONTRAST CA | | Fax: | | | | | CAT SCAN OF | | [phone] | | | | | CHEST | | | | | | | CONTRAST CA | | | | | | | [...] | | | | lymph nodes | [place], [place] | [facility] | | | | | of multiple | [address] | for Health | | | | | regions | Phone: | and Healing, | | | | | (HCC) | [phone] | 3rd Floor | | | | | Procedures | Fax: | [place], [place] | | | | | CT CHEST, | [phone] | [address] | | | | | ABDOMEN AND | | Phone: | | | | | PELVIS W IV | | [phone] | | | | | CONTRAST CA | | Fax: | | | | | CAT SCAN OF | | [phone] | | | | | CHEST | | | | | | | CONTRAST CA | | | | | | | [...] | | | | lymph nodes | [place], [place] | [facility] | | | | | of multiple | [address] | for Health | | | | | regions | Phone: | and Healing, | | | | | (HCC) | [phone] | 3rd Floor | | | | | Procedures | Fax: | [place], [place] | | | | | CT CHEST, | [phone] | [address] | | | | | ABDOMEN AND | | Phone: | | | | | PELVIS W IV | | [phone] | | | | | CONTRAST CA | | Fax: | | | | | CAT SCAN OF | | [phone] | | | | | CHEST | | | | | | | CONTRAST CA | | | | | | | [...] | 2017 | Encounter | Services at [facility] | MD Andrew Unger | | | | | [address] | [place], [place] | | | | | [facility] | [address] | | | | | Mailcode: [id number] [facility] | [phone] | | | | | [facility], | | | | | | [place] [address] | | | | | | [phone] | | | +--------+ + + + [...] Laboratory | + + + | | [facility] RADIOLOGY VOICE RECOGNITION | + [...]
--- OUTSIDE RECORDS SUMMARY | ~2017-08-01 | XMS | Encounter Summary ---
Demographics + + + | Address | [address] | | | [place] [address] | + + + | Home Phone | | + + + | Preferred Language | Unknown | + + + | Marital Status | | + + + | Tenriism Affiliation | LUT | + + + | Race | White | + + + | Ethnic Group | Not or | + + + Author + + + | Author | [facility] | + + + | Organization | [facility] | + + + | Address | Unknown | + + + | Phone | Unavailable | + + + Support +------+ + + + +-------+ | Name | Relationship | Address | Phone | +------+ + + + +-------+ ECON | [address] | | [place] | [address] | +------+ + + + +-------+ Care Team Providers + +------+-------+ | Care Navy Seal Name | Role | Phone | + +------+-------+ | Jamaal Rivera MD | PCP | tel | + +------+-------+ Encounter Details +--------+ + + + + | Date | Type | Department | Care Team | Description | +--------+ + + + + | 05/14/ | Procedure | Diagnostic Imaging | | | | 2017 | Pass | Services at [facility] | | | | | | [address] | | | | | | [facility] | | | | | | Mailcode: L340 [facility] | | | | | | [facility], | | | | | | [place] [address] | | | | | | [phone] | | | +--------+ + + + [...]
--- OUTSIDE RECORDS SUMMARY | ~2017-08-01 | XMS | Encounter Summary ---
Demographics + + + | Address | [address] | | | [place] [address] | + + + | Home Phone [...] + + + +-------+ ECON | [address] | | [place] | [address] | +------+ + + + +-------+ Care Team Providers + +------+-------+ | Care Sprinkler Fitter Helper Name | Role | Phone [...] | | | | | bulinemia | [place], [place] | [facility] | | | | | Procedures | [address] | Road | | | | | [place] INJ IG | Phone: | Mailcode: | | | | | [place] | [phone] | [id number] | | | | | IV, 500 MG | Fax: | [place] | | | | | [place] | [phone] | Pavilion | | | | | THR/PRPH/DX | | [place], [place] | | | | | IV INF,IN | | [address] | | | | | [place] | | Phone: | | | | | THER/PROPH/D | | [phone] | | | | | IAG IV IVIG | | Fax: | | | | | | | [phone] | +--------+--------+ + + + + Encounter Details +--------+ + + + + | Date | Type | Department | Care Team | Description | +--------+ + + + + | 05/02/ | [facility] | [facility] for | | | | 2017 | Encounter | Hematologic | | | | | | Malignancies at [facility] | | | | | | [address] | | | | | | [facility] | | | | | | Mailcode: [id number] | | | | | | [place] | | | | | | [place], [place] | | | | | | [address] | | | | | | [phone] | | | +--------+ + + + [...] 0.8 EOSPERC 1.5 Nursing Assessment: INV BMS 827714 (Anti LAG-3) + Nivolumab Part C & [...] was checked by 2 RNs. INV BMS [id number] (Anti- LAG 3) 160 mg IV was [...] lunch until 14:00. Patient instructed to call graphotype operator/career information specialist provider for fevers 100.4 F or greater, uncont rolled nausea, vomiting, diarrhea, rash, SOB, chest pain and bleeding. 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 | | | [place] [address] | + + + CMP, POC (BMP+LFT) [...] | + + + | Blood | [facility] POINT OF [facility] [address] | | | [place] [address] | + + + URIC ACID, PLASMA (05/02/2017 8:10 AM) + +-------+ + | Component | Value | Ref Range | + +-------+ + | URIC ACID, PLASMA | 6.0 | 3.7 - 8.0 mg/dL | | (LAB) | | | + +-------+ + + + + | Specimen | Performing Laboratory | + + + | Blood | [facility] CORE [address] | | | [place] [address] | + + + PHOSPHORUS, PLASMA (05/02/2017 8:10 AM) + +-------+ + | Component | Value | Ref Range | + +-------+ + | PHOSPHORUS, PLASMA | 2.8 | 2.4 - 4.7 mg/dL | | (LAB) | | | + +-------+ + + + + | Specimen | Performing Laboratory | + + + | Blood | [facility] CORE [address] | | | [place] [address] | + + + MAGNESIUM, PLASMA (05/02/2017 8:10 AM) + +-------+ + | Component | Value | Ref Range | + +-------+ + | MAGNESIUM,PLASMA | 2.2 | 1.6 - 2.6 mg/dL | + +-------+ + + + + | Specimen | Performing Laboratory | + + + | Blood | [facility], CORE [address] [address] | | | [place] [address] | + + + + + | [...] + + | Blood | [facility] CORE [address] | | | [place] [address] | + + + FREE T4 (05/02/2017 8:10 AM) + +-------+ + | Component | Value | Ref Range | + +-------+ + | FREE T4 | 0.9 | 0.6 - 1.2 ng/dL | + +-------+ + + + + | Specimen | Performing Laboratory | + + + | Blood | [facility] CORE [address] | | | [place] [address] | + + + T3 TOTAL, SERUM (05/02/2017 8:10 AM) + +-------+ + | Component | Value | Ref Range | + +-------+ + | T3, TOTAL | 114 | 87 - 196 ng/dL | + +-------+ + + + + | Specimen | Performing Laboratory | + + + | Blood | [facility] [place] [address] [facility] | | | [address] | + + + IGA, SERUM (05/02/2017 8:10 AM) + +-------+ + | Component | Value | Ref Range | + +-------+ + | IGA SERUM | 264 | 70 - 400 mg/dL | + +-------+ + + + + | Specimen | Performing Laboratory | + + + | Blood | [facility] [address] [place], [place] | | | [address] | + + + IGG, SERUM (05/02/2017 8:10 AM) + +-------+ + | Component | Value | Ref Range | + +-------+ + | IGG SERUM | 928 | 700 - 1600 mg/dL | + +-------+ + + + + | Specimen | Performing Laboratory | + + + | Blood | [facility] [address] [place], [place] | | | [address] | + + + IGM, SERUM (05/02/2017 8:10 AM) + +--------+ + | Component | Value | Ref Range | + +--------+ + | IGM SERUM | 34 (L) | 40 - 230 mg/dL | + +--------+ + + + + | Specimen | Performing Laboratory | + + + | Blood | [facility] [address] [place], [place] | | | [address] | + + + TSH (05/02/2017 8:10 AM) + +-------+ + | Component | Value | Ref Range | + +-------+ + | TSH | 1.87 | 0.47 - 7.11 mIU/L | + +-------+ + + + + | Specimen | Performing Laboratory | + + + | Blood | [facility], CORE [address] [place] [address] | | | [place] [address] | + + + + + | [...] + + | Blood | [facility] CORE [address] [facility] [address] | | | [place] [address] | + + + + + | [...] + + | Blood | [facility] CORE [address] [facility] | | | [place] [address] | + + + LIPASE, PLASMA (05/02/2017 8:10 AM) + +---------+ + | Component | Value | Ref Range | + +---------+ + | LIPASE (LAB) | 108 (L) | 152 - 353 U/L | + +---------+ + + + + | Specimen | Performing Laboratory | + + + | Blood | [facility] [address] | | | [place] [address] | + + + in this encounter [...] +---+---+ + +---------+ +--------+ +---+ | INV BMS-[id number] (ANTI-LAG-3) 160 | New Bag | 05/02/20 [...] | | | | | ALERT MEDICATION IRB:[id number], | | | | | | | Protocol:[id number] | | | | | | + [...] | | | | | | | IRB:[id number], Protocol: [id number] | | | | | | + +-------+ +--------+-------+---+ +---+---+ | | | +---+---+ in this encounter"
--- OUTSIDE RECORDS SUMMARY | ~2017-08-01 | XMS | Encounter Summary ---
Demographics + + + | Address | [address] | | | [place] [address] | + + + | Home Phone [...] + + +-------+ ECON | [address] | | [place] | [address] | +------+ + + + +-------+ Care Team Providers + +------+-------+ | Care Guide Domestic Tour Name | Role | Phone | + [...] | | | | | [id number] | [place] | | | | | | [facility] | Pavilion | | | | | | Pavilion | [place], [place] | | | | | | [place], [place] | [address] | | | | | | [address] | Phone: | | | | | | Phone: | [phone] | | | | | | [phone] | Fax: | | | | | | Fax: | [phone] | | | | | | [phone] | | +--------+--------+ + + + + Encounter Details +--------+---------+ + + + | Date | Type | Department | Care Team | Description | +--------+---------+ + + + | 05/14/ | Office | Center for | Chad Lowe, | Diffuse large B-cell | | 2017 | Visit | Hematologic | MD [address] | lymphoma, | | | | Malignancies at | [address] [place], [place] | unspecified body | | | | [facility] | [address] | region (HCC) | | | | [address] | [phone] | | | | | [employer] | | | | | | Mailcode: [id number] | | | | | | [facility] | | | | | | [place], [place] | | | | | | [address] | | | | | | [phone] | | | +--------+---------+ + + + [...] + + + | Blood Pressure | 169/97 | 05/14/2017 8:00 AM PDT | + + + + | Pulse | 101 | 05/14/2017 8:00 AM PDT | + + + + | Temperature | 36.4 C (97.6 F) | 05/14/2017 8:00 AM PDT | + + + + | Respiratory Rate | 18 | 05/14/2017 8:00 AM PDT | + + + + | Oxygen Saturation | 96% | 05/14/2017 8:00 AM PDT | + + + + | Inhaled Oxygen | - | - | | Concentration | | | + + + + | Weight | 107.4 kg (236 lb | 05/14/2017 8:00 AM PDT | | | 12.4 oz) | | + + + + | Height | - | - | + + + + | Body Mass Index | 36 | 05/14/2017 8:00 AM PDT | + + + + in this encounter Progress Notes Chad Lowe MD - 05/14/2017 8:45 AM PDTFormatting of this note may be different fro m the original. [facility] Center for Hematologic Malignancies Follow Up 05-14-17 [facility] Physician: Chad Lowe MD Reason for Visit: Cycle 2 Day 1 of anti-LAG-3/nivo study for DLBCL S/Interval events: Feeling well. Energy level has been good. No dyspnea or cough. No palpa ble adenopathy. Skin continues to improve. 10 point ROs is otherwise negative Dx [...] topical ointment dapsone 25 mg oral tablet Take 25 mg by mouth two times daily. Indications: skin infect ion DULoxetine 30 mg oral capsule,delayed release(DR/EC) Take [...] reaction (Patient not taking: Reported on 05/14/2017) ramelteon (ROZEREM) 8 mg oral tablet Take [...] Ap ply thin film to affected areas. Past Medical History: Diagnosis Date Acosta's cyst of knee Diverticulosis DJD (degenerative joint disease) Fatty infiltration of liver Hypertension NHL (non-Hodgkin's lymphoma) (HCC) RYANNE on CPAP Pneumonia S/P nasal surgery Physical Examination: Performance Status: ECOG 1, KPS 70% BP 169/97 | Pulse 101 | Temp (Src) 36.4 C (97.6 F) (Oral) | RR 18 | Wt 107.4 kg (236 lb 12.4 oz) | SpO2 96% | BMI 36 kg/(m^2) pleasant Op clear, anicteric supple w/o adenopathy RR 2/6 holosytolic murmer, unchanged CTA b/l no wheezes or rhonchi +BSNTND no hsm No edema Palmar rash and improved pustular rash on arms Lab Results Component Value Date WBC 6.3 05/14/2017 RBC 4.16 (L) 05/14/2017 HCT 42.2 05/14/2017 HB 14.2 05/14/2017 MCV 101.4 (H) 05/14/2017 MCH 34.1 (H) 05/14/2017 MCHC 33.6 05/14/2017 PLT 175 05/14/2017 NEUTROPERC 77.9 (H) 03/12/2017 LYMPHPERC 7.7 (L) 03/12/2017 MONOPERC 13.4 (H) 05/14/2017 EOSPERC 2.5 05/14/2017 BASOPERC 1.3 05/14/2017 NEUTROPHILCO 4.1 05/14/2017 GLU 85 05/14/2017 BUN 15 05/14/2017 CR 1.2 05/14/2017 TP 6.9 05/14/2017 ALB 4.0 05/14/2017 CA 9.3 05/14/2017 TBILI 0.9 05/14/2017 AP 51 05/14/2017 AST 34 05/14/2017 NA 138 05/14/2017 K 3.9 05/14/2017 CL 101 05/14/2017 BICARB 30 (H) 05/14/2017 ALT 35 05/14/2017 Thyroid studies WNL Imaging: None new since [...] study 03/19/17 starts anti-LAG-3/nivo study -tolerating well Continues on treatment Restaging studies tonight AEs none ID: - acyclovir prophylaxis Pulmonary: -bronchitis, resolved continue MDI -PNA (persistent tree and bud in lower lobes on last CT 03/15/17) - likely some ongoing aspir ation- no AE and clinically improved. Symptoms resolved Rash: Saw dermatology 04/01/17 for skin rash, which they thought psoriasis. Recent bx showed subcorneal pustular derm. -improving -derm bx has been requested -continue current rx-watch hgb on dapsone CVS: -mitral regurg, worse on echo but compensated -follow BNP monthly -no intervention warranted, appreciate cardiology F/U: per study protocol CHAD LOWE MD chicken vaccinator [facility] Center for Hematologic Malignancies [facility] Cancer [email or web address] [phone] in this encounter Plan of Treatment Not on fileas of this encounter Visit Diagnoses + + | Diagnosis | + + | Diffuse large B-cell lymphoma, unspecified body region (HCC) | + +"
--- OUTSIDE RECORDS SUMMARY | ~2017-08-01 | XMS | Encounter Summary ---
Demographics + + + | Address | [address] | | | [place] [address] | + + + | Home Phone | | + + + | Preferred Language | Unknown | + + + | Marital Status | | + + + | Sabianism Affiliation | LUT | + + + [...] + + +-------+ ECON | [address] | | [place] | [address] | +------+ + + + +-------+ Care Team Providers + +------+-------+ | Care Port Purser Name | Role | Phone | + +------+-------+ | Jamaal Rivera MD | PCP | tel | + +------+-------+ Encounter Details +--------+ + + + + | Date | Type | Department | Care Team | Description | +--------+ + + + + | 05/14/ | Hospital | Diagnostic Imaging | Chad Lowe, | | | 2016 | Encounter | Services at [facility] | MD Andrew Unger | | | | | [address] | [place], [place] | | | | | [facility] | [address] | | | | | Mailcode: L[address] [facility] | [phone] | | | | | [facility], | | | | | | [place] [address] | | | | | | [phone] | | | +--------+ + + + [...]
--- OUTSIDE RECORDS SUMMARY | ~2017-08-01 | XMS | Encounter Summary ---
Demographics + + + | Address | [address] | | | [place] [address] | + + + | Home Phone | | + + + | Preferred Language | Unknown | + + + | Marital Status | | + + + | Adventism Affiliation | LUT | + + + [...] + + +-------+ ECON | [address] | | [place] | [address] | +------+ + + + +-------+ Care Team Providers + +------+-------+ | Care Process Improvement Specialist Name | Role | Phone | + +------+-------+ | Jamaal Rivera MD | PCP | tel | + +------+-------+ Encounter Details +--------+ + + + + | Date | Type | Department | Care Team | Description | +--------+ + + + + | 05/24/ | Director Workforce Management | Center for | Chad Lowe, | | | 2017 | | Hematologic | [address] | | | | | Malignancies at | Ave [place], [place] | | | | | [place] | [address] | | | | | [address] | [phone] | | | | | [place] | | | | | | Mailcode: [id number] | | | | | | [address] | | | | | | [place], [place] | | | | | | [address] | | | | | | [phone] | | | +--------+ + + + [...]
--- OUTSIDE RECORDS SUMMARY | ~2017-08-01 | XMS | Encounter Summary ---
Demographics + + + | Address | [address] | | | [place] [address] | + + + | Home Phone | | + + + | Preferred Language | Unknown | + + + | Marital Status | | + + + | Baptism Affiliation | LUT | + + + [...] + + +-------+ ECON | [address] | | [place] | [address] | +------+ + + + +-------+ Care Team Providers + +------+-------+ | Care Second Shift Supervisor Name | Role | Phone | [...] | 2017 | Tumor | Services at [facility] | MD Miguel Ángel iDaz | | | | Measurement | [address] | [facility] | | | | | [facility] | [place], [place] | | | | | Mailcode: [address] [facility] | [address] | | | | | [facility], | [phone] | | | | | [place] [address] | | | | | | [phone] | | | +--------+ + + + [...]
--- OUTSIDE RECORDS SUMMARY | ~2017-08-01 | XMS | Encounter Summary ---
Demographics + + + | Address | [address] | | | [place] [address] | + + + | Home Phone [...] + + +-------+ ECON | [address] | | [place] | [address] | +------+ + + + +-------+ Care Team Providers + +------+-------+ | Care Inspector Machined Parts Name | Role | Phone | + [...] at | | | | | | [place] | | | | | | [address] | | | | | | [facility] | | | | | | Mailcode: [id number] | | | | | | [address] | | | | | | [place], [place] | | | | | | [address] | | | | | | [phone] | | | +--------+ + + + [...]
--- OUTSIDE RECORDS SUMMARY | ~2017-08-01 | XMS | Encounter Summary ---
Demographics + + + | Address | [address] | | | [place] [address] | + + + | Home Phone | | + + + | Preferred Language | Unknown | + + + | Marital Status | | + + + | Yazdanism Affiliation | LUT | + + + [...] + + +-------+ ECON | [address] | | [place] | [address] | +------+ + + + +-------+ Care Team Providers + +------+-------+ | Care Patternmaker Metal Name | Role | Phone | + +------+-------+ | Jamaal Rivera MD | PCP | tel | + +------+-------+ Encounter Details +--------+ + + + + | Date | Type | Department | Care Team | Description | +--------+ + + + + | 05/24/ | Cloth Bleaching Supervisor | Center for | Chad Lowe, | 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 | [address] | lymphoma of | | | | Malignancies at | Ave [place], [place] | intra-abdominal | | | | [place] | [address] | lymph nodes (HCC) | | | | [address] | [phone] | (Primary Dx) | | | | Concha Bourgeois | | | | | | Mailcode: [id number] | | | | | | [place] | | | | | | [place], [place] | | | | | | [address] | | | | | | [phone] | | | +--------+ + + + [...]
--- OUTSIDE RECORDS SUMMARY | ~2017-08-01 | XMS | Encounter Summary ---
Demographics + + + | Address | [address] | | | [place] [address] | + + + | Home Phone | | + + + | Preferred Language | Unknown | + + + | Marital Status | | + + + | Mu-Ism Affiliation | LUT | + + + [...] + + + +-------+ ECON | [address] | | [place] | [address] | +------+ + + + +-------+ Care Team Providers + +------+-------+ | Care Court Monitor Name | Role | Phone | + [...] | Diffuse | MD Chad | s [address] | | | | | large B-cell | [address] | | | | | lymphoma of | [address] | Kiko Kern | | | | | lymph nodes | [place], [place] | Road | | | | | of multiple | [address] | Mailcode: | | | | | regions | Phone: | [address] [facility] | | | | | (HCC) | [phone] | Hospital | | | | | Procedures | Fax: | [place], [place] | | | | | CT NECK SOFT | [phone] | [address] | | | | | TISSUE W | | Phone: | | | | | CONTRAST LA | | [phone] | | | | | CT NECK | | Fax: | | | | | TISSUE | | [phone] | | | | | CONTRAST | [...] | | | | lymph nodes | [place], [place] | [facility] | | | | | of multiple | [address] | for Health | | | | | regions | Phone: | and Healing, | | | | | (HCC) | [phone] | 3rd Floor | | | | | Procedures | Fax: | [place], [place] | | | | | CT CHEST, | [phone] | [address] | | | | | ABDOMEN AND | | Phone: | | | | | [address]VIS [address] IV | | [phone] | | | | | CONTRAST LA | | Fax: | | | | | CAT SCAN OF | | [phone] | | | | | CHEST | | | | | | | CONTRAST LA [...] + + + + | 06/20/ | Assurance Sourcing Manager | Center for | Chad Lowe, | 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 | MD [address] | lymphoma of lymph | | | | Malignancies at | Ave [place], [place] | nodes of multiple | | | | [place] | [address] | regions (HCC) | | | | [address] | [phone] | (Primary Dx) | | | | [employer] [address] | | | | | | Mailcode: [id number] | | | | | | [place] | | | | | | [place], [place] | | | | | | [address] | | | | | | [phone] | | | +--------+ + + + [...] Laboratory | + + + | | [facility] RADIOLOGY VOICE RECOGNITION | + + [...] Laboratory | + + + | | [facility] RADIOLOGY VOICE RECOGNITION | + + + [...] Note | + + | Service Account, [employer] Res In Interface - 07/11/2017 11:39 AM [...]
--- OUTSIDE RECORDS SUMMARY | ~2017-08-01 | XMS | Encounter Summary ---
Demographics + + + | Address | [address] | | | [place] [address] | + + + | Home Phone [...] + + +-------+ ECON | [address] | | [place] | [address] | +------+ + + + +-------+ Care Team Providers + +------+-------+ | Care Egg Crater Name | Role | Phone | + [...] | Hematology | Diagnoses | Chm | Chrisys, | | | | Malignancy | Diffuse | Faculty Mpv | MD Chad | | | | | large B-cell | [address] | [address] | | | | | lymphoma, | [address] | Ave | | | | | unspecified | [address] | [place], [place] | | | | | site | Mailcode: | [id number] | | | | | Procedures | [id number] | Phone: | | | | | [place] RITUXIMAB | [place] | [phone] | | | | | INJ, 100 MG | Pavilion | Fax: | | | | | FL | [place], [place] | [phone] | | | | | GEMCITABINE | [address] | | | | | | HCL, 200 MG | Phone: | | | | | | [place] | [phone] | | | | | | DEXAMETHASON | Fax: | | | | | | E SODIUM | [phone] | | | | | | PHOSPHATE, | | | | | | | 1MG [place] | | | | | | | CISPLATIN 10 | | | | | | | MG | | | | | | | INJECTION | | | | | | | FL CHM,IV | | | | | | | INFSN,1 HR | | | | | | | FL CHM,IV | | | | | | | INFSN,ADDL | | | | | | | HR FL CHM | | | | | | [...] + + | 05/30/ | Hospital | [facility] | | | | 2016 | Encounter | Hematologic | | | | | | Malignancies at [facility] | | | | | | [address] | | | | | | [facility] | | | | | | Mailcode: [id number] | | | | | | [address] | | | | | | [place], [place] | | | | | | [address] | | | | | | [phone] | | | +--------+ + + + [...] mL was discarded. Study labs, SOC and [place] labs drawn and sent. PAC flushed with [...] | + + + | Blood | [facility], POINT OF CARE TESTS [address] | | | [place] [address] | + + + CBC+DIFF,POC (05/30/2017 11:25 [...] | + + + | Blood | [facility], POINT OF CARE TESTS [address] | | | [place] [address] | + + + 12 LEAD ECG [...] Laboratory | + + + | | [facility] [address] [place] [address] | | | [place] [address] | + + + LDH TOTAL (05/30/2017 11:00 AM) + + + | Specimen | Performing Laboratory | + + + | Blood | | + + + + + | Narrative | + + | The following orders were created for panel order LDH TOTAL. | | Procedure | | Abnormality Status | | --------- | | ------ LDH TOTAL, | | PLASMA[[id number]] Abnormal Final | | result Please view [...] --------- | | ------ MAGNESIUM, | | PLASMA[[id number]] Normal Final | | result Please view [...] + + + | Blood | [facility], CORE [address] | | | [place], [place] [address] | + + + MAGNESIUM, PLASMA (05/30/2017 11:00 AM) + +-------+ + | Component | Value | Ref Range | + +-------+ + | MAGNESIUM,PLASMA | 2.2 | 1.6 - 2.6 mg/dL | + +-------+ + + + + | Specimen | Performing Laboratory | + + + | Blood | [facility], CORE [address] [place] [address] | | | [place] [address] | + + + + + | [...] | SPECIFIC GRAVITY | 1.004 (L)Comment: Specific [place] | 1.005 - 1.030 | | | performed by refractometry | | + + + + + + + | Specimen | Performing Laboratory | + + + | Urine | [facility], CORE [address] | | | [place] [address] | + + + INR (05/30/2017 10:59 AM) + + + + | Component | Value | Ref Range | + + + + | INR | 1.38 (H) | 0.90 - 1.20 INR | + + + + + + + | Specimen | Performing Laboratory | + + + | Blood | [facility], CORE [address] | | | [place] [address] | + + + + + | [...] + + + | Blood | [facility], CORE [address] | | | [place], [place] [address] | + + + T3 TOTAL, SERUM (05/30/2017 10:59 AM) + +-------+ + | Component | Value | Ref Range | + +-------+ + | T3, TOTAL | 114 | 87 - 196 ng/dL | + +-------+ + + + + | Specimen | Performing Laboratory | + + + | Blood | [facility] [address] [place], [place] | | | [address] | + + + PROTEIN C ACTIVITY REFLEX INR, PLASMA (05/30/2017 10:59 AM) + + + + | Component | Value | Ref Range | + + + + | PROTEIN C ACTIVITY | 0.69 (L) | 0.82 - 1.54 U/mL | + + + + + + + | Specimen | Performing Laboratory | + + + | Blood | [facility], SPECIAL IMM + COAG [address] [facility] [address] | | | [place] [address] | + + + + + | [...] + + + | Blood | [facility], CORE [address] | | | [facility] [place] [address] | + + + AMYLASE, PLASMA (05/30/2017 10:59 AM) + +--------+ + | Component | Value | Ref Range | + +--------+ + | AMYLASE,PLASMA | 23 (L) | 25 - 115 U/L | + +--------+ + + + + | Specimen | Performing Laboratory | + + + | Blood | [facility], CORE [address] [place] [address] | | | [place] [address] | + + + TSH (05/30/2017 10:59 AM) + +-------+ + | Component | Value | Ref Range | + +-------+ + | TSH | 1.29 | 0.47 - 7.11 mIU/L | + +-------+ + + + + | Specimen | Performing Laboratory | + + + | Blood | [facility], CORE [address] [place] [address] | | | [place] [address] | + + + + + | [...] 12:07 | | | | | dose, [facility] 05/30/17 at 1200 | | PST [...] | | | | | | | [facility] 05/30/17 at 1200, HIGH | | [...] PST | | | | | Starting [facility] 05/30/17 at 1728, | | | [...] 12:12 | | | | | dose, [facility] 05/30/17 at 1200 | | PST [...] mL/hr | | | ONCE, 1 dose, [facility] 05/30/17 at | | PST | | | | | 1200 | | | | | | + +---------+ + +-------+---+ +---+---+ | | | +---+---+ in this encounter"
--- OUTSIDE RECORDS SUMMARY | ~2017-08-01 | XMS | Encounter Summary ---
Demographics + + + | Address | [address] | | | [place] [address] | + + + | Home Phone | | + + + | Preferred Language | Unknown | + + + | Marital Status | | + + + | Protestant Affiliation | LUT | + + + [...] + + +-------+ ECON | [address] | | [place] | [address] | +------+ + + + +-------+ Care Team Providers + +------+-------+ | Care Warehouse Driver Name | Role | Phone | [...] large B-cell | [address] | [address] [facility] | | | | | lymphoma of | [address] | [address] | | | | | | [place], [place] | [place], | | | | | intra-abdomi | [address] | [place] | | | | | nal lymph | Phone: | [address] | | | | | nodes (HCC) | [phone] | Phone: | | | | | Procedures | Fax: | [phone] | | | | | CONSULT TO | [phone] | Fax: | | | | | HEMATOLOGIC | | [phone] | | | | | MALIGNANCIES | | | +--------+--------+ + + + + Encounter Details +--------+ + + + + | Date | Type | Department | Care Team | Description | +--------+ + + + + | 05/24/ | Laboratory Equipment Installer | Center for | Chad Lowe, | 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 | MD [address] | lymphoma of | | | | Malignancies at | Ave [place], [place] | intra-abdominal | | | | [address] | [address] | lymph nodes (HCC) | | | | [address] | [phone] | (Primary Dx) | | | | [address] | | | | | | Mailcode: [id number] | | | | | | [address] | | | | | | [place], [place] | | | | | | [address] | | | | | | [phone] | | | +--------+ + + + [...]
--- OUTSIDE RECORDS SUMMARY | ~2017-08-01 | XMS | Encounter Summary ---
Demographics + + + | Address | [address] | | | [place] [address] | + + + | Home Phone | | + + + | Preferred Language | Unknown | + + + | Marital Status | | + + + | Quaker Affiliation | LUT | + + + | Race | White | + + + | Ethnic Group | Not or | + + + Author + + + | Author | [facility] | + + + | Organization | [facility] | + + + | Address | Unknown | + + + | Phone | Unavailable | + + + Support +------+ + + + +-------+ | Name | Relationship | Address | Phone | +------+ + + + +-------+ ECON | [address] | | [place] | [address] | +------+ + + + +-------+ Care Team Providers + +------+-------+ | Care Java Developer Analyst Name | Role | Phone | [...] | | | | Malignancies at | [facility], | | | | | [facility] | [place] [address] | | | | | [address] | | | | | | [facility] | | | | | | Mailcode: [id number] | | | | | | [facility] | | | | | | [place], [place] | | | | | | [address] | | | | | | [phone] | | | +--------+ + + + [...]
--- OUTSIDE RECORDS SUMMARY | ~2017-08-01 | XMS | Encounter Summary ---
Demographics + + + | Address | [address] | | | [place] [address] | + + + | Home Phone [...] + + + | Author | [facility] | + + + | Organization | [facility] | + + + | Address | Unknown | + + + | Phone | Unavailable | + + + Support +------+ + + + +-------+ | Name | Relationship | Address | Phone | +------+ + + + +-------+ ECON | [address] | | [place] | [address] | +------+ + + + +-------+ Care Team Providers + +------+-------+ | Care Manager International Name | Role | Phone | + [...] | | | | Malignancies at | [facility] | | | | | [facility] | [place], [place] | | | | | [address] [facility] | [address] | | | | | [facility] | [phone] | | | | | Mailcode: [id number] | | | | | | [facility] | | | | | | [place], [place] | | | | | | [address] | | | | | | [phone] | | | +--------+ + + + [...]
--- OUTSIDE RECORDS SUMMARY | ~2017-08-01 | XMS | Encounter Summary ---
Demographics + + + | Address | [address] | | | [place] [address] | + + + | Home Phone [...] + + + +-------+ ECON | [address] | | [place] | [address] | +------+ + + + +-------+ Care Team Providers + +------+-------+ | Care Glass Wool Blanket Machine Feeder Name | Role | Phone | [...] | | | | | [id number] | [facility] | | | | | | [facility] Pavilion | | | | | | Pavilion | [place], [place] | | | | | | [place], [place] | [address] | | | | | | [address] | Phone: | | | | | | Phone: | [phone] | | | | | | [phone] | Fax: | | | | | | Fax: | [phone] | | | | | | [phone] | | +--------+--------+ + + + + [...] | | | Malignancies at | Ave [place], [place] | intra-abdominal | | | | [facility] | [address] | lymph nodes (HCC) | | | | [address] | [phone] | (Primary Dx) | | | | [employer] | | | | | | Mailcode: [id number] | | | | | | [facility] | | | | | | [place], [place] | | | | | | [address] | | | | | | [phone] | | | +--------+---------+ + + + [...] may be different fro m the original. [facility] Center for Hematologic Malignancies Follow Up 05-02-17 [facility] Physician: Chad Lowe MD Reason for [...] negative Dx History: Referring oncologist: Arnold Sotelo) [place] oncologist: Kenny PCP: Jamaal Rivera MD Noticed [...] F/U: per study protocol CHAD LOWE MD substation superintendent [facility] Center for Hematologic Malignancies [facility] Cancer Talmoon [email or web address] [phone] in this encounter Plan of Treatment Not on fileas of this encounter Visit Diagnoses + + | Diagnosis | + + | 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
--- OUTSIDE RECORDS SUMMARY | ~2017-08-01 | XMS | Encounter Summary ---
Demographics + + + | Address | [address] | | | [place] [address] | + + + | Home Phone | | + + + | Preferred Language | Unknown | + + + | Marital Status | | + + + | Jew Affiliation | LUT | + + + [...] + + + +-------+ ECON | [address] | | [place] | [address] | +------+ + + + +-------+ Care Team Providers + +------+-------+ | Care Assistant Analyst Name | Role | Phone | [...] | | | | | [id number] | [facility] | | | | | | [facility] | Pavilion | | | | | | Pavilion | [place], [place] | | | | | | [place], [place] | [address] | | | | | | [address] | Phone: | | | | | | Phone: | [phone] | | | | | | [phone] | Fax: | | | | | | Fax: | [phone] | | | | | | [phone] | | +--------+--------+ + + + + [...] | | | Malignancies at | Ave [place], [place] | unspecified body | | | | [facility] | [address] | region (HCC) | | | | [address] | [phone] | | | | | [employer] | | | | | | Mailcode: [id number] | | | | | | [facility] | | | | | | [place], [place] | | | | | | [address] | | | | | | [phone] | | | +--------+---------+ + + + [...] be different fro m the original. [facility] Center for Hematologic Malignancies Follow Up 05-14-17 [facility] Physician: Chad Lowe MD Reason for [...] F/U: per study protocol CHAD LOWE MD safety security officer [facility] Center for Hematologic Malignancies [facility] Cancer [place] [email or web address] [phone] in this encounter Plan of Treatment Not on fileas of this encounter Visit Diagnoses + + | Diagnosis | + + | Diffuse large B-cell lymphoma, unspecified body region (HCC) | + +"
--- OUTSIDE RECORDS SUMMARY | ~2017-08-01 | XMS | Encounter Summary ---
Demographics + + + | Address | [address] | | | [place] [address] | + + + | Home Phone [...] + + + | Author | [facility] | + + + | Organization | [facility] | + + + | Address | Unknown | + + + | Phone | Unavailable | + + + Support +------+ + + + +-------+ | Name | Relationship | Address | Phone | +------+ + + + +-------+ ECON | [address] | | [place] | [address] | +------+ + + + +-------+ Care Team Providers + +------+-------+ | Care Box Covering Machine Operator Name | Role | Phone [...] | | | | | [id number] | Rich | | | | | | Rich | Pavilion | | | | | | Pavilion | [place], [place] | | | | | | [place], [place] | [address] | | | | | | [address] | Phone: | | | | | | Phone: | [phone] | | | | | | [phone] | Fax: | | | | | | Fax: | [phone] | | | | | | [phone] | | +--------+--------+ + + + + [...] | | | Malignancies at | Ave [place], [place] | intra-abdominal | | | | [facility] | [address] | lymph nodes (HCC) | | | | [address] | [phone] | (Primary Dx) | | | | [employer] | | | | | | Mailcode: [id number] | | | | | | [facility] | | | | | | [place], [place] | | | | | | [address] | | | | | | [phone] | | | +--------+---------+ + + + [...] may be different fro m the original. [facility] Center for Hematologic Malignancies Follow Up 05-02-17 [facility] Physician: Chad Lowe MD Reason for [...] negative Dx History: Referring oncologist: Arnold Sotelo) [place] oncologist: Kenny PCP: Jamaal Rivera MD Noticed [...] F/U: per study protocol CHAD LOWE MD account clerk [facility] Center for Hematologic Malignancies 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
--- OUTSIDE RECORDS SUMMARY | ~2017-08-01 | XMS | Encounter Summary ---
Demographics + + + | Address | [address] | | | [place] [address] | + + + | Home Phone [...] + + +-------+ ECON | [address] | | [place] | [address] | +------+ + + + +-------+ Care Team Providers + +------+-------+ | Care Laborer [place] Name | Role | Phone | + +------+-------+ | Jamaal Rivera MD | PCP | tel | + +------+-------+ Encounter Details +--------+ + + + + | Date | Type | Department | Care Team | Description | +--------+ + + + + | 06/13/ | Pharmacy | Outpatient Retail | | | | 2016 | Visit | [facility] | | | | | | [address] | | | | | | [facility] | | | | | | [place], [place] | | | | | | [address] | | | +--------+ + + + [...]
--- OUTSIDE RECORDS SUMMARY | ~2017-08-01 | XMS | Encounter Summary ---
Demographics + + + | Address | [address] | | | [place] [address] | + + + | Home Phone [...] + + + | Author | [facility] | + + + | Organization | [facility] | + + + | Address | Unknown | + + + | Phone | Unavailable | + + + Support +------+ + + + +-------+ | Name | Relationship | Address | Phone | +------+ + + + +-------+ ECON | [address] | | [place] | [address] | +------+ + + + +-------+ Care Team Providers + +------+-------+ | Care No Bake Molder Name | Role | Phone | + [...] | Diffuse | MD Chad | [address] | | | | | large B-cell | [address] | | | | | lymphoma, | [address] | [place] | | | | | unspecified | [place], [place] | Road | | | | | body region | [address] | Mailcode: | | | | | (HCC) | Phone: | [address] [facility] | | | | | Procedures | [phone] | Hospital | | | | | CT NECK SOFT | Fax: | [place], [place] | | | | | TISSUE W | [phone] | [address] | | | | | CONTRAST [place] | | Phone: | | | | | CT NECK | | [phone] | | | | | TISSUE | | Fax: | | | | | CONTRAST | | [phone] | +--------+--------+ + + + + Diagnostic [...] | | | | | unspecified | [place], [place] | Road | | | | | body region | [address] | Mailcode: | | | | | (HCC) | Phone: | [address] [facility] | | | | | Procedures | [phone] | Hospital | | | | | CT NECK SOFT | Fax: | [place], [place] | | | | | TISSUE W | [phone] | [address] | | | | | CONTRAST [place] | | Phone: | | | | | CT NECK | | [phone] | | | | | TISSUE | | Fax: | | | | | CONTRAST | | [phone] | +--------+--------+ + + + + Reason [...] | lymphoma, | [address] | [address] | | | | | unspecified | [place], [place] | Road | | | | | body region | [address] | Mailcode: | | | | | (HCC) | Phone: | [address] [facility] | | | | | Procedures | [phone] | Hospital | | | | | CT NECK SOFT | Fax: | [place], [place] | | | | | TISSUE W | [phone] | [address] | | | | | CONTRAST [place] | | Phone: | | | | | CT NECK | | [phone] | | | | | TISSUE | | Fax: | | | | | CONTRAST | | [phone] | +--------+--------+ + + + + Encounter Details +--------+ + + + + | Date | Type | Department | Care Team | Description | +--------+ + + + + | 05/14/ | Hospital | Diagnostic Imaging | Chad Lowe, | | | 2017 | Encounter | Services at [facility] | MD [address] | | | | | [address] | [place], [place] | | | | | [facility] | [address] | | | | | Mailcode: [id number] [facility] | [phone] | | | | | [facility], | | | | | | [place] [address] | | | | | | [phone] | | | +--------+ + + + [...] Indications: | | | | | | release(/EC)Indica | gastroesophageal | | | | | [...]
--- OUTSIDE RECORDS SUMMARY | ~2017-08-01 | XMS | Encounter Summary ---
Demographics + + + | Address | [address] | | | [place] [address] | + + + | Home Phone [...] + + +-------+ ECON | [address] | | [place] | [address] | +------+ + + + +-------+ Care Team Providers + +------+-------+ | Care Auto Carrier Driver Name | Role | Phone | [...] CENTER | | | | | | [address] | | | | | | [facility] | | | | | | Mailcode: [id number] [facility] | | | | | | [facility], | | | | | | [place] [address] | | | | | | [phone] | | | +--------+ + + + [...]
--- OUTSIDE RECORDS SUMMARY | ~2017-08-01 | XMS | Encounter Summary ---
Demographics + + + | Address | [address] | | | [place] [address] | + + + | Home Phone [...] + + + +-------+ ECON | [address] | | [place] | [address] | +------+ + + + +-------+ Care Team Providers + +------+-------+ | Care Greeting Card Editor Name | Role | Phone | + [...] + + + + | 05/15/ | Teen Counselor | Center for | Chad Lowe, | 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 | MD [address] | lymphoma, | | | | Malignancies at | Ave [place], [place] | unspecified body | | | | [facility] | [address] | region (HCC) | | | | [address] | [phone] | (Primary Dx) | | | | [place] | | | | | | Mailcode: [id number] | | | | | | [facility] | | | | | | [place], [place] | | | | | | [address] | | | | | | [phone] | | | +--------+ + + + [...]
--- OUTSIDE RECORDS SUMMARY | ~2017-08-01 | XMS | Encounter Summary ---
Demographics + + + | Address | [address] | | | [place] [address] | + + + | Home Phone | | + + + | Preferred Language | Unknown | + + + | Marital Status | | + + + | Zoroastrian Affiliation | LUT | + + + | Race | White | + + + | Ethnic Group | Not or | + + + Author + + + | Author | [facility] | + + + | Organization | [facility] | + + + | Address | Unknown | + + + | Phone | Unavailable | + + + Support +------+ + + + +-------+ | Name | Relationship | Address | Phone | +------+ + + + +-------+ ECON | [address] | | [place] | [address] | +------+ + + + +-------+ Care Team Providers + +------+-------+ | Care Verification Rep Name | Role | Phone | + [...] | Diffuse | MD Chad | [address] | | | | | large B-cell | [address] | | | | | lymphoma of | [address] | [place] | | | | | lymph nodes | [place], [place] | Road | | | | | of multiple | [address] | Mailcode: | | | | | regions | Phone: | [address] [facility] | | | | | (HCC) | [phone] | Hospital | | | | | Procedures | Fax: | [place], [place] | | | | | CT NECK SOFT | [phone] | [address] | | | | | TISSUE W | | Phone: | | | | | CONTRAST CT | | [phone] | | | | | CT NECK | | Fax: | | | | | TISSUE | | [phone] | | | | | CONTRAST | [...] | | | | Diffuse | MD Chda | [facility] [address] | | | | | large B-cell | [address] | [address] | | | | | lymphoma of | [address] | [place] | | | | | lymph nodes | [place], [place] | Road | | | | | of multiple | [address] | Mailcode: | | | | | regions | Phone: | [address] [facility] | | | | | (HCC) | [phone] | Hospital | | | | | Procedures | Fax: | [place], [place] | | | | | CT NECK SOFT | [phone] | [address] | | | | | TISSUE W | | Phone: | | | | | CONTRAST CT | | [phone] | | | | | CT NECK | | Fax: | | | | | TISSUE | | [phone] | | | | | CONTRAST | [...] Closed | | Radiology | Diagnoses | [place], | Rad General | | | | | Diffuse | MD Chad | [facility] [address] | | | | | large B-cell | [address] | [address] | | | | | lymphoma of | [address] | [place] | | | | | lymph nodes | [place], [place] | Road | | | | | of multiple | [address] | Mailcode: | | | | | regions | Phone: | [address] [facility] | | | | | ([facility]) | [phone] | Hospital | | | | | Procedures | Fax: | [place], [place] | | | | | CT NECK SOFT | [phone] | [address] | | | | | TISSUE W | | Phone: | | | | | CONTRAST CT | | [phone] | | | | | CT NECK | | Fax: | | | | | TISSUE | | [phone] | | | | | CONTRAST | [...] | | [address] | [place], [place] | | | | | [facility] | [address] | | | | | Mailcode: [id number] [facility] | [phone] | | | | | Hospital [place], | | | | | | [place] [address] | | | | | | [phone] | | | +--------+ + + + [...] | + + + | | [facility] RADIOLOGY VOICE RECOGNITION | + + + [...] + + + | Blood | [facility], POINT OF CARE TESTS [address] | | | [place] [address] | + + + in this encounter Visit Diagnoses + + | Diagnosis | + + | Diffuse large B-cell lymphoma of lymph nodes of multiple regions (HCC) | + +"
--- OUTSIDE RECORDS SUMMARY | ~2017-08-01 | XMS | Encounter Summary ---
Demographics + + + | Address | [address] | | | [place] [address] | + + + | Home Phone [...] + + +-------+ ECON | [address] | | [place] | [address] | +------+ + + + +-------+ Care Team Providers + +------+-------+ | Care Help Desk Assistant Name | Role | Phone | [...] large B-cell | [address] | [address] [facility] | | | | | lymphoma of | [address] | [place] | | | | | | [place], [place] | [place], | | | | | intra-abdomi | [address] | [place] | | | | | nal lymph | Phone: | [address] | | | | | nodes (HCC) | [phone] | Phone: | | | | | Procedures | Fax: | [phone] | | | | | CONSULT TO | [phone] | Fax: | | | | | HEMATOLOGIC | | [phone] | | | | | MALIGNANCIES | | | +--------+--------+ + + + + Encounter Details +--------+ + + + + | Date | Type | Department | Care Team | Description | +--------+ + + + + | 05/24/ | Sales Closer | Center for | Chad Lowe, | 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 | MD [address] | lymphoma of | | | | Malignancies at | Ave [place], [place] | intra-abdominal | | | | [place] [place] | [address] | lymph nodes (HCC) | | | | [address] | [phone] | (Primary Dx) | | | | [address] | | | | | | Mailcode: [id number] | | | | | | [place] | | | | | | [place], [place] | | | | | | [address] | | | | | | [phone] | | | +--------+ + + + [...]
--- OUTSIDE RECORDS SUMMARY | ~2017-08-01 | XMS | Encounter Summary ---
Demographics + + + | Address | [address] | | | [place] [address] | + + + | Home Phone | | + + + | Preferred Language | Unknown | + + + | Marital Status | | + + + | Holiness Affiliation | LUT | + + + [...] + + + +-------+ ECON | [address] | | [place] | [address] | +------+ + + + +-------+ Care Team Providers + +------+-------+ | Care Implementation Project Manager Name | Role | Phone | [...] | | | | | [id number] | [place] | | | | | | [facility] | | | | | | Pavilion | [place], [place] | | | | | | [place], [place] | [address] | | | | | | [address] | Phone: | | | | | | Phone: | [phone] | | | | | | [phone] | Fax: | | | | | | Fax: | [phone] | | | | | | [phone] | | +--------+--------+ + + + + [...] | | | Malignancies at | Ave [place], [place] | unspecified body | | | | [facility] | [address] | region (HCC) | | | | [address] | [phone] | | | | | [place] | | | | | | Mailcode: [id number] | | | | | | [facility] | | | | | | [place], [place] | | | | | | [address] | | | | | | [phone] | | | +--------+---------+ + + + [...] may be different fro m the original. [facility] for Hematologic Malignancies Follow Up 05-14-17 [facility] Physician: Chad Lowe MD Reason for [...] F/U: per study protocol CHAD LOWE MD cassandra consultant [facility] for Hematologic Malignancies [facility] Cancer [email or web address] [phone] in this encounter Plan of Treatment Not on fileas of this encounter Visit Diagnoses + + | Diagnosis | + + | Diffuse large B-cell lymphoma, unspecified body region (HCC) | + +"
--- OUTSIDE RECORDS SUMMARY | ~2017-08-01 | XMS | Encounter Summary ---
Demographics + + + | Address | [address] | | | [place] [address] | + + + | Home Phone | | + + + | Preferred Language | Unknown | + + + | Marital Status | | + + + | Advent Affiliation | LUT | + + + | Race | White | + + + | Ethnic Group | Not or | + + + Author + + + | Author | [facility] | + + + | Organization | [facility] | + + + | Address | Unknown | + + + | Phone | Unavailable | + + + Support +------+ + + + +-------+ | Name | Relationship | Address | Phone | +------+ + + + +-------+ ECON | [address] | | [place] | [address] | +------+ + + + +-------+ Care Team Providers + +------+-------+ | Care Gold Plater Name | Role | Phone | + [...] + + + + | 05/29/ | Waist Cutter | Center for | Chad Lowe, | 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 | MD [address] | lymphoma of | | | | Malignancies at | Ave [place], [place] | intra-abdominal | | | | [facility] | [address] | lymph nodes (HCC) | | | | [address] | [phone] | (Primary Dx) | | | | [employer] | | | | | | Mailcode: [id number] | | | | | | [facility] | | | | | | [place], [place] | | | | | | [address] | | | | | | [phone] | | | +--------+ + + + [...] | | [facility] CARDI[facility] [address] [facility] | | | [place] [address] | + + + JESSIKA RIVERA (05/30/2017 [...] | SPECIFIC GRAVITY | 1.004 (L)Comment: Specific [place] | 1.005 - 1.030 | | | performed by refractometry | | + + + + + + + | Specimen | Performing Laboratory | + + + | Urine | [facility], CORE [address] | | | [place] [address] | + + + FREE T4 (05/30/2017 10:59 AM) + +-------+ + | Component | Value | Ref Range | + +-------+ + | FREE T4 | 1.0 | 0.6 - 1.2 ng/dL | + +-------+ + + + + | Specimen | Performing Laboratory | + + + | Blood | [facility], CORE [address] [place] [address] | | | [place] [address] | + + + T3 TOTAL, SERUM (05/30/2017 10:59 AM) + +-------+ + | Component | Value | Ref Range | + +-------+ + | T3, TOTAL | 114 | 87 - 196 ng/dL | + +-------+ + + + + | Specimen | Performing Laboratory | + + + | Blood | [facility] [address] [place], [place] | | | [address] | + + + PROTEIN C ACTIVITY REFLEX INR, PLASMA (05/30/2017 10:59 AM) + + + + | Component | Value | Ref Range | + + + + | PROTEIN C ACTIVITY | 0.69 (L) | 0.82 - 1.54 U/mL | + + + + + + + | Specimen | Performing Laboratory | + + + | Blood | [facility], SPECIAL IMM + COAG [address] | | | [place] [address] | + + + + + | [...] | + + + | Blood | [facility], CORE [address] [place] [address] | | | [place] [address] | + + + AMYLASE, PLASMA (05/30/2017 10:59 AM) + +--------+ + | Component | Value | Ref Range | + +--------+ + | AMYLASE,PLASMA | 23 (L) | 25 - 115 U/L | + +--------+ + + + + | Specimen | Performing Laboratory | + + + | Blood | [facility], CORE [address] [facility] | | | [place] [address] | + + + TSH (05/30/2017 10:59 AM) + +-------+ + | Component | Value | Ref Range | + +-------+ + | TSH | 1.29 | 0.47 - 7.11 mIU/L | + +-------+ + + + + | Specimen | Performing Laboratory | + + + | Blood | [facility], CORE [address] [place] [address] | | | [place] [address] | + + + + + | [...]
--- OUTSIDE RECORDS SUMMARY | ~2017-08-01 | XMS | Encounter Summary ---
Demographics + + + | Address | [address] | | | [place] [address] | + + + | Home Phone | | + + + | Preferred Language | Unknown | + + + | Marital Status | | + + + | Judaism Affiliation | LUT | + + + [...] + + +-------+ ECON | [address] | | [place] | [address] | +------+ + + + +-------+ Care Team Providers + +------+-------+ | Care Animal Care Attendant Name | Role | Phone | + [...] | | | | large B-cell | [address] | | | | | | lymphoma, | [address] | | | | | | unspecified | [place], [place] | | | | | | body region | [address] | | | | | | (HCC) | Phone: | | | | | | Procedures | [phone] | | | | | | CT CHEST, | Fax: | | | | | | ABDOMEN AND | [phone] | | | | | | PELVIS [...] + + + + | 05/14/ | Receiver | Center for | Chad Lowe, | 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 | MD [address] | lymphoma, | | | | Malignancies at | Ave [place], [place] | unspecified body | | | | [facility] | [address] | region (HCC) | | | | [address] | [phone] | (Primary Dx) | | | | [employer] | | | | | | Mailcode: [id number] | | | | | | [place] | | | | | | [place], [place] | | | | | | [address] | | | | | | [phone] | | | +--------+ + + + [...]
--- OUTSIDE RECORDS SUMMARY | ~2017-08-01 | XMS | Encounter Summary ---
Demographics + + + | Address | [address] | | | [place] [address] | + + + | Home Phone [...] + + + +-------+ ECON | [address] | | [place] | [address] | +------+ + + + +-------+ Care Team Providers + +------+-------+ | Care Lighting Engineering Technician Name | Role | Phone [...] | Diffuse | MD Chad | [address] | | | | | large B-cell | [address] | | | | | lymphoma of | [address] | [place] | | | | | lymph nodes | [place], [place] | Road | | | | | of multiple | [address] | Mailcode: | | | | | regions | Phone: | [address] [facility] | | | | | (HCC) | [phone] | Hospital | | | | | Procedures | Fax: | [place], [place] | | | | | CT NECK SOFT | [phone] | [address] | | | | | TISSUE W | | Phone: | | | | | CONTRAST [place] | | [phone] | | | | | CT NECK | | Fax: | | | | | TISSUE | | [phone] | | | | | CONTRAST | [...] | | | | lymph nodes | [place], [place] | Road | | | | | of multiple | [address] | Mailcode: | | | | | regions | Phone: | [address] [facility] | | | | | (HCC) | [phone] | Hospital | | | | | Procedures | Fax: | [place], [place] | | | | | CT NECK SOFT | [phone] | [address] | | | | | TISSUE W | | Phone: | | | | | CONTRAST [place] | | [phone] | | | | | CT NECK | | Fax: | | | | | TISSUE | | [phone] | | | | | CONTRAST | [...] Closed | | Radiology | Diagnoses | [place], | Rad General | | | | | Diffuse | MD Chad | [facility] [address] | | | | | large B-cell | [address] | [address] | | | | | lymphoma of | [address] | [place] | | | | | lymph nodes | [place], [place] | Road | | | | | of multiple | [address] | Mailcode: | | | | | regions | Phone: | [address] [facility] | | | | | ([facility]) | [phone] | Hospital | | | | | Procedures | Fax: | [place], [place] | | | | | CT NECK SOFT | [phone] | [address] | | | | | TISSUE W | | Phone: | | | | | CONTRAST [place] | | [phone] | | | | | CT NECK | | Fax: | | | | | TISSUE | | [phone] | | | | | CONTRAST | | | +--------+--------+ + + + + Encounter Details +--------+ + + + + | Date | Type | Department | Care Team | Description | +--------+ + + + + | 07/11/ | Hospital | Diagnostic Imaging | Chad Lowe, | | | 2017 | Encounter | Services at [facility] | MD [address] | | | | | [address] | [place], [place] | | | | | [facility] | [address] | | | | | Mailcode: [id number] [facility] | [phone] | | | | | Hospital [place], | | | | | | [place] [address] | | | | | | [phone] | | | +--------+ + + + [...] Laboratory | + + + | | [facility] RADIOLOGY VOICE RECOGNITION | + + + [...] | + + + | Blood | [facility], POINT OF CARE TESTS [address] | | | [place] [address] | + + + in this encounter Visit Diagnoses + + | Diagnosis | + + | Diffuse large B-cell lymphoma of lymph nodes of multiple regions (HCC) | + +"
--- OUTSIDE RECORDS SUMMARY | ~2017-08-01 | XMS | Encounter Summary ---
Demographics + + + | Address | [address] | | | [place] [address] | + + + | Home Phone | | + + + | Preferred Language | Unknown | + + + | Marital Status | | + + + | Jain Affiliation | LUT | + + + [...] + + +-------+ ECON | [address] | | [place] | [address] | +------+ + + + +-------+ Care Team Providers + +------+-------+ | Care Painter Spring Name | Role | Phone | + [...] | | | | | [id number] | [facility] | | | | | | [facility] | Pavilion | | | | | | Pavilion | [place], [place] | | | | | | [place], [place] | [address] | | | | | | [address] | Phone: | | | | | | Phone: | [phone] | | | | | | [phone] | Fax: | | | | | | Fax: | [phone] | | | | | | [phone] | | +--------+--------+ + + + + Encounter Details +--------+---------+ + + + | Date | Type | Department | Care Team | Description | +--------+---------+ + + + | 07/11/ | Office | Center for | Chad oLwe, | Diffuse large B-cell | | 2017 | Visit | Hematologic | MD [address] | lymphoma of | | | | Malignancies at | Ave [place], [place] | intra-abdominal | | | | [facility] | [address] | lymph nodes (HCC) | | | | [address] | [phone] | (Primary Dx) | | | | [employer] | | | | | | Mailcode: [id number] | | | | | | [facility] | | | | | | [place], [place] | | | | | | [address] | | | | | | [phone] | | | +--------+---------+ + + + [...] may be different fro m the original. [facility] Center for Hematologic Malignancies Follow Up 07-11-17 [facility] Physician: Chad Lowe MD Reason for [...] PET/CT has been completed. 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
--- OUTSIDE RECORDS SUMMARY | ~2017-08-01 | XMS | Encounter Summary ---
Demographics + + + | Address | [address] | | | [place] [address] | + + + | Home Phone [...] + + +-------+ ECON | [address] | | [place] | [address] | +------+ + + + +-------+ Care Team Providers + +------+-------+ | Care Real Estate Listing Consultant Name | Role | Phone | [...] | | [address] | [place], [place] | | | | | [facility] | [address] | | | | | Mailcode: [id number] [facility] | [phone] | | | | | [facility], | | | | | | [place] [address] | | | | | | [phone] | | | +--------+ + + + [...]
--- OUTSIDE RECORDS SUMMARY | ~2017-08-01 | XMS | Encounter Summary ---
Demographics + + + | Address | [address] | | | [place] [address] | + + + | Home Phone [...] + + +-------+ ECON | [address] | | [place] | [address] | +------+ + + + +-------+ Care Team Providers + +------+-------+ | Care Character Artist Name | Role | Phone | + [...] | | | | | bulinemia | [place], [place] | [facility] | | | | | Procedures | [address] | Road | | | | | [place] INJ IG | Phone: | Mailcode: | | | | | [place] | [phone] | [facility] | | | | | IV, 500 MG | Fax: | [place] | | | | | [place] | [phone] | Pavilion | | | | | THR/PRPH/DX | | [place], [place] | | | | | IV INF,IN | | [address] | | | | | [place] | | Phone: | | | | | THER/PROPH/D | | [phone] | | | | | IAG IV IVIG | | Fax: | | | | | | | [phone] | +--------+--------+ + + + + Encounter Details +--------+ + + + + | Date | Type | Department | Care Team | Description | +--------+ + + + + | 05/02/ | [facility] | [place] for | | | | 2017 | Encounter | Hematologic | | | | | | Malignancies at [facility] | | | | | | [address] | | | | | | [facility] | | | | | | Mailcode: [id number] | | | | | | [place] [address] | | | | | | [place], [place] | | | | | | [address] | | | | | | [phone] | | | +--------+ + + + [...] 0.8 EOSPERC 1.5 Nursing Assessment: INV BMS 058607 (Anti LAG-3) + Nivolumab Part C & [...] was checked by 2 RNs. INV BMS [id number] (Anti- LAG 3) 160 mg IV was [...] lunch until 14:00. Patient instructed to call dental sales representative/longitudinal float operator provider for fevers 100.4 F or greater, uncont rolled nausea, vomiting, diarrhea, rash, SOB, chest pain and bleeding. 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, CORE [address] [place] [address] [address] | | | [place] [address] | + + + CBC+DIFF,POC (05/02/2017 8:30 [...] | + + + | Blood | [facility], POINT OF CARE TESTS [address] | | | [place] [address] | + + + CMP, POC (BMP+LFT) [...] | + + + | Blood | [facility] PO[facility] OF [facility] TESTS [address] | | | [place] [address] | + + + URIC ACID, PLASMA (05/02/2017 8:10 AM) + +-------+ + | Component | Value | Ref Range | + +-------+ + | URIC ACID, PLASMA | 6.0 | 3.7 - 8.0 mg/dL | | (LAB) | | | + +-------+ + + + + | Specimen | Performing Laboratory | + + + | Blood | [facility], CORE [address] | | | [place] [address] | + + + PHOSPHORUS, PLASMA (05/02/2017 8:10 AM) + +-------+ + | Component | Value | Ref Range | + +-------+ + | PHOSPHORUS, PLASMA | 2.8 | 2.4 - 4.7 mg/dL | | (LAB) | | | + +-------+ + + + + | Specimen | Performing Laboratory | + + + | Blood | [facility], CORE [address] | | | [place] [address] | + + + MAGNESIUM, PLASMA (05/02/2017 8:10 AM) + +-------+ + | Component | Value | Ref Range | + +-------+ + | MAGNESIUM,PLASMA | 2.2 | 1.6 - 2.6 mg/dL | + +-------+ + + + + | Specimen | Performing Laboratory | + + + | Blood | [facility], CORE [address] [address] | | | [place] [address] | + + + + + | [...] + + + | Blood | [facility], CORE [address] | | | [place] [address] | + + + FREE T4 (05/02/2017 8:10 AM) + +-------+ + | Component | Value | Ref Range | + +-------+ + | FREE T4 | 0.9 | 0.6 - 1.2 ng/dL | + +-------+ + + + + | Specimen | Performing Laboratory | + + + | Blood | [facility], CORE [address] | | | [place] [address] | + + + T3 TOTAL, SERUM (05/02/2017 8:10 AM) + +-------+ + | Component | Value | Ref Range | + +-------+ + | T3, TOTAL | 114 | 87 - 196 ng/dL | + +-------+ + + + + | Specimen | Performing Laboratory | + + + | Blood | [facility] [place] [address] [facility] [place] | | | [address] | + + + IGA, SERUM (05/02/2017 8:10 AM) + +-------+ + | Component | Value | Ref Range | + +-------+ + | IGA SERUM | 264 | 70 - 400 mg/dL | + +-------+ + + + + | Specimen | Performing Laboratory | + + + | Blood | [facility] [address] [place], [place] | | | [address] | + + + IGG, SERUM (05/02/2017 8:10 AM) + +-------+ + | Component | Value | Ref Range | + +-------+ + | IGG SERUM | 928 | 700 - 1600 mg/dL | + +-------+ + + + + | Specimen | Performing Laboratory | + + + | Blood | [facility] [address] [place], [place] | | | [address] | + + + IGM, SERUM (05/02/2017 8:10 AM) + +--------+ + | Component | Value | Ref Range | + +--------+ + | IGM SERUM | 34 (L) | 40 - 230 mg/dL | + +--------+ + + + + | Specimen | Performing Laboratory | + + + | Blood | [facility] [address] [place], [place] | | | [address] | + + + TSH (05/02/2017 8:10 AM) + +-------+ + | Component | Value | Ref Range | + +-------+ + | TSH | 1.87 | 0.47 - 7.11 mIU/L | + +-------+ + + + + | Specimen | Performing Laboratory | + + + | Blood | [facility], CORE [address] [place] [address] | | | [place] [address] | + + + + + | [...] + + + | Blood | [facility], CORE [address] [facility] [address] | | | [place] [address] | + + + + + | [...] + + + | Blood | [facility], CORE [address] [facility] | | | [place] [address] | + + + LIPASE, PLASMA (05/02/2017 8:10 AM) + +---------+ + | Component | Value | Ref Range | + +---------+ + | LIPASE (LAB) | 108 (L) | 152 - 353 U/L | + +---------+ + + + + | Specimen | Performing Laboratory | + + + | Blood | [facility], CORE [address] [facility] | | | [place] [address] | + + + in this encounter [...] +---+---+ + +---------+ +--------+ +---+ | INV BMS-[id number] (ANTI-LAG-3) 160 | New Bag | 05/02/20 [...] | | | | | ALERT MEDICATION IRB:[id number], | | | | | | | Protocol:[id number] | | | | | | + [...] | | | | | | | IRB:[id number], Protocol: [id number] | | | | | | + +-------+ +--------+-------+---+ +---+---+ | | | +---+---+ in this encounter"
--- OUTSIDE RECORDS SUMMARY | ~2017-08-01 | XMS | Encounter Summary ---
Demographics + + + | Address | [address] | | | [place] [address] | + + + | Home Phone [...] + + +-------+ ECON | [address] | | [place] | [address] | +------+ + + + +-------+ Care Team Providers + +------+-------+ | Care Bottle Caser Name | Role | Phone | [...] | | | | Malignancies at | [facility] | | | | | [facility] | [place], [place] | | | | | [address] [facility] | [address] | | | | | [facility] | [phone] | | | | | Mailcode: [id number] | | | | | | [facility] | | | | | | [place], [place] | | | | | | [address] | | | | | | [phone] | | | +--------+ + + + [...]
--- OUTSIDE RECORDS SUMMARY | ~2017-08-01 | XMS | Encounter Summary ---
Demographics + + + | Address | [address] | | | [place] [address] | + + + | Home Phone | | + + + | Preferred Language | Unknown | + + + | Marital Status | | + + + | Buddhist Affiliation | LUT | + + + [...] + + +-------+ ECON | [address] | | [place] | [address] | +------+ + + + +-------+ Care Team Providers + +------+-------+ | Care Boilermaker Fitter Name | Role | Phone | + [...] [place] | | | | | | [facility] | | | | | | [place], [place] | | | | | | [address] | | | +--------+ + + + [...]
--- OUTSIDE RECORDS SUMMARY | ~2017-08-01 | XMS | Encounter Summary ---
Demographics + + + | Address | [address] | | | [place] [address] | + + + | Home Phone [...] + + + +-------+ ECON | [address] | | [place] | [address] | +------+ + + + +-------+ Care Team Providers + +------+-------+ | Care Lap Checker Name | Role | Phone | + [...] Rd | | | | | | [place], [place] | | | | | | [address] | | | | | | [phone] | | | +--------+ + + + [...]
--- OUTSIDE RECORDS SUMMARY | ~2017-08-01 | XMS | Encounter Summary ---
Demographics + + + | Address | [address] | | | [place] [address] | + + + | Home Phone | | + + + | Preferred Language | Unknown | + + + | Marital Status | | + + + | Rastafari Affiliation | LUT | + + + | Race | White | + + + | Ethnic Group | Not or | + + + Author + + + | Author | [facility] | + + + | Organization | [facility] | + + + | Address | Unknown | + + + | Phone | Unavailable | + + + Support +------+ + + + +-------+ | Name | Relationship | Address | Phone | +------+ + + + +-------+ ECON | [address] | | [place] | [address] | +------+ + + + +-------+ Care Team Providers + +------+-------+ | Care Stained Glass Artist Name | Role | Phone | [...] [place] | | | | | | [facility] | | | | | | [place], [place] | | | | | | [address] | | | +--------+ + + + [...]
--- OUTSIDE RECORDS SUMMARY | ~2017-08-01 | XMS | Encounter Summary ---
Demographics + + + | Address | [address] | | | [place] [address] | + + + | Home Phone [...] + + +-------+ ECON | [address] | | [place] | [address] | +------+ + + + +-------+ Care Team Providers + +------+-------+ | Care Theater [employer] Producer Name | Role | Phone | + [...] + + | 05/31/ | Documentati | [facility] | Work, Social | Social Work Notes | | 2017 | on | Hematologic | | | | | | Malignancies at | | | | | | [facility] | | | | | | [address] | | | | | | [facility] | | | | | | Mailcode: [id number] | | | | | | [place] | | | | | | [place], [place] | | | | | | [address] | | | | | | [phone] | | | +--------+ + + + [...]
--- OUTSIDE RECORDS SUMMARY | ~2017-08-01 | XMS | Encounter Summary ---
Demographics + + + | Address | [address] | | | [place] [address] | + + + | Home Phone | | + + + | Preferred Language | Unknown | + + + | Marital Status | | + + + | Anabaptist Affiliation | LUT | + + + | Race | White | + + + | Ethnic Group | Not or | + + + Author + + + | Author | [facility] | + + + | Organization | [facility] | + + + | Address | Unknown | + + + | Phone | Unavailable | + + + Support +------+ + + + +-------+ | Name | Relationship | Address | Phone | +------+ + + + +-------+ ECON | [address] | | [place] | [address] | +------+ + + + +-------+ Care Team Providers + +------+-------+ | Care Brownfield Redevelopment Specialist Name | Role | Phone | + +------+-------+ | Jamaal Rivera MD | PCP | tel | + +------+-------+ Reason for Visit + + + | Reason | Comments | + + + | Lab Draw | PAC | + + + | Follow-up visit | Dr. 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 | [place], [place] | [facility] | | | | | Procedures | [address] | Road | | | | | [place] INJ IG | Phone: | Mailcode: | | | | | [place] | [phone] | [id number] | | | | | IV, 500 MG | Fax: | [place] | | | | | [place] | [phone] | Pavilion | | | | | THR/PRPH/DX | | [place], [place] | | | | | IV INF,IN | | [address] | | | | | [place] | | Phone: | | | | | THER/PROPH/D | | [phone] | | | | | IAG IV IVIG | | Fax: | | | | | | | [phone] | +--------+--------+ + + + + Encounter Details +--------+ + + + + | Date | Type | Department | Care Team | Description | +--------+ + + + + | 05/14/ | Hospital | [facility] | | | | 2017 | Encounter | Hematologic | | | | | | Malignancies at [facility] | | | | | | [address] | | | | | | [facility] | | | | | | Mailcode: [id number] | | | | | | [address] | | | | | | [place], [place] | | | | | | [address] | | | | | | [phone] | | | +--------+ + + + [...] | + + + | Blood | [facility], POINT OF CARE TESTS [address] | | | [place] [address] | + + + CMP, POC (BMP+LFT) [...] TESTS [address] | | | [place] [address] | + + + INR (05/14/2017 7:45 AM) + +-------+ + | Component | Value | Ref Range | + +-------+ + | INR | 1.02 | 0.90 - 1.20 INR | + +-------+ + + + + | Specimen | Performing Laboratory | + + + | Blood | [facility], CORE [address] [facility] | | | [place] [address] | + + + + + | [...] ....... | | | | HighPerformed by [address] | | | | [facility] [place] [address] | | | | [phone].Pianpian, Graham Meza, | | | | , Lab. Director | | | |www.Pianpian, Graham Meza MD, Lab. Director | | + + + + + + + | Specimen | Performing Laboratory | + + + | Blood | [facility] [address] [facility] | | | [place] [address] | + + + C'4 COMPLEMENT, SERUM (05/14/2017 7:45 AM) + +-------+ + | Component | Value | Ref Range | + +-------+ + | C'4 COMPLEMENT SERUM | 40 | 16 - 47 mg/dL | + +-------+ + + + + | Specimen | Performing Laboratory | + + + | Blood | [facility] [address] [place], [place] | | | [address] | + + + C'3 COMPLEMENT, SERUM (05/14/2017 7:45 AM) + +-------+ + | Component | Value | Ref Range | + +-------+ + | C'3 COMPLEMENT SERUM | 121 | 88 - 201 mg/dL | + +-------+ + + + + | Specimen | Performing Laboratory | + + + | Blood | [facility] [address] [place], [place] | | | [address] | + + + TROPONIN I, PLASMA (05/14/2017 7:45 AM) + +-------+ + | Component | Value | Ref Range | + +-------+ + | TROPONIN I | 0.02 | <0.80 ng/mL | + +-------+ + + + + | Specimen | Performing Laboratory | + + + | Blood | [facility], CORE [address] | | | [place] [address] | + + + FREE T4 (05/14/2017 7:45 AM) + +-------+ + | Component | Value | Ref Range | + +-------+ + | FREE T4 | 1.0 | 0.6 - 1.2 ng/dL | + +-------+ + + + + | Specimen | Performing Laboratory | + + + | Blood | [facility], CORE [address] | | | [place] [address] | + + + T3 TOTAL, SERUM (05/14/2017 7:45 AM) + +-------+ + | Component | Value | Ref Range | + +-------+ + | T3, TOTAL | 113 | 87 - 196 ng/dL | + +-------+ + + + + | Specimen | Performing Laboratory | + + + | Blood | [facility] [place] [address] [facility], [place] | | | [address] | + + + TSH (05/14/2017 7:45 AM) + +-------+ + | Component | Value | Ref Range | + +-------+ + | TSH | 2.22 | 0.47 - 7.11 mIU/L | + +-------+ + + + + | Specimen | Performing Laboratory | + + + | Blood | [facility], CORE [address] | | | [place] [address] | + + + + + | [...] | + + + | Blood | [facility], SPECIAL IMM + COAG [address] | | | [place] [facility] [address] | + + + + + | [...] | + + + | Blood | [facility], CORE [address] [facility] | | | [place] [address] | + + + AMYLASE, PLASMA (05/14/2017 7:45 AM) + +--------+ + | Component | Value | Ref Range | + +--------+ + | AMYLASE,PLASMA | 23 (L) | 25 - 115 U/L | + +--------+ + + + + | Specimen | Performing Laboratory | + + + | Blood | [facility], CORE [address] [place] [address] | | | [place] [address] | + + + IGM, SERUM (05/14/2017 7:45 AM) + +--------+ + | Component | Value | Ref Range | + +--------+ + | IGM SERUM | 37 (L) | 40 - 230 mg/dL | + +--------+ + + + + | Specimen | Performing Laboratory | + + + | Blood | [facility] [address] [place], [place] | | | [address] | + + + IGA, SERUM (05/14/2017 7:45 AM) + +-------+ + | Component | Value | Ref Range | + +-------+ + | IGA SERUM | 248 | 70 - 400 mg/dL | + +-------+ + + + + | Specimen | Performing Laboratory | + + + | Blood | [facility] [address] [place], [place] | | | [address] | + + + IGG, SERUM (05/14/2017 7:45 AM) + +-------+ + | Component | Value | Ref Range | + +-------+ + | IGG SERUM | 859 | 700 - 1600 mg/dL | + +-------+ + + + + | Specimen | Performing Laboratory | + + + | Blood | [facility] [address] [place], [place] | | | [address] | + + + URIC ACID, PLASMA (05/14/2017 7:45 AM) + +-------+ + | Component | Value | Ref Range | + +-------+ + | URIC ACID, PLASMA | 6.6 | 3.7 - 8.0 mg/dL | | (LAB) | | | + +-------+ + + + + | Specimen | Performing Laboratory | + + + | Blood | [facility], CORE [address] | | | [place] [address] | + + + PHOSPHORUS, PLASMA (05/14/2017 7:45 AM) + +-------+ + | Component | Value | Ref Range | + +-------+ + | PHOSPHORUS, PLASMA | 3.1 | 2.4 - 4.7 mg/dL | | (LAB) | | | + +-------+ + + + + | Specimen | Performing Laboratory | + + + | Blood | [facility], CORE [address] | | | [place] [address] | + + + MAGNESIUM, PLASMA (05/14/2017 7:45 AM) + +-------+ + | Component | Value | Ref Range | + +-------+ + | MAGNESIUM,PLASMA | 2.2 | 1.6 - 2.6 mg/dL | + +-------+ + + + + | Specimen | Performing Laboratory | + + + | Blood | [facility], CORE [address] | | | [place] [address] | + + + + + | [...] | + + + | Blood | [facility], CORE [address] | | | [place] [address] | + + + in this encounter [...] +---+---+ + +---------+ +--------+ +---+ | INV [id number] (ANTI-LAG-3) 160 | New Bag | 05/14/20 | 160 mg | 60 mL/hr | | | mg in INV NaCl 0.9% IV 160 mg, | | 17 12:18 | | | | | intravenous, Administer over 60 | | PDT | | | | | Minutes, ONCE, 1 dose, Tue | | | | | | | 05/14/17 at 0945, Pt ID:[id number] | | | | | | | [...] | | | | | ALERT MEDICATION IRB:[id number], | | | | | | | Protocol:[id number] | | | | | | + [...] | | | 05/14/17 at 0945, Pt ID:[id number], | | | | | | | Infuse with 0.2 micron filter. | | | | | | | Flush line at the end of the | | | | | | | infusion. For investigational | | | | | | | use only, HIGH ALERT MEDICATION | | | | | | | IRB:[id number], Protocol: [id number] | | | | | | + +-------+ +--------+-------+---+ +---+---+ | | | +---+---+ in this encounter"
--- OUTSIDE RECORDS SUMMARY | ~2017-08-01 | XMS | Encounter Summary ---
Demographics + + + | Address | [address] | | | [place] [address] | + + + | Home Phone [...] + + +-------+ ECON | [address] | | [place] | [address] | +------+ + + + +-------+ Care Team Providers + +------+-------+ | Care Freight Loading Supervisor Name | Role | Phone | + +------+-------+ | Jamaal Rivera MD | PCP | tel | + +------+-------+ Encounter Details +--------+ + + + + | Date | Type | Department | Care Team | Description | +--------+ + + + + | 06/20/ | Procedure | Diagnostic Imaging | | | | 2017 | Pass | Services at [facility] | | | | | | [address] | | | | | | [facility] | | | | | | Mailcode: [id number] [facility] | | | | | | [facility], | | | | | | [place] [address] | | | | | | [phone] | | | +--------+ + + + [...]
--- OUTSIDE RECORDS SUMMARY | ~2017-08-01 | XMS | Encounter Summary ---
Demographics + + + | Address | [address] | | | [place] [address] | + + + | Home Phone | | + + + | Preferred Language | Unknown | + + + | Marital Status | | + + + | Sikhism Affiliation | LUT | + + + [...] + + +-------+ ECON | [address] | | [place] | [address] | +------+ + + + +-------+ Care Team Providers + +------+-------+ | Care Baseball Inspector And Repairer Name | Role | Phone | + [...] | | Malignancies at | [facility] | | | | | [facility] | [place], [place] | | | | | [address] [facility] | [address] | | | | | [facility] | [phone] | | | | | Mailcode: [id number] | | | | | | [facility] | | | | | | [place], [place] | | | | | | [address] | | | | | | [phone] | | | +--------+ + + + [...]
--- OUTSIDE RECORDS SUMMARY | ~2017-08-01 | XMS | Encounter Summary ---
Demographics + + + | Address | [address] | | | [place] [address] | + + + | Home Phone | | + + + | Preferred Language | Unknown | + + + | Marital Status | | + + + | Orthodoxy Affiliation | LUT | + + + | Race | White | + + + | Ethnic Group | Not or | + + + Author + + + | Author | [facility] | + + + | Organization | [facility] | + + + | Address | Unknown | + + + | Phone | Unavailable | + + + Support +------+ + + + +-------+ | Name | Relationship | Address | Phone | +------+ + + + +-------+ ECON | [address] | | [place] | [address] | +------+ + + + +-------+ Care Team Providers + +------+-------+ | Care Soybean Grower Name | Role | Phone | + [...] | Diffuse | MD Chad | s [address] | | | | | large B-cell | [address] | | | | | lymphoma of | [address] | [place] | | | | | lymph nodes | [place], [place] | Road | | | | | of multiple | [address] | Mailcode: | | | | | regions | Phone: | [address] [facility] | | | | | (HCC) | [phone] | Hospital | | | | | Procedures | Fax: | [place], [place] | | | | | CT NECK SOFT | [phone] | [address] | | | | | TISSUE W | | Phone: | | | | | [facility]AST [facility] | | [phone] | | | | | CT NECK | | Fax: | | | | | TISSUE | | [phone] | | | | | CONTRAST | [...] | | | | lymph nodes | [place], [place] | Road | | | | | of multiple | [address] | Mailcode: | | | | | regions | Phone: | L[address] [facility] | | | | | (HCC) | [phone] | Hospital | | | | | Procedures | Fax: | [place], [place] | | | | | CT NECK SOFT | [phone] | [address] | | | | | TISSUE W | | Phone: | | | | | [facility] | | [phone] | | | | | CT NECK | | Fax: | | | | | TISSUE | | [phone] | | | | | CONTRAST | [...] Closed | | Radiology | Diagnoses | [place], | Rad General | | | | | Diffuse | MD Chad | [facility] [address] | | | | | large B-cell | [address] | | | | | lymphoma of | [address] | [place] | | | | | lymph nodes | [place], [place] | Road | | | | | of multiple | [address] | Mailcode: | | | | | regions | Phone: | L[address] [facility] | | | | | ([facility]) | [phone] | Hospital | | | | | Procedures | Fax: | [place], [place] | | | | | CT NECK SOFT | [phone] | [address] | | | | | TISSUE W | | Phone: | | | | | [facility]AST [facility] | | [phone] | | | | | CT NECK | | Fax: | | | | | TISSUE | | [phone] | | | | | CONTRAST | | | +--------+--------+ + + + + Encounter Details +--------+ + + + + | Date | Type | Department | Care Team | Description | +--------+ + + + + | 07/11/ | Hospital | Diagnostic Imaging | Chad Lowe, | | | 2017 | Encounter | Services at [facility] | MD [address] | | | | | [address] | [place], [place] | | | | | [facility] | [address] | | | | | Mailcode: [id number] [facility] | [phone] | | | | | Hospital [place], | | | | | | [place] [address] | | | | | | [phone] | | | +--------+ + + + [...] Laboratory | + + + | | [facility] RADIOLOGY VOICE RECOGNITION | + + [...] | + + + | Blood | [facility], POINT OF CARE TESTS [address] | | | [place] [address] | + + + in this encounter Visit Diagnoses + + | Diagnosis | + + | Diffuse large B-cell lymphoma of lymph nodes of multiple regions (HCC) | + +"
--- OUTSIDE RECORDS SUMMARY | ~2017-08-01 | XMS | Encounter Summary ---
Demographics + + + | Address | [address] | | | [place] [address] | + + + | Home Phone [...] + + +-------+ ECON | [address] | | [place] | [address] | +------+ + + + +-------+ Care Team Providers + +------+-------+ | Care Publicity Consultant Name | Role | Phone | + +------+-------+ | Jamaal Rivera MD | PCP | tel | + +------+-------+ Encounter Details +--------+ + + + + | Date | Type | Department | Care Team | Description | +--------+ + + + + | 05/15/ | Software Database Architect | Center for | Chad Lowe, | Other acute | | 2017 | | Hematologic | [address] | pulmonary embolism | | | | Malignancies at | [address] [place], [place] | without acute cor | | | | [facility] | [address] | pulmonale (HCC) | | | | [address] | [phone] | (Primary Dx) | | | | [address] | | | | | | Mailcode: [id number] | | | | | | [address] | | | | | | [place], [place] | | | | | | [address] | | | | | | [phone] | | | +--------+ + + + [...]
--- OUTSIDE RECORDS SUMMARY | ~2017-08-01 | XMS | Encounter Summary ---
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
--- OUTSIDE RECORDS SUMMARY | ~2017-08-01 | XMS | Encounter Summary ---
Demographics + + + | Address | [address] | | | [place] [address] | + + + | Home Phone [...] + + +-------+ ECON | [address] | | [place] | [address] | +------+ + + + +-------+ Care Team Providers + +------+-------+ | Care Social Media Marketing Analyst Name | Role | Phone | [...] + + + + | 05/29/ | Filling Technician | Center for | Chad Lowe, | 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 | MD [address] | lymphoma of | | | | Malignancies at | [address] [place], [place] | intra-abdominal | | | | [facility] | [address] | lymph nodes (HCC) | | | | [address] | [phone] | (Primary Dx) | | | | [facility] | | | | | | Mailcode: [id number] | | | | | | [facility] | | | | | | [place], [place] | | | | | | [address] | | | | | | [phone] | | | +--------+ + + + [...] | | [facility] [address] [facility] | | | [place] [address] | + + + JESSIKA RIVERA (05/30/2017 [...] | SPECIFIC GRAVITY | 1.004 (L)Comment: Specific [place] | 1.005 - 1.030 | | | performed by refractometry | | + + + + + + + | Specimen | Performing Laboratory | + + + | Urine | [facility], CORE [address] [facility] | | | [place] [address] | + + + FREE T4 (05/30/2017 10:59 AM) + +-------+ + | Component | Value | Ref Range | + +-------+ + | FREE T4 | 1.0 | 0.6 - 1.2 ng/dL | + +-------+ + + + + | Specimen | Performing Laboratory | + + + | Blood | [facility], CORE [address] [place] [address] | | | [place] [address] | + + + T3 TOTAL, SERUM (05/30/2017 10:59 AM) + +-------+ + | Component | Value | Ref Range | + +-------+ + | T3, TOTAL | 114 | 87 - 196 ng/dL | + +-------+ + + + + | Specimen | Performing Laboratory | + + + | Blood | [facility] [address] [place], [place] | | | [address] | + + + PROTEIN C ACTIVITY REFLEX INR, PLASMA (05/30/2017 10:59 AM) + + + + | Component | Value | Ref Range | + + + + | PROTEIN C ACTIVITY | 0.69 (L) | 0.82 - 1.54 U/mL | + + + + + + + | Specimen | Performing Laboratory | + + + | Blood | [facility], SPECIAL IMM + COAG [address] | | | [place] [address] | + + + + + | [...] | + + + | Blood | [facility], CORE [address] [place] [address] | | | [place] [address] | + + + AMYLASE, PLASMA (05/30/2017 10:59 AM) + +--------+ + | Component | Value | Ref Range | + +--------+ + | AMYLASE,PLASMA | 23 (L) | 25 - 115 U/L | + +--------+ + + + + | Specimen | Performing Laboratory | + + + | Blood | [facility], CORE [address] [facility] | | | [place] [address] | + + + TSH (05/30/2017 10:59 AM) + +-------+ + | Component | Value | Ref Range | + +-------+ + | TSH | 1.29 | 0.47 - 7.11 mIU/L | + +-------+ + + + + | Specimen | Performing Laboratory | + + + | Blood | [facility], CORE [address] [place] [address] | | | [place] [address] | + + + + + | [...]
--- OUTSIDE RECORDS SUMMARY | ~2017-08-01 | XMS | Encounter Summary ---
Demographics + + + | Address | [address] | | | [place] [address] | + + + | Home Phone [...] + + +-------+ ECON | [address] | | [place] | [address] | +------+ + + + +-------+ Care Team Providers + +------+-------+ | Care Executive Chairman Name | Role | Phone | + [...] CENTER | | | | | | [address] | | | | | | [facility] | | | | | | Mailcode: [id number] [facility] | | | | | | [facility], | | | | | | [place] [address] | | | | | | [phone] | | | +--------+ + + + [...]
--- OUTSIDE RECORDS SUMMARY | ~2017-08-01 | XMS | Encounter Summary ---
Demographics + + + | Address | [address] | | | [place] [address] | + + + | Home Phone [...] + + +-------+ ECON | [address] | | [place] | [address] | +------+ + + + +-------+ Care Team Providers + +------+-------+ | Care Cloud Engagement Partner Name | Role | Phone | + +------+-------+ | Jamaal Rivera MD | PCP | tel | + +------+-------+ Encounter Details +--------+ + + + + | Date | Type | Department | Care Team | Description | +--------+ + + + + | 05/30/ | Vending Enterprises Supervisor | Center for | Chad Lowe, | 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 | [address] | lymphoma of | | | | Malignancies at | [address] [place], [place] | intra-abdominal | | | | [place] | [address] | lymph nodes (HCC) | | | | [address] | [phone] | (Primary Dx) | | | | [address] | | | | | | Mailcode: [id number] | | | | | | [place] | | | | | | [place], [place] | | | | | | [address] | | | | | | [phone] | | | +--------+ + + + [...]
--- OUTSIDE RECORDS SUMMARY | ~2017-08-01 | XMS | Encounter Summary ---
Demographics + + + | Address | [address] | | | [place] [address] | + + + | Home Phone [...] Author | [facility] | + + + | Organization | [facility] | + + + | Address | Unknown | + + + | Phone | Unavailable | + + + Support +------+ + + + +-------+ | Name | Relationship | Address | Phone | +------+ + + + +-------+ ECON | [address] | | [place] | [address] | +------+ + + + +-------+ Care Team Providers + +------+-------+ | Care Malt Liquors Sales Representative Name | Role | Phone | + +------+-------+ | Jamaal Rivera MD | PCP | tel | + +------+-------+ Encounter Details +--------+ + + + + | Date | Type | Department | Care Team | Description | +--------+ + + + + | 04/16/ | Procedure | Diagnostic Imaging | | | | 2017 | Pass | Services at [facility] | | | | | | [address] | | | | | | [facility] | | | | | | Mailcode: [id number] [facility] | | | | | | [facility], | | | | | | [place] [address] | | | | | | [phone] | | | +--------+ + + + [...]
--- OUTSIDE RECORDS SUMMARY | ~2017-08-01 | XMS | Encounter Summary ---
Demographics + + + | Address | [address] | | | [place] [address] | + + + | Home Phone [...] + + + +-------+ ECON | [address] | | [place] | [address] | +------+ + + + +-------+ Care Team Providers + +------+-------+ | Care Hoe Worker Name | Role | Phone | [...] + + + + | 05/09/ | Licensed Customs Broker | Center for | Chad Lowe, | 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 | MD [address] | lymphoma, | | | | Malignancies at | [address] [place], [place] | unspecified body | | | | [facility] | [address] | region (HCC) | | | | [address] | [phone] | (Primary Dx) | | | | Segment | | | | | | Mailcode: [id number] | | | | | | [facility] | | | | | | [place], [place] | | | | | | [address] | | | | | | [phone] | | | +--------+ + + + [...] ....... | | | | HighPerformed by [employer],[address] | | | | [address], [facility] [address] | | | | [phone].[employer], Graham Meza, | | | | , Lab. Director | | | |www.[email or web address], Graham Meza MD, Lab. Director | | + + + + + + + | Specimen | Performing Laboratory | + + + | Blood | [facility] [address] [facility] | | | [place] [address] | + + + C'4 COMPLEMENT, SERUM (05/14/2017 7:45 AM) + +-------+ + | Component | Value | Ref Range | + +-------+ + | C'4 COMPLEMENT SERUM | 40 | 16 - 47 mg/dL | + +-------+ + + + + | Specimen | Performing Laboratory | + + + | Blood | [facility] [address] [place], [place] | | | [address] | + + + C'3 COMPLEMENT, SERUM (05/14/2017 7:45 AM) + +-------+ + | Component | Value | Ref Range | + +-------+ + | C'3 COMPLEMENT SERUM | 121 | 88 - 201 mg/dL | + +-------+ + + + + | Specimen | Performing Laboratory | + + + | Blood | [facility] [address] [place], [place] | | | [address] | + + + TROPONIN I, PLASMA (05/14/2017 7:45 AM) + +-------+ + | Component | Value | Ref Range | + +-------+ + | TROPONIN I | 0.02 | <0.80 ng/mL | + +-------+ + + + + | Specimen | Performing Laboratory | + + + | Blood | [facility], CORE [address] [facility] [address] | | | [place] [address] | + + + FREE T4 (05/14/2017 7:45 AM) + +-------+ + | Component | Value | Ref Range | + +-------+ + | FREE T4 | 1.0 | 0.6 - 1.2 ng/dL | + +-------+ + + + + | Specimen | Performing Laboratory | + + + | Blood | [facility], CORE [address] | | | [place] [address] | + + + T3 TOTAL, SERUM (05/14/2017 7:45 AM) + +-------+ + | Component | Value | Ref Range | + +-------+ + | T3, TOTAL | 113 | 87 - 196 ng/dL | + +-------+ + + + + | Specimen | Performing Laboratory | + + + | Blood | [facility] [address] [place], [place] | | | [address] | + + + TSH (05/14/2017 7:45 AM) + +-------+ + | Component | Value | Ref Range | + +-------+ + | TSH | 2.22 | 0.47 - 7.11 mIU/L | + +-------+ + + + + | Specimen | Performing Laboratory | + + + | Blood | [facility] [place] [place] [address] [facility] [address] | | | [place] [address] | + + + + + | [...] + + | Blood | [facility], SPECIAL IMM + COAG [address] [facility] | | | [place] [address] | + + + + + | [...] + + | Blood | [facility], CORE [address] [facility] | | | [place] [address] | + + + AMYLASE, PLASMA (05/14/2017 7:45 AM) + +--------+ + | Component | Value | Ref Range | + +--------+ + | AMYLASE,PLASMA | 23 (L) | 25 - 115 U/L | + +--------+ + + + + | Specimen | Performing Laboratory | + + + | Blood | [facility], CORE [address] | | | [place] [address] | + + + in this encounter Visit Diagnoses + + | Diagnosis | + + | Diffuse large B-cell lymphoma, unspecified body region (HCC) - Primary | + +"
--- OUTSIDE RECORDS SUMMARY | ~2017-08-01 | XMS | Encounter Summary ---
Demographics + + + | Address | [address] | | | [place] [address] | + + + | Home Phone [...] + + +-------+ ECON | [address] | | [place] | [address] | +------+ + + + +-------+ Care Team Providers + +------+-------+ | Care Stain Applicator Name | Role | Phone | + [...] | | | | | [id number] | [facility] | | | | | | [facility] | [facility] | | | | | | Pavilion | [place], [place] | | | | | | [place], [place] | [address] | | | | | | [address] | Phone: | | | | | | Phone: | [phone] | | | | | | [phone] | Fax: | | | | | | Fax: | [phone] | | | | | | [phone] | | +--------+--------+ + + + + Encounter Details +--------+---------+ + + + | Date | Type | Department | Care Team | Description | +--------+---------+ + + + | 05/30/ | Office | Center for | Dunia Joseph MD | Diffuse large B-cell | | 2017 | Visit | Hematologic | [address] [facility] | lymphoma of | | | | Malignancies at | [address] | intra-abdominal | | | | [facility] | [place], [place] | lymph nodes (HCC) | | | | [address] [facility] | [address] | (Primary Dx) | | | | [address] | [phone] | | | | | Mailcode: [id number] | | | | | | [facility] | | | | | | [place], [place] | | | | | | [address] | | | | | | [phone] | | | +--------+---------+ + + + [...] urmila original. [facility], [facility], [facility] 05/30/17 Reason for visit: Consultation is [...] (discussed below). Patients must stay in the [place] area f or 30 days after the [...] and running. We are wo rking with [employer] and are in the final stages of [...] a num emily of clinical trials in [facility] that he can consider. 2. Infectious Prophylaxis: [...] discussion of treatment options. 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
--- OUTSIDE RECORDS SUMMARY | ~2017-08-01 | XMS | Encounter Summary ---
Demographics + + + | Address | [address] | | | [place] [address] | + + + | Home Phone [...] + + +-------+ ECON | [address] | | [place] | [address] | +------+ + + + +-------+ Care Team Providers + +------+-------+ | Care Shield Runner Name | Role | Phone | [...] | Diffuse | MD Chad | s [address] | | | | | large B-cell | [address] | | | | | lymphoma, | [address] | [place]iko [place]ern | | | | | unspecified | [place], [place] | Road | | | | | body region | [address] | Mailcode: | | | | | (HCC) | Phone: | F[address] [facility] | | | | | Procedures | [phone] | Hospital | | | | | CT NECK SOFT | Fax: | [place], [place] | | | | | TISSUE W | [phone] | [address] | | | | | CONTRAST ID | | Phone: | | | | | CT NECK | | [phone] | | | | | TISSUE | | Fax: | | | | | CONTRAST | | [phone] | +--------+--------+ + + + + Reason for Visit + + + | Reason | Comments | + + + | Research data | | | collection | | + + + Encounter Details +--------+ + + + + | Date | Type | Department | Care Team | Description | +--------+ + + + + | 10/30/ | Office Employee | Center for | Loomis, Chad, | 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 | MD [address] | lymphoma, | | | | Malignancies at | Ave [place], [place] | unspecified body | | | | [facility] | [address] | region (HCC) | | | | [address] | [phone] | (Primary Dx) | | | | ServiceRelated | | | | | | Mailcode: [id number] | | | | | | [facility] | | | | | | [place], [place] | | | | | | [address] | | | | | | [phone] | | | +--------+ + + + [...]
--- OUTSIDE RECORDS SUMMARY | ~2017-08-01 | XMS | Encounter Summary ---
Demographics + + + | Address | [address] | | | [place] [address] | + + + | Home Phone [...] + + +-------+ ECON | [address] | | [place] | [address] | +------+ + + + +-------+ Care Team Providers + +------+-------+ | Care Truck Trailer Final Inspector Name | Role | Phone | + +------+-------+ | Jamaal Rivera MD | PCP | tel | + +------+-------+ Encounter Details +--------+ + + + + | Date | Type | Department | Care Team | Description | +--------+ + + + + | 05/24/ | Graduate Engineer | Center for | Chad Lowe, | | | 2017 | | Hematologic | [address] | | | | | Malignancies at | [address] [place], [place] | | | | | Stacey Arreguinon | [address] | | | | | [address] | [phone] | | | | | [employer] | | | | | | Mailcode: [id number] | | | | | | [address] | | | | | | [place], [place] | | | | | | [address] | | | | | | [phone] | | | +--------+ + + + [...]
--- OUTSIDE RECORDS SUMMARY | ~2017-08-01 | XMS | Encounter Summary ---
Demographics + + + | Address | [address] | | | [place] [address] | + + + | Home Phone [...] + + +-------+ ECON | [address] | | [place] | [address] | +------+ + + + +-------+ Care Team Providers + +------+-------+ | Care Construction Job Cost Estimator Name | Role | Phone | + [...] | | | | | [id number] | [place] [facility] | | | | | [place] [facility] | | | | | | Pavilion | [place], [place] | | | | | | [place], [place] | [address] | | | | | | [address] | Phone: | | | | | | Phone: | [phone] | | | | | | [phone] | Fax: | | | | | | Fax: | [phone] | | | | | | [phone] | | +--------+--------+ + + + + [...] | | | Malignancies at | Ave [place], [place] | intra-abdominal | | | | [facility] | [address] | lymph nodes (HCC) | | | | [address] | [phone] | (Primary Dx) | | | | [employer] | | | | | | Mailcode: [id number] | | | | | | [facility] | | | | | | [place], [place] | | | | | | [address] | | | | | | [phone] | | | +--------+---------+ + + + [...] be different fro m the original. [facility] Center for Hematologic Malignancies Follow Up 07-11-17 [facility] Physician: Chad Lowe MD Reason [...] PET/CT has been completed. 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
--- OUTSIDE RECORDS SUMMARY | ~2017-08-01 | XMS | Encounter Summary ---
Demographics + + + | Address | [address] | | | [place] [address] | + + + | Home Phone [...] + + +-------+ ECON | [address] | | [place] | [address] | +------+ + + + +-------+ Care Team Providers + +------+-------+ | Care Floral Arranger Name | Role | Phone | + [...] HOSPITAL | | | | | | [address] | | | | | | [facility] | | | | | | Mailcode: [id number] [facility] | | | | | | [facility], | | | | | | [place] [address] | | | | | | [phone] | | | +--------+ + + + [...]
--- OUTSIDE RECORDS SUMMARY | ~2017-08-01 | XMS | Encounter Summary ---
Demographics + + + | Address | [address] | | | [place] [address] | + + + | Home Phone [...] + + +-------+ ECON | [address] | | [place] | [address] | +------+ + + + +-------+ Care Team Providers + +------+-------+ | Care Band Splicer Name | Role | Phone | + +------+-------+ | Jamaal Rivera MD | PCP | tel | + +------+-------+ Reason for Visit + + + | Reason | Comments | + + + | Lab Draw | PAC | + + + | Follow-up visit | Dr. 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 | | | | | Procedures | [address] | Road | | | | | [place] INJ IG | Phone: | Mailcode: | | | | | [facility] | [phone] | [id number] | | | | | IV, 500 MG | Fax: | [place] | | | | | [place] | [phone] | Pavilion | | | | | THR/PRPH/DX | | [place], [place] | | | | | IV INF,IN | | [address] | | | | | [place] | | Phone: | | | | | THER/PROPH/D | | [phone] | | | | | IAG IV IVIG | | Fax: | | | | | | | [phone] | +--------+--------+ + + + + Encounter Details +--------+ + + + + | Date | Type | Department | Care Team | Description | +--------+ + + + + | 05/14/ | Hospital | [facility] | | | | 2017 | Encounter | Hematologic | | | | | | Malignancies at [facility] | | | | | | [address] | | | | | | [facility] | | | | | | Mailcode: [id number] | | | | | | [address] | | | | | | [place], [place] | | | | | | [address] | | | | | | [phone] | | | +--------+ + + + [...] + + | Blood | [facility], POINT OF CARE TESTS [address] | | | [place] [address] | + + + CMP, POC (BMP+LFT) [...] TESTS [address] | | | [place] [address] | + + + INR (05/14/2017 7:45 AM) + +-------+ + | Component | Value | Ref Range | + +-------+ + | INR | 1.02 | 0.90 - 1.20 INR | + +-------+ + + + + | Specimen | Performing Laboratory | + + + | Blood | [facility], CORE [address] [facility] | | | [place] [address] | + + + + + | [...] ....... | | | | HighPerformed by [employer],[address] | | | | [facility] [address] | | | | [phone].[employer], Graham Meza, | | | | , Lab. Director | | | |www.[employer], Graham Meza MD, Lab. Director | | + + + + + + + | Specimen | Performing Laboratory | + + + | Blood | [facility] [address] [facility] | | | [place] [address] | + + + C'4 COMPLEMENT, SERUM (05/14/2017 7:45 AM) + +-------+ + | Component | Value | Ref Range | + +-------+ + | C'4 COMPLEMENT SERUM | 40 | 16 - 47 mg/dL | + +-------+ + + + + | Specimen | Performing Laboratory | + + + | Blood | [facility] [address] [place], [place] | | | [address] | + + + C'3 COMPLEMENT, SERUM (05/14/2017 7:45 AM) + +-------+ + | Component | Value | Ref Range | + +-------+ + | C'3 COMPLEMENT SERUM | 121 | 88 - 201 mg/dL | + +-------+ + + + + | Specimen | Performing Laboratory | + + + | Blood | [facility] [address] [place], [place] | | | [address] | + + + TROPONIN I, PLASMA (05/14/2017 7:45 AM) + +-------+ + | Component | Value | Ref Range | + +-------+ + | TROPONIN I | 0.02 | <0.80 ng/mL | + +-------+ + + + + | Specimen | Performing Laboratory | + + + | Blood | [facility], CORE [address] | | | [place] [address] | + + + FREE T4 (05/14/2017 7:45 AM) + +-------+ + | Component | Value | Ref Range | + +-------+ + | FREE T4 | 1.0 | 0.6 - 1.2 ng/dL | + +-------+ + + + + | Specimen | Performing Laboratory | + + + | Blood | [facility], CORE [address] | | | [place] [address] | + + + T3 TOTAL, SERUM (05/14/2017 7:45 AM) + +-------+ + | Component | Value | Ref Range | + +-------+ + | T3, TOTAL | 113 | 87 - 196 ng/dL | + +-------+ + + + + | Specimen | Performing Laboratory | + + + | Blood | [facility] [place] [address] [facility], [place] | | | [address] | + + + TSH (05/14/2017 7:45 AM) + +-------+ + | Component | Value | Ref Range | + +-------+ + | TSH | 2.22 | 0.47 - 7.11 mIU/L | + +-------+ + + + + | Specimen | Performing Laboratory | + + + | Blood | [facility], CORE [address] | | | [place] [address] | + + + + + | [...] | + + + | Blood | [facility], SPECIAL IMM + COAG [address] [facility] | | | [place] [address] | + + + + + | [...] | + + + | Blood | [facility], CORE [address] [facility] | | | [place] [address] | + + + AMYLASE, PLASMA (05/14/2017 7:45 AM) + +--------+ + | Component | Value | Ref Range | + +--------+ + | AMYLASE,PLASMA | 23 (L) | 25 - 115 U/L | + +--------+ + + + + | Specimen | Performing Laboratory | + + + | Blood | [facility], CORE [address] [place] [address] | | | [place] [address] | + + + IGM, SERUM (05/14/2017 7:45 AM) + +--------+ + | Component | Value | Ref Range | + +--------+ + | IGM SERUM | 37 (L) | 40 - 230 mg/dL | + +--------+ + + + + | Specimen | Performing Laboratory | + + + | Blood | [facility] [address] [place], [place] | | | [address] | + + + IGA, SERUM (05/14/2017 7:45 AM) + +-------+ + | Component | Value | Ref Range | + +-------+ + | IGA SERUM | 248 | 70 - 400 mg/dL | + +-------+ + + + + | Specimen | Performing Laboratory | + + + | Blood | [facility] [address] [place], [place] | | | [address] | + + + IGG, SERUM (05/14/2017 7:45 AM) + +-------+ + | Component | Value | Ref Range | + +-------+ + | IGG SERUM | 859 | 700 - 1600 mg/dL | + +-------+ + + + + | Specimen | Performing Laboratory | + + + | Blood | [facility] [address] [place], [place] | | | [address] | + + + URIC ACID, PLASMA (05/14/2017 7:45 AM) + +-------+ + | Component | Value | Ref Range | + +-------+ + | URIC ACID, PLASMA | 6.6 | 3.7 - 8.0 mg/dL | | (LAB) | | | + +-------+ + + + + | Specimen | Performing Laboratory | + + + | Blood | [facility], CORE [address] | | | [place] [address] | + + + PHOSPHORUS, PLASMA (05/14/2017 7:45 AM) + +-------+ + | Component | Value | Ref Range | + +-------+ + | PHOSPHORUS, PLASMA | 3.1 | 2.4 - 4.7 mg/dL | | (LAB) | | | + +-------+ + + + + | Specimen | Performing Laboratory | + + + | Blood | [facility], CORE [address] | | | [place] [address] | + + + MAGNESIUM, PLASMA (05/14/2017 7:45 AM) + +-------+ + | Component | Value | Ref Range | + +-------+ + | MAGNESIUM,PLASMA | 2.2 | 1.6 - 2.6 mg/dL | + +-------+ + + + + | Specimen | Performing Laboratory | + + + | Blood | [facility], CORE [address] | | | [place] [address] | + + + + + | [...] | + + + | Blood | [facility], CORE [address] | | | [place] [address] | + + + in this encounter [...] +---+---+ + +---------+ +--------+ +---+ | INV [id number] (ANTI-LAG-3) 160 | New Bag | 05/14/20 | 160 mg | 60 mL/hr | | | mg in INV NaCl 0.9% IV 160 mg, | | 17 12:18 | | | | | intravenous, Administer over 60 | | PDT | | | | | Minutes, ONCE, 1 dose, Tue | | | | | | | 05/14/17 at 0945, Pt ID:[id number] | | | | | | | [...] | | | | | ALERT MEDICATION IRB:[id number], | | | | | | | Protocol:[id number] | | | | | | + [...] | | | 05/14/17 at 0945, Pt ID:[id number], | | | | | | | Infuse with 0.2 micron filter. | | | | | | | Flush line at the end of the | | | | | | | infusion. For investigational | | | | | | | use only, HIGH ALERT MEDICATION | | | | | | | IRB:[id number], Protocol: [id number] | | | | | | + +-------+ +--------+-------+---+ +---+---+ | | | +---+---+ in this encounter"
--- OUTSIDE RECORDS SUMMARY | ~2017-08-01 | XMS | Encounter Summary ---
Demographics + + + | Address | [address] | | | [place] [address] | + + + | Home Phone [...] + + +-------+ ECON | [address] | | [place] | [address] | +------+ + + + +-------+ Care Team Providers + +------+-------+ | Care Energy Systems Engineer Name | Role | Phone | [...] | | | | | [id number] | [place] | | | | | | [place] [facility] | | | | | | Pavilion | [place], [place] | | | | | | [place], [place] | [address] | | | | | | [address] | Phone: | | | | | | Phone: | [phone] | | | | | | [phone] | Fax: | | | | | | Fax: | [phone] | | | | | | [phone] | | +--------+--------+ + + + + [...] | | | Malignancies at | Ave [place], [place] | intra-abdominal | | | | [facility] | [address] | lymph nodes (HCC) | | | | [address] | [phone] | (Primary Dx) | | | | [employer] | | | | | | Mailcode: [id number] | | | | | | [facility] | | | | | | [place], [place] | | | | | | [address] | | | | | | [phone] | | | +--------+---------+ + + + [...] be different fro m the original. [facility] Center for Hematologic Malignancies Follow Up 07-11-17 [facility] Physician: Chad Lowe MD Reason for [...] PET/CT has been completed. 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
--- OUTSIDE RECORDS SUMMARY | ~2017-08-01 | XMS | Encounter Summary ---
Demographics + + + | Address | [address] | | | [place] [address] | + + + | Home Phone | | + + + | Preferred Language | Unknown | + + + | Marital Status | | + + + | Scientologist Affiliation | LUT | + + + | Race | White | + + + | Ethnic Group | Not or | + + + Author + + + | Author | [facility] | + + + | Organization | [facility] | + + + | Address | Unknown | + + + | Phone | Unavailable | + + + Support +------+ + + + +-------+ | Name | Relationship | Address | Phone | +------+ + + + +-------+ ECON | [address] | | [place] | [address] | +------+ + + + +-------+ Care Team Providers + +------+-------+ | Care Cardboard Inserter Name | Role | Phone | + +------+-------+ | Jamaal Rivera MD | PCP | tel | + +------+-------+ Encounter Details +--------+ + + + + | Date | Type | Department | Care Team | Description | +--------+ + + + + | 05/15/ | Residential Aide | Center for | Chad Lowe, | Other acute | | 2017 | | Hematologic | [address] | pulmonary embolism | | | | Malignancies at | Ave [place], [place] | without acute cor | | | | [facility] | [address] | pulmonale (HCC) | | | | [address] | [phone] | (Primary Dx) | | | | [address] | | | | | | Mailcode: [id number] | | | | | | [address] | | | | | | [place], [place] | | | | | | [address] | | | | | | [phone] | | | +--------+ + + + [...]
--- OUTSIDE RECORDS SUMMARY | ~2017-08-01 | XMS | Encounter Summary ---
Demographics + + + | Address | [address] | | | [place] [address] | + + + | Home Phone [...] [address] | | [place] | [address] | +------+ + + + +-------+ Care Team Providers + +------+-------+ | Care Marketing Program Manager Name | Role | Phone | + +------+-------+ | Jamaal Rivera MD | PCP | tel | + +------+-------+ Encounter Details +--------+ + + + + | Date | Type | Department | Care Team | Description | +--------+ + + + + | 05/01/ | Business Applications Specialist | Center for | Chad Lowe, | 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 | [address] | lymphoma, | | | | Malignancies at | [address] [place], [place] | unspecified body | | | | [place] | [address] | region ([facility]) | | | | [address] | [phone] | (Primary Dx) | | | | Amanda Bourgeois | | | | | | Mailcode: [id number] | | | | | | Stacey Henrry | | | | | | [place], [place] | | | | | | [address] | | | | | | [phone] | | | +--------+ + + + [...] + | SPECIFIC GRAVITY | 1.010Comment: Specific [place] performed by | 1.005 - 1.030 | | | refractometry | | + + + + + + + | Specimen | Performing Laboratory | + + + | Urine | [facility] [address] [facility] | | | [place] [address] | + + + FREE T4 (05/02/2017 8:10 AM) + +-------+ + | Component | Value | Ref Range | + +-------+ + | FREE T4 | 0.9 | 0.6 - 1.2 ng/dL | + +-------+ + + + + | Specimen | Performing Laboratory | + + + | Blood | [facility], CORE [address] [facility] [address] | | | [place] [address] | + + + T3 TOTAL, SERUM (05/02/2017 8:10 AM) + +-------+ + | Component | Value | Ref Range | + +-------+ + | T3, TOTAL | 114 | 87 - 196 ng/dL | + +-------+ + + + + | Specimen | Performing Laboratory | + + + | Blood | [facility] [address] [place], [place] | | | [address] | + + + IGA, SERUM (05/02/2017 8:10 AM) + +-------+ + | Component | Value | Ref Range | + +-------+ + | IGA SERUM | 264 | 70 - 400 mg/dL | + +-------+ + + + + | Specimen | Performing Laboratory | + + + | Blood | [facility] [address] [place], [place] | | | [address] | + + + IGG, SERUM (05/02/2017 8:10 AM) + +-------+ + | Component | Value | Ref Range | + +-------+ + | IGG SERUM | 928 | 700 - 1600 mg/dL | + +-------+ + + + + | Specimen | Performing Laboratory | + + + | Blood | [facility] [id number] [place] [address] | | | [address] | + + + IGM, SERUM (05/02/2017 8:10 AM) + +--------+ + | Component | Value | Ref Range | + +--------+ + | IGM SERUM | 34 (L) | 40 - 230 mg/dL | + +--------+ + + + + | Specimen | Performing Laboratory | + + + | Blood | [facility] [place] [address] [place], [place] | | | [address] | + + + TSH (05/02/2017 8:10 AM) + +-------+ + | Component | Value | Ref Range | + +-------+ + | TSH | 1.87 | 0.47 - 7.11 mIU/L | + +-------+ + + + + | Specimen | Performing Laboratory | + + + | Blood | [facility], CORE [address] [place] [address] | | | [place] [address] | + + + + + | [...] | + + + | Blood | [facility] [address] [facility] [address] | | | [place] [address] | + + + + + | [...] + + + | Blood | [facility], CORE [address] [facility] | | | [place] [address] | + + + LIPASE, PLASMA (05/02/2017 8:10 AM) + +---------+ + | Component | Value | Ref Range | + +---------+ + | LIPASE (LAB) | 108 (L) | 152 - 353 U/L | + +---------+ + + + + | Specimen | Performing Laboratory | + + + | Blood | [facility], CORE [address] | | | [place] [address] | + + + in this encounter Visit Diagnoses + + | Diagnosis | + + | Diffuse large B-cell lymphoma, unspecified body region (HCC) - Primary | + +"
--- OUTSIDE RECORDS SUMMARY | ~2017-08-01 | XMS | Encounter Summary ---
Demographics + + + | Address | [address] | | | [place] [address] | + + + | Home Phone [...] + + +-------+ ECON | [address] | | [place] | [address] | +------+ + + + +-------+ Care Team Providers + +------+-------+ | Care Final Inspector Balance Wheel Name | Role | Phone | + [...] | | | | Malignancies at | [facility], | | | | | [facility] | [place] [address] | | | | | [address] | | | | | | [facility] | | | | | | Mailcode: [id number] | | | | | | [facility] | | | | | | [place], [place] | | | | | | [address] | | | | | | [phone] | | | +--------+ + + + [...]
--- OUTSIDE RECORDS SUMMARY | ~2017-08-01 | XMS | Encounter Summary ---
Demographics + + + | Address | [address] | | | [place] [address] | + + + | Home Phone [...] + + + +-------+ ECON | [address] | | [place] | [address] | +------+ + + + +-------+ Care Team Providers + +------+-------+ | Care Storage Battery Charger Name | Role | Phone | + [...] + + + + | 05/09/ | Household Cook | Center for | Chad Lowe, | 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 | MD [address] | lymphoma, | | | | Malignancies at | Ave [place], [place] | unspecified body | | | | [facility] | [address] | region (HCC) | | | | [address] | [phone] | (Primary Dx) | | | | [email or web address] | | | | | | Mailcode: [id number] | | | | | | [facility] | | | | | | [place], [place] | | | | | | [address] | | | | | | [phone] | | | +--------+ + + + [...] ....... | | | | HighPerformed by [employer],[address] | | | | [address], [facility] [place] [address] | | | | [phone].[email or web address], Graham Meza, | | | | , Lab. Director | | | |[email or web address], Graham Meza MD, Lab. Director | | + + + + + + + | Specimen | Performing Laboratory | + + + | Blood | [facility] [address] [facility] | | | [place] [address] | + + + C'4 COMPLEMENT, SERUM (05/14/2017 7:45 AM) + +-------+ + | Component | Value | Ref Range | + +-------+ + | C'4 COMPLEMENT SERUM | 40 | 16 - 47 mg/dL | + +-------+ + + + + | Specimen | Performing Laboratory | + + + | Blood | [facility] [address] [place], [place] | | | [address] | + + + C'3 COMPLEMENT, SERUM (05/14/2017 7:45 AM) + +-------+ + | Component | Value | Ref Range | + +-------+ + | C'3 COMPLEMENT SERUM | 121 | 88 - 201 mg/dL | + +-------+ + + + + | Specimen | Performing Laboratory | + + + | Blood | [facility] [address] [place], [place] | | | [address] | + + + TROPONIN I, PLASMA (05/14/2017 7:45 AM) + +-------+ + | Component | Value | Ref Range | + +-------+ + | TROPONIN I | 0.02 | <0.80 ng/mL | + +-------+ + + + + | Specimen | Performing Laboratory | + + + | Blood | [facility], CORE [address] [facility] [address] | | | [place] [address] | + + + FREE T4 (05/14/2017 7:45 AM) + +-------+ + | Component | Value | Ref Range | + +-------+ + | FREE T4 | 1.0 | 0.6 - 1.2 ng/dL | + +-------+ + + + + | Specimen | Performing Laboratory | + + + | Blood | [facility], CORE [address] | | | [place] [address] | + + + T3 TOTAL, SERUM (05/14/2017 7:45 AM) + +-------+ + | Component | Value | Ref Range | + +-------+ + | T3, TOTAL | 113 | 87 - 196 ng/dL | + +-------+ + + + + | Specimen | Performing Laboratory | + + + | Blood | [facility] [address] [place], [place] | | | [address] | + + + TSH (05/14/2017 7:45 AM) + +-------+ + | Component | Value | Ref Range | + +-------+ + | TSH | 2.22 | 0.47 - 7.11 mIU/L | + +-------+ + + + + | Specimen | Performing Laboratory | + + + | Blood | [facility] [address] [facility] [address] | | | [place] [address] | + + + + + | [...] + + + | Blood | [facility], SPECIAL IMM + COAG [address] [facility] | | | [place] [address] | + + + + + | [...] + + + | Blood | [facility], CORE [address] [facility] | | | [place] [address] | + + + AMYLASE, PLASMA (05/14/2017 7:45 AM) + +--------+ + | Component | Value | Ref Range | + +--------+ + | AMYLASE,PLASMA | 23 (L) | 25 - 115 U/L | + +--------+ + + + + | Specimen | Performing Laboratory | + + + | Blood | [facility], CORE [address] | | | [place] [address] | + + + in this encounter Visit Diagnoses + + | Diagnosis | + + | Diffuse large B-cell lymphoma, unspecified body region (HCC) - Primary | + +"
--- OUTSIDE RECORDS SUMMARY | ~2017-08-01 | XMS | Encounter Summary ---
Demographics + + + | Address | [address] | | | [place] [address] | + + + | Home Phone [...] + + +-------+ ECON | [address] | | [place] | [address] | +------+ + + + +-------+ Care Team Providers + +------+-------+ | Care Back Stayer Name | Role | Phone | + +------+-------+ | Jamaal Rivera MD | PCP | tel | + +------+-------+ Encounter Details +--------+ + + + + | Date | Type | Department | Care Team | Description | +--------+ + + + + | 06/20/ | Procedure | Diagnostic Imaging | | | | 2017 | Pass | Services at [facility] | | | | | | [address] | | | | | | [facility] | | | | | | Mailcode: L[address] [facility] | | | | | | [facility], | | | | | | [place] [address] | | | | | | [phone] | | | +--------+ + + + [...]
--- OUTSIDE RECORDS SUMMARY | ~2017-08-01 | XMS | Encounter Summary ---
Demographics + + + | Address | [address] | | | [place] [address] | + + + | Home Phone [...] + + +-------+ ECON | [address] | | [place] | [address] | +------+ + + + +-------+ Care Team Providers + +------+-------+ | Care Cartoon Artist Name | Role | Phone | [...] + + | 05/29/ | Documentati | [facility] | Work, Social | Social Work Notes | | 2017 | on | Hematologic | | | | | | Malignancies at | | | | | | [place] | | | | | | [address] | | | | | | [facility] | | | | | | Mailcode: [id number] | | | | | | Stacey Sales | | | | | | [place], [place] | | | | | | [address] | | | | | | [phone] | | | +--------+ + + + [...]
--- OUTSIDE RECORDS SUMMARY | ~2017-08-01 | XMS | Encounter Summary ---
Demographics + + + | Address | [address] | | | [place] [address] | + + + | Home Phone [...] + + +-------+ ECON | [address] | | [place] | [address] | +------+ + + + +-------+ Care Team Providers + +------+-------+ | Care Commercial Appraiser Name | Role | Phone | + +------+-------+ | Jamaal Rivera MD | PCP | tel | + +------+-------+ Encounter Details +--------+ + + + + | Date | Type | Department | Care Team | Description | +--------+ + + + + | 05/17/ | Fountain Helper | Center for | Chad Lowe, | 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 | [address] | lymphoma, | | | | Malignancies at | [address] [place], [place] | unspecified body | | | | [place]ri[place]arlie Sales | [address] | region ([facility]) | | | | [address] | [phone] | (Primary Dx) | | | | Concha Bourgeois | | | | | | Mailcode: [id number] | | | | | | [address] | | | | | | [place], [place] | | | | | | [address] | | | | | | [phone] | | | +--------+ + + + [...] Laboratory | + + + | | Applico RADIOLOGY VOICE RECOGNITION | + + + [...]
--- OUTSIDE RECORDS SUMMARY | ~2017-08-01 | XMS | Encounter Summary ---
Demographics + + + | Address | [address] | | | [place] [address] | + + + | Home Phone [...] + + +-------+ ECON | [address] | | [place] | [address] | +------+ + + + +-------+ Care Team Providers + +------+-------+ | Care Shuttle Van Driver Name | Role | Phone | + +------+-------+ | Jamaal Rivera MD | PCP | tel | + +------+-------+ Reason for Visit + + + | Reason | Comments | + + + | Lab Draw | PAC | + + + | Follow-up visit | Dr. 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 | [place], [place] | [facility] | | | | | Procedures | [address] | Road | | | | | [place] INJ IG | Phone: | Mailcode: | | | | | [place] | [phone] | [facility]73[facility] | | | | | IV, 500 MG | Fax: | [place] | | | | | [place] | [phone] | Pavilion | | | | | THR/PRPH/DX | | [place], [place] | | | | | IV INF,IN | | [address] | | | | | [place] | | Phone: | | | | | THER/PROPH/D | | [phone] | | | | | IAG IV IVIG | | Fax: | | | | | | | [phone] | +--------+--------+ + + + + Encounter Details +--------+ + + + + | Date | Type | Department | Care Team | Description | +--------+ + + + + | 05/14/ | Hospital | [place] [facility] | | | | 2017 | Encounter | Hematologic | | | | | | Malignancies at [facility] | | | | | | [address] | | | | | | [facility] | | | | | | Mailcode: [id number] | | | | | | [address]acey [address] | | | | | | [place], [place] | | | | | | [address] | | | | | | [phone] | | | +--------+ + + + [...] + + | Blood | [facility], POINT OF CARE TESTS [address] | | | [place] [address] | + + + CMP, POC (BMP+LFT) [...] TESTS [address] | | | [place] [address] | + + + INR (05/14/2017 7:45 AM) + +-------+ + | Component | Value | Ref Range | + +-------+ + | INR | 1.02 | 0.90 - 1.20 INR | + +-------+ + + + + | Specimen | Performing Laboratory | + + + | Blood | [facility], CORE [address] [facility] | | | [place] [address] | + + + + + | [...] ....... | | | | HighPerformed by [employer],[address] | | | | [facility] [address] | | | | [phone].[employer], Graham Meza, | | | | , Lab. Director | | | |www.[employer], Graham Meza MD, Lab. Director | | + + + + + + + | Specimen | Performing Laboratory | + + + | Blood | [facility] [address] [facility] | | | [place] [address] | + + + C'4 COMPLEMENT, SERUM (05/14/2017 7:45 AM) + +-------+ + | Component | Value | Ref Range | + +-------+ + | C'4 COMPLEMENT SERUM | 40 | 16 - 47 mg/dL | + +-------+ + + + + | Specimen | Performing Laboratory | + + + | Blood | [facility] [address] [place], [place] | | | [address] | + + + C'3 COMPLEMENT, SERUM (05/14/2017 7:45 AM) + +-------+ + | Component | Value | Ref Range | + +-------+ + | C'3 COMPLEMENT SERUM | 121 | 88 - 201 mg/dL | + +-------+ + + + + | Specimen | Performing Laboratory | + + + | Blood | [facility] [address] [place], [place] | | | [address] | + + + TROPONIN I, PLASMA (05/14/2017 7:45 AM) + +-------+ + | Component | Value | Ref Range | + +-------+ + | TROPONIN I | 0.02 | <0.80 ng/mL | + +-------+ + + + + | Specimen | Performing Laboratory | + + + | Blood | [facility] SERVICES, CORE [address] | | | [place] [address] | + + + FREE T4 (05/14/2017 7:45 AM) + +-------+ + | Component | Value | Ref Range | + +-------+ + | FREE T4 | 1.0 | 0.6 - 1.2 ng/dL | + +-------+ + + + + | Specimen | Performing Laboratory | + + + | Blood | [facility], CORE [address] [facility] [address] | | | [place] [address] | + + + T3 TOTAL, SERUM (05/14/2017 7:45 AM) + +-------+ + | Component | Value | Ref Range | + +-------+ + | T3, TOTAL | 113 | 87 - 196 ng/dL | + +-------+ + + + + | Specimen | Performing Laboratory | + + + | Blood | [facility] [place] [address] [facility], [place] | | | [address] | + + + TSH (05/14/2017 7:45 AM) + +-------+ + | Component | Value | Ref Range | + +-------+ + | TSH | 2.22 | 0.47 - 7.11 mIU/L | + +-------+ + + + + | Specimen | Performing Laboratory | + + + | Blood | [facility] LABORATORY [facility], CORE [address] | | | [place] [address] | + + + + + | [...] + + | Blood | [facility] SERVICES, SPECIAL IMM + COAG [address] [facility] | | | [place] [address] | + + + + + | [...] + + | Blood | [facility] SERVICES, CORE [address] [facility] | | | [place] [address] | + + + AMYLASE, PLASMA (05/14/2017 7:45 AM) + +--------+ + | Component | Value | Ref Range | + +--------+ + | AMYLASE,PLASMA | 23 (L) | 25 - 115 U/L | + +--------+ + + + + | Specimen | Performing Laboratory | + + + | Blood | [facility] SERVICES, CORE [address] [place] [address] | | | [place] [address] | + + + IGM, SERUM (05/14/2017 7:45 AM) + +--------+ + | Component | Value | Ref Range | + +--------+ + | IGM SERUM | 37 (L) | 40 - 230 mg/dL | + +--------+ + + + + | Specimen | Performing Laboratory | + + + | Blood | [facility] [address] [place], [place] | | | [address] | + + + IGA, SERUM (05/14/2017 7:45 AM) + +-------+ + | Component | Value | Ref Range | + +-------+ + | IGA SERUM | 248 | 70 - 400 mg/dL | + +-------+ + + + + | Specimen | Performing Laboratory | + + + | Blood | [facility] [address] [place], [place] | | | [address] | + + + IGG, SERUM (05/14/2017 7:45 AM) + +-------+ + | Component | Value | Ref Range | + +-------+ + | IGG SERUM | 859 | 700 - 1600 mg/dL | + +-------+ + + + + | Specimen | Performing Laboratory | + + + | Blood | [facility] [address] [place], [place] | | | [address] | + + + URIC ACID, PLASMA (05/14/2017 7:45 AM) + +-------+ + | Component | Value | Ref Range | + +-------+ + | URIC ACID, PLASMA | 6.6 | 3.7 - 8.0 mg/dL | | (LAB) | | | + +-------+ + + + + | Specimen | Performing Laboratory | + + + | Blood | [facility] SERVICES, CORE [address] | | | [place] [address] | + + + PHOSPHORUS, PLASMA (05/14/2017 7:45 AM) + +-------+ + | Component | Value | Ref Range | + +-------+ + | PHOSPHORUS, PLASMA | 3.1 | 2.4 - 4.7 mg/dL | | (LAB) | | | + +-------+ + + + + | Specimen | Performing Laboratory | + + + | Blood | [facility] SERVICES, CORE [address] [facility] [address] | | | [place] [address] | + + + MAGNESIUM, PLASMA (05/14/2017 7:45 AM) + +-------+ + | Component | Value | Ref Range | + +-------+ + | MAGNESIUM,PLASMA | 2.2 | 1.6 - 2.6 mg/dL | + +-------+ + + + + | Specimen | Performing Laboratory | + + + | Blood | [facility] SERVICES, CORE [address] [facility] [address] | | | [place] [address] | + + + + + | [...] + + | Blood | [facility] SERVICES, CORE [address] | | | [place] [address] | + + + in this encounter [...] +---+---+ + +---------+ +--------+ +---+ | INV [id number] (ANTI-LAG-3) 160 | New Bag | 05/14/20 | 160 mg | 60 mL/hr | | | mg in INV NaCl 0.9% IV 160 mg, | | 17 12:18 | | | | | intravenous, Administer over 60 | | PDT | | | | | Minutes, ONCE, 1 dose, Tue | | | | | | | 05/14/17 at 0945, Pt ID:[id number] | | | | | | | [...] | | | | | ALERT MEDICATION IRB:[id number], | | | | | | | Protocol:[id number] | | | | | | + [...] | | | 05/14/17 at 0945, Pt ID:[id number], | | | | | | | Infuse with 0.2 micron filter. | | | | | | | Flush line at the end of the | | | | | | | infusion. For investigational | | | | | | | use only, HIGH ALERT MEDICATION | | | | | | | IRB:[id number], Protocol: [id number] | | | | | | + +-------+ +--------+-------+---+ +---+---+ | | | +---+---+ in this encounter"
--- OUTSIDE RECORDS SUMMARY | ~2017-08-01 | XMS | Encounter Summary ---
Demographics + + + | Address | [address] | | | [place] [address] | + + + | Home Phone [...] + + +-------+ ECON | [address] | | [place] | [address] | +------+ + + + +-------+ Care Team Providers + +------+-------+ | Care Route Rider Supervisor Name | Role | Phone | [...] | Diffuse | MD Chad | s 0701 | | | | | large B-cell | [address] | | | | | lymphoma of | [address] | [place] | | | | | lymph nodes | [place], [place] | Road | | | | | of multiple | [address] | Mailcode: | | | | | regions | Phone: | [address] [facility] | | | | | (HCC) | [phone] | Hospital | | | | | Procedures | Fax: | [place], [place] | | | | | CT NECK SOFT | [phone] | [address] | | | | | TISSUE W | | Phone: | | | | | CONTRAST [place] | | [phone] | | | | | CT NECK | | Fax: | | | | | TISSUE | | [phone] | | | | | CONTRAST | [...] | | | | lymph nodes | [place], [place] | [facility] | | | | | of multiple | [address] | for Health | | | | | regions | Phone: | and Healing, | | | | | (HCC) | [phone] | 3rd Floor | | | | | Procedures | Fax: | [place], [place] | | | | | CT CHEST, | [phone] | [address] | | | | | ABDOMEN AND | | Phone: | | | | | PELVIS W IV | | [phone] | | | | | CONTRAST AL | | Fax: | | | | | CAT SCAN OF | | [phone] | | | | | CHEST | | | | | | | CONTRAST AL | | | | | | | [...] + + + + | 06/20/ | Information Assurance Manager | Center for | Chad Lowe, | 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 | MD [address] | lymphoma of lymph | | | | Malignancies at | Ave [place], [place] | nodes of multiple | | | | [place] | [address] | regions (HCC) | | | | [address] | [phone] | (Primary Dx) | | | | [place] Christelle | | | | | | Mailcode: [id number] | | | | | | [place] | | | | | | [place], [place] | | | | | | [address] | | | | | | [phone] | | | +--------+ + + + [...] | + + + | | [facility] VOICE RECOGNITION | + + + [...] Laboratory | + + + | | [facility] RADIOLOGY VOICE RECOGNITION | + + + [...] Note | + + | Service Account, [facility] Interface - 07/11/2017 11:39 AM [...]
--- OUTSIDE RECORDS SUMMARY | ~2017-08-01 | XMS | Encounter Summary ---
Demographics + + + | Address | [address] | | | [place] [address] | + + + | Home Phone [...] + + +-------+ ECON | [address] | | [place] | [address] | +------+ + + + +-------+ Care Team Providers + +------+-------+ | Care Cask Maker Name | Role | Phone | [...] | Diffuse | MD Chad | s [address] | | | | | large B-cell | [address] | | | | | lymphoma, | [address] | [place] | | | | | unspecified | [place], [place] | Road | | | | | body region | [address] | Mailcode: | | | | | (HCC) | Phone: | L[address] [facility] | | | | | Procedures | [phone] | Hospital | | | | | CT NECK SOFT | Fax: | [place], [place] | | | | | TISSUE W | [phone] | [address] | | | | | CONTRAST DC | | Phone: | | | | | CT NECK | | [phone] | | | | | TISSUE | | Fax: | | | | | CONTRAST | | [phone] | +--------+--------+ + + + + Diagnostic [...] | | | | | unspecified | [place], [place] | Road | | | | | body region | [address] | Mailcode: | | | | | (HCC) | Phone: | L[address] [facility] | | | | | Procedures | [phone] | Hospital | | | | | CT NECK SOFT | Fax: | [place], [place] | | | | | TISSUE W | [phone] | [address] | | | | | CONTRAST DC | | Phone: | | | | | CT NECK | | [phone] | | | | | TISSUE | | Fax: | | | | | CONTRAST | | [phone] | +--------+--------+ + + + + Reason [...] | lymphoma, | [address] | [place] | | | | | unspecified | [place], [place] | Road | | | | | body region | [address] | Mailcode: | | | | | (HCC) | Phone: | L[address] [facility] | | | | | Procedures | [phone] | Hospital | | | | | CT NECK SOFT | Fax: | [place], [place] | | | | | TISSUE W | [phone] | [address] | | | | | CONTRAST DC | | Phone: | | | | | CT NECK | | [phone] | | | | | TISSUE | | Fax: | | | | | CONTRAST | | [phone] | +--------+--------+ + + + + Encounter [...] | | [address] | [place], [place] | | | | | [facility] | [address] | | | | | Mailcode: [id number] [facility] | [phone] | | | | | [facility], | | | | | | [place] [address] | | | | | | [phone] | | | +--------+ + + + [...]
--- OUTSIDE RECORDS SUMMARY | ~2017-08-01 | XMS | Encounter Summary ---
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
--- OUTSIDE RECORDS SUMMARY | ~2017-08-01 | XMS | Encounter Summary ---
Demographics + + + | Address | [address] | | | [place] [address] | + + + | Home Phone [...] + + +-------+ ECON | [address] | | [place] | [address] | +------+ + + + +-------+ Care Team Providers + +------+-------+ | Care Assisted Sales Representative Name | Role | Phone | + +------+-------+ | Jamaal Rivera MD | PCP | tel | + +------+-------+ Encounter Details +--------+ + + + + | Date | Type | Department | Care Team | Description | +--------+ + + + + | 05/14/ | Procedure | Diagnostic Imaging | | | | 2017 | Pass | Services at [facility] | | | | | | [address] | | | | | | [facility] | | | | | | Mailcode: [id number] [facility] | | | | | | [facility], | | | | | | [place] [address] | | | | | | [phone] | | | +--------+ + + + [...]
--- OUTSIDE RECORDS SUMMARY | ~2017-08-01 | XMS | Encounter Summary ---
Demographics + + + | Address | [address] | | | [place] [address] | + + + | Home Phone [...] + + +-------+ ECON | [address] | | [place] | [address] | +------+ + + + +-------+ Care Team Providers + +------+-------+ | Care Spine Surgeon Name | Role | Phone | + [...] + + + + | 05/29/ | Seed Buyer | Center for | Chad Lowe, | 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 | MD [address] | lymphoma of | | | | Malignancies at | Ave [place], [place] | intra-abdominal | | | | [facility] | [address] | lymph nodes (HCC) | | | | [address] | [phone] | (Primary Dx) | | | | [employer] | | | | | | Mailcode: [id number] | | | | | | [facility] | | | | | | [place], [place] | | | | | | [address] | | | | | | [phone] | | | +--------+ + + + [...] | | [facility] [address] [facility] | | | [place] [address] | + + + JESSIKA RIVERA (05/30/2017 [...] | SPECIFIC GRAVITY | 1.004 (L)Comment: Specific [place] | 1.005 - 1.030 | | | performed by refractometry | | + + + + + + + | Specimen | Performing Laboratory | + + + | Urine | [facility], CORE [address] [facility] | | | [place] [address] | + + + FREE T4 (05/30/2017 10:59 AM) + +-------+ + | Component | Value | Ref Range | + +-------+ + | FREE T4 | 1.0 | 0.6 - 1.2 ng/dL | + +-------+ + + + + | Specimen | Performing Laboratory | + + + | Blood | [facility], CORE [address] [place] [address] | | | [place] [address] | + + + T3 TOTAL, SERUM (05/30/2017 10:59 AM) + +-------+ + | Component | Value | Ref Range | + +-------+ + | T3, TOTAL | 114 | 87 - 196 ng/dL | + +-------+ + + + + | Specimen | Performing Laboratory | + + + | Blood | [facility] [address] [place], [place] | | | [address] | + + + PROTEIN C ACTIVITY REFLEX INR, PLASMA (05/30/2017 10:59 AM) + + + + | Component | Value | Ref Range | + + + + | PROTEIN C ACTIVITY | 0.69 (L) | 0.82 - 1.54 U/mL | + + + + + + + | Specimen | Performing Laboratory | + + + | Blood | [facility], SPECIAL IMM + COAG [address] | | | [place] [address] | + + + + + | [...] | + + + | Blood | [facility], CORE [address] [place] [address] | | | [place] [address] | + + + AMYLASE, PLASMA (05/30/2017 10:59 AM) + +--------+ + | Component | Value | Ref Range | + +--------+ + | AMYLASE,PLASMA | 23 (L) | 25 - 115 U/L | + +--------+ + + + + | Specimen | Performing Laboratory | + + + | Blood | [facility], CORE [address] [facility] | | | [place] [address] | + + + TSH (05/30/2017 10:59 AM) + +-------+ + | Component | Value | Ref Range | + +-------+ + | TSH | 1.29 | 0.47 - 7.11 mIU/L | + +-------+ + + + + | Specimen | Performing Laboratory | + + + | Blood | [facility], CORE [address] [place] [address] | | | [place] [address] | + + + + + | [...]
--- OUTSIDE RECORDS SUMMARY | ~2017-08-01 | XMS | Clinical Summary ---
Demographics + + + | Address | [address] | | | [place] [address] | + + + | Home Phone | | + + + | Preferred Language | Unknown | + + + | Marital Status | | + + + | Bahai Affiliation | LUT | + + + | Race | White | + + + | Ethnic Group | Not or | + + + Author + + + | Author | [facility] | + + + | Organization | [facility] | + + + | Address | Unknown | + + + | Phone | Unavailable | + + + Support +------+ + + + +-------+ | Name | Relationship | Address | Phone | +------+ + + + +-------+ ECON | [address] | | [place] | [address] | +------+ + + + +-------+ Care Team Providers + +------+-------+ | Care Summer Counselor Name | Role | Phone | + +------+-------+ | Jamaal Rivera MD | PP | tel | + +------+-------+ Source Comments RUFUS is fully live on both [facility] Ambulatory and [facility] InPatient.Formerly [facility], [facility]–1983 [facility] (formerly [facility] Allergies No Known Allergies Current Medications + [...] | | | | | | | ([facility]) | | | | | | | [...] | + + + + + | [facility]: 4422 | + + + [...] + + + + | 06/25/ | Needle Loom Operator | | Chad Lowe, | Diffuse large [...] | 2017 | Encounter | | | Nematology Teacher | +--------+ + + + + | 06/20/ | Procedure | | | | | 2016 | Pass | | | | +--------+ + + + + | 06/20/ | Procedure | | | | | 2016 | Pass | | | | +--------+ + + + + | 06/20/ | Needle Loom Operator | | Chad Lowe, | Diffuse large [...] + + + + | 05/30/ | Needle Loom Operator | | Chad Lowe, | Diffuse large [...] + + + + | 05/29/ | Needle Loom Operator | | Chad Lowe, | Diffuse large [...] + + + + | 05/24/ | Needle Loom Operator | | Chad Lowe, | 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) | | | | | | (Primary Dx) | +--------+ + + + + | 05/24/ | Needle Loom Operator | | Chad Lowe, | 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) | | | | | | (Primary Dx) | +--------+ + + + + | 05/24/ | Needle Loom Operator | | Chad Lowe, | | | 2016 | | | MD | | +--------+ + + + + | 05/23/ | Hospital | | Chad Lowe, | | | 2016 | Encounter | | MD | | +--------+ + + + + | 05/23/ | Needle Loom Operator | | Chad Lowe, | Dermatitis | [...] + + + + | 05/17/ | Needle Loom Operator | | Chad Lowe, | Diffuse large [...] + + + + | 05/15/ | Needle Loom Operator | | Chad Lowe, | Other acute | | 2016 | | | MD | pulmonary embolism | | | | | | without acute cor | | | | | | pulmonale (HCC) | | | | | | (Primary Dx) | +--------+ + + + + | 05/15/ | Needle Loom Operator | | Chad Lowe, | Diffuse large [...] + + + + | 05/14/ | Needle Loom Operator | | Chad Lowe, | Diffuse large [...] + + + + | 05/13/ | Needle Loom Operator | | Chad Lowe, | Diffuse large B-cell | | 2016 | | | MD | lymphoma, | | | | | | unspecified body | | | | | | region (HCC) | | | | | | (Primary Dx) | +--------+ + + + + | 05/09/ | Needle Loom Operator | | Chad Lowe, | Diffuse large [...] + + + + | 05/01/ | Needle Loom Operator | | Chad Lowe, | Diffuse large [...] | + + + | | [facility] VOICE RECOGNITION | + [...] | + + + | Blood | [facility] POINT OF CARE TESTS [address] | | | [place] [address] | + + + COMPLETE METABOLIC PANEL [...] | + + + | Blood | [facility] POINT OF CARE TESTS [address] | | | [place] [address] | + + + CBC WITH AUTO [...] + + | Blood | [facility] POINT OF CARE TESTS [address] | | | [place] [address] | + + + 12 LEAD ECG [...] Laboratory | + + + | | [facility] [address] [place] [address] | | | [place] [address] | + + + MAGNESIUM, PLASMA (05/30/2017 11:00 AM) + + + | Specimen | Performing Laboratory | + + + | Blood | | + + + + + | Narrative | + + | The following orders were created for panel order MAGNESIUM, PLASMA. | | Procedure | | Abnormality Status | | --------- | | ------ MAGNESIUM, | | PLASMA[[id number]] Normal Final | | result Please view [...] | | ------ LDH TOTAL, | | PLASMA[[id number]] Abnormal Final | | result Please view [...] | SPECIFIC GRAVITY | 1.004 (L)Comment: Specific [place] | 1.005 - 1.030 | | | performed by refractometry | | + + + + + + + | Specimen | Performing Laboratory | + + + | Urine | [facility], CORE [address] [facility] | | | [place] [address] | + + + MAGNESIUM, PLASMA (05/30/2017 [...] + + | Blood | [facility], CORE [address] [facility] | | | [place] [address] | + + + + + | [...] + + | Blood | [facility], CORE [address] | | | [place] [address] | + + + PROTEIN C ACTIVITY [...] + + | Blood | [facility] SERVICES, SPECIAL IMM + COAG [address] [facility] | | | [place] [address] | + + + + + | [...] + + | Blood | [facility] LAB[facility]ORY [facility], CORE [address] [facility] | | | [place] [address] | + + + + + | [...] + + | Blood | [facility], CORE [address] [facility] | | | [place] [address] | + + + T3 TOTAL, SERUM [...] | + + + | Blood | [facility] [place] [address] [place], [place] | | | [address] | + + + TSH (05/30/2017 10:59 [...] + + | Blood | [facility], CORE [address] [facility] | | | [place] [address] | + + + + + | [...] + + | Blood | [facility], CORE [address] [place] [address] | | | [place] [address] | + + + AMYLASE, PLASMA (05/30/2017 [...] + + | Blood | [facility], CORE [address] [facility] | | | [place] [address] | + + + US NEEDLE BIOPSY LYMPH NODE (05/23/2017 2:57 PM) + + + | Specimen | Performing Laboratory | + + + | | [facility] RADIOLOGY VOICE RECOGNITION | + [...] expression and a | | | | CD4:TB3llmkd of 5.3:1. Preliminary findings | | | | discussed with Chad Lowe MD,on | | | | 05/24/2017. Case Reviewed by:Brittayn | | | | Camden Myers/Hematopathology FellowPhilipp | | | | Camden Carvajal, | | | | Ph.D./Hematopathologist Clinical | | | | History:71-year-old male with history of | | | | diffuse large B cell lymphoma with | | | | thefollowing immunophenotype: CD10, CD19, | | | | CD20, PAX5, Bcl-2, Bcl-6, CD38,CD45, HLA-DR | | | | and [place]-positive ([id number]; | | | | 06/30/2014). Gross | | | | Description:Received is one specimen | | | | labeled with the patient's name (initials | | | | DF) andmedical record #[id number]. A: | | | | Right inguinal [...] | | | | may not be graphic art sales representative of thesubmitted | | | [...] CD8 C | | | | D10 [id number] CD22 CD23 CD25 CD34 CD38 | | | | CD45 [id number] | | | | Charles Grimaldo (Analyte | | | | specific reagents are used in many | | | | laboratory tests necessary forstandard | | | | medical care. This test was developed | | | | and its performancecharacteristics | | | | determined by [employer]. It has | | | | not [...] | Tissue - Lymph node | [facility] DEPARTMENT OF PATHOLOGY [address] [facility] | | | [place] [address] | + + + TROPONIN I, PLASMA (05/14/2017 7:45 AM) + +-------+ + | Component | Value | Ref Range | + +-------+ + | TROPONIN I | 0.02 | <0.80 ng/mL | + +-------+ + + + + | Specimen | Performing Laboratory | + + + | Blood | [facility], CORE [address] | | | [place] [address] | + + + COMPLEMENT ACTIVITY ENZYME [...] ....... | | | | HighPerformed by [employer],[address] | | | | [address], [facility],[place] [address] | | | | [phone].[employer], Graham Meza, | | | | , Lab. Director | | | |[email or web address].[employer], Graham Meza MD, Lab. Director | | + + + + + + + | Specimen | Performing Laboratory | + + + | Blood | [facility] [address] [facility] | | | [place] [address] | + + + C'4 COMPLEMENT, SERUM (05/14/2017 7:45 AM) + +-------+ + | Component | Value | Ref Range | + +-------+ + | C'4 COMPLEMENT SERUM | 40 | 16 - 47 mg/dL | + +-------+ + + + + | Specimen | Performing Laboratory | + + + | Blood | [facility] [address] [place], [place] | | | [address] | + + + IGM, SERUM (05/14/2017 [...] + | Blood | [facility] [address] [place] [address] | | | [address] | + + + IGG, SERUM (05/14/2017 [...] + | Blood | [facility] [address] [place], [place] | | | [address] | + + + IGA, SERUM (05/14/2017 [...] + | Blood | [facility] [address] [place], [place] | | | [address] | + + + C'3 COMPLEMENT, SERUM (05/14/2017 7:45 AM) + +-------+ + | Component | Value | Ref Range | + +-------+ + | C'3 COMPLEMENT SERUM | 121 | 88 - 201 mg/dL | + +-------+ + + + + | Specimen | Performing Laboratory | + + + | Blood | [facility] [address] [place], [place] | | | [address] | + + + PHOSPHORUS, PLASMA (05/14/2017 [...] + + | Blood | [facility], CORE [address] [facility] | | | [place] [address] | + + + URIC ACID, PLASMA [...] + + | Blood | [facility], CORE [address] [facility] | | | [place] [address] | + + + RESEARCH TUMOR READING [...] Blood | [facility], CORE [address] | | | [place] [address] | + + + + + | Narrative | + + | New method, new reference range and new reporting units as of 12/16/2013. | + + from Last 3 Months
--- OUTSIDE RECORDS SUMMARY | ~2017-08-01 | XMS | Encounter Summary ---
Demographics + + + | Address | [address] | | | [place] [address] | + + + | Home Phone [...] + + +-------+ ECON | [address] | | [place] | [address] | +------+ + + + +-------+ Care Team Providers + +------+-------+ | Care Rv Service Technician Name | Role | Phone | [...] + + + + | 05/15/ | Blower Mechanic | Center for | Chad Lowe, | 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 | MD [address] | lymphoma, | | | | Malignancies at | Ave [place], [place] | unspecified body | | | | [facility] | [address] | region (HCC) | | | | [address] | [phone] | (Primary Dx) | | | | [facility] | | | | | | Mailcode: [id number] | | | | | | [facility] | | | | | | [place], [place] | | | | | | [address] | | | | | | [phone] | | | +--------+ + + + [...]
--- OUTSIDE RECORDS SUMMARY | ~2017-08-01 | XMS | Encounter Summary ---
Demographics + + + | Address | [address] | | | [place] [address] | + + + | Home Phone [...] + + +-------+ ECON | [address] | | [place] | [address] | +------+ + + + +-------+ Care Team Providers + +------+-------+ | Care Investigator Claims Name | Role | Phone | + [...] | Diffuse | MD Chad | s [address] | | | | | large B-cell | [address] | | | | | lymphoma, | [address] | [place] | | | | | unspecified | [place], [place] | Road | | | | | body region | [address] | Mailcode: | | | | | (HCC) | Phone: | [address] [facility] | | | | | Procedures | [phone] | Hospital | | | | | CT NECK SOFT | Fax: | [place], [place] | | | | | TISSUE W | [phone] | [address] | | | | | CONTRAST [place] | | Phone: | | | | | CT NECK | | [phone] | | | | | TISSUE | | Fax: | | | | | CONTRAST | | [phone] | +--------+--------+ + + + + Diagnostic [...] | | | | | unspecified | [place], [place] | Road | | | | | body region | [address] | Mailcode: | | | | | (HCC) | Phone: | [address] [facility] | | | | | Procedures | [phone] | Hospital | | | | | CT NECK SOFT | Fax: | [place], [place] | | | | | TISSUE W | [phone] | [address] | | | | | CONTRAST [place] | | Phone: | | | | | CT NECK | | [phone] | | | | | TISSUE | | Fax: | | | | | CONTRAST | | [phone] | +--------+--------+ + + + + Reason [...] | lymphoma, | [address] | [place] | | | | | unspecified | [place], [place] | Road | | | | | body region | [address] | Mailcode: | | | | | (HCC) | Phone: | [address] [facility] | | | | | Procedures | [phone] | Hospital | | | | | CT NECK SOFT | Fax: | [place], [place] | | | | | TISSUE W | [phone] | [address] | | | | | CONTRAST [place] | | Phone: | | | | | CT NECK | | [phone] | | | | | TISSUE | | Fax: | | | | | CONTRAST | | [phone] | +--------+--------+ + + + + Encounter [...] | | [address] | [place], [place] | | | | | [facility] | [address] | | | | | Mailcode: L[address] [facility] | [phone] | | | | | [facility], | | | | | | [place] [address] | | | | | | [phone] | | | +--------+ + + + [...]
--- OUTSIDE RECORDS SUMMARY | ~2017-08-01 | XMS | Encounter Summary ---
Demographics + + + | Address | [address] | | | [place] [address] | + + + | Home Phone [...] + + +-------+ ECON | [address] | | [place] | [address] | +------+ + + + +-------+ Care Team Providers + +------+-------+ | Care Computer Operations Technician Name | Role | Phone | [...] + + + | 05/15/ | Senior Network Engineer | Center for | Chad Lowe, | 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 | MD [address] | lymphoma, | | | | Malignancies at | [address] [place], [place] | unspecified body | | | | [facility] | [address] | region (HCC) | | | | [address] | [phone] | (Primary Dx) | | | | [employer] | | | | | | Mailcode: [id number] | | | | | | [facility] | | | | | | [place], [place] | | | | | | [address] | | | | | | [phone] | | | +--------+ + + + [...]
--- OUTSIDE RECORDS SUMMARY | ~2017-08-01 | XMS | Clinical Summary ---
Demographics + + + | Address | [address] | | | [place] [address] | + + + | Home Phone | | + + + | Preferred Language | Unknown | + + + | Marital Status | | + + + | Congregation Affiliation | LUT | + + + | Race | White | + + + | Ethnic Group | Not or | + + + Author + + + | Author | [facility] | + + + | Organization | [facility] | + + + | Address | Unknown | + + + | Phone | Unavailable | + + + Support +------+ + + + +-------+ | Name | Relationship | Address | Phone | +------+ + + + +-------+ ECON | [address] | | [place] | [address] | +------+ + + + +-------+ Care Team Providers + +------+-------+ | Care Leaf Tier Name | Role | Phone | + +------+-------+ | Jamaal Rivera MD | PP | tel | + +------+-------+ Source Comments RUFUS is fully live on both [facility] Ambulatory and [facility] InPatient.[facility] Allergies No Known Allergies Current Medications + [...] | | | | | | | ([facility]) | | | | | | [...] + + + + + | 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) | | | | | | (Primary Dx) | +--------+ + + + + | 05/24/ | Labor Expediter | | Chad Lowe, | 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) | | | | | | (Primary Dx) | +--------+ + + + + | 05/24/ | Labor Expediter | | Chad Lowe, | | | 2016 | | | MD | | +--------+ + + + + | 05/23/ | Hospital | | Chad Lowe, | | | 2016 | Encounter | | MD | | +--------+ + + + + | 05/23/ | Labor Expediter | | Chad Lowe, | Dermatitis | [...] + + + + | 05/17/ | Labor Expediter | | Chad Lowe, | Diffuse large [...] + + + + | 05/15/ | Labor Expediter | | Chad Lowe, | Other acute | | 2016 | | | MD | pulmonary embolism | | | | | | without acute cor | | | | | | pulmonale (HCC) | | | | | | (Primary Dx) | +--------+ + + + + | 05/15/ | Labor Expediter | | Chad Lowe, | Diffuse large [...] + + + + | 05/14/ | Labor Expediter | | Chad Lowe, | Diffuse large [...] + | 05/14/ | Documentati | | Valreia Sousa RN | Research | | 2017 | on | | | Documentation | +--------+ + + + + | 05/13/ | Labor Expediter | | Chad Lowe, | 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 | | | [place] [address] | + + + COMPLETE METABOLIC PANEL [...] | + + + | Blood | [facility], POINT OF CARE TESTS [address] | | | [place] [address] | + + + CBC WITH AUTO DIFF (05/30/2017 11:25 AM)Only the most recent of 3 results within the time p david is included. + + + | Specimen [...] + | Blood | [facility] POINT OF CARE TESTS [address] | | | [place] [address] | + + + 12 LEAD ECG [...] | + + + | | [facility] [address] [place] [address] | | | [place] [address] | + + + MAGNESIUM, PLASMA (05/30/2017 11:00 AM) + + + | Specimen | Performing Laboratory | + + + | Blood | | + + + + + | Narrative | + + | The following orders were created for panel order MAGNESIUM, PLASMA. | | Procedure | | Abnormality Status | | --------- | | ------ MAGNESIUM, | | PLASMA[[id number]] Normal Final | | result Please view [...] | | ------ LDH TOTAL, | | PLASMA[[id number]] Abnormal Final | | result Please view results for these tests on the | | individual orders. | + + UA, DIPSTICK ONLY (05/30/2017 11:00 AM)Only the most recent [...] | SPECIFIC GRAVITY | 1.004 (L)Comment: Specific [place] | 1.005 - 1.030 | | | performed by refractometry | | + + + + + + + | Specimen | Performing Laboratory | + + + | Urine | [facility], CORE [address] | | | [place] [address] | + + + MAGNESIUM, PLASMA (05/30/2017 [...] + | Blood | [facility], CORE [address] | | | [place] [address] | + + + + + | [...] | + + + | Blood | [facility], CORE [address] | | | [place] [address] | + + + PROTEIN C ACTIVITY [...] | + + + | Blood | [facility], SPECIAL IMM + [address] [facility] | | | [place] [address] | + + + + + | [...] | + + + | Blood | [facility], CORE [address] | | | [place] [address] | + + + + + | [...] | + + + | Blood | [facility], CORE [address] [place] [address] | | | [place] [address] | + + + T3 TOTAL, SERUM [...] | + + + | Blood | [facility] [address] [place], [place] | | | [address] | + + + TSH (05/30/2017 10:59 AM)Only the most recent of 3 results within the time period is includ ed. + +-------+ + | Component | Value | Ref Range | + +-------+ + | TSH | 1.29 | 0.47 - 7.11 mIU/L | + +-------+ + + + + | Specimen | Performing Laboratory | + + + | Blood | [facility], CORE [address] | | | [place] [address] | + + + + + | [...] recent of 3 results within the time is included. + +--------+ + | Component | Value | Ref Range | + +--------+ + | LIPASE (LAB) | 97 (L) | 152 - 353 U/L | + +--------+ + + + + | Specimen | Performing Laboratory | + + + | Blood | [facility], CORE [address] | | | [place] [address] | + + + AMYLASE, PLASMA (05/30/2017 [...] | + + + | Blood | [facility], CORE [address] | | | [place] [address] | + + + US NEEDLE BIOPSY LYMPH NODE (05/23/2017 2:57 PM) + + + | Specimen | Performing Laboratory | + + + | | [facility] VOICE RECOGNITION | + + + [...] expression and a | | | | CD4:[id number] of 5.3:1. Preliminary findings | | | [...] CD38,CD45, HLA-DR | | | | and [place]-positive ([id number]; | | | | 06/30/2014). Gross | | | | Description:Received is one specimen | | | | labeled with the patient's name (initials | | | | DF) andmedical record #[id number]. A: | | | | Right inguinal [...] | | | | may not be outside medical sales representative of thesubmitted | | | [...] CD8 C | | | | D10 [id number] CD22 CD23 CD25 CD34 CD38 | | | | CD45 [id number] | | | | sKappa sLambda (Analyte | | | | specific reagents are used in many | | | | laboratory tests necessary forstandard | | | | medical care. This test was developed | | | | and its performancecharacteristics | | | | determined by [facility]. It has | | | | not [...] + | Tissue - Lymph node | [facility] DEPARTMENT OF PATHOLOGY [address] | | | [place] [address] | + + + TROPONIN I, PLASMA (05/14/2017 7:45 AM) + +-------+ + | Component | Value | Ref Range | + +-------+ + | TROPONIN I | 0.02 | <0.80 ng/mL | + +-------+ + + + + | Specimen | Performing Laboratory | + + + | Blood | [facility], [facility] [place] [place] [address] | | | [place] [address] | + + + COMPLEMENT ACTIVITY ENZYME [...] ....... | | | | HighPerformed by [facility],[address] | | | | [place] [address] | | | | [phone].Ruangguru, Graham Meza | | | | MD Lab. Director | | | |www.Ruangguru, Graham Meza MD, Lab. Director | | + + + + + + + | Specimen | Performing Laboratory | + + + | Blood | [facility] [address] | | | [place] [address] | + + + C'4 COMPLEMENT, SERUM (05/14/2017 7:45 AM) + +-------+ + | Component | Value | Ref Range | + +-------+ + | C'4 COMPLEMENT SERUM | 40 | 16 - 47 mg/dL | + +-------+ + + + + | Specimen | Performing Laboratory | + + + | Blood | [facility] [address] [place], [place] | | | [address] | + + + IGM, SERUM (05/14/2017 [...] + + | Blood | [facility] [address] [facility], [place] | | | [address] | + + + IGG, SERUM (05/14/2017 [...] + + | Blood | [facility] [address] [facility], [place] | | | [address] | + + + IGA, SERUM (05/14/2017 [...] + + | Blood | [facility] [place] [address] [place], [place] | | | [address] | + + + C'3 COMPLEMENT, SERUM (05/14/2017 7:45 AM) + +-------+ + | Component | Value | Ref Range | + +-------+ + | C'3 COMPLEMENT SERUM | 121 | 88 - 201 mg/dL | + +-------+ + + + + | Specimen | Performing Laboratory | + + + | Blood | [facility] [address] [place], [place] | | | [address] | + + + PHOSPHORUS, PLASMA (05/14/2017 [...] | + + + | Blood | [facility], CORE [address] | | | [place] [address] | + + + URIC ACID, PLASMA [...] | + + + | Blood | [facility], CORE [address] | | | [facility] [address] | + + + RESEARCH TUMOR READING [...] | + + + | Blood | [facility], [facility] [place] [place] [address] | | | [place] [address] | + + + + + | Narrative | + + | New method, new reference range and new reporting units as of 12/16/2013. | + + from Last 3 Months
--- OUTSIDE RECORDS SUMMARY | ~2017-08-01 | XMS | Encounter Summary ---
Demographics + + + | Address | [address] | | | [place] [address] | + + + | Home Phone [...] + + +-------+ ECON | [address] | | [place] | [address] | +------+ + + + +-------+ Care Team Providers + +------+-------+ | Care Penology Professor Name | Role | Phone | [...] | | Diffuse | MD Chad | [facility] [address] | | | | | large B-cell | [address] | | | | | lymphoma, | [address] | Mailcode: | | | | | unspecified | [place], [place] | [address] | | | | | body region | [address] | for Health | | | | | (HCC) | Phone: | and Healing, | | | | | Procedures | [phone] | 3rd Floor | | | | | CT CHEST, | Fax: | [place], [place] | | | | | ABDOMEN AND | [phone] | [address] | | | | | PELVIS W IV | | Phone: | | | | | [place] | | [phone] | | | | | CAT SCAN OF | | Fax: | | | | | CHEST | | [phone] | | | | | [place] | | | | | | | [...] Closed | | Radiology | Diagnoses | [place], | Rad Ct Scan | | | | | Diffuse | MD Chad | [address] | | | | | large B-cell | [address] | | | | | lymphoma, | [address] | Mailcode: | | | | | unspecified | [place], [place] | [facility] | | | | | body region | [address] | for Health | | | | | (HCC) | Phone: | and Healing, | | | | | Procedures | [phone] | 3rd Floor | | | | | CT CHEST, | Fax: | [place], [place] | | | | | ABDOMEN AND | [phone] | [address] | | | | | PELVIS W IV | | Phone: | | | | | [place] | | [phone] | | | | | CAT SCAN OF | | Fax: | | | | | CHEST | | [phone] | | | | | [place] | | | | | | | [...] Closed | | Radiology | Diagnoses | [place], | Rad Ct Scan | | | | | Diffuse | MD Chad | [facility] [address] | | | | | large B-cell | [address] | | | | | lymphoma, | [address] | Mailcode: | | | | | unspecified | [place], [place] | [address] | | | | | body region | [address] | for Health | | | | | (HCC) | Phone: | and Healing, | | | | | Procedures | [phone] | 3rd Floor | | | | | CT CHEST, | Fax: | [place], [place] | | | | | ABDOMEN AND | [phone] | [address] | | | | | PELVIS W IV | | Phone: | | | | | [place] | | [phone] | | | | | CAT SCAN OF | | Fax: | | | | | CHEST | | [phone] | | | | | [place] | | | | | | | [...] | 2017 | Encounter | Services at [facility] | [address] | | | | | [address] | [place], [place] | | | | | [facility] | [address] | | | | | Mailcode: [address] [facility] | [phone] | | | | | [facility], | | | | | | [place] [address] | | | | | | [phone] | | | +--------+ + + + [...] | + + + | | [facility] RADIOLOGY VOICE RECOGNITION | + + + [...]
--- OUTSIDE RECORDS SUMMARY | ~2017-08-01 | XMS | Encounter Summary ---
Demographics + + + | Address | [address] | | | [place] [address] | + + + | Home Phone [...] + + +-------+ ECON | [address] | | [place] | [address] | +------+ + + + +-------+ Care Team Providers + +------+-------+ | Care Land Reclamation Specialist Name | Role | Phone | [...] + + | 05/29/ | Documentati | [facility] | Work, Social | Social Work Notes | | 2017 | on | Hematologic | | | | | | Malignancies at | | | | | | [place] | | | | | | [address] | | | | | | [employer] [facility] | | | | | | Mailcode: UHN73A | | | | | | [address] | | | | | | [place], [place] | | | | | | [address] | | | | | | [phone] | | | +--------+ + + + [...]
--- OUTSIDE RECORDS SUMMARY | ~2017-08-01 | XMS | Encounter Summary ---
Demographics + + + | Address | [address] | | | [place] [address] | + + + | Home Phone [...] + + +-------+ ECON | [address] | | [place] | [address] | +------+ + + + +-------+ Care Team Providers + +------+-------+ | Care Records Assistant Name | Role | Phone | + +------+-------+ | Jamaal Rivera MD | PCP | tel | + +------+-------+ Encounter Details +--------+ + + + + | Date | Type | Department | Care Team | Description | +--------+ + + + + | 05/30/ | Screw Machine Operator Single Spindle | Center for | Chad Lowe, | 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 | [address] | lymphoma of | | | | Malignancies at | [address] [place], [place] | intra-abdominal | | | | [place] | [address] | lymph nodes (HCC) | | | | [address] | [phone] | (Primary Dx) | | | | [address]cha [address] | | | | | | Mailcode: UHN73A | | | | | | [place] | | | | | | [place], [place] | | | | | | [address] | | | | | | [phone] | | | +--------+ + + + [...]
[2017-08-01] MEDS ORDERED: MAGNESIUM400 M1 PO (23:14)
--- NOTE | 2017-08-02 02:33 | NUR ---
0140 - PT ADMITTED TO ROOM 123 VIA STRETCHER FROM ER, DX LLL PNA. PT HAS FACIL SORES AND IS BEING TREATED WITH ACYCLOVIR. PT COOPERATIVE WITH ADMIT ASSESSMENT. C/O R LATERAL CHEST PAIN FROM COUGHING, MOIST, NON PRODUCTIVE COUGH PRESENT, PT ON ROOM AIR. 0210 - DR PETERS NOTIFIED OF PTS C/O, AND THAT HE TAKES ATIVAN FOR ANXIETY AT HOME AND ACYCLOVIR 400MG PO 5X/DAY FOR SORES IN FACE. PT TO REVIEW IN AM. NEW ORDERS RECEIVED FOR NORCO 5/325MG PO 1-2 Q6H PRN PAIN; ALBUTEROL 2.5MG/3ML INHALER Q4H PRN SOB; TESSALON PERLES 100MG PO Q8H/PRN COUGH. PT MEDICATED WITH TESSALON PERLES AND NORCO . PT TOLERATED ABX RECEIVED IN ER. NO C/O ADVERSE REACTION. IN ROOM IN ROOM,
--- NOTE | 2017-08-02 04:18 | NUR ---
PATIENT RESTING IN BED. REPORTS PAIN 3/10 AT REST BUT MUCH HIGHER WHEN HE COUGHS. THE PAIN IS LOCATED IN HIS CHEST AND RADIATES AROUND TO HIS BACK ON BOTH SIDES. PATIENT DENIES BEING SOB AT THIS TIME. APPEARS TO BE COMFORTABLE. DENIES FURTHER NEEDS. CALL LIGHT IN REACH. TELE IN PLACE, SINUS RHYTHM, HR IN THE 80'S.
--- NOTE | 2017-08-02 07:19 | EKG ---
[facility] [address] [place], [place] [address] Signed Sinus tachycardia Otherwise normal ECG When compared with ECG of 14-OCT-2016 19:11, No significant change was found Confirmed by BARRY DINH MD ([id number]) on 08/02/2017 7:19:24 AM Electronically Signed By: BARRY DINH MD 08/02/17 0719 PATIENT NAME: ADELITA WOODSLUKASZ MARIE Electrocardiogram DATE OF : 45 PHYSICIAN: BARRY DINH MD REPORT #: [id number] REPORT IS CONFIDENTIAL AND NOT TO BE RELEASED WITHOUT AUTHORIZATION
--- NOTE | 2017-08-02 07:31 | NUR ---
BEDSIDE HANDOFF REPORT RECEIVED FROM DOG HAIR CLIPPER RN. PT RESTING IN BED. SALINE LOCKED. PT ON ROOM AIR. PT GIVEN MENU TO ORDER BREAKFAST, DENIES OTHER NEEDS AT THIS TIME.
--- NOTE | 2017-08-02 08:00 | NUR ---
PT IS SITTING UP IN CHAIR TALKING WITH DR. DINH. PT IS STILL DECIDING WHAT HE WANTS FOR BREAKFAST.
--- NOTE | 2017-08-02 09:28 | NUR ---
PT IS SRESTING IN BED WITH CALL LIGHT IN REACH. NURSE IS IN ROOM GIVING PT THEIR MORNING MEDS.
--- NOTE | 2017-08-02 09:35 | NUR ---
THIS RN CALLED TO MED/SURG TO ACCESS PORT AND START IVIG. PORT ACCESSED PER PROTOCOL. PT REPORTS NO PROBLEMS WITH PORT OTHER THAN SOME MINOR BLEEDING AFTER DEACCESS. BRISK BLOOD RETURN NOTED WITH FLUSH. IVIG STARTED AT MULTI STEP RATE. DOUBLE CHECKED WITH 2 RNS. RN CARING FOR PT ADVISED TO DO VITALS Q 30 MINUTES DURING RATE INCREASES TO CHECK FOR A REACTION TO MEDICATION.PT REQUESTS A VANILLA MILKSHAKE. ORDER CALLED TO SHARA. PT VISITING WITH AND RESTING IN BED. BED RAILS UP. CALL LIGHT WITHIN REACH.
--- NOTE | 2017-08-02 11:01 | NUR ---
STOPPED BY TO CHECK ON PT AND SONYA. THIS HAS BEEN DIFFICULT FOR BOTH OF THEM. SONYA ADMITTED IN PRAYER EXPRESSING DISTRESS TO GOD-I ENCOURAGED HER TO CONTINUE TO SHARE HER FEELINGS WITH GOD THROUGH PRAYER, HE HAS BROAD SHOULDERS AND CAN TAKE IT. I ALSO REMINDED THEM OF A BIBLE VERSE I HAVE SHARED WITH THEM BEFORE (OBED 4;19). SONYA AND PT REQUESTED PRAYER, CONTINUED TO TRY AND ENCOURAGE THEM. WILL FOLLOW NEEDED
--- NOTE | 2017-08-02 11:08 | NUR ---
IV METOPROLOL GIVEN. PT HR 115 AFTER ADMINISTRATION, BLOOD PRESSURE 126/90 (95).
--- NOTE | 2017-08-02 11:15 | NUR ---
72 YEAR OLD MALE PATIENT OF DR. DINH ADMITTED TO CCU FROM MED-SURG WITH DX OF PNEUMONIA/AFIB RVR. ARRIVEING TO ROOM 130 VIA BED. HOB EVEVATED, HR 144. IS AWAKE AND ALERT. IS WITH PATIENT. PT RECIEVED LOPRESSOR 5 MG WHILE ON MED-SURG. NOW RECIEVING ANOTHER 5 MG IV LOPRESSOR. PATIENT IS W/O SHORTNESS OF BREATH OR CHEST PAIN. HAS OCC NONPRODUCTIVE COUGH. INCREASE PAIN IN LEFT RIB CAGE AREA WITH MOVEMENT/DEEP BREATH. MAG LEVEL 1.2. WILL GIVE MAG 4 MG AND CARDIZEM 15 MG IV FOR RATE CONTROLL.
--- NOTE | 2017-08-02 11:20 | NUR ---
PT TACHYCARDIC, HEART RATE 150'S AT REST. MD NOTIFIED, NEW ORDERS FOR EKG, IV METOPROLOL, AND LABS. PT GIVEN 5 MG IV METOPROLOL, HR 167, BP 116/69(80). PT DENIES CHEST PAIN. EKG COMPLETED. PT TRANSFERED TO CCU, BEDSIDE REPORT GIVEN. SECOND DOSE OF 5 MG IV METOPROLOL FOR HR 145, BP 113/82.
--- NOTE | 2017-08-02 12:18 | NUR ---
MONITOR SHOWS AFIB TO SR WITH FREQ PAC'S.
--- NOTE | 2017-08-02 14:25 | NUR ---
RESTFUL. CARDIZEM GTT REMAINS AT 5 MG/HR. MAG RIDER HAS INFUSED.
--- NOTE | 2017-08-02 15:30 | NUR ---
DR. BOYLE AWARE OF CONVERSION TO NSR AT 1218 AND [facility]. WILL CONTINUE TO MONIOR. PATIENT REMANS AT BEDSIDE.
--- NOTE | 2017-08-02 15:31 | NUR ---
MED REC COMPLETE WITH BIMART REFILL HISTORY AND INTERVIEW WITH PATIENT'S / DITCH WORKER.
--- NOTE | 2017-08-02 15:50 | NUR ---
C/O INCREASED PAIN IN UPPER LEFT SIDE OF BACK. REQUESTING PAIN MEDICATION ANDSOMETHING FOR COUGH.
--- NOTE | 2017-08-02 16:00 | NUR ---
ASSESSMENT DONE. JODI AND JULIANNE PEARLS GIVEN. PATIENT HAS BEEN SITTING UP IN CHAIR OR IN BED. IS AWARE THAT HE NEED TO CALL FOR ASSIST.
--- NOTE | 2017-08-02 18:00 | NUR ---
OOB TO CHAIR FOR DINNER. IS STABLE ON FEET. IS MOVING BETTER.
--- NOTE | 2017-08-02 18:40 | NUR ---
TOOK DINNER WELL. BACK TO BED. CONTINUE WITH INCREASED PAIN WITH COUGH AND MOVEMENT.
--- NOTE | 2017-08-02 19:11 | NUR ---
REMAINS IN NSR. CONTINUE TO HAVE INCREASED PAIN IN UPPER LEFT SIDE OF BACK WITH COUGH OR EXERTION.
--- NOTE | 2017-08-02 20:01 | NUR ---
IN TO ASSESS PT. DENIES NEEDS. FORGETFUL THAT HOSPITAL PHARMACY TO PROVIDE MEDICATIONS, WAS GOING TO CALL TO BRING HOME MEDICATIONS. REMINDED THAT WE WILL DISPENSE MEDICATIONS HERE. PLACED BED ALARM FOR SAFETY. PT CALL LIGHT IN REACH.
--- NOTE | 2017-08-03 00:32 | NUR ---
PT BREATH SOUNDS NOTED TO BE MORE DIMINISHED ON L LOBE. ENCOURAGED PT TO SIT UP AND COUGH. PT RESISTS COUGHING OR DEEP BREATHING DUE TO PAIN. PLACED 2L O2 ON PT FOR SPO2 88-92% ON RA.
--- NOTE | 2017-08-03 06:47 | NUR ---
PT UP IN ROOM AT 0600. REMINDED TO CALL FOR ASSISTANCE WITH URINAL. VOIDED ON FLOOR ACCIDENTLY. BACK TO BED, SEEMS REORIENTED. BED ALARM ON.
--- NOTE | 2017-08-03 09:00 | NUR ---
TOOK BREAKFAST WELL. UP TO BR. SPONGE BATH GIVEN. O2 OFF. IS TALKATIVE. PT IS UNDERSTANDING OF PLAN OF CARE FOR DAY.
--- NOTE | 2017-08-03 12:00 | NUR ---
TELE 8 APPLIED. PATIENT TO BE TRANSFERRED TO MEDICAL FLOOR TODAY.
--- NOTE | 2017-08-03 14:13 | NUR ---
VISITING WITH FAMILY. IS W/O C/O.
--- NOTE | 2017-08-03 15:13 | EKG ---
[facility] [address] [facility] [place] [address] Signed Atrial fibrillation with rapid ventricular response Abnormal ECG When compared with ECG of 01-AUG-2017 22:35, Atrial fibrillation has replaced Sinus rhythm Non-specific change in ST segment in Inferior leads Confirmed by ROJELIO BOYLE MD ([id number]) on 08/03/2017 3:13:24 PM Electronically Signed By: ROJELIO BOYLE MD 08/03/17 1513 PATIENT NAME: KELLaloJESIKA Electrocardiogram DATE OF : 45 PHYSICIAN: ROJELIO BOYLE MD REPORT #: [id number] REPORT IS CONFIDENTIAL AND NOT TO BE RELEASED WITHOUT AUTHORIZATION
--- NOTE | 2017-08-03 16:45 | NUR ---
AMBULATED IN HALLWAY, TOLERATED WELL. FAMILY REMAIN IN ROOM.
--- NOTE | 2017-08-03 17:30 | NUR ---
EDUCATION HANDOUT GIVEN ON CARDIZEM. PATIENT IN W/O C/O.
--- NOTE | 2017-08-04 01:00 | NUR ---
PT NOTED TO BE IN AFIB AT 2310. DR BOYLE CALLED AT 2324 TO UPDATE AND AGAIN AT 0020. HR 110'S-120'S. PT GIVEN 30MG PO CARDIZEM. PT ASYMPTOMATIC AND ASLEEP. DENIES PAIN, SOB. NORCO X2 TABS AND TESSALON PO GIVEN FOR L RIB PAIN WHEN COUGHS.
--- NOTE | 2017-08-04 07:40 | NUR ---
OOB TO CHAIR. UPON GETTING OOB PATIENT WITH BLANK LOOK. THEN QUICKLY RESPONDING APPROP. PATIENT SAID HE WAS TRYING TO HOLD BACK A COUGH, WHEN HE DOES THIS THAT IW WHEN HE DOES THIS. PATIENT DENIES CAMPA, OR CHEST PAIN. C/O SLIGHT PAIN LEFT UPPER BACK. IS STABLE ON FEET. ASSESSMENT DONE, TALKED WITH PT ABOUT PLAN OF CARE FOR DAY, IS UNDERSTANDING.
--- NOTE | 2017-08-04 08:15 | NUR ---
BREAKFAST GIVEN. PT IN CHAIR. HR-114.
--- NOTE | 2017-08-04 08:40 | NUR ---
UP TO BR. HR TO 140 WITH EXERTION. DENIES DIZZINESS OR SHORTNESS OF BREATH,CHEST PAIN.
--- NOTE | 2017-08-04 08:50 | NUR ---
BACK TO BED. DR. BOYLE HERE AND AWARE OF HR. ORDERES RECIEVED TO GIVE LOPRESSOR 5 MG IV, THIS DONE.
--- NOTE | 2017-08-04 09:00 | NUR ---
HR DOWN TO 80. BP-98/59. DR. BOYLE IS AWARE. WILL START LOPRESSOR PO. PT DENEIS PROBLEMS. ROUTINE MEDS GIVEN.
--- NOTE | 2017-08-04 13:00 | NUR ---
TOOK LUNCH WELL. BACK TO BED. DENIES NEED FOR PAIN MEDICATION. REMAINS AT BEDSIDE.
--- NOTE | 2017-08-04 14:45 | NUR ---
AMBULATED FROM ROOM 130 TO 129. HR TO 141, SLIGHT INCREASE SHORTNESS OF BREATH. UPON RETUNN TO ROOM, WITHIN 30 SESONDS HR < 100. RETURN TO BED.
--- NOTE | 2017-08-04 17:21 | NUR ---
SAT AT BEDSIDE TO ATTEMPT TO VOID.
--- NOTE | 2017-08-04 23:38 | NUR ---
PT UP TO CHAIR, C/O OF BACK BEING TIRED.
--- NOTE | 2017-08-05 01:18 | NUR ---
PT BACK TO BED. PLACED O2 ON 2L NC. VOIDED TO URINAL.
--- NOTE | 2017-08-05 07:39 | NUR ---
TOOK VITALS AND PUT O2 BACK ON PT
--- NOTE | 2017-08-05 10:30 | NUR ---
AMBULATED IN HALLWAY, TOLERATED WELL. HR 110-120. IS WITH INCREASED SHORTNESS OF BREATH WITH AMBULATION.
--- NOTE | 2017-08-05 13:00 | NUR ---
TOOK LUNCH WELL. RESTFUL.
--- NOTE | 2017-08-05 13:10 | NUR ---
DR. BOYLE HERE TO SEE PATIENT. ORDERS RECIEVED TO TRANSFER TO MEDICAL FLOOR.
--- NOTE | 2017-08-05 13:25 | NUR ---
MONITOR SHOWS NS WITH PAC'S, PVC'S.
--- NOTE | 2017-08-05 14:05 | NUR ---
PT HAS HAD A NUMBER OF VISITORS THIS MORNING. HIS AND JAXSON ALAN WERE IN WITH PT. STAYED JUST A MOMENT AND HAD PRAYER WITH PT. WILL CONTINUE TO FOLLOW
--- NOTE | 2017-08-05 14:08 | NUR ---
RECEIVED TELEPHONE REPORT FROM ALEX VOGT IN CCU. ROOM 109 TO BE CLEANED BEFORE TRANSFERRING PATIENT. ALL QUESTIONS ANSWERED IN REPORT.
--- NOTE | 2017-08-05 14:14 | NUR ---
REPORT TO MEDICAL FLOOR.
--- NOTE | 2017-08-05 14:50 | NUR ---
HAS OCC PRODUCTIVE COUGH.
--- NOTE | 2017-08-05 15:07 | NUR ---
PT TO ROOM 109 AT 1500 WITH AT BEDSIDE. GUANAKO GETTING VITAL SIGNS NOW. PT WEARING GLASSES. SIDE RAILS UP X2. W[place]DING RING ON LEFT FINGER. ROOM AIR. CALL LIGHT WITHIN REACH.
--- NOTE | 2017-08-05 17:11 | NUR ---
TELE 7 FOR A-FIB. SINUS RHYTHM NOW. STANDBY ASSIST. FORGETFUL AT TIMES "CHEMO BRAIN". 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 ELIQUIS FOR HX OF PULM EMBOLUS. CEFEPIME IV. ACYCLOVIR FOR HERPES LESION ON UPPER LIP. RIGHT HAND IV S/L. JEOVANNY HORTON @ TKO. REGULAR DIET. LE EDEMA. BM TODAY. NORCO FOR PAIN. AT BEDSIDE AND VERY HELPFUL WITH MEDICAL CARE. HX NON-HODGKINS LYMPHOMA-- CHEMOTHERAPY TREATMENT PATIENT WITH DR SHERWOOD.
--- NOTE | 2017-08-05 19:00 | NUR ---
RECEIVED REPORT FROM RN. PATIENT IS RESTING COMFORTABLY IN BED, BREATHING IS EVEN AND UNLABORED. DENIES PAIN AT THIS TIME. NO NEEDS. CALL LIGHT WITHIN REACH.
--- NOTE | 2017-08-05 20:53 | NUR ---
PATIENT RESTING COMFORTABLY IN BED, BREATHING IS EVEN AND UNLABORED. ASSESSMENT DONE, MEDICATIONS GIVEN. REPORTS 6/10 PAIN IN LOWER BACK, ASKING FOR TYLENOL. NO OTHER NEEDS. REFILLED WATER. CALL LIGHT WITHIN REACH.
--- NOTE | 2017-08-05 21:01 | NUR ---
TYLENOL GIVEN FOR 6/10 PAIN IN LOWER BACK. PATIENT STATES "THE TYLENOL SHOULD BE FINE. I DON'T NEED ANYTHING STRONGER." DENIES FURTHER NEEDS. CALL LIGHT WITHIN REACH.
--- NOTE | 2017-08-05 22:00 | NUR ---
PATIENT CALLED STATING "I FEEL LIKE I AM HAVING AN ANXIETY ATTACK." UPON ENTERING ROOM, PATIENT'S BREATHING IS EVEN AND UNLABORED, DOES NOT APPEAR IN DISTRESS, POSITIONING IS CALM. PATIENT STATES "I GOT TO COUGHING AND MY LEGS GOT RESTLESS. SEEMS LIKE IT HAS GONE AWAY NOW. CAN YOU ASK THE ICU AND HAVE THEM LOOK AT MY HEART?" CCU NURSE REVIEWED TELEMETRY, WHICH WAS UNREMARKABLE. INFORMED THE PATIENT THAT TELE WAS UNREMARKABLE AND THAT PATIENT IS TO INFORM NURSE IF HE BEGINS TO FEEL ANXIOUS AGAIN. HE DENIES FEELING ANXIOUS NOW. CALL LIGHT WITHIN REACH.
--- NOTE | 2017-08-05 23:47 | NUR ---
PATIENT RESTING COMFORTABLY IN BED, BREATHING IS EVEN AND UNLABORED. FLACC SCORE OF 0. CALL LIGHT WITHIN REACH.
--- NOTE | 2017-08-06 00:40 | NUR ---
PATIENT RESTING COMFORTABLY IN BED, BREATHING IS EVEN AND UNLABORED. DENIES NEEDS AT THIS TIME. STATES "THAT TYLENOL WAS PERFECT." REPORTS 0/10 PAIN. MEDICATIONS ADMINISTERED. CURRENTLY IN A-FIB, HEART RATE IS 66. CALL LIGHT WITHIN REACH.
--- NOTE | 2017-08-06 03:03 | NUR ---
PATIENT RESTING COMFORTABLY IN BED. HE STATES "I HAVE PAIN IN MY BACK." DENIES NEED FOR PAIN MEDICATION AT THIS TIME. ASSESSMENT DONE, CALL LIGHT WITHIN REACH.
--- NOTE | 2017-08-06 04:51 | NUR ---
PATIENT RESTING COMFORTABLY IN CHAIR, BREATHING IS EVEN AND UNLABORED. CALL LIGHT WITHIN REACH. PATIENT IN SINUS RHYTHM, PULSE IS 63 ON TELE.
--- NOTE | 2017-08-06 04:53 | NUR ---
PATIENT'S NIGHT WAS UNEVENTFUL. HE HAS BEEN RESTING COMFORTABLY IN BED THROUGHOUT SHIFT. VSS, URINE OUTPUT QS. PAIN HAS BEEN WELL CONTROLLED WITH PRN TYLENOL. PATIENT CONTINUES TO GO IN AND OUT OF A-FIB AND NORMAL SINUS ON TELE. LUNGS HAVE EXPIRATORY WHEEZES THROUGHOUT WITH LITTLE IMPROVEMENT FROM NEBS. PATIENT IS SBA. NO ACUTE CHANGES FROM BEGINNING OF SHIFT.
--- NOTE | 2017-08-06 06:29 | NUR ---
PATIENT RESTING COMFORTABLY IN BED, DENIES NEEDS AT THIS TIME. NO PAIN. CALL LIGHT WITHIN REACH.
--- NOTE | 2017-08-06 07:45 | NUR ---
PATIENT SITTING ON EDGE OF BED WAITING ON BREAKFAST. PATIENT STATES THAT HE HAS HAD AM CARE THIS AM. TALKED TO PATIENT ABOUT A SHOWER. HE WOULD LIKE TO WAIT TO SEE WHAT THE PLAN FOR THE DAY IS FIRST. CALL BUTTON IN REACH. NO OTHER NEEDS AT THIS TIME.
--- NOTE | 2017-08-06 08:19 | NUR ---
PT SITTING UP IN RECLINER NOW. ECHOCARDIOGRAM PLANNED FOR TODAY. RECEIVING BREATHING TREATMENT NOW. 99% ON ROOM AIR. 89 HEART RATE. TELE [address] TOOK SCHEDULED MEDS ORDERED. BALDEMAR RAMIREZ TOOK VS PRIOR TO MED ADMINISTRATION. ATE 100% OF BREAKFAST. BEDSIDE REPORT RECEIVED FROM HE VOGT AT 0705. PATIENT AWAKE AND ALERT AT THAT TIME.
--- NOTE | 2017-08-06 09:10 | NUR ---
PATIENT UP AMBULATING IN HALLWAY WITH . LINENS CHANGED. FRESH ICE WATER GIVEN.
--- NOTE | 2017-08-06 10:20 | NUR ---
PT AMBULATED HALLS THIS MORNING WITH AND WORKED WITH PHYSICAL THERAPY. PHYSICAL THERAPIST DISCHARGED PATIENT FROM CARE. PT GETTING ECHOCARDIOGRAM NOW. CEFEPIME INFUSING.
--- NOTE | 2017-08-06 10:24 | NUR ---
PT SITTING ON BED, GETTING PREPPED FOR ECHO. SONYA BY HIS SIDE. SHE MENTIONED THAT SHE CAN GO HOME AND REST WELL BECAUSE SHE KNOWS HE IS BEINGCARED FOR. SONYA SAID THAT ASPECT HELPS HER IMMENSELY IN HER ABILITY TO COPE WITH THE UPS AND DOWNS OF PT'S CARE. WILL CONTINUE TO FOLLOW
--- NOTE | 2017-08-06 10:35 | NUR ---
HEALTH PROMOTION OFFICER NOTIFIED NURSES STATION THAT PT HAD COUGHING THEN APPEARED TO "PASS OUT" PT ASSESSED, PT REPORTS HE FEELS FINE, V/S TAKEN. PRIMARY RN INTO ROOM, SPOUSE AT BEDSIDE. NOTIFIED. NO NEW ORDERS.
--- NOTE | 2017-08-06 10:50 | NUR ---
ENT SURGEON TOOK PATIENT'S VITAL SIGNS. DR. BOYLE IN ROOM TO TALK TO PATIENT AND HIS . NO OTHER NEEDS AT THIS TIME.
[2017-08-06] MEDS ORDERED: METOPROLOL TART50 MG PO (10:59)
[2017-08-06] MEDS ORDERED: DILTIAZEM ER300 MG PO (10:59)
[2017-08-06] MEDS ORDERED: HYDROCODON-ACE1 EA10 PO (11:01)
[2017-08-06] MEDS ORDERED: INVANZ1 GM IV (11:04)
[2017-08-06] MEDS ORDERED: DOXYCYCLINE HY100 MG PO (11:06)
[2017-09-04] MEDS ORDERED: MULTIVITAMINS1 EAC7 PO (08:52)
[2017-09-04] MEDS ORDERED: VENTOLIN HFA18 GM INH (08:54)
[2017-09-04] MEDS ORDERED: LORAZEPAM1 MG PO (08:56)
[2017-10-09] MEDS ORDERED: FUROSEMIDE20 MG PO (11:31)
[2017-10-09] MEDS ORDERED: LEVAQUIN750 MG PO (11:31)
[2017-10-09] MEDS ORDERED: BENZONATATE100 MG PO (11:32)
[2017-10-09] MEDS ORDERED: PROMETHAZINE-D118 ML PO (11:33)
== END 2017-08-06 14:35 | disposition home or self-care (01) | DRG 177 ==
LOC: ED 22:26 → MS 22:28 → CCU 08-02 11:15 → MS 08-05 15:14
PROVIDERS: ADMIT Internal Medicine
DX: J15.5 Pneumonia due to Escherichia coli (principal); D61.810 Antineoplastic chemotherapy induced pancytopenia; J96.00 Acute respiratory failure, unspecified whether with hypoxia or hypercapnia; J91.8 Pleural effusion in other conditions classified elsewhere; E87.1 Hypo-osmolality and hyponatremia; J44.0 Chronic obstructive pulmonary disease with (acute) lower respiratory infection; C83.30 Diffuse large B-cell lymphoma, unspecified site; D80.1 Nonfamilial hypogammaglobulinemia; I48.0 Paroxysmal atrial fibrillation; B00.9 Herpesviral infection, unspecified; E83.42 Hypomagnesemia; E79.0 Hyperuricemia without signs of inflammatory arthritis and tophaceous disease; B95.62 Methicillin resistant Staphylococcus aureus infection as the cause of diseases classified elsewhere; K22.9 Disease of esophagus, unspecified; I10 Essential (primary) hypertension; F17.220 Nicotine dependence, chewing tobacco, uncomplicated
CPT/HCPCS: 71045; 71260; 80048; 80053; 80069; 81001; 82533; 83605; 83615; 83735; 83880; 83930; 83935; 84100; 84439; 84443; 84484; 85025; 85379; 87040; 87070; 87077; 87186; 87205; 93005; 93010; 93306; 94640; 94667; 94762; 97116; 97162; J0456; J0692; J1200; J1335; J1569; J2920; J3010; J3475; J7030; Q9967